=== PATIENT | female | born 1965 | race Caucasian/White ===

== ENCOUNTER 2018-09-05 16:06 | Observation (INO) | payer MEDICAID, SELFPAY ==
[2018-09-05] VITALS (7 sets, daily range): BP systolic 126–167; BP diastolic 70–93; PULSE 78–88; RESP 16; TEMP 36.6–37; O2SAT 94–98; BMI 36.3
[2018-09-05 18:05] LABS: Bacteria 0 SEEN /hpf (None Seen); Mucous, Urine 0 SEEN /hpf (<or=2+); Red Blood Cells-Urine 0 SEEN /hpf (0-5)
[2018-09-05 18:07] LABS: Color, Urine Yellow (Yellow); Glucose, Dipstick Normal (Normal); Ketone-Dipstick Negative (Negative); Leukocyte Esterase-Dipstick 500 /ul (Negative); Nitrite-Dipstick Negative (Negative); Occult Blood-Urine 25 /ul (Negative); Protein-Dipstick 15 mg/dl (Negative); Urine Bilirubin Dipstick Negative (Negative); Urine Clarity Clear (Clear); Urine Urobilinogen Normal (Normal); Urine pH 6.5 (5.0 - 8.0)
[2018-09-05] MEDS: Ondansetron 4 MG/2 ML Vial IV (18:09)
[2018-09-05] MEDS: Dicyclomine 10 MG Capsule 20 MG PO (18:11)
[2018-09-05 18:13] LABS: Squamous Epithelial Cells - UA 0-5 SEEN /hpf (5-10); White Blood Cells 10-25 SEEN /hpf (0-5)
[2018-09-05 18:14] LABS: Absolute Lymphocyte Count 2.38 X10^3/ul (0.83-4.51); Absolute Neutrophil Count 8.4 X10^3/uL (2.0-7.7); Basophil# 0.02 X10^3/uL; Basophil% 0.2 % (0-1); Eosinophil# 0.15 X10^3/uL; Eosinophils% 1.2 % (0-5); Hematocrit 45.8 % (37-47); Hemoglobin 15.2 g/dl (12.0-15.0); Lymphocyte # 2.38 X10^3/ul (4.0); Lymphocyte % 19.5 % (19-41); Mean Corp Hgb Conc 33.2 g/gl (32-36); Mean Corpuscular Hgb 30.3 pg (27.0-32.0); Mean Corpuscular Volume 91.2 fL (81-99); Mean Platelet Vol. 8.4 fl (6.2-12.0); Monocyte# 1.12 X10^3/uL; Monocyte% 9.2 % (0-10); Neutrophil # 8.43 X10^3/uL (2.7-7.7); Neutrophil % 69.1 % (47-70); Platelet Count 396 K/mm3 (150-450); RBC Distribution Width CV 13.8 % (11.6-14.6); RBC Distribution Width SD 45.4 fl (35.1-43.9); Red Blood Count 5.02 M/mm3 (4.2-5.4); White Blood Count 12.2 K/mm3 (4.4-11.0)
[2018-09-05 18:16] LABS: POSITIVE COUNT NO; POSITIVE DIFFERENTIAL NO; POSITIVE MORPHOLOGY NO
[2018-09-05 18:28] LABS: Anion Gap 9 (5-15); BUN 10 mg/dL (7-18); BUN/Creat Ratio 13.2 RATIO (10-20); Calcium,Total 9.3 mg/dL (8.5-10.1); Chloride 105 mmol/L (98-107); Creatinine, Serum 0.76 mg/dL (0.55-1.02); EST Glomerular Filtration Rate 84 mL/min (>60); Est Glom Filt Rate - Afr Amer 102 mL/min (>60); Estimated Creatinine Clearance 66.15 ml/min; Glucose 110 mg/dL (74-106); Potassium 3.3 mmol/L (3.5-5.1); Sodium Level 139 mmol/L (136-145)
--- NOTE | 2018-09-05 19:04 | CT_ITS ---
STUDY: CT ABDOMEN AND PELVIS WITH CONTRAST REASON FOR EXAM: Female, 53 years old. Abdominal pain, leukocytosis RADIATION DOSAGE (If Supplied By Facility): CTDIvol = ( 16.78 ) mGy, DLP = ( 1142.96 ) mGycm TECHNIQUE: Transaxial images were obtained from the lower chest to the upper thighs with oral contrast. 100 ml of Isovue 300 contrast was administered. Sagittal and coronal images were reconstructed. Individualized dose optimization techniques were used for this CT. COMPARISON: April 28, 2017 FINDINGS: Lower chest: Lower lungs: Unremarkable. Pleura: No pleural effusion. Cardiac: Normal size heart. Liver: Normal in appearance. Spleen: Normal in appearance. Gallbladder and biliary system: There are a few punctate hyperdensities in the lumen of the gallbladder. Pancreas: Normal in appearance. Adrenal glands: Normal in appearance. Kidneys and collecting systems: Right: Normal in appearance. No dilatation of collecting system. Left: Scattered benign cysts. No dilatation of collecting system. Gastrointestinal: Stomach: Small hiatal hernia. Small bowel: Normal in appearance. Colon: Normal in appearance. Appendix: Normal in appearance. Axial images 76-80, coronal images 69-75. Vessels: Arterial: Minimal scattered vascular calcifications. Venous: Unremarkable. Retroperitoneum/mesentery: Lymph nodes: Unremarkable. Fluid/free air: None. Pelvis: Bladder: Normal in appearance. Reproductive organs: Uterus normal in appearance. No abnormal masses in the adnexal regions. Scattered phleboliths. Soft tissues: There is herniation of fat above the umbilicus with stranding in the fat. Bones: Mild degenerative changes. There is stable grade 1 spondylolisthesis of L4 on L5. CT/Abdomen/Pelvis WITH Contrast IMPRESSION: There is midline herniation of fat above the umbilicus with the neck measuring 2.5 cm. There is stranding in the fat, and incarceration cannot be excluded. There are no acute bowel abnormalities. There is no ascites or free air. There is no significant lymphadenopathy. There are likely a few small gallstones in the lumen of the gallbladder without evidence of surrounding inflammation. Electronically Signed: Mary Wright MD at 22:20 EST Tel Direct: [phone], Service support ,
--- NOTE | 2018-09-05 22:44 | ED.DCSUM_ITS ---
- ER Visit Summary Date of Service: 09/05/18 Chief Complaint: Acute midline abdominal pain from the pubis to the xiphoid process this started abruptly earlier today History of Present Illness: The patient is a 53 F who presents with severe sharp central abdominal pain from the xiphoid process to the symphysis pubis. This is associated with nausea. Last bowel movement earlier today. She is fluctuating. She states she had similar presentation when diagnosed with strangling hernia and operated on by Dr. Sims. She denies fever, chills night sweats. She denies visual, ocular auditory symptoms. She denies chest pain palpitations. Denies shortness of breath cough or dyspnea on exertion. She denies urologic symptoms. Denies myalgias arthralgias. Denies rash. Denies history of trauma. She denies neurologic symptoms. She is on Plavix denies bruising easily or bleeding problems. Physical Examination: Vital signs noted and normal. She appears uncomfortable. Head is atraumatic normocephalic. Pupils are equal round reactive. Extraocular muscles are intact. TMs are pearly white with landmarks noted. Nares patent with no drainage. Posterior pharynx without erythema or exudate. Uvula is midline. There is no dysphonia or dysphasia. Trachea is midline. There is no stridor with auscultation of the neck. Heart is regular without murmur, gallop or rub. S1 and S2 are normal. Lungs are clear to auscultation with good movement of air bilaterally. Abdomen is remarkable for tenderness throughout however there is greater tenderness inferior and superior the umbilicus. There is no umbilical hernia. Bowel sounds are present and slightly diminished. There is question of voluntary guarding. There is no CVA tenderness noted. Lower extreme exam is unremarkable. Test Results: White count is 12.2 thousand with 69 segs no bands. Potassium 3.3. UA is remarkable for leukoesterase and blood 525 respectively. Micro reveals 10-25 WBCs with no bacteria. Because of the history of hernia central pain nausea and elevated white count a CT of the abdomen was obtained. CT of the abdomen reveals a an incarcerated supraumbilical hernia with fat stranding noted. There apparently is no bile noted. There is no evidence of obstruction either. Emergency Department Course and Treatment: Patient had IV placed medicated for her pain. She reported no improvement. With elevated white count CT was obtained to evaluate for obstruction hernia etc. Treatment Plan: Dr. Rm was paged. I was informed that Dr. Eliza Drake is on-call. She was informed the patient and will see patient. Disposition: To OR Impression: Incarcerated supraumbilical hernia This note was generated with [employer] dictation software. It may contain incorrect words, spelling, and punctuation that were not noted in review of the chart prior to signing ED Disposition - Plan for ED Patient: Chief Complaint: Abd Pain Referrals: Saurabh Hayes DO [Primary Care Provider] -
--- NOTE | 2018-09-05 23:22 | PCM.HP.STD ---
<Eliza Hollis - Last Filed: 09/05/18 23:54> History of Present Illness Date of Admission: 09/05/18 The patient is a 53 year old F presented to the ER due to abdominal pain. Patient states that on Thursday about 4 PM started having lower abdominal pain and throughout the weekend she did continue to have pain and had some bloating along with nausea and was unable to eat much food because she didn't want to vomit. She was able to last eat at around 2-3 PM today some cereal. Patient did have an emergent umbilical hernia repair by Dr. Gao in April 2017 where he repaired it with Prolene and the colon was viable. Patient states she has lost 50 pounds since her last surgery. Patient states that she was just watching TV/cooking when she started to have the lower abdominal pain. Patient did come to the ER due to the pain moving higher in her abdomen along with the nausea. Past Medical History Allergies WAN Inhibitors Allergy (Verified 09/05/18 23:03) Shortness of breath latex Allergy (Verified 09/05/18 23:03) Rash Sulfa (Sulfonamide Antibiotics) Allergy (Verified 09/05/18 23:03) Rash sumatriptan [From Imitrex] Allergy (Verified 09/05/18 23:03) Anaphylaxis hydrocodone bitartrate [From Vicodin] Adverse Reaction (Verified 09/05/18 23:03) Upset Stomach Home Medications: Ambulatory Orders Medication Instructions Recorded Amlodipine Besylate [Norvasc] 10 mg PO DAILY 04/28/17 Cholecalciferol (Vitamin D3) 1,000 unit PO DAILY 04/28/17 [Vitamin D3] Krill/Om-3/Dha/Epa/Phospho/Ast 1 each PO DAILY 04/28/17 [Krill Oil 1,000 mg Softgel] Losartan/Hydrochlorothiazide 1 each PO DAILY 04/28/17 [Losartan-Hctz 100-25 mg Tab] Paroxetine HCl [Paxil] 40 mg PO QHS 04/28/17 Potassium Chloride 20 meq PO DAILY 04/28/17 Tizanidine HCl 4 mg PO QHS 04/28/17 Lorazepam [Ativan] 0.5 mg PO BID 09/05/18 Wellbutrin Xl 150 mg PO DAILY 09/06/18 Surgical History: - - Carpal tunnel bilaterally, D&C, TNA, umbilical hernia repair primary closure Psychiatric History: Anxiety, Depression 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 Lives: With Family Smoking Status: Never smoker Alcohol: Occasional Drugs: None - *Family History Maternal History Items: No pertinent history Review of Systems Constitutional: Denies: Fever Eyes: Denies: Blurred vision HEENT: Denies: Difficulty Swallowing Cardiovascular: Denies: Chest Pain Respiratory: Denies: Shortness of breath at rest Gastrointestinal: Reports: Abdominal Pain, Nausea Genitourinary: Denies: Dysuria Psychiatric: Reports: Depression - Controlled medication VTE Information - Inpt Only VTE Present on Admission: Yes VTE Mechan Device Prophylaxis: SCD's VTE Pharm Prophylaxis ordered?: No Reason prophylaxis not ordered:: Treatment Not Indicated - Physical Exam General: Alert, Oriented x3, Cooperative, No apparent distress HEENT: Atraumatic Lungs: Normal air movement Cardiovascular: Regular rate Abdomen: Soft, Non-Distended, Tender - +supraumb bulge, not reducible, +ttp, mild+ttp upper abd, no PS Extremities: No clubbing, No cyanosis, No edema Neurological: Cranial nerves II-XII grossly intact Psych/Mental Status: Normal Affect Vital Signs Temp Pulse Resp BP Pulse Ox 98.4 F 82 16 167/85 H 95 09/05/18 23:00 09/05/18 23:00 09/05/18 23:00 09/05/18 23:00 09/05/18 23:00 Oxygen Delivery Method Room Air Weight: 198 lb 13.711 oz Body Mass Index (BMI) 36.3 Finger Stick Blood Glucose 138 Laboratory Tests Past 24 Hrs 09/05/18 09/05/18 09/05/18 18:03 18:10 18:10 WBC 12.2 H RBC 5.02 Hgb 15.2 H Hct 45.8 MCV 91.2 MCH 30.3 MCHC 33.2 RDW 13.8 RDW Differential 45.4 H Plt Count 396 MPV 8.4 Immature Gran % (Auto) 0.800 Neut % (Auto) 69.1 Lymph % (Auto) 19.5 [place] % (Auto) 9.2 Eos % (Auto) 1.2 Baso % (Auto) 0.2 Absolute Neuts (auto) 8.4 H Absolute Lymphs (auto) 2.38 Total Counted Not Reportable Sodium 139 Potassium 3.3 L Chloride 105 Carbon Dioxide 25.0 Anion Gap 9 BUN 10 Creatinine 0.76 Estim Creat Clear Calc 66.15 Est GFR (MDRD) Af Amer 102 Est GFR (MDRD) Non-Af 84 BUN/Creatinine Ratio 13.2 Glucose 110 H Calcium 9.3 Urine Color Yellow Urine Clarity Clear Urine pH 6.5 Ur Specific [place] 1.010 Urine Protein 15 H Urine Glucose (UA) Normal Urine Ketones Negative Urine Occult Blood 25 H Urine Nitrite Negative Urine Bilirubin Negative Urine Urobilinogen Normal Ur Leukocyte Esterase 500 H Urine RBC 0 SEEN Urine WBC 10-25 SEEN Ur Squamous Epith Cells 0-5 SEEN Urine Bacteria 0 SEEN Urine Mucus 0 SEEN Assessment/Plan All Active Problems Strangulated ventral hernia (Acute) 53-year-old female with a recurrent incisional hernia with incarcerated fat 1. We will keep patient n.p.o./IV fluids meds with sips. Dr. Rm will evaluate in the a.m. 2. Pain control with IV pain meds 3. Antiemetics Eliza Hollis M.D. Pager: [phone] [facility] [address] [place] [address], [facility], [address] [place] [address] Office: [phone] <Kristen Rm - Last Filed: 09/06/18 07:35> History of Present Illness The patient is a 53 year old F [] Past Medical History Allergies WAN Inhibitors Allergy (Verified 09/06/18 00:20) worsened asthma latex Allergy (Verified 09/05/18 23:03) Rash Sulfa (Sulfonamide Antibiotics) Allergy (Verified 09/05/18 23:03) Rash sumatriptan [From Imitrex] Allergy (Verified 09/05/18 23:03) Anaphylaxis hydrocodone bitartrate [From Vicodin] Adverse Reaction (Verified 09/05/18 23:03) Upset Stomach - Physical Exam Vital Signs Temp Pulse Resp BP Pulse Ox 98.3 F 66 18 107/64 98 09/06/18 04:15 09/06/18 04:15 09/06/18 04:15 09/06/18 04:15 09/06/18 04:15 Oxygen Delivery Method Room Air Weight: 88.5 kg Body Mass Index (BMI) 35.6 Finger Stick Blood Glucose 138 Laboratory Tests Past 24 Hrs 09/05/18 09/05/1809/05/18 18:03 18:10 18:10 WBC 12.2 H RBC 5.02 Hgb 15.2 H Hct 45.8 MCV 91.2 MCH 30.3 MCHC 33.2 RDW 13.8 RDW Differential 45.4 H Plt Count 396 MPV 8.4 Immature Gran % (Auto) 0.800 Neut % (Auto) 69.1 Lymph % (Auto) 19.5 [place] % (Auto) 9.2 Eos % (Auto) 1.2 Baso % (Auto) 0.2 Absolute Neuts (auto) 8.4 H Absolute Lymphs (auto) 2.38 Total Counted Not Reportable Sodium 139 Potassium 3.3 L Chloride 105 Carbon Dioxide 25.0 Anion Gap 9 BUN 10 Creatinine 0.76 Estim Creat Clear Calc 66.15 Est GFR (MDRD) Af Amer 102 Est GFR (MDRD) Non-Af 84 BUN/Creatinine Ratio 13.2 Glucose 110 H Hemoglobin A1c Calcium 9.3 Urine Color Yellow Urine Clarity Clear Urine pH 6.5 Ur Specific [place] 1.010 Urine Protein 15 H Urine Glucose (UA) Normal Urine Ketones Negative Urine Occult Blood 25 H Urine Nitrite Negative Urine Bilirubin Negative Urine Urobilinogen Normal Ur Leukocyte Esterase 500 H Urine RBC 0 SEEN Urine WBC 10-25 SEEN Ur Squamous Epith Cells 0-5 SEEN Urine Bacteria 0 SEEN Urine Mucus 0 SEEN 09/06/18 09/06/18 09/06/18 05:24 05:24 05:24 WBC 9.4 RBC 4.32 Hgb 13.1 Hct 40.1 MCV 92.8 MCH 30.3 MCHC 32.7 RDW 14.0 RDW Differential 46.1 H Plt Count 359 MPV 8.7 Immature Gran % (Auto) 0.900 Neut % (Auto) 55.0 Lymph % (Auto) 32.8 [place] % (Auto) 9.2 Eos % (Auto) 1.8 Baso % (Auto) 0.3 Absolute Neuts (auto) 5.2 Absolute Lymphs (auto) 3.09 Total Counted Not Reportable Sodium 143 Potassium 3.4 L Chloride 107 Carbon Dioxide 26.0 Anion Gap 10 BUN 9 Creatinine 0.83 Estim Creat Clear Calc 60.57 Est GFR (MDRD) Af Amer 92 Est GFR (MDRD) Non-Af 76 BUN/Creatinine Ratio 10.8 Glucose 97 Hemoglobin A1c Pending Calcium 8.6 Urine Color Urine Clarity Urine pH Ur Specific [place] Urine Protein Urine Glucose (UA) Urine Ketones Urine Occult Blood Urine Nitrite Urine Bilirubin Urine Urobilinogen Ur Leukocyte Esterase Urine RBC Urine WBC Ur Squamous Epith Cells Urine Bacteria Urine Mucus Assessment/Plan Appreciate Dr. Hollis's evaluation as above. In summary, 53 y/o WF presents with recurrence of ventral hernia with incarceration, no GI obstruction noted. I will plan ventral hernia repair later today. I have counseled patient as to risks of the procedure, including but not limited to: infection, bleeding, injury to any blood vessels/nerves, injury to any bowel/bladder, injury to any intraabdominal organs, intraabdominal abscess/bleeding, scar tissue, recurrence of hernia, complications of anesthesia, etc. - she understands. She wishes to proceed.
--- NOTE | 2018-09-05 23:26 | HP.PCM_ITS ---
Addendum entered and electronically signed by Kristen Rm MD 09/06/18 07:36: Code Visit Discussed with patient as above. I have answered all her questions and she has no further questions. Most importantly, she would be at risk for recurrence of hernia, given her obesity, she understands. Original Note: <Eliza Hollis - Last Filed: 09/05/18 23:54> History of Present Illness Date of Admission: 09/05/18 The patient is a 53 year old F presented to the ER due to abdominal pain. Patient states that on Thursday about 4 PM started having lower abdominal pain and throughout the weekend she did continue to have pain and had some bloating along with nausea and was unable to eat much food because she didn't want to vomit. She was able to last eat at around 2-3 PM today some cereal. Patient did have an emergent umbilical hernia repair by Dr. Gao in April 2017 where he repaired it with Prolene and the colon was viable. Patient states she has lost 50 pounds since her last surgery. Patient states that she was just watching TV/cooking when she started to have the lower abdominal pain. Patient did come to the ER due to the pain moving higher in her abdomen along with the nausea. Past Medical History Allergies WAN Inhibitors Allergy (Verified 09/05/18 23:03) Shortness of breath latex Allergy (Verified 09/05/18 23:03) Rash Sulfa (Sulfonamide Antibiotics) Allergy (Verified 09/05/18 23:03) Rash sumatriptan [From Imitrex] Allergy (Verified 09/05/18 23:03) Anaphylaxis hydrocodone bitartrate [From Vicodin] Adverse Reaction (Verified 09/05/18 23:03) Upset Stomach Home Medications: Ambulatory Orders Medication Instructions Recorded Amlodipine Besylate [Norvasc] 10 mg PO DAILY 04/28/17 Cholecalciferol (Vitamin D3) 1,000 unit PO DAILY 04/28/17 [Vitamin D3] Krill/Om-3/Dha/Epa/Phospho/Ast 1 each PO DAILY 04/28/17 [Krill Oil 1,000 mg Softgel] Losartan/Hydrochlorothiazide 1 each PO DAILY 04/28/17 [Losartan-Hctz 100-25 mg Tab] Paroxetine HCl [Paxil] 40 mg PO QHS 04/28/17 Potassium Chloride 20 meq PO DAILY 04/28/17 Tizanidine HCl 4 mg PO QHS 04/28/17 Lorazepam [Ativan] 0.5 mg PO BID 09/05/18 Wellbutrin Xl 150 mg PO DAILY 09/06/18 Surgical History: - - Carpal tunnel bilaterally, D&C, TNA, umbilical hernia repair primary closure Psychiatric History: Anxiety, Depression 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 Lives: With Family Smoking Status: Never smoker Alcohol: Occasional Drugs: None - *Family History Maternal History Items: No pertinent history Review of Systems Constitutional: Denies: Fever Eyes: Denies: Blurred vision HEENT: Denies: Difficulty Swallowing Cardiovascular: Denies: Chest Pain Respiratory: Denies: Shortness of breath at rest Gastrointestinal: Reports: Abdominal Pain, Nausea Genitourinary: Denies: Dysuria Psychiatric: Reports: Depression - Controlled medication VTE Information - Inpt Only VTE Present on Admission: Yes VTE Mechan Device Prophylaxis: SCD's VTE Pharm Prophylaxis ordered?: No Reason prophylaxis not ordered:: Treatment Not Indicated - Physical Exam General: Alert, Oriented x3, Cooperative, No apparent distress HEENT: Atraumatic Lungs: Normal air movement Cardiovascular: Regular rate Abdomen: Soft, Non-Distended, Tender - +supraumb bulge, not reducible, +ttp, mild+ttp upper abd, no PS Extremities: No clubbing, No cyanosis, No edema Neurological: Cranial nerves II-XII grossly intact Psych/Mental Status: Normal Affect Vital Signs Temp Pulse Resp BP Pulse Ox 98.4 F 82 16 167/85 H 95 09/05/18 23:00 09/05/18 23:00 09/05/18 23:00 09/05/18 23:00 09/05/18 23:00 Oxygen Delivery Method Room Air Weight: 198 lb 13.711 oz Body Mass Index (BMI) 36.3 Finger Stick Blood Glucose 138 Laboratory Tests Past 24 Hrs 09/05/18 09/05/18 09/05/18 18:03 18:10 18:10 WBC 12.2 H RBC 5.02 Hgb 15.2 H Hct 45.8 MCV 91.2 MCH 30.3 MCHC 33.2 RDW 13.8 RDW Differential 45.4 H Plt Count 396 MPV 8.4 Immature Gran % (Auto) 0.800 Neut % (Auto) 69.1 Lymph % (Auto) 19.5 [place] % (Auto) 9.2 Eos % (Auto) 1.2 Baso % (Auto) 0.2 Absolute Neuts (auto) 8.4 H Absolute Lymphs (auto) 2.38 Total Counted Not Reportable Sodium 139 Potassium 3.3 L Chloride 105 Carbon Dioxide 25.0 Anion Gap 9 BUN 10 Creatinine 0.76 Estim Creat Clear Calc 66.15 Est GFR (MDRD) Af Amer 102 Est GFR (MDRD) Non-Af 84 BUN/Creatinine Ratio 13.2 Glucose 110 H Calcium 9.3 Urine Color Yellow Urine Clarity Clear Urine pH 6.5 Ur Specific [place] 1.010 Urine Protein 15 H Urine Glucose (UA) Normal Urine Ketones Negative Urine Occult Blood 25 H Urine Nitrite Negative Urine Bilirubin Negative Urine Urobilinogen Normal Ur Leukocyte Esterase 500 H Urine RBC 0 SEEN Urine WBC 10-25 SEEN Ur Squamous Epith Cells 0-5 SEEN Urine Bacteria 0 SEEN Urine Mucus 0 SEEN Assessment/Plan All Active Problems Strangulated ventral hernia (Acute) 53-year-old female with a recurrent incisional hernia with incarcerated fat 1. We will keep patient n.p.o./IV fluids meds with sips. Dr. Rm will evaluate in the a.m. 2. Pain control with IV pain meds 3. Antiemetics Eliza Hollis M.D. Pager: [phone] [facility] [address] [place] [address], [facility], [address] [place] [address] Office: [phone] <Kristen Rm - Last Filed: 09/06/18 07:35> History of Present Illness The patient is a 53 year old F [] Past Medical History Allergies WAN Inhibitors Allergy (Verified 09/06/18 00:20) worsened asthma latex Allergy (Verified 09/05/18 23:03) Rash Sulfa (Sulfonamide Antibiotics) Allergy (Verified 09/05/18 23:03) Rash sumatriptan [From Imitrex] Allergy (Verified 09/05/18 23:03) Anaphylaxis hydrocodone bitartrate [From Vicodin] Adverse Reaction (Verified 09/05/18 23:03) Upset Stomach - Physical Exam Vital Signs Temp Pulse Resp BP Pulse Ox 98.3 F 66 18 107/64 98 09/06/18 04:15 09/06/18 04:15 09/06/18 04:15 09/06/18 04:15 09/06/18 04:15 Oxygen Delivery Method Room Air Weight: 88.5 kg Body Mass Index (BMI) 35.6 Finger Stick Blood Glucose 138 Laboratory Tests Past 24 Hrs 09/05/18 09/05/18 09/05/18 18:03 18:10 18:10 WBC 12.2 H RBC 5.02 Hgb 15.2 H Hct 45.8 MCV 91.2 MCH 30.3 MCHC 33.2 RDW 13.8 RDW Differential 45.4 H Plt Count 396 MPV 8.4 Immature Gran % (Auto) 0.800 Neut % (Auto) 69.1 Lymph % (Auto) 19.5 [place] % (Auto) 9.2 Eos % (Auto) 1.2 Baso % (Auto) 0.2 Absolute Neuts (auto) 8.4 H Absolute Lymphs (auto) 2.38 Total Counted Not Reportable Sodium 139 Potassium 3.3 L Chloride 105 Carbon Dioxide 25.0 Anion Gap 9 BUN 10 Creatinine 0.76 Estim Creat Clear Calc 66.15 Est GFR (MDRD) Af Amer 102 Est GFR (MDRD) Non-Af 84 BUN/Creatinine Ratio 13.2 Glucose 110 H Hemoglobin A1c Calcium 9.3 Urine Color Yellow Urine Clarity Clear Urine pH 6.5 Ur Specific [place] 1.010 Urine Protein 15 H Urine Glucose (UA) Normal Urine Ketones Negative Urine Occult Blood 25 H Urine Nitrite Negative Urine Bilirubin Negative Urine Urobilinogen Normal Ur Leukocyte Esterase 500 H Urine RBC 0 SEEN Urine WBC 10-25 SEEN Ur Squamous Epith Cells 0-5 SEEN Urine Bacteria 0 SEEN Urine Mucus 0 SEEN 09/06/18 09/06/18 09/06/18 05:24 05:24 05:24 WBC 9.4 RBC 4.32 Hgb 13.1 Hct 40.1 MCV 92.8 MCH 30.3 MCHC 32.7 RDW 14.0 RDW Differential 46.1 H Plt Count 359 MPV 8.7 Immature Gran % (Auto) 0.900 Neut % (Auto) 55.0 Lymph % (Auto) 32.8 [place] % (Auto) 9.2 Eos % (Auto) 1.8 Baso % (Auto) 0.3 Absolute Neuts (auto) 5.2 Absolute Lymphs (auto) 3.09 Total Counted Not Reportable Sodium 143 Potassium 3.4 L Chloride 107 Carbon Dioxide 26.0 Anion Gap 10 BUN 9 Creatinine 0.83 Estim Creat Clear Calc 60.57 Est GFR (MDRD) Af Amer 92 Est GFR (MDRD) Non-Af 76 BUN/Creatinine Ratio 10.8 Glucose 97 Hemoglobin A1c Pending Calcium 8.6 Urine Color Urine Clarity Urine pH Ur Specific [place] Urine Protein Urine Glucose (UA) Urine Ketones Urine Occult Blood Urine Nitrite Urine Bilirubin Urine Urobilinogen Ur Leukocyte Esterase Urine RBC Urine WBC Ur Squamous Epith Cells Urine Bacteria Urine Mucus Assessment/Plan Appreciate Dr. Hollis's evaluation as above. In summary, 53 y/o WF presents with recurrence of ventral hernia with incarceration, no GI obstruction noted. I will plan ventral hernia repair later today. I have counseled patient as to risks of the procedure, including but not limited to: infection, bleeding, injury to any blood vessels/nerves, injury to any bowel/bladder, injury to any intraabdominal organs, intraabdominal absces s/bleeding, scar tissue, recurrence of hernia, complications of anesthesia, etc. - she understands. She wishes to proceed.
[2018-09-06] VITALS (12 sets, daily range): BP systolic 98–138; BP diastolic 51–79; PULSE 61–90; RESP 16–18; TEMP 36.7–37.2; O2SAT 92–98; BMI 35.6; BMI 35.7
[2018-09-06] MEDS: Lactated Ringers 1,000 ML 125 ML IV ×3 (00:14→16:30)
[2018-09-06] MEDS: tiZANidine HCl 2 MG Tablet 4 MG PO ×2 (00:54→21:36)
[2018-09-06] MEDS: Morphine 2 MG/ML Syringe IV ×2 (01:04→08:22)
[2018-09-06 05:53] LABS: Absolute Lymphocyte Count 3.09 X10^3/ul (0.83-4.51); Absolute Neutrophil Count 5.2 X10^3/uL (2.0-7.7); Basophil# 0.03 X10^3/uL; Basophil% 0.3 % (0-1); Eosinophil# 0.17 X10^3/uL; Eosinophils% 1.8 % (0-5); Hematocrit 40.1 % (37-47); Hemoglobin 13.1 g/dl (12.0-15.0); Lymphocyte # 3.09 X10^3/ul (4.0); Lymphocyte % 32.8 % (19-41); Mean Corp Hgb Conc 32.7 g/gl (32-36); Mean Corpuscular Hgb 30.3 pg (27.0-32.0); Mean Corpuscular Volume 92.8 fL (81-99); Mean Platelet Vol. 8.7 fl (6.2-12.0); Monocyte# 0.87 X10^3/uL; Monocyte% 9.2 % (0-10); Neutrophil # 5.17 X10^3/uL (2.7-7.7); Platelet Count 359 K/mm3 (150-450); RBC Distribution Width SD 46.1 fl (35.1-43.9); Red Blood Count 4.32 M/mm3 (4.2-5.4); White Blood Count 9.4 K/mm3 (4.4-11.0)
[2018-09-06 05:56] LABS: Anion Gap 10 (5-15); BUN 9 mg/dL (7-18); BUN/Creat Ratio 10.8 RATIO (10-20); Calcium,Total 8.6 mg/dL (8.5-10.1); Chloride 107 mmol/L (98-107); Creatinine, Serum 0.83 mg/dL (0.55-1.02); EST Glomerular Filtration Rate 76 mL/min (>60); Est Glom Filt Rate - Afr Amer 92 mL/min (>60); Estimated Creatinine Clearance 60.57 ml/min; Glucose 97 mg/dL (74-106); Potassium 3.4 mmol/L (3.5-5.1); Sodium Level 143 mmol/L (136-145)
[2018-09-06 06:05] LABS: POSITIVE COUNT NO; POSITIVE DIFFERENTIAL NO; POSITIVE MORPHOLOGY NO
[2018-09-06] MEDS: LORazepam 0.5 MG Tablet PO ×2 (08:19→21:36)
[2018-09-06] MEDS: buPROPion (XL) 150 MG TABLET.XL PO (08:20)
[2018-09-06] MEDS: hydroCHLOROthiazide 25 MG Tablet PO (08:20)
[2018-09-06] MEDS: Losartan Potassium 100 MG Tablet PO (08:20)
[2018-09-06] MEDS: amLODIPine 10 MG Tablet PO (08:20)
[2018-09-06 08:34] LABS: Hemoglobin A1c 5.7 % (4.2-6.3)
--- NOTE | 2018-09-06 08:40 | HERN_PTH ---
PATIENT: KENNEDI PENG LOC: MS3 U#:[id number] AGE/SX: 53/F ROOM: NM313 RE09/05/[address]: Dr. Kristen Rm MD : 1965 BED: 1 DIS: 09/07/2018 SPEC #: [id number] RECD: 09/08/18 09:25 STATUS: MAISHA RENicci #: [id number] MAIRA: 09/06/18 08:[address]: Kristen Rm DEPT: SURGICAL PATHOLOGY RECD BY: Irving Perez ENTERED: 09/08/18 10:21 SP TYPE: Hernia OTHR DR: Dr. Saurabh Hayes, Tissues: HERNIA Procedures: Surgery Specimen Level II HEADER OPERATION: Recurrent incarcerated ventral herniorrhaphy PRE-OP DIAGNOSIS: Recurrent incarcerated ventral hernia TISSUE SUBMITTED: Ventral hernia sac and contents MICROSCOPIC DIAGNOSIS Soft tissue of ventral abdomen, excision: Fragments of fibrofatty tissue with mild chronic inflammation and vascular ectasia consistent with hernia sac and contents. AM:ruddy 09/09/18 MICROSCOPIC DESCRIPTION Slides are reviewed. GROSS DESCRIPTION Received in fixative is one container labeled with the patient's name and designated ventral hernia sac and contents. The specimen consists of two fragments of yellow adipose tissue that in aggregate measure 7 x 5.5 x 2.5 cm. Multiple sutures are also noted. Sections do not reveal any mass lesion. Food Court Team Member sections are submitted in one cassette. / SJ:ruddy 09/08/18 TC:5 CPT: 70539
[2018-09-06] MEDS: Morphine 4 MG/ML Syringe IV (11:00)
[2018-09-06] MEDS: Cefazolin 2 GM in 0.9% Normal Saline 100 ML IV (14:16)
--- NOTE | 2018-09-06 15:03 | OP.PN_ITS ---
Immediate Post-Op Note Date of Procedure: 09/06/18 Primary Surgeon/Physician: Kristen Rm MD word processing specialist: Faustina Castellano Pre-Operative Diagnosis: incarcerated incisional ventral hernia Post-Operative Diagnosis: same Surgery/Procedure Performed:: repair of incarcerated recurrent ventral hernia Description of Surgical Findings:: supraumbilical fascial defect with incarcerated and gangrenous omentum, fascial defect closed transversely Estimated Blood Loss: 10 ml Specimen's removed: gangrenous appearing omentum Type of Anesthesia:: General ASA Class: ASA3 Severe Disease - Admit VTE Documentation VTE Present on Admission: Yes VTE Mechan Device Prophylaxis: SCD's
--- NOTE | 2018-09-06 15:11 | OP.PCM_ITS ---
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 Appropriate time out protocol was followed. The patient was then placed under anesthesia. The abdomen was then prepped with a sterile surgical skin preparation. Sterile surgical drapes were placed. This skin and subcutaneous tissues were then widely infiltrated with the local anesthetic. A skin incision was then made with a 10 blade scalpel over the hernia site in a midline fashion extending the previous incision several centimeters superiorly. Electrocautery was used to carry the incision down to the fascia. Any hemorrhage was adequately controlled with electrocautery. Blunt dissection was done to separate the subcutaneous tissues from the herniated tissues. The patient had a large amount of subcutaneous fatty tissues. Blunt dissection was done to free the fatty tissues from the hernia sac. Then sharp dissection was continued to delineate the fascial defect. The fascial defect was 4 cm in maximum dimension. The fascial edges were from the sac and the subcutaneous fatty tissues. The sac was opened. It contained gangrenous-appearing omental tissue. This tissue was transected and forwarded to pathology. The excess hernia sac was also transected and forwarded to pathology. Hemostasis was carefully checked with electrocautery. There was no evidence of compromised bowel. Palpation from the defect of the anterior abdominal wall, revealed no further fascial defects. The fascial edges were reapproximated with interrupted figure of 8 #1 prolene sutures closing the fascial defect transversely. The wound was carefully checked for bleeding and there was no active bleeding. The deep tissues were reapproximated along the midline with interrupted 2-0 vicryl suture. The subdermal tissues were reapproximated with running 3-0 vicryl suture. The skin was reapproximated with running subcuticular 4-0 monocryl. Steristrips and Cavilon were placed to reinforce the skin closure. Sterile dressing was applied. Abdominal wall binder was also placed. The patient was brought from to the Recovery Room in stable condition. - Complications none noted - Admit VTE Documentation VTE Present on Admission: Yes VTE Mechan Device Prophylaxis: SCD's
[2018-09-06 15:51] LABS: Bedside Glucose 111 mg/dL (70-110)
[2018-09-06] MEDS: oxyCODONE 5 MG Tablet PO ×2 (17:37→21:36)
[2018-09-07] MEDS: Lactated Ringers 1,000 ML 125 ML IV ×2 (00:04→07:54)
[2018-09-07 03:29] VITALS: BP 119/60; PULSE 60; RESP 18; TEMP 36.7; O2SAT 98
[2018-09-07] MEDS: oxyCODONE 5 MG Tablet PO ×2 (03:58→11:14)
[2018-09-07] MEDS: Morphine 2 MG/ML Syringe IV (04:48)
--- NOTE | 2018-09-07 10:53 | PCM.DC.HER ---
Discharge Diet: No Restrictions - drink plenty of water Discharge Activity: Return to Normal Activity, May not drive while taking narcotic pain medications. Lifting Restrictions: no lifting greater than 20 pounds for 2 months Call your doctor if your incision/area has: Continuous Slow Oozing, Foul Smelling Discharge Call your doctor if you observe: Fever of 101 or Higher Additional Dressing/Incision Instructions:: Leave dressing in place. May get wet in shower. Do not soak - no tub baths/swimming. May remove/adjust abdominal binder as tolerated for comfort Additional Instructions: Pain medication regimen (if tolerates acetaminophen and ibuprofen) - for round the clock control of pain - can take 650 mg of acetaminophen then in three hours take 600 mg of ibuprofen then in three hours take 650 mg of acetaminophen, and so on. Take oxyir for breakthrough pain and at night Ice packs to the incision site may also help for comfort Allergies/Adverse Reactions: Allergies WAN Inhibitors Allergy (Verified 09/06/18 00:20) worsened asthma latex Allergy (Verified 09/05/18 23:03) Rash Sulfa (Sulfonamide Antibiotics) Allergy (Verified 09/05/18 23:03) Rash sumatriptan [From Imitrex] Allergy (Verified 09/05/18 23:03) Anaphylaxis hydrocodone bitartrate [From Vicodin] Adverse Reaction (Verified 09/05/18 23:03) Upset Stomach Medications to take at Discharge Amlodipine Besylate [Norvasc] 10 mg PO DAILY 04/28/17 Cholecalciferol (Vitamin D3) [Vitamin D3] 1,000 unit PO DAILY 04/28/17 Krill/Om-3/Dha/Epa/Phospho/Ast [Krill Oil 1,000 mg Softgel] 1 each PO DAILY 04/28/17 Losartan/Hydrochlorothiazide [Losartan-Hctz 100-25 mg Tab] 1 each PO DAILY 04/28/17 Paroxetine HCl [Paxil] 40 mg PO QHS 04/28/17 Potassium Chloride 20 meq PO DAILY 04/28/17 Tizanidine HCl 4 mg PO QHS 04/28/17 Lorazepam [Ativan] 0.5 mg PO BID 09/05/18 Wellbutrin Xl 150 mg PO DAILY 09/06/18 Oxycodone [Oxyir] 5 mg PO Q6H PRN PRN 5 Days #20 tab 09/07/18 The following prescriptions were given: Oxycodone [Oxyir] 5 mg PO Q6H PRN PRN 5 Days #20 tab PRN Reason: Mod-Severe Pain (-06/16) Primary Care Physician: Saurabh Hayes DO [Primary Care Provider] - Test Results: Test results from this visit will be discussed in further detail at your follow-up appointment, if applicable. Please Follow Up With: Kristen Rm MD - reyes When: to be seen in 7-10 days, please call for date and time, thank you Proposed Discharge Date: 09/07/18
--- NOTE | 2018-09-07 10:57 | DCINST_ITS ---
Discharge Diet: No Restrictions - drink plenty of water Discharge Activity: Return to Normal Activity, May not drive while taking narcotic pain medications. Lifting Restrictions: no lifting greater than 20 pounds for 2 months Call your doctor if your incision/area has: Continuous Slow Oozing, Foul Smelling Discharge Call your doctor if you observe: Fever of 101 or Higher Additional Dressing/Incision Instructions:: Leave dressing in place. May get wet in shower. Do not soak - no tub baths/swimming. May remove/adjust abdominal binder as tolerated for comfort Additional Instructions: Pain medication regimen (if tolerates acetaminophen and ibuprofen) - for round the clock control of pain - can take 650 mg of acetaminophen then in three hours take 600 mg of ibuprofen then in three hours take 650 mg of acetaminophen, and so on. Take oxyir for breakthrough pain and at night Ice packs to the incision site may also help for comfort Allergies/Adverse Reactions: Allergies WAN Inhibitors Allergy (Verified 09/06/18 00:20) worsened asthma latex Allergy (Verified 09/05/18 23:03) Rash Sulfa (Sulfonamide Antibiotics) Allergy (Verified 09/05/18 23:03) Rash sumatriptan [From Imitrex] Allergy (Verified 09/05/18 23:03) Anaphylaxis hydrocodone bitartrate [From Vicodin] Adverse Reaction (Verified 09/05/18 23:03) Upset Stomach Medications to take at Discharge Amlodipine Besylate [Norvasc] 10 mg PO DAILY 04/28/17 Cholecalciferol (Vitamin D3) [Vitamin D3] 1,000 unit PO DAILY 04/28/17 Krill/Om-3/Dha/Epa/Phospho/Ast [Krill Oil 1,000 mg Softgel] 1 each PO DAILY 04/28/17 Losartan/Hydrochlorothiazide [Losartan-Hctz 100-25 mg Tab] 1 each PO DAILY 04/28/17 Paroxetine HCl [Paxil] 40 mg PO QHS 04/28/17 Potassium Chloride 20 meq PO DAILY 04/28/17 Tizanidine HCl 4 mg PO QHS 04/28/17 Lorazepam [Ativan] 0.5 mg PO BID 09/05/18 Wellbutrin Xl 150 mg PO DAILY 09/06/18 Oxycodone [Oxyir] 5 mg PO Q6H PRN PRN 5 Days #20 tab 09/07/18 The following prescriptions were given: Oxycodone [Oxyir] 5 mg PO Q6H PRN PRN 5 Days #20 tab PRN Reason: Mod-Severe Pain (-06/16) Primary Care Physician: Saurabh Hayes DO [Primary Care Provider] - Test Results: Test results from this visit will be discussed in further detail at your follow- up appointment, if applicable. Please Follow Up With: Kristen Rm MD - reyes When: to be seen in 7-10 days, please call for date and time, thank you Proposed Discharge Date: 09/07/18
[2018-09-07 11:04] VITALS: BP 141/68; PULSE 60; RESP 16; TEMP 36.9; O2SAT 97
[2018-09-07] MEDS: hydroCHLOROthiazide 25 MG Tablet PO (11:09)
[2018-09-07] MEDS: Losartan Potassium 100 MG Tablet PO (11:09)
[2018-09-07] MEDS: amLODIPine 10 MG Tablet PO (11:11)
[2018-09-07] MEDS: LORazepam 0.5 MG Tablet PO (11:14)
--- NOTE | 2018-09-07 13:54 | PCM.PN.SRG ---
Subjective: Patient feeling improved, passing flatus, tolerating liquids - Physical Exam General: Alert, Oriented x3 Oral: Moist Mucosa Abdomen: Bowel Sounds Present, Soft, - - dressing intact, no seepage Vital Signs Temp Pulse Resp BP Pulse Ox 98.5 F 60 16 141/68 H 97 09/07/18 11:04 09/07/18 11:04 09/07/18 11:04 09/07/18 11:04 09/07/18 11:04 Oxygen Flow Rate (L/min) 2 Oxygen Delivery Method Room Air Weight: 88.451 kg Body Mass Index (BMI) 35.6 Finger Stick Blood Glucose 111 Intake and Output for Last 24 Hours 09/05/18 09/06/18 09/07/18 23:59 23:59 23:59 Intake Total 3246 / 3246 4979 / 4979 Output Total 221 / 221 1325 / 1325 Balance 3025 / 3025 3654 / 3654 POC Glucose 09/06/18 15:44 POC Glucose 111 H Medical Necessity - Tobacco Use Smoking Status: Never smoker Assessment/Plan All Active Problems Strangulated ventral hernia (Acute) Impression: POD#1 s/p incarcerated incisional ventral hernia repair Plan: discharge to home today
== END 2018-09-07 12:19 | disposition home or self-care (01) ==
LOC: ED 17:59 → AC 23:33 → ED 23:34 → MS3 23:38
PROVIDERS: Anesthesiology; Surgery; Admitting Provider Surgery; Emergency Provider Emergency Medicine; Family Provider Student in an Organized Health Care Education/Training Program; PCP Student in an Organized Health Care Education/Training Program; Visit Provider Surgery
PROC: (CPT 49565; principal; 2018-09-06 08:25)
DX: K43.0 Incisional hernia with obstruction, without gangrene (principal); F32.9 Major depressive disorder, single episode, unspecified; F41.9 Anxiety disorder, unspecified; E11.9 Type 2 diabetes mellitus without complications; Z85.828 Personal history of other malignant neoplasm of skin; Z79.899 Other long term (current) drug therapy; I10 Essential (primary) hypertension; J45.909 Unspecified asthma, uncomplicated; K21.9 Gastro-esophageal reflux disease without esophagitis
CPT/HCPCS: 49565; 36415; 74177; 80048; 81001; 82962; 83036; 85025; 88302; 93005; 96361; 96374; 96375; 96376; 97802; 99218; 99282; J7030; J7120; Q9967; A4216; G0378; J2405

== ENCOUNTER → 2019-03-11 09:06 | Outpatient (CLI) | payer MEDICAID, SELFPAY ==
[2018-09-06 12:14] VITALS: BMI 35.6
--- NOTE | 2019-03-11 09:14 | MRI_ITS ---
STUDY: MRI RIGHT ANKLE WITHOUT CONTRAST REASON FOR EXAM: Female, 53 years old. Right ankle pain. Ligament injury. Talus chondral defect. TECHNIQUE: Standardized fat and water weighted pulse sequences were obtained in all 3 orthogonal planes. COMPARISON: None. FINDINGS: Small osteochondral lesion at the distal tibia (sagittal image 11 series 9) measuring approximately 5 mm. No significant articular cartilage loss at the tibiotalar articulation. Normal subtalar articular cartilage. Normal talar dome. Normal calcaneocuboid articular cartilage. Normal talonavicular articular cartilage. Normal navicular cuneiform articular cartilage. Normal tarsal metatarsal articulations. No acute fracture, dislocation or osseous destruction. Lisfranc ligament intact. Normal posterior tibialis tendon. Normal flexor digitorum longus tendon. Normal flexor hallucis longus tendon. Mild peroneus longus and brevis tenosynovitis. Normal tibialis anterior tendon. Normal extensor hallucis longus tendon. Normal extensor digitorum longus tendons. Normal Achilles tendon. Small plantar spur. Minimal plantar fascial thickening without acute edema or tear. Normal muscles of the midfoot/hindfoot. Normal distal tibiofibular syndesmotic ligamentous complex. Acute anterior talofibular ligament sprain with low-grade partial tear (axial image 18 series 4 and coronal image 21 series 10). Normal subtalar ligaments and sinus tarsi. Normal deltoid ligamentous complexes. Normal plantar calcaneonavicular (spring) ligament. No significant soft tissue swelling. Moderate volume subtalar joint effusion with focal outpouching laterally. MRI/Lower Ext Joint Only (Routine) IMPRESSION: Distal tibial 5 mm osteochondral lesion Acute ATFL sprain with low-grade partial tear Mild peroneus longus/brevis tenosynovitis Small plantar spur with mild chronic plantar fascial thickening Moderate volume subtalar joint effusion with focal outpouching laterally Electronically Signed: Je Ash DO at 10:32 EDT Tel , Service support ,
== END ==
PROVIDERS: Family Provider Student in an Organized Health Care Education/Training Program; PCP Student in an Organized Health Care Education/Training Program; Referring Provider Podiatrist; Visit Provider Podiatrist
DX: M25.571 Pain in right ankle and joints of right foot (principal); M25.371 Other instability, right ankle; M93.871 Other specified osteochondropathies, right ankle and foot; S93.491D Sprain of other ligament of right ankle, subsequent encounter
CPT/HCPCS: 73721

== ENCOUNTER 2020-01-09 13:30 | Inpatient (IN) | payer MEDICAID, SELFPAY ==
[2018-09-06 12:14] VITALS: BMI 35.6
[2020-01-09] VITALS (18 sets, daily range): BP systolic 96–151; BP diastolic 59–97; PULSE 66–96; RESP 14–24; TEMP 36.1–37.6; O2SAT 95–100; BMI 34.0; BMI 35.3
--- NOTE | 2020-01-09 13:59 | CT_ITS ---
STUDY: CT SOFT TISSUE NECK WITH CONTRAST REASON FOR EXAM: Female, 54 years old. LEFT SIDE DENTAL PAIN W/ SWELLING RADIATION DOSAGE (If Supplied By Facility): CTDIvol = ( 20.99 ) mGy, DLP = ( 502.99 ) mGycm TECHNIQUE: The patient was scanned in a multi-detector CT scanner. High resolution transaxial imaging was performed following intravenous administration of IV 75mL [id number]-300. Sagittal and coronal images were reconstructed. Individualized dose optimization techniques were used for this CT. COMPARISON: None. FINDINGS: Normal bilateral parotid glands. Normal bilateral holder pile driving spaces. Normal bilateral parapharyngeal spaces. Normal bilateral carotid spaces. There is diffuse inflammatory changes involving the left submental region extending into the left parapharyngeal region. This extends over the lateral and medial aspect of the ramus of the mandible on the left side. A small amount of air is seen within these soft tissue collection as well as fluid. This measures 1.9 cm x 1.1 cm. A focal abscess should be ruled out. This most likely represents infection from the underlying tumor. Normal visualized nasopharynx. Normal retropharyngeal space. Normal perivertebral space. Normal visualized bilateral faucial tonsils. The visualized tongue, tongue base and oropharynx are normal. The visualized cervical lymph nodes (levels I-) are within normal size limits, and maintain normal morphology. There is no demonstrated solid or cystic mass lesion. There is no abnormal contrast enhancement. Normal epiglottis, bilateral vallecula and hypopharynx. The pre-epiglottic and paraglottic adipose spaces are normal. Normal visualized bilateral piriform sinuses, aryepiglottic folds, vocal cords, and arytenoid-cricoid articulations. Normal subglottic trachea. Normal bilateral lobes of the thyroid gland. Normal visualized pulmonary apices. Normal visualized paranasal sinuses. Normal visualized cervical spine. CT/Soft Tissue Neck WITH Contrast IMPRESSION: Diffuse edematous changes with probable abscess formation in the left submental region extending into the lateral and medial aspects of the ramus of the left-sided mandible with the swelling of the left parapharyngeal region. This most likely represents changes secondary to an abscess of the tooth. Electronically Signed: Azael Grimaldo, at 16:02 EDT , Service support ,
[2020-01-09] MEDS: 0.9% Normal Saline 1,000 ML 999 ML IV (14:35)
[2020-01-09 14:55] LABS: Absolute Lymphocyte Count 1.43 X10^3/uL (0.83-4.51); Absolute Neutrophil Count 11.1 X10^3/uL (2.0-7.7); Basophil# 0.04 X10^3/uL; Basophil% 0.3 % (0-1); Eosinophil# 0.06 X10^3/uL; Eosinophils% 0.4 % (0-5); Hematocrit 41.3 % (37-47); Hemoglobin 13.4 g/dL (12.0-15.0); Lymphocyte # 1.43 X10^3/ul (4.0); Lymphocyte % 10.3 % (19-41); Mean Corp Hgb Conc 32.4 g/dL (32-36); Mean Corpuscular Hgb 30.5 pg (27.0-32.0); Mean Corpuscular Volume 93.9 fL (81-99); Mean Platelet Vol. 8.7 fl (6.2-12.0); Monocyte# 1.26 X10^3/uL; NRBC Flagged by Analyzer 0 % (0-5); Neutrophil # 11.08 X10^3/uL (2.7-7.7); Neutrophil % 79.4 % (47-70); Platelet Count 347 K/mm3 (150-450); RBC Distribution Width CV 13.6 % (11.6-14.6); RBC Distribution Width SD 46.5 fl (35.1-43.9)
[2020-01-09 15:10] LABS: ALB/GLOB Ratio 0.7 RATIO (0.9-2.4); AST(SGOT) 12 U/L (15-37); Alanine Aminotransfer ALT/SGPT 14 U/L (13-56); Albumin, Serum 3.3 g/dL (3.2-5.0); Alkaline Phosphatase 82 U/L (45-117); BUN 10 mg/dL (7-18); BUN/Creat Ratio 15.2 RATIO (10-20); Calcium,Total 9.3 mg/dL (8.5-10.1); Chloride 103 mmol/L (98-107); Creatinine, Serum 0.66 mg/dL (0.55-1.02); EST Glomerular Filtration Rate 99 mL/min (>60); Est Glom Filt Rate - Afr Amer 119 mL/min (>60); Estimated Creatinine Clearance 71.82 ml/min; Globulin 4.8 g/dL (2.2-4.2); Glucose 95 mg/dL (74-106); Potassium 3.1 mmol/L (3.5-5.1); Protein, Total 8.1 g/dL (6.4-8.2); Sodium Level 137 mmol/L (136-145)
[2020-01-09 15:11] LABS: Anion Gap 5 (5-15)
[2020-01-09 15:19] LABS: Lactic Acid 0.8 mmol/L (0.4-1.9)
[2020-01-09] MEDS: Ondansetron 4 MG/2 ML Vial IV (15:38)
[2020-01-09] MEDS: Morphine 4 MG/ML Syringe IV ×2 (15:38→17:45)
[2020-01-09 15:49] LABS: International Normalized Ratio 1.1
[2020-01-09 15:50] LABS: Partial Thromboplast Time 29.4 Seconds (24.1-36.2)
--- NOTE | 2020-01-09 16:26 | ED.DCSUM_ITS ---
History of Present Illness Chief Complaint: Dental Narrative: Patient presenting secondary to dental pain and neck pain. Patient reports that over the course of about the last week she has been dealing with pain in a tooth in her left lower jaw. This has progressed to swelling in her neck, difficulty with opening her mouth, and some difficulty with swallowing. She does endorse some chills. Pain is moderate worse with eating drinking palpation and movement. Patient is never really had any prior similar episodes in the past. She denies being immunosuppressed. Review of systems otherwise negative. Past Medical History - Allergies and Home Meds Allergies/Adverse Reactions: Allergies WAN Inhibitors Allergy (Verified 01/09/20 13:30) worsened asthma latex Allergy (Verified 01/09/20 13:30) Rash Sulfa (Sulfonamide Antibiotics) Allergy (Verified 01/09/20 13:30) Rash sumatriptan [From Imitrex] Allergy (Verified 01/09/20 13:30) Anaphylaxis hydrocodone bitartrate [From Vicodin] Adverse Reaction (Verified 01/09/20 13:30) Upset Stomach Past Medical History: - - Hypertension Surgical History: - - Carpal tunnel bilaterally, D&C, TNA, umbilical hernia repair primary closure Smoking Status: Never smoker - Family History Maternal Family History: Reports: No pertinent history Review of Systems All systems negative except as indicated General: Reports: Chills Eyes: Denies: Visual changes - bilaterally, Diplopia ENT: Reports: - - Dental pain, neck swelling, difficulty opening mouth and swallowing. Cardiovascular: Denies: Chest pain, Palpitations Respiratory: Denies: Dyspnea, Cough, Dyspnea on exertion Gastrointestinal: Denies: Abdominal pain, Nausea, Vomiting, Diarrhea, Melena, Hematochezia Genitourinary: Denies: Dysuria, Hematuria, Frequency Musculoskeletal: Denies: Back pain, Extremity Pain Skin: Denies: Rash, Wounds Neurological: Denies: Headache, Weakness, Numbness Physical Exam Vital Signs/Narrative: Vital Signs Temp Pulse Resp BP Pulse Ox 01/09/20 14:34 99.7 F H 01/09/20 14:32 99.7 F H 88 20 H 122/74 H 95 01/09/20 14:24 86 20 H 122/74 H 97 01/09/20 13:31 97.0 F L 96 17 143/78 H 96 Inital Vital Signs reviewed: Yes General: Well nourished, Well developed, No Acute Distress Head: Normocephalic, Atraumatic Eyes: Perrl, EOMI ENT: Moist mucous membranes, No rhinorrhea, - - Patient has significant trismus and can really only open her mouth about 2 cm. No focal gum abscesses are noted. Patient has significant swelling of the left side of her neck in the submental region. Firmness in the sublingual region. No evidence of stridor. Patient has normal phonation. Neck: Supple, Nontender Cardiovascular: Regular rate, Regular rhythm, No murmurs Respiratory: No distress, CTA bilaterally, Chest nontender Abdomen: Soft, Nontender, Nondistended, Normal bowel sounds Back: Nontender, Normal Inspection Extremities: Nontender, No edema Skin: Normal color, No rash Neurological: Alert, Oriented x3, Cranial nerves II-XII grossly intact, Normal Strength, Normal Sensation Psychological: Normal affect, Normal Mood Diagnostic/Tx/Re-eval Clinical Impression(s) from Imaging Studies Soft Tissue Neck CT 01/09/20 13:59 IMPRESSION: Diffuse edematous changes with probable abscess formation in the left submental region extending into the lateral and medial aspects of the ramus of the left-sided mandible with the swelling of the left parapharyngeal region. This most likely represents changes secondary to an abscess of the tooth. Electronically Signed: Azael Grimaldo, at 16:02 EDT , Service support , Laboratory Data 01/09/20 01/09/20 01/09/20 14:30 14:30 14:30 WBC 14.0 H RBC 4.40 Hgb 13.4 Hct 41.3 MCV 93.9 MCH 30.5 MCHC 32.4 RDW Std Deviation 46.5 H RDW Coeff of Rebekah 13.6 Plt Count 347 MPV 8.7 Immature Gran % (Auto) 0.600 Neut % (Auto) 79.4 H Lymph % (Auto) 10.3 L [place] % (Auto) 9.0 Eos % (Auto) 0.4 Baso % (Auto) 0.3 Absolute Neuts (auto) 11.1 H Absolute Lymphs (auto) 1.43 Nucleated RBC % 0 PT Cancelled INR Cancelled APTT Cancelled Sodium 137 Potassium 3.1 L Chloride 103 Carbon Dioxide 29.0 Anion Gap 5 BUN 10 Creatinine 0.66 Estim Creat Clear Calc 71.82 Est GFR (MDRD) Af Amer 119 Est GFR (MDRD) Non-Af 99 BUN/Creatinine Ratio 15.2 Glucose 95 Lactic Acid Calcium 9.3 Total Bilirubin 0.80 AST 12 L ALT 14 Alkaline Phosphatase 82 Total Protein 8.1 Albumin 3.3 Globulin 4.8 H Albumin/Globulin Ratio 0.7 L 01/09/20 01/09/20 14:30 15:15 WBC RBC Hgb Hct MCV MCH MCHC RDW Std Deviation RDW Coeff of Rebekah Plt Count MPV Immature Gran % (Auto) Neut % (Auto) Lymph % (Auto) [place] % (Auto) Eos % (Auto) Baso % (Auto) Absolute Neuts (auto) Absolute Lymphs (auto) Nucleated RBC % PT 14.0 INR 1.1 APTT 29.4 Sodium Potassium Chloride Carbon Dioxide Anion Gap BUN Creatinine Estim Creat Clear Calc Est GFR (MDRD) Af Amer Est GFR (MDRD) Non-Af BUN/Creatinine Ratio Glucose Lactic Acid 0.8 Calcium Total Bilirubin AST ALT Alkaline Phosphatase Total Protein Albumin Globulin Albumin/Globulin Ratio - Medical Decision Making Patient presented with dental pain and a physical exam concerning for the possibility of soft tissue abscess in the neck or Jasiel's angina. IV was established laboratory studies were obtained patient was empirically given fluids and Unasyn. Patient does have a leukocytosis. Patient CT imaging of the neck shows evidence of soft tissue infection. I discussed patient's case with ear nose and throat who requested that I also speak with oral surgery. I discussed this with oral surgery both ear nose and throat and oral surgery agreed to see the patient in consultation. Patient will be admitted to intensive care under the hospitalist. - Critical Care Time Critical care time (excluding procedures): 30-74 minutes ED Disposition - Plan for ED Patient: Disposition: Acute Care Hospital [facility] Diagnosis: Ludwigs angina
--- NOTE | 2020-01-09 17:32 | HP.PCM_ITS ---
Problem List (1) Left submental abscess Status: Acute (2) Anxiety and depression Status: Chronic (3) Hypertension Status: Chronic (4) Ludwigs angina Status: Suspected History of Present Illness Date of Admission: 01/09/20 Chief Complaint: Dental pain, left face pain and swelling. The patient is a 54 year old F with past medical history as mentioned above presented to the emergency room because of pain on the left side of her face as well as left dental pain. Her symptoms started 4 days ago with pain on the left side of her face, dental pain, dull aching pain, 7 out of 10 in severity, extends to the left ear and down to the left neck, aggravated by opening her mouth, eating or drinking and no relieving factor, associated with increasing swelling of the left side of her face. She denies fever chills. She reported difficulty swallowing because of pain. Denies significant shortness of breath. In the emergency department, her vital signs were stable. Her routine blood work was remarkable for leukocytosis and potassium of 3.1, otherwise normal. LFT and lactic acid was unremarkable. CT scan of the soft tissue neck revealed diffuse edematous changes with probable abscess formation of the left submental region. She is being admitted for left submental abscess, suspected Ludewig's angina and left facial cellulitis for treatment. Past Medical History Past Medical History (Chronic Problems): Chronic Problems Anxiety and depression (Chronic) Hypertension (Chronic) Allergies WAN Inhibitors Allergy (Verified 01/09/20 13:30) worsened asthma latex Allergy (Verified 01/09/20 13:30) Rash Sulfa (Sulfonamide Antibiotics) Allergy (Verified 01/09/20 13:30) Rash sumatriptan [From Imitrex] Allergy (Verified 01/09/20 13:30) Anaphylaxis hydrocodone bitartrate [From Vicodin] Adverse Reaction (Verified 01/09/20 13:30) Upset Stomach Home Medications: Ambulatory Orders Medication Instructions Recorded Amlodipine Besylate [Norvasc] 10 mg PO DAILY 04/28/17 Paroxetine HCl [Paxil] 40 mg PO QHS 04/28/17 Tizanidine HCl 4 mg PO QHS 04/28/17 Bupropion HCl [Bupropion Xl] 300 mg PO DAILY 01/09/20 Cholecalciferol (VIT D3) [Vitamin 1,000 unit PO DAILY 01/09/20 D] Hydrochlorothiazide [Hctz] 25 mg PO DAILY 01/09/20 Krill/Om-3/Dha/Epa/Phospho/Ast 1 ea PO DAILY 01/09/20 [Krill Oil 1,000 mg Softgel] Losartan Potassium 100 mg PO DAILY 01/09/20 Potassium Chloride [Klor-Con M20] 20 meq PO DAILY 01/09/20 Surgical History: herniorrhaphy, - - Carpal tunnel bilaterally, D&C, TNA, umbilical hernia repair primary closure Psychiatric History: Anxiety, Depression 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 Denies: Difficulty Hearing, Ear Pain, Eye Pain, Nasal Congestion, Sore Throat Cardiovascular: Denies: Chest Pain, Chest Pressure, Edema, Heaviness, Light Headedness, Orthopnea, Paroxysmal Noc. Dyspnea, Syncope Respiratory: Denies: Cough, Hemoptysis, Pleuritic Pain, Sputum production, Wheezing Gastrointestinal: Denies: Abdominal Pain, Constipation, Diarrhea, Nausea, Vomiting Genitourinary: Denies: Dysuria, Frequency, Hematuria Musculoskeletal: Reports: Neck Pain. Denies: Arm Pain, Back Pain, Foot Pain Skin: Denies: Dryness, Rash Neurological: Denies: Balance problems, Double vision, Change in Speech, Slurred speech, Confusion, Headaches, Incoordination, Numbness Psychiatric: Reports: Anxiety, Depression Endocrine: Denies: Change in Body Habitus, Polydipsia, Polyuria VTE Information - Inpt Only VTE Present on Admission: No VTE Mechan Device Prophylaxis: None VTE Pharm Prophylaxis ordered?: No Patient Problems: Active and Suspected Problems Left submental abscess (Acute) Ludwigs angina (Suspected) - Physical Exam Vitals/I&O's: Vital Signs Temp Pulse Resp BP Pulse Ox 98.8 F 88 20 H 138/79 H 98 01/09/20 17:02 01/09/20 17:02 01/09/20 17:02 01/09/20 17:02 01/09/20 17:02 Oxygen Delivery Method Room Air Weight: 180 lb Body Mass Index (BMI) 34.0 Finger Stick Blood Glucose 111 General: Alert, Oriented x3, Cooperative, No apparent distress HEENT: Atraumatic, PERRLA, EOMI Oral: Moist Mucosa, No Gingival or Mucosal Lesions/ Ulcerations Neck: Supple, No JVD, Negative Carotid Bruits, Trachea Midline, Thyroid Normal Size and Texture, - - Left side of her face: Swelling and mild erythema involving the left side of her face extending from the left earlobe down to the montiel. Lungs: Clear to auscultation, Normal air movement, No rhonchi, No wheeze, No rales, Diminished Cardiovascular: Regular rate, Regular Rhythm, Normal S1, Normal S2, No murmurs, PMI Normal Abdomen: Bowel Sounds Present, Soft, Non Tender, Non-Distended, No Hepato- splenomegaly, Obese Extremities: No clubbing, No cyanosis, No edema Skin: No rashes, No breakdown Lymphatic: No Cervical, Supraclavicular, or Inguinal Adenopathy Neurological: Cranial nerves II-XII grossly intact, Motor Exam 5/5 strength throughout Psych/Mental Status: Normal Affect, Appropriate, Alert and oriented to time, place, person, mood and affect Laboratory Results 01/09/20 14:30: WBC 14.0 H, RBC 4.40, Hgb 13.4, Hct 41.3, MCV 93.9, MCH 30.5, MCHC 32.4, RDW Std Deviation 46.5 H, RDW Coeff of Rebekah 13.6, Plt Count 347, MPV 8.7, Immature Gran % (Auto) 0.600, Neut % (Auto) 79.4 H, Lymph % (Auto) 10.3 L, [place] % (Auto) 9.0, Eos % (Auto) 0.4, Baso % (Auto) 0.3, Absolute Neuts (auto) 11.1 H, Absolute Lymphs (auto) 1.43, Nucleated RBC % 0 01/09/20 14:30: PT Cancelled, INR Cancelled, APTT Cancelled 01/09/20 14:30: Sodium 137, Potassium 3.1 L, Chloride 103, Carbon Dioxide 29.0, Anion Gap 5, BUN 10, Creatinine 0.66, Estim Creat Clear Calc 71.82, Est GFR (MDRD) Af Amer 119, Est GFR (MDRD) Non-Af 99, BUN/Creatinine Ratio 15.2, Glucose 95, Calcium 9.3, Total Bilirubin 0.80, AST 12 L, ALT 14, Alkaline Phosphatase 82, Total Protein 8.1, Albumin 3.3, Globulin 4.8 H, Albumin/Globulin Ratio 0.7 L 01/09/20 14:30: Lactic Acid 0.8 01/09/20 15:15: PT 14.0, INR 1.1, APTT 29.4 Clinical Impression(s) from Imaging Studies Soft Tissue Neck CT 01/09/20 13:59 IMPRESSION: Diffuse edematous changes with probable abscess formation in the left submental region extending into the lateral and medial aspects of the ramus of the left-sided mandible with the swelling of the left parapharyngeal region. This most likely represents changes secondary to an abscess of the tooth. Electronically Signed: Azael Re, at 16:02 EDT , Service support , Assessment/Plan All Active Problems Left submental abscess (Acute) This is a 54 years old female patient presented to the emergency room because of dental pain, left facial pain and swelling and she was found to have left submental abscess on CT scan neck and she is being admitted for treatment. #1 left submental abscess/suspected Ludewig's angina: CT scan of the soft tissue of the neck reviewed. She does have leukocytosis, lactic acid is normal. No evidence of sepsis or severe sepsis. Respiratory status is stable. Plan: Admit to PCU, cardiac monitoring, continuous pulse oximeter, blood culture, IV morphine PRN for pain, OxyIR PRN for pain, IV fluids, start IV Unasyn, oral surgery consult, repeat CBC and BMP tomorrow morning. #2 hypokalemia: Potassium is 3.1, likely due to HCTZ. Plan to give 1 dose of K- Dur p.o. 60 mEq x 1, repeat BMP tomorrow morning. #3 hypertension: Blood pressure stable, continue Norvasc, HCTZ and losartan. #4 anxiety and depression: Stable, continue bupropion and Paxil. #5 arthritis: Continue tizanidine nightly, Tylenol PRN. #6 DVT prophylaxis: Low risk patient, no prophylaxis indicated. This note was generated with [employer] dictation software. It may contain incorrect words, spelling, and punctuation that were not noted in checking the note before signing. Inpatient E&M: 28234 Init Hosp L2
[2020-01-09] MEDS: 0.9% Normal Saline 1,000 ML 100 ML IV ×2 (18:22→23:10)
--- NOTE | 2020-01-09 18:39 | PCM.CONS.GEN ---
Reason for Consult Date of Consultation: 01/09/20 Reason for Consultation: Impending ludwigs angina and airway issues History of Present Illness: The patient is a 54 year old Female recently for left sided jaw and neck swelling with pain. Pain began approx 5 days ago. Had a tooth removed 6 months ago now tooth behind it is painful. Past Medical History Past Medical History (Chronic Problems): Chronic Problems Anxiety and depression (Chronic) Hypertension (Chronic) Allergies WAN Inhibitors Allergy (Verified 01/09/20 13:30) worsened asthma latex Allergy (Verified 01/09/20 13:30) Rash Sulfa (Sulfonamide Antibiotics) Allergy (Verified 01/09/20 13:30) Rash sumatriptan [From Imitrex] Allergy (Verified 01/09/20 13:30) Anaphylaxis hydrocodone bitartrate [From Vicodin] Adverse Reaction (Verified 01/09/20 13:30) Upset Stomach Home Medications: Ambulatory Orders Medication Instructions Recorded Amlodipine Besylate [Norvasc] 10 mg PO DAILY 04/28/17 Paroxetine HCl [Paxil] 40 mg PO QHS 04/28/17 Tizanidine HCl 4 mg PO QHS 04/28/17 Bupropion HCl [Bupropion Xl] 300 mg PO DAILY 01/09/20 Cholecalciferol (VIT D3) [Vitamin 1,000 unit PO DAILY 01/09/20 D] Hydrochlorothiazide [Hctz] 25 mg PO DAILY 01/09/20 Krill/Om-3/Dha/Epa/Phospho/Ast 1 ea PO DAILY 01/09/20 [Krill Oil 1,000 mg Softgel] Losartan Potassium 100 mg PO DAILY 01/09/20 Potassium Chloride [Klor-Con M20] 20 meq PO DAILY 01/09/20 Surgical History: herniorrhaphy, - - Carpal tunnel bilaterally, D&C, TNA, umbilical hernia repair primary closure Psychiatric History: Anxiety, Depression 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 Lives: Spouse/ Significant Other Smoking Status: Never smoker Alcohol: Rare Drugs: None - *Family History Maternal History Items: No pertinent history Paternal History Items: No pertinent history Review of Systems Constitutional: Denies: Anorexia, Chills, Night Sweats, Malaise, Weakness, Weight Change, Fatigue Eyes: Denies: Blurred vision, Double vision, Vision Change HEENT: Denies: Difficulty Hearing, Eye Pain, Hard of Hearing, Hearing Changes, Nasal bleeding, Nasal Congestion, Post Nasal Drip, Visual Changes Cardiovascular: Denies: Chest Pain Respiratory: Denies: Cough Gastrointestinal: Denies: Abdominal Pain Genitourinary: Denies: Dysuria, Frequency, Urgency Patient Problems: Active and Suspected Problems Ludwigs angina (Acute) Left submental abscess (Acute) Ludwigs angina (Suspected) - Physical Exam Vitals/I&O's: Vital Signs Temp Pulse Resp BP Pulse Ox 98.6 F 92 24 H 144/76 H 97 01/09/20 17:37 01/09/20 17:37 01/09/20 17:37 01/09/20 17:37 01/09/20 17:37 Oxygen Delivery Method Room Air Weight: 84.8 kg Body Mass Index (BMI) 35.3 Finger Stick Blood Glucose 111 Intake and Output for Last 24 Hours 01/07/20 01/08/20 01/09/20 23:59 23:59 23:59 Intake Total 1112 / 1112 Balance 1112 / 1112 General: Alert, Oriented x3, Cooperative, Well developed, Well nourished HEENT: Atraumatic, PERRLA, EOMI Oral: Moist Mucosa Neck: Trachea Midline Lungs: Normal air movement Cardiovascular: Regular rate Abdomen: Bowel Sounds Present Musculoskeletal: No Tenderness to Palpation of Joints or Extremities Lymphatic: No Cervical, Supraclavicular, or Inguinal Adenopathy Neurological: Cranial nerves II-XII grossly intact Psych/Mental Status: Normal Affect Laboratory Results 01/09/20 14:30: WBC 14.0 H, RBC 4.40, Hgb 13.4, Hct 41.3, MCV 93.9, MCH 30.5, MCHC 32.4, RDW Std Deviation 46.5 H, RDW Coeff of Rebekah 13.6, Plt Count 347, MPV 8.7, Immature Gran % (Auto) 0.600, Neut % (Auto) 79.4 H, Lymph % (Auto) 10.3 L, [place] % (Auto) 9.0, Eos % (Auto) 0.4, Baso % (Auto) 0.3, Absolute Neuts (auto) 11.1 H, Absolute Lymphs (auto) 1.43, Nucleated RBC % 0 01/09/20 14:30: PT Cancelled, INR Cancelled, APTT Cancelled 01/09/20 14:30: Sodium 137, Potassium 3.1 L, Chloride 103, Carbon Dioxide 29.0, Anion Gap 5, BUN 10, Creatinine 0.66, Estim Creat Clear Calc 71.82, Est GFR (MDRD) Af Amer 119, Est GFR (MDRD) Non-Af 99, BUN/Creatinine Ratio 15.2, Glucose 95, Calcium 9.3, Total Bilirubin 0.80, AST 12 L, ALT 14, Alkaline Phosphatase 82, Total Protein 8.1, Albumin 3.3, Globulin 4.8 H, Albumin/Globulin Ratio 0.7 L 01/09/20 14:30: Lactic Acid 0.8 01/09/20 15:15: PT 14.0, INR 1.1, APTT 29.4 Current Medications Acetaminophen (Tylenol) 650 mg PO Q6H PRN PRN PRN Reason: Pain Score 1-10/Temp > 100.7 F Amlodipine Besylate (Norvasc) 10 mg PO DAILY [facility] Bupropion HCl (Wellbutrin Xl) 300 mg PO DAILY [facility] Hydrochlorothiazide (Hctz) 25 mg PO DAILY [facility] Sodium Chloride () 1,000 mls @ 100 mls/hr IV .Q10H [facility] Last Admin: 01/09/20 18:22 Dose: 100 mls/hr Documented by: Ampicillin Sodium/Sulbactam (Sodium 3 gm/ Sodium Chloride) 112 mls @ 150 mls/hr IV Q8 [facility] Sodium Chloride () 250 mls @ 15 mls/hr IV .[id number] PRN PRN Reason: Saline Flush Sodium Chloride () 250 mls @ 15 mls/hr IV .[id number] PRN PRN Reason: Additional IVPB Infusion Ketorolac Tromethamine (Toradol (Bkc)) 30 mg IV Q8 [facility] Stop: 01/14/20 22:01 Losartan Potassium (Cozaar) 100 mg PO DAILY [facility] Morphine Sulfate () 2 mg IV Q3H PRN PRN PRN Reason: Pain Score 6-10/10 Non-Formulary Medication (Losartan/Hydrochlorothiazide) 1 each PO DAILY [facility] Ondansetron HCl (Zofran) 4 mg IV Q8H PRN PRN PRN Reason: NAUSEA/VOMITING Paroxetine HCl (Paxil) 40 mg PO QHS [facility] Senna/Docusate Sodium (Senokot-S, Nohemy-Colace) 2 tablet PO BID PRN PRN PRN Reason: Constipation Sodium Chloride () 10 - 40 ml IV UD PRN PRN Reason: SALINE FLUSH Tizanidine HCl (Zanaflex) 4 mg PO QHS [facility] Zolpidem Tartrate (Ambien (Generic)) 5 mg PO QHS PRN PRN PRN Reason: INSOMNIA Assessment/Plan All Active Problems Ludwigs angina (Acute) Left submental abscess (Acute) Airway is secure at this time she is handling her own secretions and converses well. She has marked trismus but can protrude her tongue. In light of the clinical and CT exams admitted for IV antibiotics and monitor over the next 24 hours for potential OR for I and D of left submandibular, sublingual, garment presser and potential para pharyngeal spaces. Would only give clears for now.
[2020-01-09 19:06] LABS: International Normalized Ratio 1.1; Prothrombin Time (Protime)PT. 13.9 SECONDS (11.7-14.9)
[2020-01-09] MEDS: Morphine 2 MG/ML Syringe IV (19:47)
[2020-01-09] MEDS: Ketorolac 30 MG/ML Syringe IV (21:13)
[2020-01-09] MEDS: Paroxetine 20 MG Tablet 40 MG PO (21:19)
[2020-01-09] MEDS: tiZANidine HCl 2 MG Tablet 4 MG PO (21:19)
[2020-01-10] VITALS (21 sets, daily range): BP systolic 70–132; BP diastolic 37–72; PULSE 60–88; RESP 14–22; TEMP 36.4–36.9; O2SAT 92–99
--- NOTE | 2020-01-10 02:00 | NURSING ---
Bp in 70s. pt awaken. Recheck bp and it still remained in 70's. Pt c/o feeling dizzy. dr deborah green notified 1 liter ns to be given.
[2020-01-10] MEDS: 0.9% Normal Saline 1,000 ML 999 ML IV (02:25)
[2020-01-10] MEDS: Ketorolac 30 MG/ML Syringe IV ×3 (05:12→21:20)
[2020-01-10] MEDS: 0.9% Saline Lock 10 ML Syringe IV ×2 (05:12→13:24)
[2020-01-10 05:22] LABS: Absolute Lymphocyte Count 1.77 X10^3/uL (0.83-4.51); Absolute Neutrophil Count 7.6 X10^3/uL (2.0-7.7); Basophil# 0.03 X10^3/uL; Basophil% 0.3 % (0-1); Eosinophil# 0.09 X10^3/uL; Eosinophils% 0.8 % (0-5); Hematocrit 33.1 % (37-47); Hemoglobin 10.6 g/dL (12.0-15.0); Lymphocyte # 1.77 X10^3/ul (4.0); Lymphocyte % 16.4 % (19-41); Mean Corpuscular Hgb 30.4 pg (27.0-32.0); Mean Corpuscular Volume 94.8 fL (81-99); Mean Platelet Vol. 8.8 fl (6.2-12.0); Monocyte# 1.21 X10^3/uL; Monocyte% 11.2 % (0-10); NRBC Flagged by Analyzer 0 % (0-5); Neutrophil % 70.6 % (47-70); Platelet Count 291 K/mm3 (150-450); RBC Distribution Width CV 13.7 % (11.6-14.6); RBC Distribution Width SD 47.7 fl (35.1-43.9); Red Blood Count 3.49 M/mm3 (4.2-5.4); White Blood Count 10.8 K/mm3 (4.4-11.0)
[2020-01-10 05:35] LABS: Anion Gap 4 (5-15); BUN 11 mg/dL (7-18); BUN/Creat Ratio 13.2 RATIO (10-20); Chloride 107 mmol/L (98-107); Creatinine, Serum 0.83 mg/dL (0.55-1.02); EST Glomerular Filtration Rate 75 mL/min (>60); Est Glom Filt Rate - Afr Amer 91 mL/min (>60); Estimated Creatinine Clearance 57.11 ml/min; Glucose 97 mg/dL (74-106); Potassium 3.5 mmol/L (3.5-5.1); Sodium Level 138 mmol/L (136-145)
[2020-01-10] MEDS: 0.9% Normal Saline 1,000 ML 100 ML IV ×2 (10:18→21:18)
--- NOTE | 2020-01-10 10:23 | PN_ITS ---
Patient Problems: Active and Suspected Problems Ludwigs angina (Acute) Left submental abscess (Acute) Ludwigs angina (Suspected) Subjective: Patient seen and examined. Says she is feeling much better and throat swelling and jaw swelling and pain is improving. She denies any shortness of breath or choking sensation or stridor and has been tolerating clear liquid diet well. She denies any fever or chills. Review of systems otherwise negative. Labs and vitals reviewed. Vitals/I&O's: Vital Signs Temp Pulse Resp BP Pulse Ox 97.7 F L 70 19 H 107/44 L 95 01/10/20 08:00 01/10/20 10:00 01/10/20 10:00 01/10/20 10:00 01/10/20 10:00 Oxygen Delivery Method Room Air Weight: 192 lb 7.417 oz Body Mass Index (BMI) 35.3 Finger Stick Blood Glucose 111 Intake and Output for Last 24 Hours 01/08/20 01/09/20 01/10/20 23:59 23:59 23:59 Intake Total 1704 / 1704 2832 / 2832 Output Total 250 / 250 Balance 1704 / 1704 2582 / 2582 General: Alert, Oriented x3, Cooperative, No apparent distress HEENT: Atraumatic, PERRLA, EOMI, Normocephalic, - - has moderate right jaw and submental swelling, soft, mildly tender and fluctuant Oral: Moist Mucosa Neck: Supple, No JVD, Negative Carotid Bruits Lungs: Clear to auscultation, Normal air movement Cardiovascular: Regular rate, Regular Rhythm, Normal S1, Normal S2, No murmurs Abdomen: Bowel Sounds Present, Soft, Non Tender, Non-Distended, No Hepato- splenomegaly Extremities: No clubbing, No cyanosis, No edema, Capillary Refill Less than 3 Seconds Skin: No rashes, No breakdown Musculoskeletal: No Tenderness to Palpation of Joints or Extremities Lymphatic: No Cervical, Supraclavicular, or Inguinal Adenopathy Neurological: Cranial nerves II-XII grossly intact, Neuro grossly intact, Motor Exam 5/5 strength throughout Psych/Mental Status: Normal Affect, Appropriate, Alert and oriented to time, place, person, mood and affect Laboratory Results 01/09/20 14:30: WBC 14.0 H, RBC 4.40, Hgb 13.4, Hct 41.3, MCV 93.9, MCH 30.5, MCHC 32.4, RDW Std Deviation 46.5 H, RDW Coeff of Rebekah 13.6, Plt Count 347, MPV 8.7, Immature Gran % (Auto) 0.600, Neut % (Auto) 79.4 H, Lymph % (Auto) 10.3 L, [place] % (Auto) 9.0, Eos % (Auto) 0.4, Baso % (Auto) 0.3, Absolute Neuts (auto) 11.1 H, Absolute Lymphs (auto) 1.43, Nucleated RBC % 0 01/09/20 14:30: PT Cancelled, INR Cancelled, APTT Cancelled 01/09/20 14:30: Sodium 137, Potassium 3.1 L, Chloride 103, Carbon Dioxide 29.0, Anion Gap 5, BUN 10, Creatinine 0.66, Estim Creat Clear Calc 71.82, Est GFR (MDRD) Af Amer 119, Est GFR (MDRD) Non-Af 99, BUN/Creatinine Ratio 15.2, Glucose 95, Calcium 9.3, Total Bilirubin 0.80, AST 12 L, ALT 14, Alkaline Phosphatase 82, Total Protein 8.1, Albumin 3.3, Globulin 4.8 H, Albumin/Globulin Ratio 0.7 L 01/09/20 14:30: Lactic Acid 0.8 01/09/20 15:15: PT 14.0, INR 1.1, APTT 29.4 01/09/20 18:45: PT 13.9, INR 1.1 01/10/20 05:05: WBC 10.8, RBC 3.49 L, Hgb 10.6 L, Hct 33.1 L, MCV 94.8, MCH 3 0.4, MCHC 32.0, RDW Std Deviation 47.7 H, RDW Coeff of Rebekah 13.7, Plt Count 291, MPV 8.8, Immature Gran % (Auto) 0.700, Neut % (Auto) 70.6 H, Lymph % (Auto) 16.4 L, [place] % (Auto) 11.2 H, Eos % (Auto) 0.8, Baso % (Auto) 0.3, Absolute Neuts (auto) 7.6, Absolute Lymphs (auto) 1.77, Nucleated RBC % 0 01/10/20 05:05: Sodium 138, Potassium 3.5, Chloride 107, Carbon Dioxide 27.0, Anion Gap 4 L, BUN 11, Creatinine 0.83, Estim Creat Clear Calc 57.11, Est GFR (MDRD) Af Amer 91, Est GFR (MDRD) Non-Af 75, BUN/Creatinine Ratio 13.2, Glucose 97, Calcium 8.0 L Diagnostic Data Soft Tissue Neck CT 01/09/20 13:59 IMPRESSION: Diffuse edematous changes with probable abscess formation in the left submental region extending into the lateral and medial aspects of the ramus of the left-sided mandible with the swelling of the left parapharyngeal region. This most likely represents changes secondary to an abscess of the tooth. Electronically Signed: Azael Grimaldo, at 16:02 EDT , Service support , Current Medications Acetaminophen (Tylenol) 650 mg PO Q6H PRN PRN PRN Reason: Pain Score 1-10/Temp > 100.7 F Amlodipine Besylate (Norvasc) 10 mg PO DAILY [facility] Bupropion HCl (Wellbutrin Xl) 300 mg PO DAILY [facility] Hydrochlorothiazide (Hctz) 25 mg PO DAILY [facility] Sodium Chloride () 1,000 mls @ 100 mls/hr IV .Q10H [facility] Last Admin: 01/10/20 10:18 Dose: 100 mls/hr Documented by: Ampicillin Sodium/Sulbactam (Sodium 3 gm/ Sodium Chloride) 112 mls @ 150 mls/hr IV Q8 [facility] Last Infusion: 01/10/20 05:57 Dose: Infused Documented by: Sodium Chloride () 250 mls @ 15 mls/hr IV .[id number] PRN PRN Reason: Saline Flush Sodium Chloride () 250 mls @ 15 mls/hr IV .[id number] PRN PRN Reason: Additional IVPB Infusion Ketorolac Tromethamine (Toradol (Bkc)) 30 mg IV Q8 [facility] Stop: 01/14/20 22:01 Last Admin: 01/10/20 05:12 Dose: 30 mg Documented by: Losartan Potassium (Cozaar) 100 mg PO DAILY [facility] Morphine Sulfate () 2 mg IV Q3H PRN PRN PRN Reason: Pain Score 6-10/10 Last Admin: 01/09/20 19:47 Dose: 2 mg Documented by: Ondansetron HCl (Zofran) 4 mg IV Q8H PRN PRN PRN Reason: NAUSEA/VOMITING Paroxetine HCl (Paxil) 40 mg PO QHS [facility] Last Admin: 01/09/20 21:19 Dose: 40 mg Documented by: Senna/Docusate Sodium (Senokot-S, Nohemy-Colace) 2 tablet PO BID PRN PRN PRN Reason: Constipation Sodium Chloride () 10 - 40 ml IV UD PRN PRN Reason: SALINE FLUSH Last Admin: 01/10/20 05:12 Dose: 10 ml Documented by: Tizanidine HCl (Zanaflex) 4 mg PO QHS [facility] Last Admin: 01/09/20 21:19 Dose: 4 mg Documented by: Zolpidem Tartrate (Ambien (Generic)) 5 mg PO QHS PRN PRN PRN Reason: INSOMNIA STROKE Vital Signs/Narrative: Vital Signs Temp Pulse Resp BP Pulse Ox 01/10/20 10:00 70 19 H 107/44 L 95 01/10/20 09:00 79 19 H 112/53 L 98 01/10/20 08:00 97.7 F L 67 18 132/68 H 97 01/10/20 07:01 62 01/10/20 07:00 63 22 H 96/66 95 Medical Necessity - Tobacco Use Smoking Status: Never smoker Assessment/Plan All Active Problems Ludwigs angina (Acute) Left submental abscess (Acute) 1. Left submental abscess and cellulitis * Patient says swelling is much better today. She denies any sore throat or difficulty breathing or swallowing. * White cell count is down to 10.8. * Blood cultures pending. * On IV Unasyn. On IV morphine and OxyIR as needed for pain. * Maxillofacial surgery on board. Plan is to review patient after 24 hours of IV antibiotics to see how she is doing. If there is no improvement, to have surgery. * 2. Hypokalemia: Potassium is 3.5 today. 3. Hypertension: Stable. On Norvasc, hydrochlorthiazide and losartan. 4. Anxiety and depression: On bupropion and Paxil 5. Arthritis: On tizanidine and Tylenol as needed 6. DVT prophylaxis: SCDs Inpatient E&M: 59472 Subs Hosp L2
--- NOTE | 2020-01-10 12:23 | CASEMGMT ---
RN CM Assessment Note Presentation: Dental Abcess Intro role of CM and purpose of RN CM assessment. Pt is awake alert and agreeable to participate in assessment. Demographics, PCP and Pharmacy verified. Pt is giving short answers, she does not elaborate and kept looking @ her phone during interview. No needs identified @ this time. PCP: Dr. Hansen Specialists: Pain management in [place] Preferred Pharmacy: [facility] Insurance: [employer] Prescription Benefit: yes LNOK : Friend, Yadira Boykin Living Arrangements: Lives independently in apartment. Denies care needs Transportation: drives DME: cane only, uses intermittently. HHC: none Patient DC goals: Home DC PLAN: Home on dc. RN CM advised to contact cm for any concerns/needs that may arise. [place] RGN RN ACM
[2020-01-10] MEDS: buPROPion (XL) 300 MG TABLET.XL PO (13:24)
--- NOTE | 2020-01-10 18:45 | PCM.PN.BLA ---
Progress Note Patient is doing much better in comparison to yesterdays admission. The trismus is reducing and the patient states swallowing without difficulty. She is tolerating PO well. She has no fever or chills. There is no erythema of the neck and the swelling is less indurated in comparison to yesterday. If she continues to do well through this evening and into the morning consider discharge to home with follow up to her family dentist. A this point it does not appear as surgical I and D in OR is necessary. STROKE Vital Signs/Narrative: Vital Signs Temp Pulse Resp BP Pulse Ox 01/10/20 15:10 98.4 F 72 16 111/58 L 94 01/10/20 14:59 76
[2020-01-10] MEDS: Paroxetine 20 MG Tablet 40 MG PO (21:19)
[2020-01-10] MEDS: tiZANidine HCl 2 MG Tablet 4 MG PO (21:19)
[2020-01-11] VITALS (9 sets, daily range): BP systolic 72–143; BP diastolic 52–85; PULSE 61–84; RESP 14–16; TEMP 36.4–37; O2SAT 93–98
[2020-01-11] MEDS: Ketorolac 30 MG/ML Syringe IV ×2 (05:19→13:17)
[2020-01-11 05:36] LABS: Absolute Lymphocyte Count 2.21 X10^3/uL (0.83-4.51); Absolute Neutrophil Count 3.9 X10^3/uL (2.0-7.7); Basophil# 0.03 X10^3/uL; Basophil% 0.4 % (0-1); Eosinophil# 0.23 X10^3/uL; Eosinophils% 3.2 % (0-5); Hemoglobin 10.4 g/dL (12.0-15.0); Lymphocyte # 2.21 X10^3/ul (4.0); Lymphocyte % 30.9 % (19-41); Mean Corp Hgb Conc 31.5 g/dL (32-36); Mean Corpuscular Hgb 29.7 pg (27.0-32.0); Mean Corpuscular Volume 94.3 fL (81-99); Mean Platelet Vol. 8.8 fl (6.2-12.0); Monocyte# 0.79 X10^3/uL; NRBC Flagged by Analyzer 0 % (0-5); Neutrophil # 3.85 X10^3/uL (2.7-7.7); Neutrophil % 53.9 % (47-70); Platelet Count 292 K/mm3 (150-450); RBC Distribution Width CV 13.5 % (11.6-14.6); RBC Distribution Width SD 46.4 fl (35.1-43.9); White Blood Count 7.2 K/mm3 (4.4-11.0)
[2020-01-11 05:48] LABS: Anion Gap 6 (5-15); BUN 8 mg/dL (7-18); BUN/Creat Ratio 17.1 RATIO (10-20); Calcium,Total 8.2 mg/dL (8.5-10.1); Chloride 111 mmol/L (98-107); Creatinine, Serum 0.47 mg/dL (0.55-1.02); EST Glomerular Filtration Rate 146 mL/min (>60); Est Glom Filt Rate - Afr Amer 177 mL/min (>60); Estimated Creatinine Clearance 100.85 ml/min; Glucose 89 mg/dL (74-106); Sodium Level 141 mmol/L (136-145)
[2020-01-11] MEDS: Potassium Chloride 10mEq/100mL 10 MEQ/100 ML IV.SOLN. 100 MEQ IV BOLUS ×4 (08:10→11:49)
[2020-01-11] MEDS: buPROPion (XL) 300 MG TABLET.XL PO (09:33)
[2020-01-11] MEDS: hydroCHLOROthiazide 25 MG Tablet PO (09:33)
[2020-01-11] MEDS: 0.9% Saline Lock 10 ML Syringe IV (13:17)
--- NOTE | 2020-01-11 15:03 | DCINST_ITS ---
- Discharge Diagnoses Current Active Problems: Current Active and Chronic Problems Ludwigs angina (Acute) Left submental abscess (Acute) Anxiety and depression (Chronic) Hypertension (Chronic) You will use the following diet at home:: Cardiac Your food should be the consistency of: Regular Your liquids should be the consistency of: Regular/Thin Discharge Activity: Return to Normal Activity Weight Bearing Status: Weight bearing as tolerated Call your doctor if you observe: Fever of 101 or Higher, Shortness of breath, Dizziness, - - difficulty swallowing or breathing Instructions: ED Dental Abscess with Facial Cellulitis, ED FACIAL CELLULITIS Additional Instructions: keep a daily log of your BP, and give to your PCP at next visit, to adjust BP meds as needed. Hydrochlorthiazide and amlodipine stopped due to low BP during admission. Continue taking only losartan. Allergies/Adverse Reactions: Allergies WAN Inhibitors Allergy (Verified 01/09/20 13:30) worsened asthma latex Allergy (Verified 01/09/20 13:30) Rash Sulfa (Sulfonamide Antibiotics) Allergy (Verified 01/09/20 13:30) Rash sumatriptan [From Imitrex] Allergy (Verified 01/09/20 13:30) Anaphylaxis hydrocodone bitartrate [From Vicodin] Adverse Reaction (Verified 01/09/20 13:30) Upset Stomach Medications to take at Discharge Paroxetine HCl [Paxil] 40 mg PO QHS 04/28/17 Tizanidine HCl 4 mg PO QHS 04/28/17 Bupropion HCl [Bupropion Xl] 300 mg PO DAILY 01/09/20 Cholecalciferol (VIT D3) [Vitamin D3] 1,000 unit PO DAILY 01/09/20 Krill/Om-3/Dha/Epa/Phospho/Ast [Krill Oil 1,000 mg Softgel] 1 ea PO DAILY 01/09/20 Losartan Potassium 100 mg PO DAILY 01/09/20 Potassium Chloride [Klor-Con M20] 20 meq PO DAILY 01/09/20 Amoxicillin/Potassium Clav [Amox-Clav 875-125 mg Tablet] 1 ea PO BID 7 Days #14 tab 01/11/20 The following prescriptions were given: Amoxicillin/Potassium Clav [Amox-Clav 875-125 mg Tablet] 1 ea PO BID 7 Days #14 tab Transmission Status: Sent to [facility] Primary Care Physician: Saurabh Hayes DO [Primary Care Provider] - Please follow up with your Primary Care Physician in: 1-2 weeks Test Results: Test results from this visit will be discussed in further detail at your follow- up appointment, if applicable. Please Follow Up With: Rohith Haney DDS When: 1 week Proposed Discharge Date: 01/11/20
--- NOTE | 2020-01-11 15:09 | PCM.DC.SUM ---
Discharge Date and Diagnosis - Problem List Patient Problems: Active and Suspected Problems Ludwigs angina (Acute) Left submental abscess (Acute) Ludwigs angina (Suspected) Date of Admission: 01/09/20 Date of Discharge: 01/11/20 - Primary Discharge Diagnosis Active and Suspected Problems Left submental abscess (Acute) - Secondary Discharge Diagnosis Chronic Problems Anxiety and depression (Chronic) Hypertension (Chronic) Hospital Course and Treatment Imaging Results: Diagnostic Data Soft Tissue Neck CT 01/09/20 13:59 IMPRESSION: Diffuse edematous changes with probable abscess formation in the left submental region extending into the lateral and medial aspects of the ramus of the left-sided mandible with the swelling of the left parapharyngeal region. This most likely represents changes secondary to an abscess of the tooth. Electronically Signed: Azael Re, at 16:02 EDT , Service support , maxillofacial surgery- Dr Haney Operations: herniorrhaphy Procedures: None Summary of Care Provided: The patient is a 54 year old F with a past medical history as outlined. She was admitted through the ED on 01/09/2020 with a complaint of dental pain and left facial pain and swelling and pain. Symptoms started 4 days prior to admission with pain on the left side of his face. She also noted that she had tooth pain on the left side of her jaw which extended to the left ear and down to the left neck. This pain was aggravated by opening her mouth, eating or drinking had no relieving factors and the swelling on the left side of her face gradually worsened. She had not said fever or chills. She also had no shortness of breath. Vitals were stable and lab work was remarkable for low potassium of 3.1 and leukocytosis. LFTs and lactic acid were unremarkable and CT soft tissue neck showed diffuse emphysematous changes with probable abscess formation of the left submental region. She was admitted and managed for left submental abscess and facial cellulitis with suspected Jasiel's angina. She was admitted to the PCU and started on IV Unasyn. Blood cultures were obtained and maxillofacial surgery consulted. Patient symptoms improved with pain medication and IV antibiotics. Blood cultures were negative. Swelling and trismus improved markedly. Facial surgery reviewed patient and decided to advocate conservative management in light of his symptoms improving. Of note, stay was complicated by hypotension and hypokalemia. Potassium was replaced per protocol. Blood pressure medications were initially held and orthostatics were checked which were negative. Patient's amlodipine and hydrochlorothiazide were discontinued and she was continued only on losartan. Patient remained stable and she was discharged home on 01/11/2020. She was discharged with a prescription for p.o. amoxicillin clavulanic acid 8 7 5/125 mg 1 tablet twice daily for 7 days. She is to follow-up with her primary care doctor and maxillofacial surgery. Patient was also advised to keep a log of her blood pressure as amlodipine hydrochlorothiazide had been discontinued and she was to take only losartan. She is to present this log to her primary care doctor for her medications to be adjusted as needed. Patient seen and examined prior to discharge. She felt much better and had no complaints. Review of symptoms otherwise negative. Labs and vitals reviewed. Home medication reviewed and reconciled. o/e: Vital Signs Temp Pulse Resp BP Pulse Ox 97.9 F 78 16 131/85 H 98 01/11/20 13:40 01/11/20 14:59 01/11/20 13:40 01/11/20 13:40 01/11/20 13:40 [] General: Alert, Oriented x3, Cooperative, No apparent distress HEENT: Atraumatic, PERRLA, EOMI, Normocephalic, - -left jaw and submental swelling, has improved markedly, minimal tenderness. Oral: Moist Mucosa Neck: Supple, No JVD, Negative Carotid Bruits Lungs: Clear to auscultation, Normal air movement Cardiovascular: Regular rate, Regular Rhythm, Normal S1, Normal S2, No murmurs Abdomen: Bowel Sounds Present, Soft, Non Tender, Non-Distended, No Hepato-splenomegaly Extremities: No clubbing, No cyanosis, No edema, Capillary Refill Less than 3 Seconds Skin: No rashes, No breakdown Musculoskeletal: No Tenderness to Palpation of Joints or Extremities Lymphatic: No Cervical, Supraclavicular, or Inguinal Adenopathy Neurological: Cranial nerves II-XII grossly intact, Neuro grossly intact, Motor Exam 5/5 strength throughout Psych/Mental Status: Normal Affect, Appropriate, Alert and oriented to time, place, person, mood and affect Plan is for DC home as above. Patient Problems: Active and Suspected Problems Ludwigs angina (Acute) Left submental abscess (Acute) Ludwigs angina (Suspected) - Physical Exam Vitals/I&O's: Vital Signs Temp Pulse Resp BP Pulse Ox 97.9 F 78 16 131/85 H 98 01/11/20 13:40 01/11/20 14:59 01/11/20 13:40 01/11/20 13:40 01/11/20 13:40 Oxygen Flow Rate (L/min) 2 Oxygen Delivery Method Room Air Weight: 198 lb 6.656 oz Body Mass Index (BMI) 35.3 Finger Stick Blood Glucose 111 Orthostatic Vital Signs Start: 01/11/20 13:39 Freq: q24h Status: Active Protocol: Activity Type Activity Date Activity User E-Sign Co-Sign Detail Recorded Client Recorded Date Recorded By Document 01/11/20 13:39 AMG [id number] 01/11/20 13:40 AMG 01/11/20 13:39 Orthostatic Vitals Standing -Blood Pressure (90/60-120/80) 143/71 H -Extremity Use Left Arm -Pulse Rate (60-100) 84 Sitting -Blood Pressure (90/60-120/80) 131/85 H -Extremity Use Left Arm -Pulse Rate (60-100) 84 Lying -Blood Pressure (90/60-120/80) 106/56 L -Extremity Use Left Arm -Pulse Rate (60-100) 79 Intake and Output for Last 24 Hours 01/09/20 01/10/20 01/11/20 23:59 23:59 23:59 Intake Total 1704 / 1704 5439.33 / 5439.33 1860.67 / 1860.67 Output Total 450 / 450 Balance 1704 / 1704 4989.33 / 4989.33 1860.67 / 1860.67 Microbiology Past 72 Hours 01/09/20 14:40 Blood Culture (Wb) - Right Hand Blood Culture - Preliminary No growth in 48 hours. 01/09/20 14:30 Blood Culture (Wb) - Anticubital Left Blood Culture - Preliminary No growth in 48 hours. Laboratory Results 01/11/20 05:04: WBC 7.2, RBC 3.50 L, Hgb 10.4 L, Hct 33.0 L, MCV 94.3, MCH 29.7, MCHC 31.5 L, RDW Std Deviation 46.4 H, RDW Coeff of Rebekah 13.5, Plt Count 292, MPV 8.8, Immature Gran % (Auto) 0.600, Neut % (Auto) 53.9, Lymph % (Auto) 30.9, [place] % (Auto) 11.0 H, Eos % (Auto) 3.2, Baso % (Auto) 0.4, Absolute Neuts (auto) 3.9, Absolute Lymphs (auto) 2.21, Nucleated RBC % 0 01/11/20 05:04: Sodium 141, Potassium 3.0 L, Chloride 111 H, Carbon Dioxide 24.0, Anion Gap 6, BUN 8, Creatinine 0.47 L, Estim Creat Clear Calc 100.85, Est GFR (MDRD) Af Amer 177, Est GFR (MDRD) Non-Af 146, BUN/Creatinine Ratio 17.1, Glucose 89, Calcium 8.2 L 01/11/20 14:05: Potassium 4.0 Current Medications Acetaminophen (Tylenol) 650 mg PO Q6H PRN PRN PRN Reason: Pain Score 1-10/Temp > 100.7 F Amlodipine Besylate (Norvasc) 10 mg PO DAILY [facility] Last Admin: 01/11/20 09:50 Dose: Not Given Documented by: Bupropion HCl (Wellbutrin Xl) 300 mg PO DAILY [facility] Last Admin: 01/11/20 09:33 Dose: 300 mg Documented by: Cholecalciferol (Vitamin D (25mcg)) 1,000 unit PO DAILY [facility] Hydrochlorothiazide (Hctz) 25 mg PO DAILY [facility] Last Admin: 01/11/20 09:33 Dose: 25 mg Documented by: Sodium Chloride () 1,000 mls @ 100 mls/hr IV .Q10H [facility] Last Infusion: 01/11/20 14:39 Dose: Infused Documented by: Ampicillin Sodium/Sulbactam (Sodium 3 gm/ Sodium Chloride) 112 mls @ 150 mls/hr IV Q8 [facility] Last Infusion: 01/11/20 14:03 Dose: Infused Documented by: Sodium Chloride () 250 mls @ 15 mls/hr IV .[id number] PRN PRN Reason: Saline Flush Sodium Chloride () 250 mls @ 15 mls/hr IV .[id number] PRN PRN Reason: Additional IVPB Infusion Ketorolac Tromethamine (Toradol (Bkc)) 30 mg IV Q8 [facility] Stop: 01/14/20 22:01 Last Admin: 01/11/20 13:17 Dose: 30 mg Documented by: Losartan Potassium (Cozaar) 100 mg PO DAILY [facility] Last Admin: 01/11/20 09:50 Dose: Not Given Documented by: Morphine Sulfate () 2 mg IV Q3H PRN PRN PRN Reason: Pain Score 6-10/10 Last Admin: 01/09/20 19:47 Dose: 2 mg Documented by: Ondansetron HCl (Zofran) 4 mg IV Q8H PRN PRN PRN Reason: NAUSEA/VOMITING Paroxetine HCl (Paxil) 40 mg PO QHS [facility] Last Admin: 01/10/20 21:19 Dose: 40 mg Documented by: Potassium Chloride (K-Dur) 20 meq PO DAILY@0800 [facility] Senna/Docusate Sodium (Senokot-S, Nohemy-Colace) 2 tablet PO BID PRN PRN PRN Reason: Constipation Sodium Chloride () 10 - 40 ml IV UD PRN PRN Reason: SALINE FLUSH Last Admin: 01/11/20 13:17 Dose: 10 ml Documented by: Tizanidine HCl (Zanaflex) 4 mg PO QHS [facility] Last Admin: 01/10/20 21:19 Dose: 4 mg Documented by: Zolpidem Tartrate (Ambien (Generic)) 5 mg PO QHS PRN PRN PRN Reason: INSOMNIA Discharge Diet: Low fat/ Low Cholesterol Discharge Activity: Return to Normal Activity Weight Bearing Status: Weight bearing as tolerated Call your doctor if you observe: Fever of 101 or Higher, Shortness of breath, Dizziness, - - difficulty swallowing or breathing Home Medications: Medications to take at Discharge Paroxetine HCl [Paxil] 40 mg PO QHS 04/28/17 Tizanidine HCl 4 mg PO QHS 04/28/17 Bupropion HCl [Bupropion Xl] 300 mg PO DAILY 01/09/20 Cholecalciferol (VIT D3) [Vitamin D3] 1,000 unit PO DAILY 01/09/20 Krill/Om-3/Dha/Epa/Phospho/Ast [Krill Oil 1,000 mg Softgel] 1 ea PO DAILY 01/09/20 Losartan Potassium 100 mg PO DAILY 01/09/20 Potassium Chloride [Klor-Con M20] 20 meq PO DAILY 01/09/20 Amoxicillin/Potassium Clav [Amox-Clav 875-125 mg Tablet] 1 ea PO BID 7 Days #14 tab 01/11/20 Following Prescrptions Were Given to Patient: Amoxicillin/Potassium Clav [Amox-Clav 875-125 mg Tablet] 1 ea PO BID 7 Days #14 tab Transmission Status: Sent to [facility] Primary Care Physician: Saurabh Hayes DO [Primary Care Provider] - Please follow up with your Primary Care Physician in: 1-2 weeks Please Follow Up With: Rohith Haney DDS When: 1 week Patient Instructions: ED FACIAL CELLULITIS, ED Dental Abscess with Facial Cellulitis Disposition: Home Minutes spent on discharge:: 45 Patient Condition:: Stable Medical Necessity - Tobacco Use Smoking Status: Never smoker Meaningful Use Info Meaningful Use Diagnoses (Choose all that apply): None applicable Inpatient E&M: [id number] [facility]
== END 2020-01-11 15:50 | disposition home or self-care (01) | DRG 115 ==
LOC: ED 16:56 → ICU 18:09 → PCU 01-10 13:19
PROVIDERS: Admitting Provider Hospitalist; Emergency Provider Emergency Medicine; PCP Student in an Organized Health Care Education/Training Program; Visit Provider Student in an Organized Health Care Education/Training Program
DX: K12.2 Cellulitis and abscess of mouth (principal); L02.01 Cutaneous abscess of face; L03.211 Cellulitis of face; E87.6 Hypokalemia; I10 Essential (primary) hypertension; F41.9 Anxiety disorder, unspecified; F32.9 Major depressive disorder, single episode, unspecified; M19.90 Unspecified osteoarthritis, unspecified site; T50.2X5A Adverse effect of carbonic-anhydrase inhibitors, benzothiadiazides and other diuretics, initial encounter; I95.9 Hypotension, unspecified; Z79.899 Other long term (current) drug therapy; Z88.8 Allergy status to other drugs, medicaments and biological substances
CPT/HCPCS: 36415; 70491; 80048; 80053; 83605; 84132; 85025; 85610; 85730; 87040; 96365; 96366; 96375; 96376; 99285; J7030; Q9967; A4216; J0295; J2405

== ENCOUNTER 2020-02-14 17:36 | Emergency (ER) | payer MEDICAID, SELFPAY ==
[2020-01-09 18:23] VITALS: BMI 35.3
[2020-02-14 17:37] VITALS: BP 156/92; PULSE 79; PULSE 81; RESP 16; TEMP 36.3; O2SAT 97; BMI 36.3
--- NOTE | 2020-02-14 17:45 | EKG12_ITS ---
Test Reason : CP Blood Pressure : / mmHG Vent. Rate : 078 BPM Atrial Rate : 078 BPM P-R Int : 146 ms QRS Dur : 086 ms QT Int : 398 ms P-R-T Axes : 013 -05 025 degrees QTc Int : 453 ms Normal sinus rhythm Normal ECG Confirmed by NICHOLAS JAMES ([id number]), content editor CISCO PINZON ([id number]) on 02/16/2020 7:24:18 AM Referred By: FROY Confirmed By:NICHOLAS JAMES
--- NOTE | 2020-02-14 17:47 | ED.VIS.GEN ---
History of Present Illness Chief Complaint: Cough Informant: Patient Onset: Days Context: Gradual Onset Timing: Continuous Current Severity: Moderate Maximum Severity: Moderate Narrative: The patient is a 54-year-old female with medical history significant for fibromyalgia, asthma, and hypertension who presents to the emergency department with cough and shortness of breath. Patient states her symptoms began about a week ago. She had some mild nasal drainage and a mild sore throat. She said since then, she is had a dry, nonproductive cough. She states she gets tightness around her chest with coughing. She denies any fevers or chills. She did not raise any recent travel. She has no history of pulmonary embolus. She denies any pleuritic pain. Prior similar symptoms: No Recent Illness/Hospitalization: No Past Medical History - Allergies and Home Meds Allergies/Adverse Reactions: Allergies WAN Inhibitors Allergy (Verified 02/14/20 18:01) worsened asthma latex Allergy (Verified 02/14/20 18:01) Rash Sulfa (Sulfonamide Antibiotics) Allergy (Verified 02/14/20 18:01) Rash sumatriptan [From Imitrex] Allergy (Verified 02/14/20 18:01) Anaphylaxis hydrocodone bitartrate [From Vicodin] Adverse Reaction (Verified 02/14/20 18:01) Upset Stomach Primary Care Physician: Saurabh Hayes DO [Primary Care Provider] - Prior records reviewed: Yes Past Medical History: - - Fibromyalgia, hypertension, asthma Surgical History: herniorrhaphy, - - Carpal tunnel bilaterally, D&C, TNA, umbilical hernia repair primary closure Smoking Status: Never smoker - Family History Maternal Family History: Reports: No pertinent history Paternal Family History: Reports: No pertinent history Review of Systems General: Denies: Chills, Fever, Sweats Eyes: Denies: Visual changes - bilaterally, Diplopia ENT: Reports: Rhinorrhea. Denies: Sore throat Cardiovascular: Denies: Chest pain, Palpitations Respiratory: Reports: Dyspnea, Cough. Denies: Dyspnea on exertion Gastrointestinal: Denies: Abdominal pain, Nausea, Vomiting, Diarrhea, Melena, Hematochezia Genitourinary: Denies: Dysuria, Hematuria, Frequency Musculoskeletal: Denies: Back pain, Extremity Pain Skin: Denies: Rash, Wounds Neurological: Denies: Headache, Weakness, Numbness Physical Exam Vital Signs/Narrative: Vital Signs Temp Pulse Resp BP Pulse Ox 02/14/20 17:37 97.3 F L 79 16 156/92 H 97 Inital Vital Signs reviewed: Yes General: Well nourished, Well developed, No Acute Distress Head: Normocephalic, Atraumatic Eyes: Perrl, EOMI ENT: Moist mucous membranes, No rhinorrhea Neck: Supple, Nontender Cardiovascular: Regular rate, Regular rhythm, No murmurs Respiratory: No distress, CTA bilaterally, Chest nontender Abdomen: Soft, Nontender, Nondistended, Normal bowel sounds Back: Nontender, Normal Inspection Extremities: Nontender, No edema Skin: Normal color, No rash Neurological: Alert, Oriented x3, Cranial nerves II-XII grossly intact, Normal Strength, Normal Sensation Psychological: Normal affect, Normal Mood Diagnostic/Tx/Re-eval Abnormal Lab Results 02/14/20 02/14/20 02/14/20 17:55 17:55 17:55 WBC 9.6 RBC 4.73 Hgb 14.0 Hct 44.1 MCV 93.2 MCH 29.6 MCHC 31.7 L RDW Std Deviation 47.2 H RDW Coeff of Rebekah 13.9 Plt Count 354 MPV 8.7 Immature Gran % (Auto) 3.800 H Neut % (Auto) 52.9 Lymph % (Auto) 32.4 [place] % (Auto) 7.5 Eos % (Auto) 2.3 Baso % (Auto) 1.1 H Absolute Neuts (auto) 5.1 Absolute Lymphs (auto) 3.11 Nucleated RBC % 0 Sodium 141 Potassium 3.7 Chloride 107 Carbon Dioxide 27.0 Anion Gap 7 BUN 11 Creatinine 0.88 Estim Creat Clear Calc 53.87 Est GFR (MDRD) Af Amer 85 Est GFR (MDRD) Non-Af 70 BUN/Creatinine Ratio 12.5 Glucose 90 Calcium 9.3 Troponin I < 0.015 B-Natriuretic Peptide 23.1 - Medical Decision Making Patient presents to the emergency department with dry cough and intermittent chest tightness. She has no pleuritic pain. She is not tachycardic, hypotensive, or tachypneic. She is not requiring any supplemental oxygen. EKG was obtained which was sinus rhythm without any acute ischemic change. Patient was resting comfortably. Chest x-ray shows no focal productive process, effusion, or enlarged cardiac silhouette. Cardiac enzymes and BNP were also negative. The patient's history of asthma, along with a nonproductive cough, I am going to treat her more as a bronchospasm type flare. She will given a short course of prednisone and an inhaler. I do feel that she is safe for outpatient follow-up. Impression 1. Cough 2. Bronchospasm ED Disposition - Plan for ED Patient: Instructions: ED Bronchitis Asthmatic Prescriptions: Prednisone [Deltasone] 40 mg PO DAILY #10 tab Prescription Printed Albuterol Inhaler [Ventolin Hfa] 2 puff INHALATION Q4H PRN PRN #1 inhaler PRN Reason: Wheezing Prescription Printed Referrals: Saurabh Hayes DO [Primary Care Provider] -
--- NOTE | 2020-02-14 17:54 | RAD_ITS ---
STUDY: X-RAY CHEST REASON FOR EXAM: Female, 54 years old. C/O NAGGING COUGH FOR ONE WEEK PER PT TECHNIQUE: Single frontal view of the chest. COMPARISON: None. FINDINGS: Cardiac silhouette unremarkable. Pulmonary vascularity unremarkable. Aorta unremarkable. No focal airspace opacities. No pleural effusions. Upper abdomen unremarkable. Osseous structures intact. No pneumothorax. RAD/Chest 1 View (Portable) IMPRESSION: No acute cardiopulmonary findings Electronically Signed: Jair Sloan, at 20:29 EDT Tel , Service support ,
[2020-02-14 18:05] LABS: Absolute Lymphocyte Count 3.11 X10^3/uL (0.83-4.51); Absolute Neutrophil Count 5.1 X10^3/uL (2.0-7.7); Basophil# 0.11 X10^3/uL; Basophil% 1.1 % (0-1); Eosinophil# 0.22 X10^3/uL; Eosinophils% 2.3 % (0-5); Hematocrit 44.1 % (37-47); Lymphocyte # 3.11 X10^3/ul (4.0); Lymphocyte % 32.4 % (19-41); Mean Corp Hgb Conc 31.7 g/dL (32-36); Mean Corpuscular Hgb 29.6 pg (27.0-32.0); Mean Corpuscular Volume 93.2 fL (81-99); Mean Platelet Vol. 8.7 fl (6.2-12.0); Monocyte# 0.72 X10^3/uL; Monocyte% 7.5 % (0-10); NRBC Flagged by Analyzer 0 % (0-5); Neutrophil # 5.08 X10^3/uL (2.7-7.7); Neutrophil % 52.9 % (47-70); Platelet Count 354 K/mm3 (150-450); RBC Distribution Width CV 13.9 % (11.6-14.6); RBC Distribution Width SD 47.2 fl (35.1-43.9); Red Blood Count 4.73 M/mm3 (4.2-5.4); White Blood Count 9.6 K/mm3 (4.4-11.0)
[2020-02-14 18:20] LABS: Anion Gap 7 (5-15); BUN 11 mg/dL (7-18); BUN/Creat Ratio 12.5 RATIO (10-20); Calcium,Total 9.3 mg/dL (8.5-10.1); Chloride 107 mmol/L (98-107); Creatinine, Serum 0.88 mg/dL (0.55-1.02); EST Glomerular Filtration Rate 70 mL/min (>60); Est Glom Filt Rate - Afr Amer 85 mL/min (>60); Estimated Creatinine Clearance 53.87 ml/min; Glucose 90 mg/dL (74-106); Potassium 3.7 mmol/L (3.5-5.1); Sodium Level 141 mmol/L (136-145)
[2020-02-14 18:30] LABS: BNP,B-Type NATRIURETIC PEPTIDE 23.1 pg/mL (0-100)
[2020-02-14 18:37] VITALS: BP 115/67; PULSE 77; RESP 16; O2SAT 96
[2020-02-14 19:45] VITALS: BP 115/67; PULSE 76; RESP 18; O2SAT 96
--- OUTSIDE RECORDS SUMMARY | 2020-06-24 10:38 | XMS RPT_ITS | CCD ---
:1965 External Reference #:[id number] Author Organization [facility] [employer] Care Team Providers Name Role Phone Hayes, Didi Primary Care Provider Negron ACETYLENE OPERATOR, E Unavailable Unavailable Negron ACETYLENE OPERATOR, E Unavailable Unavailable Allergies Reported Allergen Reaction(s) Severity Date of Onset Location acetaminophen / Critical, 02-03-2017 - [facility] HYDROcodone Critical (20424) Acetaminophen / GI Upset 11-28-2013 - [place] [facility] HYDROcodone (25649) Angiotensin Other: See Comments 09-24-2012 - [facility] Converting Enzyme (19538) (Amparo) Inhibitors Latex Rash 03-22-2013 - [place] [facility] (76284) lisinopril All Amparo Inhibitors Critical, 02-03-2017 - [facility] Critical (58875) sulfacetamide Critical, 02-03-2017 [facility] Critical (63952) Sulfonamides Rash Moderate 09-24-2012 - [place] [facility] (Antibiotic) (94403) SUMAtriptan Critical, 02-03-2017 [facility] Critical (58932) SUMAtriptan Anaphylaxis High 09-24-2012 - [facility] [facility] (30208) Medications Medication Name Sig Date Prescriber Location Albuterol albuterol HFA 02-15-2020 Saurabh Didi [facility] (VENTOLIN HFA) 90 (43408) mcg/actuation inhaler Indications: Fibromyalgia Inhale 2 Puffs as instructed every 4 hours as needed for Wheezing/Shortness of Breath. 2 Inhaler 2 02/15/2020 Active Comment: Inhale 2 Puffs as instructed every 4 hours as needed for Wheezing/Shortness of Breath. amLODIPine amLODIPine (NORVASC) 10 03-13-2020 Saurabh Tolbert [facility] mg tablet Indications: (4419 5) Essential hypertension Take 1 tablet by mouth once daily. 90 tablet 0 03/13/2020 Active Comment: Take 1 tablet by mouth once daily. Benzocaine benzocaine (ANBESOL, 07-14-2019 Saurabh Hayes [facility] BENZOCAINE,) 10 % oral (4419 5) gel Indications: Pain, dental Use 1 application as instructed every 6 hours as needed. 1 Tube 1 07/14/2019 Active Comment: Use 1 application as instruc julianna every 6 hours as needed. buPROPion buPROPion XL (WELLBUTRIN 04-10-2020 Saurabh Mckeon n [facility] XL) 150 mg 24 hr tablet (441 95) Indications: Fibromyalgia , Dysthymia Take 1 tablet by mouth once daily. 90 tablet 1 04/10/2020 Active Comment: Take 1 tablet by mouth once daily. busPIRone busPIRone (BUSPAR) 10 04-10-2020 - Saurabh [facility] C [facility] mg tablet 05-31-2020 (48166) Indications: AICHA (generalized anxiety disorder) , Anxiety attack Take 0.5-1 tablets by mouth three times daily as needed (anxiety attack). 90 tablet 1 05/31/2020 Active Comment: Take 0.5-1 tablets by mouth three times daily as needed (anxiety attack). Cane donnie Cane donnie Indications: [facility]-21-2019 [facility] (29887) Left-sided low back pain with left-sided sciatica, unspecified chronicity , Lumbago with sciatica, right side , Other chronic pain Use as directed 1 Device 0 01/21/2019 Active Cane donnie Ind[facility]: [facility] , Left-sided low back pain with left-sided sciatica, unspecified chronicity , Lumbago with sciatica, right side , Other chronic pain Use as directed 1 Device 0 01/21/2019 Active Cane donnie Indications: [facility]-21-2019 [facility] (57710[facility] Fibromyalgia , Left-sided low back pain with left-sided sciatica, unspecified chronicity , Lumbago with sciatica, right side , Other chronic pain Use as directed 1 Device 0 01/21/2019 Active Cane donnie Indications: 01-21-2019 Lyssa ([facility]) [facility] (05022) Fibromyalgia , Left-sided low back pain with left-sided sciatica, unspecified chronicity , Lumbago with sciatica, right side , Other chronic pain Use as directed 1 Device 0 01/21/2019 Active Cane donnie Indications: 01-21-2019 [facility] (25243) Fibromyalgia , Left-sided low back pain with left-sided sciatica, unspecified chronicity , Lumbago with sciatica, right side , Other chronic pain Use as directed 1 Device 0 01/21/2019 Active Cane donnie Indications: 01-21-2019 Lyssa ([facility]) [facility] (66778) Fibromyalgia , Left-sided low back pain with left-sided sciatica, unspecified chronicity , Lumbago with sciatica, right side , Other chronic pain Use as directed 1 Device 0 01/21/2019 Active Cane donnie Indications: 01-21-2019 [facility] (60515) Fibromyalgia , Left-sided low back pain with left-sided sciatica, unspecified chronicity , Lumbago with sciatica, right side , Other chronic pain Use as directed 1 Device 0 01/21/2019 Active Comment: Use as directed Cetirizine cetirizine (ZYRTEC) 10 09-21-2017 Saurabh Hayes [facility] mg tablet Indications: (4419 5) Chronic seasonal allergic rhinitis due to other allergen Take 1 tablet by mouth once daily. 30 tablet 5 09/21/2017 Active Comment: Take 1 tablet by mouth once daily. cholecalciferol Cholecalciferol, Vitamin 03-13-2020 Saurabh gilman [facility] D3, 25 mcg (1,000 unit) (446 91) cap Take 1 capsule by mouth once daily. 90 capsule 0 03/13/2020 Active VITAMIN D (CHOLECALCIFEROL) CAPS take as directed 02-03-2017 [facility] (25302) CHOLECALCIFEROL CAPS [id number] Anisa Negron LPN VITAMIN D (CHOLECALCIFEROL) CAPS take as directed 02-03-2017 [facility] (30821) CHOLECALCIFEROL CAPS [id number] Anisa Negron LPN Comment: Take 1 capsule by mouth once daily. COMPOUNDED COMPOUNDED PRESCRIPTION 03-03-2019 Saurabh Villegasv eland PRESCRIPTION COMPRESSION GLOVES SIZE [facility] (39126) SMALL-MEDIUM DX ARTHRITIS Compression:20-30mmg 1 Package 2 03/03/2019 Active COMPOUNDED PRESCRIPTION 03-03-2019 Saurabh L [facility] COMPRESSION GLOVES SIZE (46642) SMALL-MEDIUM DX ARTHRITIS Compression:20-30mmg 1 Package 2 03/03/2019 Active COMPOUNDED PRESCRIPTION 03-03-2019 Saurabh L Hayes [facility] COMPRESSION GLOVES SIZE (16234) SMALL-MEDIUM DX ARTHRITIS Compression:20-30mmg 1 Package 2 03/03/2019 Active COMPOUNDED PRESCRIPTION 03-03-2019 Saurabh L Hayes [facility] COMPRESSION GLOVES SIZE (04226) SMALL-MEDIUM DX ARTHRITIS Compression:20-30mmg 1 Package 2 03/03/2019 Active COMPOUNDED PRESCRIPTION 03-03-2019 Saurabh L Hayes [facility] COMPRESSION GLOVES SIZE (96972) SMALL-MEDIUM DX ARTHRITIS Compression:20-30mmg 1 Package 2 03/03/2019 Active COMPOUNDED PRESCRIPTION 03-03-2019 Saurabh L Hayes [facility] COMPRESSION GLOVES SIZE (32288) SMALL-MEDIUM DX ARTHRITIS Compression:20-30mmg 1 Package 2 03/03/2019 Active COMPOUNDED PRESCRIPTION 03-03-2019 Saurabh L Hayes [facility] COMPRESSION GLOVES SIZE (68319) SMALL-MEDIUM DX ARTHRITIS Compression:20-30mmg 1 Package 2 03/03/2019 Active Comment: COMPRESSION GLOVES SIZE SMAL L-MEDIUM DX ARTHRITIS Compression:20-30mmg hydroCHLOROthiazide hydroCHLOROthiazide 03-13-2020 Saurabh Higgins levellaurence (HYDRODIURIL, ESIDRIX) 25 [facility] (36676) mg tablet Take 1 tablet by mouth once daily. 90 tablet 1 03/13/2020 Active Comment: Take 1 tablet by mouth once daily. hydroCHLOROthiazide / losartan HYZAAR 100-12.5 MG TABS 02-03-2017 [facility] take as directed (20259) LOSARTAN POTASSIUM-HCTZ [id number] Anisa Negron LPN HYZAAR 100-12.5 MG TABS take as directed 02-03-2017 [facility] (46537) LOSARTAN POTASSIUM-HCTZ [id number] Anisa Negron LPN Ketorolac ketorolac (TORADOL) 04-11-2020 - Saurbah Tolbert [facility] 10 mg tablet Take 1 06-06-2020 (48886) tablet by mouth once daily as needed for Pain. 20 tablet 1 06/06/2020 Active Comment: Take 1 tablet by mouth once daily as needed for Pain. krill oil KRILL OIL CAPS take as directed 02-03-2017 [facility] Now [facility] (81248) KRILL OIL CAPS [id number] Anisa Negron LPN KRILL OIL CAPS take as directed KRILL 02-03-2017 [facility] (38035) OIL CAPS [phone] Anisa Negron LPN Leg Brace (ELASTIC Leg Brace (ELASTIC 04-07-2019 Lyssa ([facility] KNEE SUPPORT) [facility] KNEE SUPPORT) [facility] [place] ( 18086) Each once daily. Knee sleeve/amparo compression sleeve to the left knee. 1 Each 0 04/07/2019 Active Leg Brace (ELASTIC KNEE 04-07-2019 Lyssa ([facility]) [facility] (67586) SUPPORT) [facility] 1 Each once daily. Knee sleeve/amparo compression sleeve to the left knee. 1 Each 0 04/07/2019 Active Leg Brace (ELASTIC KNEE 04-07-2019 Lyssa ([facility]) [facility] (85820) SUPPORT) [facility] Each once daily. Knee sleeve/amparo compression sleeve to the left knee. 1 Each 0 04/07/2019 Active Leg Brace (ELASTIC KNEE 04-07-2019 Lyssa ([facility]) [facility] (44610) SUPPORT) [facility] Each once daily. Knee sleeve/amparo compression sleeve to the left knee. 1 Each 0 04/07/2019 Active Leg Brace (ELASTIC KNEE 04-07-2019 Lyssa ([facility]) [facility] (14200) SUPPORT) [facility] 1 Each once daily. Knee sleeve/amparo compression sleeve to the left knee. 1 Each 0 04/07/2019 Active Leg Brace (ELASTIC KNEE 04-07-2019 Lyssa ([facility]) [facility] (72610) SUPPORT) misc 1 Each once daily. Knee sleeve/amparo compression sleeve to the left knee. 1 Each 0 04/07/2019 Active Leg Brace (ELASTIC KNEE 04-07-2019 Lyssa (Tee) [facility] (34400) SUPPORT) misc 1 Each once daily. Knee sleeve/amparo compression sleeve to the left knee. 1 Each 0 04/07/2019 Active Comment: 1 Each once daily. Knee slee ve/amparo compression sleeve to the left knee. Losartan losartan (COZAAR) 100 mg 03-13-2020 Ledbetter Didi Yanezsabao n [facility] tablet Take 1 tablet by (441 95) mouth once daily. 90 tablet 1 03/13/2020 Active Comment: Take 1 tablet by mouth once daily. Miscellaneous Medical Miscellaneous Medical 03-27-2015 [facility] Supply (BLOOD Supply (BLOOD [facility] (42208) PRESSURE CUFF) mis PRESSURE CUFF) mis 1 Units as directed. 1 Each 0 03/27/2015 Active Miscellaneous Medical Supply 03-27-2015 Saurabh L [facility] C [facility] (84397) (BLOOD PRESSURE CUFF) [facility] Units as directed. 1 Each 0 03/27/2015 Active Miscellaneous Medical Supply 03-27-2015 Saurabh L [facility] C [facility] (26038) (BLOOD PRESSURE CUFF) mis 1 Units as directed. 1 Each 0 03/27/2015 Active Miscellaneous Medical Supply 03-27-2015 Saurabh L Hayes C [facility] (76882) (BLOOD PRESSURE CUFF) mis 1 Units as directed. 1 Each 0 03/27/2015 Active Miscellaneous Medical Supply 03-27-2015 Saurabh L [facility] C [facility] (05897) (BLOOD PRESSURE CUFF) mis 1 Units as directed. 1 Each 0 03/27/2015 Active Miscellaneous Medical Supply 03-27-2015 Saurabh L Hayes C [facility] (10574) (BLOOD PRESSURE CUFF) mis 1 Units as directed. 1 Each 0 03/27/2015 Active Miscellaneous Medical Supply 03-27-2015 Saurabh L Hayes C [facility] (08917) (BLOOD PRESSURE CUFF) mis 1 Units as directed. 1 Each 0 03/27/2015 Active Comment: 1 Units as directed. omega-3 fatty omega-3 fatty acids 03-14-2020 ([facility]) [facility] acids 1,000 mg 1,000 mg cap Take 1 Podlogar (72010 ) cap capsule by mouth once daily. 150 capsule 1 03/14/2020 Active omega-3 fatty acids 1,000 mg 03-14-2020 ([facility]) Podloga r [facility] (90512) cap Take 1 capsule by mouth once daily. 150 capsule 1 03/14/2020 Active omega-3 fatty acids 1,000 mg 03-14-2020 ([facility]) Podloga r [facility] (07403) cap Take 1 capsule by mouth once daily. 150 capsule 1 03/14/2020 Active omega-3 fatty acids 1,000 mg 03-14-2020 ([facility]) Podloga r [facility] (96483) cap Take 1 capsule by mouth once daily. 150 capsule 1 03/14/2020 Active omega-3 fatty acids 1,000 mg 03-14-2020 ([facility]) Podloga r [facility] (19019) cap Take 1 capsule by mouth once daily. 150 capsule 1 03/14/2020 Active omega-3 fatty acids 1,000 mg 03-14-2020 ([facility]) Podloga r [facility] (67288) cap Take 1 capsule by mouth once daily. 150 capsule 1 03/14/2020 Active omega-3 fatty acids 1,000 mg 03-14-2020 ([facility]) Podloga r [facility] (91873) cap Take 1 capsule by mouth once daily. 150 capsule 1 03/14/2020 Active Comment: Take 1 capsule by mouth once daily. Omeprazole omeprazole (PRILOSEC) 20 08-02-2018 Saurabh Mckeon n [facility] mg capsule Indications: (441 95) GERD without esophagitis Take 1 capsule by mouth daily before breakfast. 1/2 hr before meal. 90 capsule 1 08/02/2018 Active Comment: Take 1 capsule by mouth gonzalez y before breakfast. 1/2 hr before meal. PARoxetine PARoxetine (PAXIL) 40 02-15-2020 Saurabh Higgins [facility] mg tablet Take 1 tablet (441 95) by mouth once daily. 90 tablet 1 02/15/2020 Active Comment: Take 1 tablet by mouth once daily. Phenazopyridine phenazopyridine 10-07-2019 Saurabh Didi [facility] (PYRIDIUM) 200 mg tablet (44 195) Take 1 tablet by mouth three times daily as needed. 6 tablet 4 10/07/2019 Active Comment: Take 1 tablet by mouth three times daily as needed. Potassium Chloride potassium chloride 03-13-2020 Saurabh cohn [facility] ER (K-DUR, KLOR-CON) (12007) 20 mEq tablet Take 1 tablet by mouth once daily. 30 tablet 2 03/13/2020 Active Comment: Take 1 tablet by mouth once daily. potassium,chelated POTASSIUM 99 MG TABS take as 02-03-2017 [facility] (23710) directed POTASSIUM [id number] Anisa Negron ACETYLENE OPERATOR POTASSIUM 99 MG TABS take as directed 02-03-2017 [facility] (94216) POTASSIUM [id number] Anisa Negron ACETYLENE OPERATOR TENS unit and TENS unit and 04-24-2016 Ledbetter Didi [facility] electrodes cmpk electrodes [facility] (31720) Indications: Fibromyalgia 1 Units twice daily. 1 Device 0 04/24/2016 Active TENS unit and electrodes cmpk 04-24-2016 Ledbetter Didi [facility] (31051) Indications: Fibromyalgia 1 Units twice daily. 1 Device 0 04/24/2016 Active TENS unit and electrodes cmpk 04-24-2016 [facility] (94662) Indications: Fibromyalgia 1 Units twice daily. 1 Device 0 04/24/2016 Active TENS unit and electrodes cmpk 04-24-2016 Ledbetter Didi [facility] (89788) Indications: Fibromyalgia 1 Units twice daily. 1 Device 0 04/24/2016 Active TENS unit and electrodes cmpk 04-24-2016 [facility] (94272) Indications: Fibromyalgia 1 Units twice daily. 1 Device 0 04/24/2016 Active TENS unit and electrodes cmpk 04-24-2016 [facility] (15166) Indications: Fibromyalgia 1 Units twice daily. 1 Device 0 04/24/2016 Active TENS unit and electrodes cmpk 04-24-2016 [facility] (37126) Indications: Fibromyalgia 1 Units twice daily. 1 Device 0 04/24/2016 Active Comment: 1 Units twice daily. tiZANidine tiZANidine (ZANAFLEX) 4 mg 03-29-2020 Landry Cuadra [facility] (02485) tablet Take 1 tablet by mouth three times daily as needed. 90 tablet 0 03/29/2020 Active ZANAFLEX 2 MG CAPS take as directed 02-03-2017 [facility] (51986) TIZANIDINE HCL [id number] Anisa Negron LPN Comment: Take 1 tablet by mouth three times daily as needed. Triamcinolone triamcinolone acetonide 02-10-2019 Liset Tolbert ([facility]) C [facility] (NASACORT) 55 mcg nasal Corniello (441 95) inhaler Indications: Seasonal allergic rhinitis, unspecified trigger Use 2 Sprays in the nose once daily. 1 Inhaler 5 02/10/2019 Active Comment: Use 2 Sprays in the nose onc e daily. Problems Active Problems Category Problem Name Status Date Location Allergic reactions Urticaria Active [facility] (47674) Anxiety disorders Anxiety attack Active 03-30-2018 - [facility] (88838) Diabetes mellitus Type 2 diabetes mellitus Active 11-17-2013 - [facility] without complication without complication (12475) Disorders of lipid Hyperlipidemia Active 09-24-2012 - [facility] metabolism (23011) Essential hypertension Essential hypertension Active 09-24-19 - [facility] (14961) Mood disorders Depressive disorder Active 09-24-2012 - [facility] (67234) Other connective Pain of bilateral hands Active 03-29-2019 - [facility] tissue disease (07902) Other liver diseases Steatosis of liver Active 03-29-2019 - [facility] (72698) Unclassified Sprain of talofibular Active 02-28-2019 - [facility] ligament of left ankle (4419 5) Unclassified Patient encounter status Active [facility] (26187) Past or Other Problems Category Problem Name Status Date Location Conditions associated Benign paroxysmal Completed 05-20-2013 - [facility] with dizziness or positional vertigo (441 95) vertigo Fluid and electrolyte Hypokalemia Completed 11-28-2014 - [facility] disorders (57757) Genitourinary symptoms Dysuria Completed 03-20-2017 - [facility] and ill-defined (09827) conditions Inflammation, infection Blepharitis Completed 02-03-2017 - [facility] of eye (09608) Other connective tissue Soft tissue lesion of Completed 06-19-20 14 - [facility] disease shoulder region (11532) Other connective tissue Lateral epicondylitis Completed 06-19-20 14 - [facility] disease (55777) Other connective tissue Muscle, ligament and Completed - [facility] disease fascia disorders (12495) Other connective tissue Enthesopathy of hip Completed 08-19-2013 - [facility] disease region (92680) Other connective tissue Fibromyalgia Completed 09-24-2012 - [facility] disease (56634) Other ear and sense Otalgia Completed 05-20-2013 - [facility] organ disorders (35529) Other non-traumatic Shoulder pain Completed 08-29-2014 - [facility] joint disorders (24365) Other skin disorders Swelling of hand Completed 03-29-2019 - [facility] (25753) Spondylosis; Chronic low back pain Completed 11-14-2016 - [facility] intervertebral disc (26633) disorders; other back problems Results Result Name Value Range Unit Interpretation Flag Date Location [facility] screening on 26-06-16 [facility] SCREENING * * *Final Report* * * Normal [facility] DATE OF EXAM: Jun 22 2020 11:46AM [place] (27679) [facility] 0581 - [facility] SCREENING / PROCEDURE REASON: Encounter for screening mammogram for eran gnant neoplasm of breast * * * * Physician Interpretation * * * * RESULT: #[id number] - [facility] SCREENING BILATERAL DIGITAL SCREENING MAMMOGRAM WITH CAD: 06/22/2020 HISTORY: Encounter For Screening Mammogram For Malignant Tramaine plasm Of Breast /Screening Mammogram - patient reports NO breast symp toms /Priors available for comparison. RESULT: TECHNIQUE: The study was acquired using full field digital t echnology and interpreted from soft copy. Current study was also evaluated with a Computer Aided Detec tion (CAD). Comparison is made to exams dated: 04/07/2019 mammogram, 018 mammogram - [facility], 11/19/2016 mammogr am, and 10/26/2015 mammogram - [facility]. The tissue o f both breasts is predominantly fatty. No significant masses, calcifications, or other findings are seen in either breast. There has been no significant interval change. IMPRESSION: NEGATIVE There is no mammographic evidence of malignancy. A 1 year sc reening mammogram is recommended. Sarah steele/evelyn:06/22/2020 12:00:31 Cellophaner(s): Ellyn Clark RT(R)(M), [facility] letter sent: Normal over 40 Mammogram BI-RADS: 1 Negative Multiple national specialty organizations have released patricia st cancer screening guidelines for women at average risk for developin g breast cancer - guidelines that are based on both evidence and opin ion, yet differ on when to start and how often to screen for breast c ancer. With representation from Breast Imaging, Internal Medicine, Women 's Health, Family Medicine, and Medical/Surgical Oncology, the [facility] has carefully reviewed the data and reached the following consen baudilio: 1) All women should engage in shared decision-making with eir providers to decide when to start and how often to screen; 2) All women should have the opportunity to start screening mammography at age 40; 3) For women ages 45-55, we recommend annual screening mammo grams; 4) For women ages 55 and over, we support both the transitio n from an annual to a biennial interval if this aligns more with patie nt's values and preferences, or continuation with annual screening; 5) All women should discuss with their providers when to sto p screening mammograms. Rubber Press Tender: Evelyn Transcribe Date/Time: Jun 22 2020 11:30A Dictated by: SARAH MORENO MD This examination was interpreted and the report reviewed and electronically signed by: SARAH MORENO MD on Jun 22 2020 12:00PM EST [id number] No panel information on 2020-06-22 [facility] (85518) obsolete on 2020-05 OBSOLETE Refill (FAMPWS) Normal 06-06-2020 Bak[facility] NAMRATA PENG Rika ([id number]) 1965 [facility] Date Time Provider Department (89436) 06/06/20 SAURABH HAYES During your visit today, we recorded the following informati on about you: Celine Layton Ma 06/06/2020 11:13 AM Signed Patient has been identified by name and date of : Yes Pending Prescriptions Disp Refills KETOROLAC 10 MG TABLET 20 tablet 1 Sig: Take 1 tablet by mouth once daily as needed for Pain. LOVELY: No RX INSTRUCTIONS: Patient aware RX will be sent to pharmacy. No need to notify patient. Celine Layton Ma Last ov; 04/2020 Last refill: 04/2020 Nov: 07/2020 Eliceo Humphries APRN.CNP 06/06/2020 12:11 PM Signed The following approved medic ation requests have been transmitted electronically. Pending Prescriptions Disp Refills KETOROLAC 10 MG TABLET 20 tablet 1 Sig: Take 1 tablet by mouth once daily as needed for Pain. LOVELY: No Eliceo Humphries APRN.CNP Allergies As of Date: 06/06/2020 Noted Allergy Reaction IMITREX (SUMATRIPTAN SUCCINATE) 09/24/2012 10 - Anaphylaxis SULFA DRUGS (SULFA (SULFONAMIDE A*09/24/2012 2 - Rash Comments: Rash all over AMPARO INHIBITORS 09/24/2012 14 - Other: See Comments Comments: Makes asthma worse LATEX 03/22/2013 2 - Rash Comments: Hospital Director calls it sensitivity per pt VICODIN (HYDROCODONE-ACETAMINOPHE*11/28/2013 8 - GI Upset Date Reviewed: 05/08/2020 Reviewed by: Suzie Boland Ma - Fully Assessed Reason for Visit: Refill Request [94] Order(s):ketorolac (TORADOL) 10 mg tabletTake 1 tablet by mouth once daily as needed for Pain.Disp: 20 tabletRfl: 1 Prescriptions as of 06/06/2020 Sig: KETOROLAC 10 MG TABLET Take 1 tablet by mouth once d* BUSPIRONE 10 MG TABLET Take 0.5-1 tablets by mouth t* BUPROPION XL 150 MG TAB Take 1 tablet by mouth once d* TIZANIDINE 4 MG TABLET Take 1 tablet by mouth three * OMEGA-3 FATTY ACIDS 1,000 MG * Take 1 capsule by mouth once * POTASSIUM CHLORIDE ER 20 MEQ * Take 1 tablet by mouth once d * CHOLECALCIFEROL (VITAMIN D3) * Take 1 capsule by mouth once * AMLODIPINE 10 MG TABLET Take 1 tablet by mouth once d* LOSARTAN 100 MG TABLET Take 1 tablet by mouth once d* HYDROCHLOROTHIAZIDE 25 MG TAB* Take 1 tablet by mouth once d * PAROXETINE 40 MG TABLET Take 1 tablet by mouth once d* ALBUTEROL SULFATE HFA 90 MCG/* Inhale 2 Puffs as instructed * FREESTYLE LITE STRIPS Test blood sugar(s) 1 times d* PHENAZOPYRIDINE 200 MG TABLET Take 1 tablet by mouth three * BENZOCAINE 10 % MUCOSAL GEL Use 1 application as instruct* LEG BRACE 1 Each once daily. Knee sleev* COMPOUNDED PRESCRIPTION COMPRESSION GLOVES SIZE SMAL* TRIAMCINOLONE ACETONIDE 55 MC* Use 2 Sprays in the nose once * CANE Use as directed OMEPRAZOLE 20 MG CAPSULE,DEBBI* Take 1 capsule by mouth daily * CETIRIZINE 10 MG TABLET Take 1 tablet by mouth once d* TENS UNIT AND ELECTRODES COMB* 1 Units twice daily. MISCELLANEOUS MEDICAL SUPPLY * 1 Units as directed. Problem List As Of Date 06/06/2020 Noted Resolved Hyperlipidemia [E78.5] 09/24/2012 HTN (hypertension) [I10] 09/24/2012 More... Fibromyalgia [M79.7] 09/24/2012 Depression [F32.9] 09/24/2012 Otalgia [H92.09] 05/20/2013 BPPV (benign paroxysmal positional vertigo) [H8*05/20/2013 Enthesopathy of hip region [M76.899] 08/19/2013 Other disorder of muscle, ligament, and fascia *08/19/2013 Diabetes mellitus type 2, controlled, without c*11/17/2013 Other affections of shoulder region, not elsewh*06/19/2014 Lateral epicondylitis of elbow [M77.10] 06/19/2014 Pain in right shoulder [M25.511] 08/29/2014 Hypokalemia [E87.6] 11/28/2014 Hives [L50.9] Chronic bilateral low back pain with bilateral *11/14/2016 Proteinuria [R80.9] 03/20/2017 Essential hypertension [I10] 03/30/2018 AICHA (generalized anxiety disorder) [F41.1] 03/30/2018 Anxiety attack [F41.0] 03/30/2018 Sprain of anterior talofibular ligament of left*02/28/2019 Swelling of joint of hand [M25.449] 03/29/2019 Bilateral hand pain [M79.641, M79.642] 03/29/2019 Fatty liver [K76.0] 03/29/2019 Dysuria [R30.0] 10/07/2019 Prescriptions ordered this encounter Disp Refills Start End KETOROLAC 10 MG TABLET 20 t* 1 06/06/2020 Route: ORAL Sig: Take 1 tablet by mouth once daily as needed for Pain. Medications Discontinued During This Encounter Prescriptions - ketorolac (TORADOL) 10 mg tablet (Discontinued) Take 1 tablet by mouth once daily as needed for Pain. Encounter Status:Closed by ELICEO HUMPHRIES on 06/06/20 obsolete on 2020-05 OBSOLETE Refill (FAMPWS) Normal 05-31-[address] [facility] NAMRATA PENG ([id number]) 1965 [facility] Time Provider Department ([id number]) 05/31/20 SAURABH HAYES FAMDarvinWS During your visit today, we recorded the following informati on about you: Celine Layton Ma 05/31/2020 1:45 PM Signed Patient has been identified by name and date of : Yes Pending Prescriptions Disp Refills BUSPIRONE 10 MG TABLET 90 tablet 1 Sig: Take 0.5-1 tablets by mouth three times daily as needed (anxiety attack). LOVELY: No RX INSTRUCTIONS: Patient aware RX will be sent to pharmacy. No need to notify patient. Celine Layton Ma Last ov: 01/2020 Last refill: 04/2020 Nov: 07/2020 Eilceo Humphries APRN.CNP 05/31/2020 1:47 PM Signed The following approved medic ation requests have been transmitted electronically. Signed Prescriptions Disp Refills busPIRone (BUSPAR) 10 mg tablet 90 tablet 1 Sig: Take 0.5-1 tablets by mouth three times daily as needed (anxiety attack). LOVELY: No Authorizing Provider: SAURABH HAYES Ordering User: ELICEO HUMPHRIES APRN.CNP Allergies As of Date: 05/31/2020 Noted Allergy Reaction IMITREX (SUMATRIPTAN SUCCINATE) 09/24/2012 10 - Anaphylaxis SULFA DRUGS (SULFA (SULFONAMIDE A*09/24/2012 2 - Rash Comments: Rash all over AMPARO INHIBITORS 09/24/2012 14 - Other: See Comments Comments: Makes asthma worse LATEX 03/22/2013 2 - Rash Comments: Hospital Director calls it sensitivity per pt VICODIN (HYDROCODONE-ACETAMINOPHE*11/28/2013 8 - GI Upset Date Reviewed: 05/08/2020 Reviewed by: Suzie Boland Ma - Fully Assessed Reason for Visit: Refill Request [94] Visit Diagnoses:AICHA (generalized anxiety disorder) [F41.1] Anxiety attack [F41.0] Order(s):busPIRone (BUSPAR) 10 mg tabletTake 0.5-1 tablets b y mouth three times daily as needed (anxiety attack).Disp: 90 tabletRfl: 1 Prescriptions as of 05/31/2020 Sig: BUSPIRONE 10 MG TABLET Take 0.5-1 tablets by mouth t* KETOROLAC 10 MG TABLET Take 1 tablet by mouth once d* BUPROPION XL 150 MG TAB Take 1 tablet by mouth once d* TIZANIDINE 4 MG TABLET Take 1 tablet by mouth three * OMEGA-3 FATTY ACIDS 1,000 MG * Take 1 capsule by mouth once * POTASSIUM CHLORIDE ER 20 MEQ * Take 1 tablet by mouth once d * CHOLECALCIFEROL (VITAMIN D3) * Take 1 capsule by mouth once * AMLODIPINE 10 MG TABLET Take 1 tablet by mouth once d* LOSARTAN 100 MG TABLET Take 1 tablet by mouth once d* HYDROCHLOROTHIAZIDE 25 MG TAB* Take 1 tablet by mouth once d * PAROXETINE 40 MG TABLET Take 1 tablet by mouth once d* ALBUTEROL SULFATE HFA 90 MCG/* Inhale 2 Puffs as instructed * FREESTYLE LITE STRIPS Test blood sugar(s) 1 times d* PHENAZOPYRIDINE 200 MG TABLET Take 1 tablet by mouth three * BENZOCAINE 10 % MUCOSAL GEL Use 1 application as instruct* LEG BRACE 1 Each once daily. Knee sleev* COMPOUNDED PRESCRIPTION COMPRESSION GLOVES SIZE SMAL* TRIAMCINOLONE ACETONIDE 55 MC* Use 2 Sprays in the nose once * CANE Use as directed OMEPRAZOLE 20 MG CAPSULE,DEBBI* Take 1 capsule by mouth daily * CETIRIZINE 10 MG TABLET Take 1 tablet by mouth once d* TENS UNIT AND ELECTRODES COMB* 1 Units twice daily. MISCELLANEOUS MEDICAL SUPPLY * 1 Units as directed. Problem List As Of Date 05/31/2020 Noted Resolved Hyperlipidemia [E78.5] 09/24/2012 HTN (hypertension) [I10] 09/24/2012 More... Fibromyalgia [M79.7] 09/24/2012 Depression [F32.9] 09/24/2012 Otalgia [H92.09] 05/20/2013 BPPV (benign paroxysmal positional vertigo) [H8*05/20/2013 Enthesopathy of hip region [M76.899] 08/19/2013 Other disorder of muscle, ligament, and fascia *08/19/2013 Diabetes mellitus type 2, controlled, without c*11/17/2013 Other affections of shoulder region, not elsewh*06/19/2014 Lateral epicondylitis of elbow [M77.10] 06/19/2014 Pain in right shoulder [M25.511] 08/29/2014 Hypokalemia [E87.6] 11/28/2014 Hives [L50.9] Chronic bilateral low back pain with bilateral *11/14/2016 Proteinuria [R80.9] 03/20/2017 Essential hypertension [I10] 03/30/2018 AICHA (generalized anxiety disorder) [F41.1] 03/30/2018 Anxiety attack [F41.0] 03/30/2018 Sprain of anterior talofibular ligament of left*02/28/2019 Swelling of joint of hand [M25.449] 03/29/2019 Bilateral hand pain [M79.641, M79.642] 03/29/2019 Fatty liver [K76.0] 03/29/2019 Dysuria [R30.0] 10/07/2019 Prescriptions ordered this encounter Disp Refills Start End BUSPIRONE 10 MG TABLET 90 t* 1 05/31/2020 Route: ORAL Sig: Take 0.5-1 tablets by mouth three t imes daily as needed (anxiety attack). Medications Discontinued During This Encounter Prescriptions - busPIRone (BUSPAR) 10 mg tablet (Discontinued) Take 0.5-1 tablets by mouth three times daily as needed (anx iety attack). Encounter Status:Closed by CAMRYN GRAFF LPN on 05/31/20 potassium on 2019-0 05-30 Potassium [Moles/Vol] 3.8 3.7-5.1 mmol/L Normal 05-30-20 [facility] ([id number]) Comment: Performed By: #### K1 ####Cl [facility], [place] [id number] [phone] cnpn on 2020-05-29 [facility] (F[facility]) Normal 05-29-[address] [facility] NAMRATA PENG ([id number]) 1965 [facility] Date Time Provider Department ([id number]) 05/29/20 [facility] During your visit today, we recorded the following informati on about you: Precious Rahel JAMA 05/29/2020 10:51 AM Signed Patient calling was in [facility] early January for dental infection, told to stop her HCTZ. Patient questioning he r potassium dose, still has been taking 20 meq once daily. Patient said she started with pal pitations over the weekend, she thinks her potassium level is too high. Patient said she has been h aving fluid retention issues also lately. Potassium last checked early A ugust. Please advise Saurabh Hayes DO 05/30/2020 6:56 AM Signed Would she be willing to come into lab to have re nal function and electrolytes tested? DO Celine Guerrero Ma 05/30/2020 9:10 AM Signed Yes patient is scheduled for today to have her labs co mpleted. Celine Hayes DO 05/30/2020 2:19 PM Signed Noted, Saurabh Hayes DO Allergies As of Date: 05/29/2020 Noted Allergy Reaction IMITREX (SUMATRIPTAN SUCCINATE) 09/24/2012 10 - Anaphylaxis SULFA DRUGS (SULFA (SULFONAMIDE A*09/24/2012 2 - Rash Comments: Rash all over AMPARO INHIBITORS 09/24/2012 14 - Other: See Comments Comments: Makes asthma worse LATEX 03/22/2013 2 - Rash Comments: Hospital Director calls it sensitivity per pt VICODIN (HYDROCODONE-ACETAMINOPHE*11/28/2013 8 - GI Upset Date Reviewed: 05/08/2020 Reviewed by: Suzie Boland Ma - Fully Assessed Reason for Visit: question, concern with potassium dose [Other] Prescriptions as of 05/29/2020 Sig: KETOROLAC 10 MG TABLET Take 1 tablet by mouth once d* BUSPIRONE 10 MG TABLET Take 0.5-1 tablets by mouth t* BUPROPION XL 150 MG TAB Take 1 tablet by mouth once d* TIZANIDINE 4 MG TABLET Take 1 tablet by mouth three * OMEGA-3 FATTY ACIDS 1,000 MG * Take 1 capsule by mouth once * POTASSIUM CHLORIDE ER 20 MEQ * Take 1 tablet by mouth once d * CHOLECALCIFEROL (VITAMIN D3) * Take 1 capsule by mouth once * AMLODIPINE 10 MG TABLET Take 1 tablet by mouth once d* LOSARTAN 100 MG TABLET Take 1 tablet by mouth once d* HYDROCHLOROTHIAZIDE 25 MG TAB* Take 1 tablet by mouth once d * PAROXETINE 40 MG TABLET Take 1 tablet by mouth once d* ALBUTEROL SULFATE HFA 90 MCG/* Inhale 2 Puffs as instructed * FREESTYLE LITE STRIPS Test blood sugar(s) 1 times d* PHENAZOPYRIDINE 200 MG TABLET Take 1 tablet by mouth three * BENZOCAINE 10 % MUCOSAL GEL Use 1 application as instruct* LEG BRACE 1 Each once daily. Knee sleev* COMPOUNDED PRESCRIPTION COMPRESSION GLOVES SIZE SMAL* TRIAMCINOLONE ACETONIDE 55 MC* Use 2 Sprays in the nose once * CANE Use as directed OMEPRAZOLE 20 MG CAPSULE,DEBBI* Take 1 capsule by mouth daily * CETIRIZINE 10 MG TABLET Take 1 tablet by mouth once d* TENS UNIT AND ELECTRODES COMB* 1 Units twice daily. MISCELLANEOUS MEDICAL SUPPLY * 1 Units as directed. Problem List As Of Date 05/29/2020 Noted Resolved Hyperlipidemia [E78.5] 09/24/2012 HTN (hypertension) [I10] 09/24/2012 More... Fibromyalgia [M79.7] 09/24/2012 Depression [F32.9] 09/24/2012 Otalgia [H92.09] 05/20/2013 BPPV (benign paroxysmal positional vertigo) [H8*05/20/2013 Enthesopathy of hip region [M76.899] 08/19/2013 Other disorder of muscle, ligament, and fascia *08/19/2013 Diabetes mellitus type 2, controlled, without c*11/17/2013 Other affections of shoulder region, not elsewh*06/19/2014 Lateral epicondylitis of elbow [M77.10] 06/19/2014 Pain in right shoulder [M25.511] 08/29/2014 Hypokalemia [E87.6] 11/28/2014 Hives [L50.9] Chronic bilateral low back pain with bilateral *11/14/2016 Proteinuria [R80.9] 03/20/2017 Essential hypertension [I10] 03/30/2018 AICHA (generalized anxiety disorder) [F41.1] 03/30/2018 Anxiety attack [F41.0] 03/30/2018 Sprain of anterior talofibular ligament of left*02/28/2019 Swelling of joint of hand [M25.449] 03/29/2019 Bilateral hand pain [M79.641, M79.642] 03/29/2019 Fatty liver [K76.0] 03/29/2019 Dysuria [R30.0] 10/07/2019 Encounter Status:Closed by VILMA BELL LPN on 05/30 xr knee 2v ap/lat rt on 2020-05-17 XR KNEE 2V * * *Final Report* * * Normal 2019 [facility] AP/LAT RT DATE OF EXAM: May 17 2020 12:16PM [place] ([id number]) WRX [id number] - XR KNEE 2V AP/LAT RT / PROCEDURE REASON: knee pain * * * * Physician Interpretation * * * * EXAMINATION: XR KNEE 2V AP/LAT RT PATIENT/TECHNOLOGIST PROVIDED HISTORY: pt states pain for a couple of months in right medial knee denies inj is swollen CLINICAL INFORMATION: 55 years old Female with knee pain TECHNIQUE: XR KNEE 2V AP/LAT RT Laterality: RIGHT Number of different views (projections): 2 COMPARISON: 06/13/2019 RESULT: No acute fracture or dislocation. Joint spaces are maintaine d. Minimal marginal osteophytes of the patella. No soft tissue swelling . IMPRESSION: No acute osseous findings. Rubber Press Tender: PSCB Transcribe Date/Time: May 17 2020 12:23P Dictated by : JUDY LEAVITT DO This examination was interpreted and the report reviewed and electronically signed by: JUDY LEAVITT DO on May 17 2020 12:24PM EST [id number] progress on 2020-05 PROGRESS HNO ID: [id number] Normal 05-17-2020 [facility] Author: Lacey Rios (RtCaitlyn Irvin [facility] ([id number]) Service: ? Author Type: City Director Type: Progress Notes Filed: 05/17/2020 12:16 PM Note Text: Radiology Service Progress Note PATIENT NAME: Namrata Peng DATE OF SERVICE: May 17, 2020 TIME: 12:15 PM PATIENT IDENTITY VERIFICATION COMPLETED USING TWO (2) IDENTI FIERS: Name and Date of confirmed by patient verbally. FALL SCREENING: Has the patient had 2 falls in the last year or 1 fall with injury or currently using an Ambulatory Assistive Devic e (Walker, Cane, Wheelchair, Crutches, etc.)? No PATIENT GENDER DATA: Female. status: : No status: NO. PATIENT RELEVANT IMPLANT DATA REVIEWED: Not Applicable RADIOLOGY DEPARTMENT: General X-ray: Exam(s) Completed: [place] Extremity X-Ray(s): Knee, AP / LAT Right and Bilateral: PERIPHERAL IV DATA: Not applicable SIGNED BY: RT Tiffanie May 17, 2020 12:15 PM No panel information on 2020-05-17 [facility] ([id number]) progress on 2020-05 PROGRESS HNO ID: [id number] Normal 2020 [facility] Author: Elvia Petrona Pss [place] ([id number]) Service: ? Author Type: ? Type: Progress Notes Filed: 2020 11:01 AM Note Text: Contacted patient, she will call when ready to do her colono scopy. Other health issues and concerns that will need to take care of fi rst. -Elvia Russ Pss progress on 2020-05 PROGRESS HNO ID: [id number] Normal 05-08-2020 [facility] Author: Deysi Jensen [place] ([id number]) Service: ? Author Type: Physician Type: Progress Notes Filed: 05/08/2020 4:55 PM Note Text: Namrata Peng is a 54 year old who presents for h er annual gynecologic exam without complaints. Having lower back and k nee issue Postmenopausal: Yes HRT use: No. Last Pap: 02/02/2019 normal HPV: 01/27/2019 negative History of abnormal pap: No Last mammogram: 2018 normal History of abnormal mammogram: No Sexually active: Yes- BF with ED- had recent implant surgery History of STDS: None Patient concerns for STD exposure: No. Pain with intercourse: No Postcoital bleeding: No Hot flashes: No Night sweats: No Vaginal dryness: Yes Exercise: not routine Diet: balanced OB History T1 L1 SAB1 TAB0 Ectopic0 Multiple0 Live Births0 PAST MEDICAL HISTORY Diagnosis Date - Anxiety - Asthma 2005 - Dental infection - Depression - Dizziness 05/20/2013 - DJD (degenerative joint disease) spine and neck - Epicondylitis bilateral elbow - Fibromyalgia 1989 - GERD (gastroesophageal reflux disease) - Hives - Hyperlipidemia not on medications - Hypertension - Melanoma in situ (HCC) 09/2015 - Ruptured lumbar disc PAST SURGICAL HISTORY Procedure Laterality Date - CARPAL TUNNEL bilateral - LX REPAIR RECURRENT VENTRAL HERNIA 09/06/2018 open repair of incarcerated recurrent ventral hernia - OTHER [facility] - REMOVE TONSILS/ADENOIDS,<12 Y/O - REPAIR INCISIONAL HERNIA,HELEN 04/29/2017 Strangulate ventral hernia with transverse colon FAMILY HISTORY Problem Relation Age of Onset - Hypertension Mother - Lipids Mother - Heart Paternal Grandfather AK - Heart Maternal Grandfather AK - Cancer Maternal Grandfather lukemia - other (Other) Paternal Grandmother Althezimers - other (fibromyalgia) Sister - Diabetes Paternal Aunt - other (stomach cancer) Paternal Uncle SOCIAL HISTORY Social History Tobacco Use - Smoking status: Never Smoker - Smokeless tobacco: Never Used - Tobacco comment: smoked a little as a teenager Substance Use Topics - Alcohol use: No Frequency: Monthly or less Drinks per session: 1 or 2 Binge frequency: Never - Drug use: No REVIEW OF SYSTEMS Abdomen: No abdominal pain, nausea, vomiting, diarrhea, or c onstipation. No bloating, early satiety, indigestion, or increased flatul ence. Bladder: No dysuria, gross hematuria, urinary frequency, uri nary urgency, or incontinence Breast: No breast lumps, nipple d/c, overlying skin changes, redness or skin retraction Allergies and current medication updated:Yes EXAM: BP 132/74 Ht 5' 1.417 (1.56m) Wt 206 lb (93.4kg) LMP 05/23/2014 BMI 38.40 kg/(m2). GENERAL: pleasant, female in no apparent distress HEENT: Normocephalic, atraumatic, mucus membranes moist and no lesions NECK: Supple, full range of motion, no adenopathy and thyroi d normal DERMATOLOGY: Normal, without lesions, non-icteric and non-hi rsute BREAST: soft, non-tender, symmetric, no dominant mass, anat l nipple-areolar complex, no lymphadenopathy and no nipple dis charge ABDOMEN: soft, non-tender and no masses PELVIC: external genitalia normal, normal Bartholin's glands , urethra, [place]'s glands, no vulvar lesions, no cervical lesions, good vaginal support, physiologic discharge present, normal appearing per ineal body and perianal region BIMANUAL: uterus normal size, shape and consistency, no adne xal masses and non-tender RECTOVAGINAL: deferred. NEURO: alert and oriented x3,exam grossly non-focal EXTREMITIES: normal ASSESSMENT/PLAN: 1) Health maintenance: Pap/HPV up to date. Mammogram ordered Nutrition, exercise and routine health maintenance exams rev iewed. Calcium/Vitamin D supplementation information provided. Colon cancer screening: colonoscopy ordered 2) Follow up one year or sooner as needed Deysi Almaraz MD PROGRESS HNO ID: [id number] Normal 05-08-2020 [facility] Author: Suzie Boland Ma [place] ([id number]) Service: ? Author Type: ? Type: Progress Notes Filed: 05/08/2020 4:55 PM Note Text: Wellness Ambassador offered: Patient declines. cnov on 2020-05-08 CNOV Office Visit (OBGYWM) Normal 05-08-[address] [place] [facility] NAMRATA PENG ([id number]) 1965 [facility] Date Time Provider Department ([id number]) 05/08/20 2:30 PM DEYSI PATIÑO OBGYWM During your visit today, we recorded the following informati on about you: Blood pressure Weight Height 132/74 93.4 kg 1.56 m Suzie Boland Ma 05/08/2020 4:55 PM Signed Wellness Ambassador offered: Patient declines. Deysi Almaraz MD 05/08/2020 4:55 PM Signed Namrataarsen Peng is a 54 year old who presents for h er annual gynecologic exam without complaints. Having lower back and k nee issue Postmenopausal: Yes HRT use: No. Last Pap: 02/02/2019 normal HPV: 01/27/2019 negative History of abnormal pap: No Last mammogram: 2018 normal History of abnormal mammogram: No Sexually active: Yes- BF with ED- had recent implant surgery History of STDS: None Patient concerns for STD exposure: No. Pain with intercourse: No Postcoital bleeding: No Hot flashes: No Night sweats: No Vaginal dryness: Yes Exercise: not routine Diet: balanced OB History T1 L1 SAB1 TAB0 Ectopic0 Multiple0 Live Births0 PAST MEDICAL HISTORY Diagnosis Date - Anxiety - Asthma 2005 - Dental infection - Depression - Dizziness 05/20/2013 - DJD (degenerative joint disease) spine and neck - Epicondylitis bilateral elbow - Fibromyalgia 1989 - GERD (gastroesophageal reflux disease) - Hives - Hyperlipidemia not on medications - Hypertension - Melanoma in situ (HCC) 09/2015 - Ruptured lumbar disc PAST SURGICAL HISTORY Procedure Laterality Date - CARPAL TUNNEL bilateral - LX REPAIR RECURRENT VENTRAL HERNIA 09/06/2018 open repair of incarcerated recurrent ventral hernia - OTHER [facility] - REMOVE TONSILS/ADENOIDS,<12 Y/O - REPAIR INCISIONAL HERNIA,HELEN 04/29/2017 Strangulate ventral hernia with transverse colon FAMILY HISTORY Problem Relation Age of Onset - Hypertension Mother - Lipids Mother - Heart Paternal Grandfather AK - Heart Maternal Grandfather AK - Cancer Maternal Grandfather lukemia - other (Other) Paternal Grandmother Althezimers - other (fibromyalgia) Sister - Diabetes Paternal Aunt - other (stomach cancer) Paternal Uncle SOCIAL HISTORY Social History Tobacco Use - Smoking status: Never Smoker - Smokeless tobacco: Never Used - Tobacco comment: smoked a little as a teenager Substance Use Topics - Alcohol use: No Frequency: Monthly or less Drinks per session: 1 or 2 Binge frequency: Never - Drug use: No REVIEW OF SYSTEMS Abdomen: No abdominal pain, nausea, vomiting, diarrhea, or constipation. No bloating, early satiety, indigestion, or increased flatulenc e. Bladder: No dysuria, gross hematuria, urinary frequenc y, urinary urgency, or incontinence Breast: No breast lumps, nipple d/c, overlying skin ch anges, redness or skin retraction Allergies and current medication updated:Yes EXAM: BP 132/74 Ht 5' 1.417 (1.56m) Wt 206 lb (93.4kg) LMP 05/23/2014 BMI 38.40 kg/(m2). GENERAL: pleasant, female in no apparent distress HEENT: Normocephalic, atraumatic, mucus membranes moist and no lesions NECK: Supple, full range of motion, no adenopathy and thyroi d normal DERMATOLOGY: Normal, without lesions, non-icteric and non-hi rsute BREAST: soft, non-tender, symmetric, no dominant mass, normal nipple-areolar complex, no lymphadenopathy and no nipple discharge ABDOMEN: soft, non-tender and no masses PELVIC: external genitalia normal, anat l Bartholin's glands, urethra, [place]'s glands, no vulvar lesions, no cervical lesions, good vaginal support, physiologic discharge present, normal appearing perineal bod y and perianal region BIMANUAL: uterus normal size, shape and consistency, no adne xal masses and non-tender RECTOVAGINAL: deferred. NEURO: alert and oriented x3,exam grossly non-focal EXTREMITIES: normal ASSESSMENT/PLAN: 1) Health maintenance: Pap/HPV up to date. Mammogram ordered Nutrition, exercise and routine health maintenance exams rev iewed. Calcium/Vitamin D supplementation information provided. Colon cancer screening: colonoscopy ordered 2) Follow up one year or sooner as needed MD Elvia Aldrich Pss 2020 11:01 AM Signed Contacted patient, she will call when ready to do her colonoscopy. Other health issues and concerns that will need to take care of fir st. -Elvia Carmona Referring Provider: DEYSI PATIÑO [[id number]] Allergies As of Date: 05/08/2020 Noted Allergy Reaction IMITREX (SUMATRIPTAN SUCCINATE) 09/24/2012 10 - Anaphylaxis SULFA DRUGS (SULFA (SULFONAMIDE A*09/24/2012 2 - Rash Comments: Rash all over AMPARO INHIBITORS 09/24/2012 14 - Other: See Comments Comments: Makes asthma worse LATEX 03/22/2013 2 - Rash Comments: Hospital Director calls it sensitivity per pt VICODIN (HYDROCODONE-ACETAMINOPHE*11/28/2013 8 - GI Upset Date Reviewed: 05/08/2020 Reviewed by: Suzie Boland Ma - Fully Assessed Reason for Visit: Yearly Exam [187] Primary Visit Diagnosis:Encounter for gynecological examinat ion without abnormal finding [Z01.419] Other Visit Diagnoses:Encounter for screening mammogram for malignant neoplasm of breast [Z12.31] Screening for colon cancer [Z12.11] Order(s):NOLAN SCREENING [[id number]] Order #: [id number] FUTURE COLONOSCOPY SCRN NOT HIGH RISK [[id number]] Order #: [id number] FUTURE Prescriptions as of 05/08/2020 Sig: KETOROLAC 10 MG TABLET Take 1 tablet by mouth once d* BUSPIRONE 10 MG TABLET Take 0.5-1 tablets by mouth t* BUPROPION XL 150 MG TAB Take 1 tablet by mouth once d* TIZANIDINE 4 MG TABLET Take 1 tablet by mouth three * OMEGA-3 FATTY ACIDS 1,000 MG * Take 1 capsule by mouth once * POTASSIUM CHLORIDE ER 20 MEQ * Take 1 tablet by mouth once d * CHOLECALCIFEROL (VITAMIN D3) * Take 1 capsule by mouth once * AMLODIPINE 10 MG TABLET Take 1 tablet by mouth once d* LOSARTAN 100 MG TABLET Take 1 tablet by mouth once d* PAROXETINE 40 MG TABLET Take 1 tablet by mouth once d* ALBUTEROL SULFATE HFA 90 MCG/* Inhale 2 Puffs as instructed * FREESTYLE LITE STRIPS Test blood sugar(s) 1 times d* COMPOUNDED PRESCRIPTION COMPRESSION GLOVES SIZE SMAL* TRIAMCINOLONE ACETONIDE 55 MC* Use 2 Sprays in the nose once * CANE Use as directed OMEPRAZOLE 20 MG CAPSULE,DEBBI* Take 1 capsule by mouth daily * CETIRIZINE 10 MG TABLET Take 1 tablet by mouth once d* TENS UNIT AND ELECTRODES COMB* 1 Units twice daily. MISCELLANEOUS MEDICAL SUPPLY * 1 Units as directed. HYDROCHLOROTHIAZIDE 25 MG TAB* Take 1 tablet by mouth once d * PHENAZOPYRIDINE 200 MG TABLET Take 1 tablet by mouth three * BENZOCAINE 10 % MUCOSAL GEL Use 1 application as instruct* LEG BRACE 1 Each once daily. Knee sleev* Problem List As Of Date 05/08/2020 Noted Resolved Hyperlipidemia [E78.5] 09/24/2012 HTN (hypertension) [I10] 09/24/2012 More... Fibromyalgia [M79.7] 09/24/2012 Depression [F32.9] 09/24/2012 Otalgia [H92.09] 05/20/2013 BPPV (benign paroxysmal positional vertigo) [H8*05/20/2013 Enthesopathy of hip region [M76.899] 08/19/2013 Other disorder of muscle, ligament, and fascia *08/19/2013 Diabetes mellitus type 2, controlled, without c*11/17/2013 Other affections of shoulder region, not elsewh*06/19/2014 Lateral epicondylitis of elbow [M77.10] 06/19/2014 Pain in right shoulder [M25.511] 08/29/2014 Hypokalemia [E87.6] 11/28/2014 Hives [L50.9] Chronic bilateral low back pain with bilateral *11/14/2016 Proteinuria [R80.9] 03/20/2017 Essential hypertension [I10] 03/30/2018 AICHA (generalized anxiety disorder) [F41.1] 03/30/2018 Anxiety attack [F41.0] 03/30/2018 Sprain of anterior talofibular ligament of left*02/28/2019 Swelling of joint of hand [M25.449] 03/29/2019 Bilateral hand pain [M79.641, M79.642] 03/29/2019 Fatty liver [K76.0] 03/29/2019 Dysuria [R30.0] 10/07/2019 Disposition: Return in 1 year (on 05/08/2021) for Annual Exam. Follow-up and Disposition History Recorded Encounter Status:Closed by DEYSI JENSEN MD on 05/08/20 lipid panel, basic on 2020-04-16 Cholesterol [Mass/Vol] 286 <200 mg/dL High 020 [facility] ([id number]) Comment: Result Comment: <200 mg/dL, Desirable 200-239 mg/dL, Borderline hi gh >239 mg/dL, High Performed By: #### CBC, CMP, LIPB, HBA1C ####[facility] [place], [place] [phone] Cholesterol in HDL 75 >39 mg/dL Normal 04-16-2020 [facility] [Mass/Vol] ([id number]) Comment: Result Comment: 40-59 mg/dL, Acceptable >59 mg/dL, High: Negative ri sk factor for coronary heart disease <40 mg/dL, Low: Positive ris k factor for coronary heart disease Performed By: #### CBC, CMP, LIPB, HBA1C ####[facility] [address] [place], [place] [phone] Cholesterol in LDL 189 <100 mg/dL High 04-16-2020 [facility] [Mass/Vol] ([id number]) Comment: Result Comment: <100 mg/dL, Optimal 100-129 mg/dL, Near optimal/ above optimal 130-159 mg/dL, Borderline hi gh 160-189 mg/dL, High >189 mg/dL, Very high Secondary prevention optimal LDL Cholesterol levels are recommended to be < 70 mg/dL Performed By: #### CBC, CMP, LIPB, HBA1C ####[place] [id number] [place], [place] [phone] Fasting Time 12 hrs Normal 04-16-2020 [facility] ([id number]) Comment: Performed By: #### CBC, CMP, LIPB, HBA1C ####[address] [place], [place] [phone] LDL:HDL Ratio 2.52 <2.54 Normal 04-16-2020 [facility] (13236) Comment: Result Comment: Reference: 1.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 Breath. - blood sugar diagnostic (FR EESTYLE LITE STRIPS) test strip Test blood sugar(s) 1 times daily. Dx: Type 2 DM - Controlled E11.9 Insulin: No - COMPOUNDED PRESCRIPTION COMPRESSION GLOVES SIZE SMALL-ME DIUM DX ARTHRITIS Compression:20-30mmg - triamcinolone acetonide (NASACORT) 55 mcg nasa l inhaler Use 2 Sprays in the nose once daily. - Cane donnie Use as directed - omeprazole (PRILOSEC) 20 mg capsule Take 1 capsule by mout h daily before breakfast. 1/2 hr before meal. - cetirizine (ZYRTEC) 10 mg tablet Take 1 tablet by mouth on ce daily. - TENS unit and electrodes cmpk 1 Units twice daily. - Miscellaneous Medical Supply (BLOOD VA ESSURE CUFF) misc 1 Units as directed. - hydroCHLOROthiazide (HYDRODIURIL, ESIDRIX) 25 mg tablet Ta ke 1 tablet by mouth once daily. - phenazopyridine (PYRIDIUM) 200 mg tablet Take 1 tablet by mouth three times daily as needed. - benzocaine (ANBESOL, BENZOCAINE,) 10 % oral gel Use 1 appl ication as instructed every 6 hours as needed. - Leg Brace (ELASTIC KNEE SUPPORT) misc 1 Each once daily. K nee sleeve/amparo compression sleeve to the left knee. No current facility-administered medications for this visit. ALLERGIES Allergen Reactions - Imitrex [Sumatripta* Anaphylaxis - Sulfa Drugs [Sulfa * Rash Rash all over - Amparo Inhibitors Other: See Comments Makes asthma worse - Latex Rash Hospital Director calls it sensitivity per pt - Vicodin [Hydrocodon* GI Upset Social History Tobacco Use - Smoking status: Never Smoker - Smokeless tobacco: Never Used - Tobacco comment: smoked a little as a teenager Substance Use Topics - Alcohol use: No Frequency: Monthly or less Drinks per session: 1 or 2 Binge frequency: Never - Drug use: No ROS: See HPI PE: BP 124/86 Pulse 76 Temp (Src) 98 (Ty mpanic) Resp 16 Wt 200 lb (90.7kg) LMP 05/23/2014 Gen: AANDOX3, NAD, non-toxic appearing HEENT: PERRLA, EOMs intact b/l, nares without drainage, phar ynx without erythema, exudate, lesions, or drainage. Uvula midline. Neck: No LAD, no thyromegaly, no meningismus. CV: RRR, no murmur Lungs: CTA b/l, no wheezing Skin: No rashes, lesions, or wounds on exposed skin. No CVA flank pain No edema Antalgic gait ASSESSMENT/PLAN: 1. AICHA (generalized anxiety disorder) - ICD9: 300.02, ICD10: F41.1 - rx refilled, will try to taper down on Paxil to 40 mg a day (from 60 mg a day) as well as taper down on Wellbutrin to 150 mg a day. F/u in office in 1-2 months or sooner as needed. Overall feel ing well controlled. Continue therapy, she is contracted for safety, no SI or HI - BUSPIRONE 10 MG TABLET 2. Anxiety attack - ICD9: 300.01, ICD10: F41.0 - rx refilled, will try to taper down on Paxil to 40 mg a day (from 60 mg a day) as well as taper down on Wellbutrin to 150 mg a day. F/u in office in 1-2 months or sooner as needed. Overall feel ing well controlled. Continue therapy, she is contracted for safety, no SI or HI - BUSPIRONE 10 MG TABLET 3. Fibromyalgia - ICD9: 729.1, ICD10: M79.7 - rx refilled, will try to taper down on Paxil to 40 mg a day (from 60 mg a day) as well as taper down on Wellbutrin to 150 mg a day. F/u in office in 1-2 months or sooner as needed. Overall feel ing well controlled. Continue therapy, she is contracted for safety, no SI or HI - BUPROPION XL 150 MG TAB 4. Dysthymia - ICD9: 300.4, ICD10: F34.1 - rx refilled, will try to taper down on Paxil to 40 mg a day (from 60 mg a day) as well as taper down on Wellbutrin to 150 mg a day. F/u in office in 1-2 months or sooner as needed. Overall feel ing well controlled. Continue therapy, she is contracted for safety, no SI or HI - BUPROPION XL 150 MG TAB Saurabh Hayes DO Return if no improvement. Follow up with Saurabh Hayes DO. To ER if develops chest pain, shortness of breath Discussed risks, benefits, alternatives, and potential side effects of medications. Patient/Guardian expressed understanding and agreed with the plan. See patient instructions. Saurabh Hayes DO [address] [place] [address] Referring Provider: SAURABH HAYES [[id number]] Allergies As of Date: 04/10/2020 Noted Allergy Reaction IMITREX (SUMATRIPTAN SUCCINATE) 09/24/2012 10 - Anaphylaxis SULFA DRUGS (SULFA (SULFONAMIDE A*09/24/2012 2 - Rash Comments: Rash all over AMPARO INHIBITORS 09/24/2012 14 - Other: See Comments Comments: Makes asthma worse LATEX 03/22/2013 2 - Rash Comments: Hospital Director calls it sensitivity per pt VICODIN (HYDROCODONE-ACETAMINOPHE*11/28/2013 8 - GI Upset Date Reviewed: 04/10/2020 Reviewed by: Celine Layton Ma - Fully Assessed Reason for Visit: F/U 6 months [1177] Visit Diagnoses:AICHA (generalized anxiety disorder) [F41.1] Anxiety attack [F41.0] Fibromyalgia [M79.7] Dysthymia [F34.1] Order(s):busPIRone (BUSPAR) 10 mg tabletTake 0.5-1 tablets b y mouth three times daily as needed (anxiety attack).Disp: 90 tabletRfl: 1 buPROPion XL (WELLBUTRIN XL) 150 mg 24 hr tabletTake 1 table t by mouth once daily.Disp: 90 tabletRfl: 1 Prescriptions as of 04/10/2020 Sig: BUSPIRONE 10 MG TABLET Take 0.5-1 tablets by mouth t* BUPROPION XL 150 MG TAB Take 1 tablet by mouth once d* TIZANIDINE 4 MG TABLET Take 1 tablet by mouth three * OMEGA-3 FATTY ACIDS 1,000 MG * Take 1 capsule by mouth once * POTASSIUM CHLORIDE ER 20 MEQ * Take 1 tablet by mouth once d * CHOLECALCIFEROL (VITAMIN D3) * Take 1 capsule by mouth once * AMLODIPINE 10 MG TABLET Take 1 tablet by mouth once d* LOSARTAN 100 MG TABLET Take 1 tablet by mouth once d* PAROXETINE 40 MG TABLET Take 1 tablet by mouth once d* ALBUTEROL SULFATE HFA 90 MCG/* Inhale 2 Puffs as instructed * FREESTYLE LITE STRIPS Test blood sugar(s) 1 times d* COMPOUNDED PRESCRIPTION COMPRESSION GLOVES SIZE SMAL* TRIAMCINOLONE ACETONIDE 55 MC* Use 2 Sprays in the nose once * CANE Use as directed OMEPRAZOLE 20 MG CAPSULE,DEBBI* Take 1 capsule by mouth daily * CETIRIZINE 10 MG TABLET Take 1 tablet by mouth once d* TENS UNIT AND ELECTRODES COMB* 1 Units twice daily. MISCELLANEOUS MEDICAL SUPPLY * 1 Units as directed. HYDROCHLOROTHIAZIDE 25 MG TAB* Take 1 tablet by mouth once d * PHENAZOPYRIDINE 200 MG TABLET Take 1 tablet by mouth three * BENZOCAINE 10 % MUCOSAL GEL Use 1 application as instruct* LEG BRACE 1 Each once daily. Knee sleev* Problem List As Of Date 04/10/2020 Noted Resolved Hyperlipidemia [E78.5] 09/24/2012 HTN (hypertension) [I10] 09/24/2012 More... Fibromyalgia [M79.7] 09/24/2012 Depression [F32.9] 09/24/2012 Otalgia [H92.09] 05/20/2013 BPPV (benign paroxysmal positional vertigo) [H8*05/20/2013 Enthesopathy of hip region [M76.899] 08/19/2013 Other disorder of muscle, ligament, and fascia *08/19/2013 Diabetes mellitus type 2, controlled, without c*11/17/2013 Other affections of shoulder region, not elsewh*06/19/2014 Lateral epicondylitis of elbow [M77.10] 06/19/2014 Pain in right shoulder [M25.511] 08/29/2014 Hypokalemia [E87.6] 11/28/2014 Hives [L50.9] Chronic bilateral low back pain with bilateral *11/14/2016 Proteinuria [R80.9] 03/20/2017 Essential hypertension [I10] 03/30/2018 AICHA (generalized anxiety disorder) [F41.1] 03/30/2018 Anxiety attack [F41.0] 03/30/2018 Sprain of anterior talofibular ligament of left*02/28/2019 Swelling of joint of hand [M25.449] 03/29/2019 Bilateral hand pain [M79.641, M79.642] 03/29/2019 Fatty liver [K76.0] 03/29/2019 Dysuria [R30.0] 10/07/2019 Prescriptions ordered this encounter Disp Refills Start End BUSPIRONE 10 MG TABLET 90 t* 1 04/10/2020 Route: ORAL Sig: Take 0.5-1 tablets by mouth three t imes daily as needed (anxiety attack). BUPROPION XL 150 MG TAB 90 t* 1 04/10/2020 Route: ORAL Sig: Take 1 tablet by mouth once daily. Medications Discontinued During This Encounter Prescriptions - PARoxetine (PAXIL) 20 mg tablet (Discontinued) Take 1 tablet by mouth once daily. In addition to 40mg zac ly for a total of 60mg - busPIRone (BUSPAR) 10 mg tablet (Discontinued) Take 0.5-1 tablets by mouth three times daily as needed (anx iety attack). - buPROPion XL (WELLBUTRIN XL) 300 mg 24 hr tablet (Disconti nued) Take 1 tablet by mouth once daily. Encounter Status:Closed by SAURABH HAYES DO on 04/10/20 obsolete on 2020-03 OBSOLETE Refill (FAMPWS) Normal 03-28-[address] [facility] NAMRATA PENG ([id number]) 1965 [place] [place] Date Time Provider Department ([id number]) 03/28/20 SAURABH HAYES During your visit today, we recorded the following informati on about you: Chante Whitley MA 03/29/2020 8:00 AM Signed Patient has been identified by name and date of : Yes Pending Prescriptions Disp Refills TIZANIDINE 4 MG TABLET 90 tablet 0 Sig: Take 1 tablet by mouth three times daily as needed. LOVELY: No RX INSTRUCTIONS: MC renewal request QUETA: 01/12/20 NOV: 04/10/20 Last Refill: 12/26/19 90 tabs with no refills Chante Whitley MA Allergies As of Date: 03/28/2020 Noted Allergy Reaction IMITREX (SUMATRIPTAN SUCCINATE) 09/24/2012 10 - Anaphylaxis SULFA DRUGS (SULFA (SULFONAMIDE A*09/24/2012 2 - Rash Comments: Rash all over AMPARO INHIBITORS 09/24/2012 14 - Other: See Comments Comments: Makes asthma worse LATEX 03/22/2013 2 - Rash Comments: Hospital Director calls it sensitivity per pt VICODIN (HYDROCODONE-ACETAMINOPHE*11/28/2013 8 - GI Upset Date Reviewed: 01/12/2020 Reviewed by: Adan (Dnp.Lead Former) ОЛЕГ Armendariz.CORPORATE DEVELOPMENT INTERN - Fully Assesse d Reason for Visit: Refill Request [94] Order(s):tiZANidine (ZANAFLEX) 4 mg tabletTake 1 table t by mouth three times daily as needed.Disp: 90 tabletRfl: 0 Prescriptions as of 03/28/2020 Sig: TIZANIDINE 4 MG TABLET Take 1 tablet by mouth three * OMEGA-3 FATTY ACIDS 1,000 MG * Take 1 capsule by mouth once * POTASSIUM CHLORIDE ER 20 MEQ * Take 1 tablet by mouth once d * CHOLECALCIFEROL (VITAMIN D3) * Take 1 capsule by mouth once * AMLODIPINE 10 MG TABLET Take 1 tablet by mouth once d* BUPROPION XL 300 MG 24 HR TAB Take 1 tablet by mouth once d* LOSARTAN 100 MG TABLET Take 1 tablet by mouth once d* HYDROCHLOROTHIAZIDE 25 MG TAB* Take 1 tablet by mouth once d * PAROXETINE 40 MG TABLET Take 1 tablet by mouth once d* ALBUTEROL SULFATE HFA 90 MCG/* Inhale 2 Puffs as instructed * BUSPIRONE 10 MG TABLET Take 0.5-1 tablets by mouth t* PAROXETINE 20 MG TABLET Take 1 tablet by mouth once d* FREESTYLE LITE STRIPS Test blood sugar(s) 1 times d* PHENAZOPYRIDINE 200 MG TABLET Take 1 tablet by mouth three * BENZOCAINE 10 % MUCOSAL GEL Use 1 application as instruct* LEG BRACE 1 Each once daily. Knee sleev* COMPOUNDED PRESCRIPTION COMPRESSION GLOVES SIZE SMAL* TRIAMCINOLONE ACETONIDE 55 MC* Use 2 Sprays in the nose once * CANE Use as directed OMEPRAZOLE 20 MG CAPSULE,DEBBI* Take 1 capsule by mouth daily * CETIRIZINE 10 MG TABLET Take 1 tablet by mouth once d* TENS UNIT AND ELECTRODES COMB* 1 Units twice daily. MISCELLANEOUS MEDICAL SUPPLY * 1 Units as directed. Problem List As Of Date 03/28/2020 Noted Resolved Hyperlipidemia [E78.5] 09/24/2012 HTN (hypertension) [I10] 09/24/2012 More... Fibromyalgia [M79.7] 09/24/2012 Depression [F32.9] 09/24/2012 Otalgia [H92.09] 05/20/2013 BPPV (benign paroxysmal positional vertigo) [H8*05/20/2013 Enthesopathy of hip region [M76.899] 08/19/2013 Other disorder of muscle, ligament, and fascia *08/19/2013 Diabetes mellitus type 2, controlled, without c*11/17/2013 Other affections of shoulder region, not elsewh*06/19/2014 Lateral epicondylitis of elbow [M77.10] 06/19/2014 Pain in right shoulder [M25.511] 08/29/2014 Hypokalemia [E87.6] 11/28/2014 Hives [L50.9] Chronic bilateral low back pain with bilateral *11/14/2016 Proteinuria [R80.9] 03/20/2017 Essential hypertension [I10] 03/30/2018 AICHA (generalized anxiety disorder) [F41.1] 03/30/2018 Anxiety attack [F41.0] 03/30/2018 Sprain of anterior talofibular ligament of left*02/28/2019 Swelling of joint of hand [M25.449] 03/29/2019 Bilateral hand pain [M79.641, M79.642] 03/29/2019 Fatty liver [K76.0] 03/29/2019 Dysuria [R30.0] 10/07/2019 Prescriptions ordered this encounter Disp Refills Start End TIZANIDINE 4 MG TABLET 90 t* 0 03/29/2020 Route: ORAL Sig: Take 1 tablet by mouth three times daily as needed. Medications Discontinued During This Encounter tiZANidine (ZANAFLEX) 4 mg tablet 90 t* 0 12/26/2019 0 Route: ORAL Sig: Take 1 tablet by mouth three times daily as needed. Disc: Reason for discontinue is not on file. Encounter Status:Closed by LANDRY CUADRA MD on 03/29/20 obsolete on 2020-03 OBSOLETE Refill (FAMPWS) Normal 03-14-[address] [facility] NAMRATA PENG ([id number]) 1965 [facility] Time Provider Department ([id number]) 03/14/20 SAURABH HAYES FAMPWS During your visit today, we recorded the following informati on about you: Chante Whitley MA 03/14/2020 10:43 AM Signed Patient has been identified by name and date of : Yes Pending Prescriptions Disp Refills OMEGA-3 FATTY ACIDS 1,000 MG CAPSULE 150 capsule 1 Sig: Take 1 capsule by mouth once daily. LOVELY: No RX INSTRUCTIONS: Pharmacy initiated this request. No need to notify patient. QUETA: 01/12/20 NOV: 04/10/20 Last Refill: 04/06/19 150 caps with 1 refill Chante Whitley MA Allergies As of Date: 03/14/2020 Noted Allergy Reaction IMITREX (SUMATRIPTAN SUCCINATE) 09/24/2012 10 - Anaphylaxis SULFA DRUGS (SULFA (SULFONAMIDE A*09/24/2012 2 - Rash Comments: Rash all over AMPARO INHIBITORS 09/24/2012 14 - Other: See Comments Comments: Makes asthma worse LATEX 03/22/2013 2 - Rash Comments: Hospital Director calls it sensitivity per pt VICODIN (HYDROCODONE-ACETAMINOPHE*11/28/2013 8 - GI Upset Date Reviewed: 01/12/2020 Reviewed by: Adan (Dnp.Lead Former) ОЛЕГ Armendariz.CORPORATE DEVELOPMENT INTERN - Fully Assesse d Reason for Visit: Refill Request [94] Order(s):omega-3 fatty acids 1,000 mg capTake 1 capsule by m out once daily.Disp: 150 capsuleRfl: 1 Prescriptions as of 03/14/2020 Sig: OMEGA-3 FATTY ACIDS 1,000 MG * Take 1 capsule by mouth once * POTASSIUM CHLORIDE ER 20 MEQ * Take 1 tablet by mouth once d * CHOLECALCIFEROL (VITAMIN D3) * Take 1 capsule by mouth once * AMLODIPINE 10 MG TABLET Take 1 tablet by mouth once d* BUPROPION XL 300 MG 24 HR TAB Take 1 tablet by mouth once d* LOSARTAN 100 MG TABLET Take 1 tablet by mouth once d* HYDROCHLOROTHIAZIDE 25 MG TAB* Take 1 tablet by mouth once d * PAROXETINE 40 MG TABLET Take 1 tablet by mouth once d* ALBUTEROL SULFATE HFA 90 MCG/* Inhale 2 Puffs as instructed * BUSPIRONE 10 MG TABLET Take 0.5-1 tablets by mouth t* PAROXETINE 20 MG TABLET Take 1 tablet by mouth once d* TIZANIDINE 4 MG TABLET Take 1 tablet by mouth three * FREESTYLE LITE STRIPS Test blood sugar(s) 1 times d* PHENAZOPYRIDINE 200 MG TABLET Take 1 tablet by mouth three * BENZOCAINE 10 % MUCOSAL GEL Use 1 application as instruct* LEG BRACE 1 Each once daily. Knee sleev* COMPOUNDED PRESCRIPTION COMPRESSION GLOVES SIZE SMAL* TRIAMCINOLONE ACETONIDE 55 MC* Use 2 Sprays in the nose once * CANE Use as directed OMEPRAZOLE 20 MG CAPSULE,DEBBI* Take 1 capsule by mouth daily * CETIRIZINE 10 MG TABLET Take 1 tablet by mouth once d* TENS UNIT AND ELECTRODES COMB* 1 Units twice daily. MISCELLANEOUS MEDICAL SUPPLY * 1 Units as directed. Problem List As Of Date 03/14/2020 Noted Resolved Hyperlipidemia [E78.5] 09/24/2012 HTN (hypertension) [I10] 09/24/2012 More... Fibromyalgia [M79.7] 09/24/2012 Depression [F32.9] 09/24/2012 Otalgia [H92.09] 05/20/2013 BPPV (benign paroxysmal positional vertigo) [H8*05/20/2013 Enthesopathy of hip region [M76.899] 08/19/2013 Other disorder of muscle, ligament, and fascia *08/19/2013 Diabetes mellitus type 2, controlled, without c*11/17/2013 Other affections of shoulder region, not elsewh*06/19/2014 Lateral epicondylitis of elbow [M77.10] 06/19/2014 Pain in right shoulder [M25.511] 08/29/2014 Hypokalemia [E87.6] 11/28/2014 Hives [L50.9] Chronic bilateral low back pain with bilateral *11/14/2016 Proteinuria [R80.9] 03/20/2017 Essential hypertension [I10] 03/30/2018 AICHA (generalized anxiety disorder) [F41.1] 03/30/2018 Anxiety attack [F41.0] 03/30/2018 Sprain of anterior talofibular ligament of left*02/28/2019 Swelling of joint of hand [M25.449] 03/29/2019 Bilateral hand pain [M79.641, M79.642] 03/29/2019 Fatty liver [K76.0] 03/29/2019 Dysuria [R30.0] 10/07/2019 Prescriptions ordered this encounter Disp Refills Start End OMEGA-3 FATTY ACIDS 1,000 MG CAPSULE 150 * 1 03/14/2020 Route: ORAL Sig: Take 1 capsule by mouth once daily. Medications Discontinued During This Encounter omega-3 fatty acids 1,000 mg cap 150 * 1 04/06/2019 03/14/2020 Sig: TAKE 1 CAPSULE DAILY Disc: Reason for discontinue is not on file. Encounter Status:Closed by NADIR MONTERO CNP on 03/14/20 obsolete on 2020-03 OBSOLETE Refill (FAMPWS) Normal 03-12-2020 [facility] connelly Viviane PENGNAMRATA A ([id number]) 1965 [facility] Date Time Provider Department ([id number]) 03/12/20 SAURABH HAYES During your visit today, we recorded the following informati on about you: Chante Krishnazahra LUA 03/12/2020 4:40 PM Signed Patient has been identified by name and date of : Yes Pending Prescriptions Disp Refills POTASSIUM CHLORIDE ER 20 MEQ TABLET,EXTENDED RELEASE(P ART/CRYST) 30 tablet 2 Sig: Take 1 tablet by mouth once daily. LOVELY: No CHOLECALCIFEROL (VITAMIN D3) 25 MCG (1,000 UNIT) CAPSULE 90 capsule 0 Sig: Take 1 capsule by mouth once daily. LOVELY: No AMLODIPINE 10 MG TABLET 90 tablet 0 Sig: Take 1 tablet by mouth once daily. LOVELY: No BUPROPION XL 300 MG 24 HR TAB 90 tablet 0 Sig: Take 1 tablet by mouth once daily. LOVELY: No LOSARTAN 100 MG TABLET 90 tablet 1 Sig: Take 1 tablet by mouth once daily. LOVELY: No HYDROCHLOROTHIAZIDE 25 MG TABLET 90 tablet 1 Sig: Take 1 tablet by mouth once daily. LOVELY: No RX INSTRUCTIONS: Pharmacy initiated this request. No need to notify patient. QUETA: 01/12/20 NOV: 04/10/20 Chante Wheat APRN.TEE 03/13/2020 12:55 PM Signed Script sent. Lyssa Wheat APRN.TEE Allergies As of Date: 03/12/2020 Noted Allergy Reaction IMITREX (SUMATRIPTAN SUCCINATE) 09/24/2012 10 - Anaphylaxis SULFA DRUGS (SULFA (SULFONAMIDE A*09/24/2012 2 - Rash Comments: Rash all over AMPARO INHIBITORS 09/24/2012 14 - Other: See Comments Comments: Makes asthma worse LATEX 03/22/2013 2 - Rash Comments: Hospital Director calls it sensitivity per pt VICODIN (HYDROCODONE-ACETAMINOPHE*11/28/2013 8 - GI Upset Date Reviewed: 01/12/2020 Reviewed by: Adan (Lj.Tee) ОЛЕГ Armendariz.TEE - Fully Assesse d Reason for Visit: Refill Request [94] Visit Diagnoses:Essential hypertension [I10] Fibromyalgia [M79.7] Dysthymia [F34.1] Order(s):potassium chloride ER (K-DUR, K NIURKA-CON) 20 mEq tabletTake 1 tablet by mouth once daily.Disp: 30 tabletRfl: 2 Cholecalciferol, Vitamin D3, 25 mcg (1,000 unit) capTake 1 c apsule by mouth once daily.Disp: 90 capsuleRfl: 0 amLODIPine (NORVASC) 10 mg tabletTake 1 tablet by mouth once daily.Disp: 90 tabletRfl: 0 buPROPion XL (WELLBUTRIN XL) 300 mg 24 hr tabletTake 1 table t by mouth once daily.Disp: 90 tabletRfl: 0 losartan (COZAAR) 100 mg tabletTake 1 tablet by mouth once daily.Disp: 90 tabletRfl: 1 hydroCHLOROthiazide (HYDRODIURIL, ESIDRIX) 25 mg tabletTake 1 tablet by mouth once daily.Disp: 90 tabletRfl: 1 Prescriptions as of 03/12/2020 Sig: POTASSIUM CHLORIDE ER 20 MEQ * Take 1 tablet by mouth once d * CHOLECALCIFEROL (VITAMIN D3) * Take 1 capsule by mouth once * AMLODIPINE 10 MG TABLET Take 1 tablet by mouth once d* BUPROPION XL 300 MG 24 HR TAB Take 1 tablet by mouth once d* LOSARTAN 100 MG TABLET Take 1 tablet by mouth once d* HYDROCHLOROTHIAZIDE 25 MG TAB* Take 1 tablet by mouth once d * PAROXETINE 40 MG TABLET Take 1 tablet by mouth once d* ALBUTEROL SULFATE HFA 90 MCG/* Inhale 2 Puffs as instructed * BUSPIRONE 10 MG TABLET Take 0.5-1 tablets by mouth t* PAROXETINE 20 MG TABLET Take 1 tablet by mouth once d* TIZANIDINE 4 MG TABLET Take 1 tablet by mouth three * FREESTYLE LITE STRIPS Test blood sugar(s) 1 times d* PHENAZOPYRIDINE 200 MG TABLET Take 1 tablet by mouth three * BENZOCAINE 10 % MUCOSAL GEL Use 1 application as instruct* LEG BRACE 1 Each once daily. Knee sleev* OMEGA-3 FATTY ACIDS 1,000 MG * TAKE 1 CAPSULE DAILY COMPOUNDED PRESCRIPTION COMPRESSION GLOVES SIZE SMAL* TRIAMCINOLONE ACETONIDE 55 MC* Use 2 Sprays in the nose once * CANE Use as directed OMEPRAZOLE 20 MG CAPSULE,DEBBI* Take 1 capsule by mouth daily * CETIRIZINE 10 MG TABLET Take 1 tablet by mouth once d* TENS UNIT AND ELECTRODES COMB* 1 Units twice daily. MISCELLANEOUS MEDICAL SUPPLY * 1 Units as directed. Problem List As Of Date 03/12/2020 Noted Resolved Hyperlipidemia [E78.5] 09/24/2012 HTN (hypertension) [I10] 09/24/2012 More... Fibromyalgia [M79.7] 09/24/2012 Depression [F32.9] 09/24/2012 Otalgia [H92.09] 05/20/2013 BPPV (benign paroxysmal positional vertigo) [H8*05/20/2013 Enthesopathy of hip region [M76.899] 08/19/2013 Other disorder of muscle, ligament, and fascia *08/19/2013 Diabetes mellitus type 2, controlled, without c*11/17/2013 Other affections of shoulder region, not elsewh*06/19/2014 Lateral epicondylitis of elbow [M77.10] 06/19/2014 Pain in right shoulder [M25.511] 08/29/2014 Hypokalemia [E87.6] 11/28/2014 Hives [L50.9] Chronic bilateral low back pain with bilateral *11/14/2016 Proteinuria [R80.9] 03/20/2017 Essential hypertension [I10] 03/30/2018 AICHA (generalized anxiety disorder) [F41.1] 03/30/2018 Anxiety attack [F41.0] 03/30/2018 Sprain of anterior talofibular ligament of left*02/28/2019 Swelling of joint of hand [M25.449] 03/29/2019 Bilateral hand pain [M79.641, M79.642] 03/29/2019 Fatty liver [K76.0] 03/29/2019 Dysuria [R30.0] 10/07/2019 Prescriptions ordered this encounter Disp Refills Start End POTASSIUM CHLORIDE ER 20 MEQ TABLET,* 30 t* 2 03/13/2020 Route: ORAL Sig: Take 1 tablet by mouth once daily. CHOLECALCIFEROL (VITAMIN D3) 25 MCG * 90 c* 0 03/13/2020 Route: ORAL Sig: Take 1 capsule by mouth once daily. AMLODIPINE 10 MG TABLET 90 t* 0 03/13/2020 Route: ORAL Sig: Take 1 tablet by mouth once daily. BUPROPION XL 300 MG 24 HR TAB 90 t* 0 03/13/2020 Route: ORAL Sig: Take 1 tablet by mouth once daily. LOSARTAN 100 MG TABLET 90 t* 1 03/13/2020 Route: ORAL Sig: Take 1 tablet by mouth once daily. HYDROCHLOROTHIAZIDE 25 MG TABLET 90 t* 1 03/13/2020 Route: ORAL Sig: Take 1 tablet by mouth once daily. Medications Discontinued During This Encounter potassium chloride ER (K-DUR, KLOR-C* 30 t* 2 12/16/20192019 Route: ORAL Sig: Take 1 tablet by mouth once daily. Disc: Reason for discontinue is not on file. Cholecalciferol, Vitamin D3, 25 mcg * 90 c* 0 12/16/20192019 Route: ORAL Sig: Take 1 capsule by mouth once daily. Disc: Reason for discontinue is not on file. amLODIPine (NORVASC) 10 mg tablet 90 t* 0 12/16/2019 03/13/2020 Route: ORAL Sig: Take 1 tablet by mouth once daily. Disc: Reason for discontinue is not on file. buPROPion XL (WELLBUTRIN XL) 300 mg * 90 t* 0 12/26/20192019 Route: ORAL Sig: Take 1 tablet by mouth once daily. Disc: Reason for discontinue is not on file. losartan (COZAAR) 100 mg tablet 90 t* 1 10/11/2019 03/13/2020 Route: ORAL Sig: Take 1 tablet by mouth once daily. Disc: Reason for discontinue is not on file. hydroCHLOROthiazide (HYDRODIURIL, ES* 90 t* 1 10/11/2019 020 Route: ORAL Sig: Take 1 tablet by mouth once daily. Disc: Reason for discontinue is not on file. Encounter Status:Closed by LYSSA WHEAT CNP on 03/13/20 obsolete on 2020-02 OBSOLETE Refill (FAMPWS) Normal 02-14-[address] [facility] NAMRATA PENG ([id number]) 1965 [facility] Date Time Provider Department ([id number]) 02/14/20 SAURABH HAYESPDUSTIN During your visit today, we recorded the following informati on about you: Constanza Singletary EVITA 02/14/2020 2:35 PM Signed Upcoming appointment: 04/10/20 Medication request: Pending Prescriptions Disp Refills PAROXETINE 40 MG TABLET 90 tablet 1 Sig: Take 1 tablet by mouth once daily. LOVELY: No Please review and advise. Allergies As of Date: 02/14/2020 Noted Allergy Reaction IMITREX (SUMATRIPTAN SUCCINATE) 09/24/2012 10 - Anaphylaxis SULFA DRUGS (SULFA (SULFONAMIDE A*09/24/2012 2 - Rash Comments: Rash all over AMPARO INHIBITORS 09/24/2012 14 - Other: See Comments Comments: Makes asthma worse LATEX 03/22/2013 2 - Rash Comments: Hospital Director calls it sensitivity per pt VICODIN (HYDROCODONE-ACETAMINOPHE*11/28/2013 8 - GI Upset Date Reviewed: 01/12/2020 Reviewed by: Adan (Dnp.Lead Former) ОЛЕГ Armendariz.[employer] - Fully Assesse d Reason for Visit: Refill Request [94] Order(s):PARoxetine (PAXIL) 40 mg tabletTake 1 tablet by gladys th once daily.Disp: 90 tabletRfl: 1 Prescriptions as of 02/14/2020 Sig: PAROXETINE 40 MG TABLET Take 1 tablet by mouth once d* BUSPIRONE 10 MG TABLET Take 0.5-1 tablets by mouth t* PAROXETINE 20 MG TABLET Take 1 tablet by mouth once d* TIZANIDINE 4 MG TABLET Take 1 tablet by mouth three * BUPROPION XL 300 MG 24 HR TAB Take 1 tablet by mouth once d* POTASSIUM CHLORIDE ER 20 MEQ * Take 1 tablet by mouth once d * CHOLECALCIFEROL (VITAMIN D3) * Take 1 capsule by mouth once * AMLODIPINE 10 MG TABLET Take 1 tablet by mouth once d* FREESTYLE LITE STRIPS Test blood sugar(s) 1 times d* LOSARTAN 100 MG TABLET Take 1 tablet by mouth once d* HYDROCHLOROTHIAZIDE 25 MG TAB* Take 1 tablet by mouth once d * PHENAZOPYRIDINE 200 MG TABLET Take 1 tablet by mouth three * BENZOCAINE 10 % MUCOSAL GEL Use 1 application as instruct* LEG BRACE 1 Each once daily. Knee sleev* OMEGA-3 FATTY ACIDS 1,000 MG * TAKE 1 CAPSULE DAILY ALBUTEROL SULFATE HFA 90 MCG/* Inhale 2 Puffs as instructed * COMPOUNDED PRESCRIPTION COMPRESSION GLOVES SIZE SMAL* TRIAMCINOLONE ACETONIDE 55 MC* Use 2 Sprays in the nose once * CANE Use as directed OMEPRAZOLE 20 MG CAPSULE,DEBBI* Take 1 capsule by mouth daily * CETIRIZINE 10 MG TABLET Take 1 tablet by mouth once d* TENS UNIT AND ELECTRODES COMB* 1 Units twice daily. MISCELLANEOUS MEDICAL SUPPLY * 1 Units as directed. Problem List As Of Date 02/14/2020 Noted Resolved Hyperlipidemia [E78.5] 09/24/2012 HTN (hypertension) [I10] 09/24/2012 More... Fibromyalgia [M79.7] 09/24/2012 Depression [F32.9] 09/24/2012 Otalgia [H92.09] 05/20/2013 BPPV (benign paroxysmal positional vertigo) [H8*05/20/2013 Enthesopathy of hip region [M76.899] 08/19/2013 Other disorder of muscle, ligament, and fascia *08/19/2013 Diabetes mellitus type 2, controlled, without c*11/17/2013 Other affections of shoulder region, not elsewh*06/19/2014 Lateral epicondylitis of elbow [M77.10] 06/19/2014 Pain in right shoulder [M25.511] 08/29/2014 Hypokalemia [E87.6] 11/28/2014 Hives [L50.9] Chronic bilateral low back pain with bilateral *11/14/2016 Proteinuria [R80.9] 03/20/2017 Essential hypertension [I10] 03/30/2018 AICHA (generalized anxiety disorder) [F41.1] 03/30/2018 Anxiety attack [F41.0] 03/30/2018 Sprain of anterior talofibular ligament of left*02/28/2019 Swelling of joint of hand [M25.449] 03/29/2019 Bilateral hand pain [M79.641, M79.642] 03/29/2019 Fatty liver [K76.0] 03/29/2019 Dysuria [R30.0] 10/07/2019 Prescriptions ordered this encounter Disp Refills Start End PAROXETINE 40 MG TABLET 90 t* 1 02/15/2020 Route: ORAL Sig: Take 1 tablet by mouth once daily. Medications Discontinued During This Encounter PARoxetine (PAXIL) 40 mg tablet 90 t* 0 02/01/2020 02/15/2020 Route: ORAL Sig: Take 1 tablet by mouth once daily. Disc: Reason for discontinue is not on file. Encounter Status:Closed by SAURABH HAYES DO on 02/15/20 OBSOLETE Refill (FAMPWS) Normal 02-14-[address] [facility] NAMRATA PENG ([id number]) 1965 [facility] Time Provider Department ([id number]) 02/14/20 SAURABH HAYES FAMPWS During your visit today, we recorded the following informati on about you: Vashti Carmona 02/14/2020 3:44 PM Signed Patient has been identified by name and date of : Yes Pending Prescriptions Disp Refills ALBUTEROL SULFATE HFA 90 MCG/ACTUATION AEROSOL INHALER 2 Inh aler 2 Sig: Inhale 2 Puffs as instructed every 4 hours as needed fo r Wheezing/Shortness of Breath. LOVELY: No RX INSTRUCTIONS: Patient aware RX will be sent to pharmacy. No need to notify patient. Vashti Patel Pss Allergies As of Date: 02/14/2020 Noted Allergy Reaction IMITREX (SUMATRIPTAN SUCCINATE) 09/24/2012 10 - Anaphylaxis SULFA DRUGS (SULFA (SULFONAMIDE A*09/24/2012 2 - Rash Comments: Rash all over AMPARO INHIBITORS 09/24/2012 14 - Other: See Comments Comments: Makes asthma worse LATEX 03/22/2013 2 - Rash Comments: Hospital Director calls it sensitivity per pt VICODIN (HYDROCODONE-ACETAMINOPHE*11/28/2013 8 - GI Upset Date Reviewed: 01/12/2020 Reviewed by: Adan (Lj.Lead Former) ОЛЕГ Armendariz.TEE - Fully Assesse d Reason for Visit: Refill Request [94] Visit Diagnosis:Fibromyalgia [M79.7] Order(s):albuterol HFA (VENTOLIN HFA) 90 mcg/actuation inhalerInhale 2 Puffs as instructed every 4 hours as needed for Wheezing/Shortness of Breath.Disp: 2 InhalerRfl: 2 Prescriptions as of 02/14/2020 Sig: ALBUTEROL SULFATE HFA 90 MCG/* Inhale 2 Puffs as instructed * BUSPIRONE 10 MG TABLET Take 0.5-1 tablets by mouth t* PAROXETINE 20 MG TABLET Take 1 tablet by mouth once d* X PAROXETINE 40 MG TABLET Take 1 tablet by mouth once d* TIZANIDINE 4 MG TABLET Take 1 tablet by mouth three * BUPROPION XL 300 MG 24 HR TAB Take 1 tablet by mouth once d* POTASSIUM CHLORIDE ER 20 MEQ * Take 1 tablet by mouth once d * CHOLECALCIFEROL (VITAMIN D3) * Take 1 capsule by mouth once * AMLODIPINE 10 MG TABLET Take 1 tablet by mouth once d* FREESTYLE LITE STRIPS Test blood sugar(s) 1 times d* LOSARTAN 100 MG TABLET Take 1 tablet by mouth once d* HYDROCHLOROTHIAZIDE 25 MG TAB* Take 1 tablet by mouth once d * PHENAZOPYRIDINE 200 MG TABLET Take 1 tablet by mouth three * BENZOCAINE 10 % MUCOSAL GEL Use 1 application as instruct* LEG BRACE 1 Each once daily. Knee sleev* OMEGA-3 FATTY ACIDS 1,000 MG * TAKE 1 CAPSULE DAILY COMPOUNDED PRESCRIPTION COMPRESSION GLOVES SIZE SMAL* TRIAMCINOLONE ACETONIDE 55 MC* Use 2 Sprays in the nose once * CANE Use as directed OMEPRAZOLE 20 MG CAPSULE,DEBBI* Take 1 capsule by mouth daily * CETIRIZINE 10 MG TABLET Take 1 tablet by mouth once d* TENS UNIT AND ELECTRODES COMB* 1 Units twice daily. MISCELLANEOUS MEDICAL SUPPLY * 1 Units as directed. Problem List As Of Date 02/14/2020 Noted Resolved Hyperlipidemia [E78.5] 09/24/2012 HTN (hypertension) [I10] 09/24/2012 More... Fibromyalgia [M79.7] 09/24/2012 Depression [F32.9] 09/24/2012 Otalgia [H92.09] 05/20/2013 BPPV (benign paroxysmal positional vertigo) [H8*05/20/2013 Enthesopathy of hip region [M76.899] 08/19/2013 Other disorder of muscle, ligament, and fascia *08/19/2013 Diabetes mellitus type 2, controlled, without c*11/17/2013 Other affections of shoulder region, not elsewh*06/19/2014 Lateral epicondylitis of elbow [M77.10] 06/19/2014 Pain in right shoulder [M25.511] 08/29/2014 Hypokalemia [E87.6] 11/28/2014 Hives [L50.9] Chronic bilateral low back pain with bilateral *11/14/2016 Proteinuria [R80.9] 03/20/2017 Essential hypertension [I10] 03/30/2018 AICHA (generalized anxiety disorder) [F41.1] 03/30/2018 Anxiety attack [F41.0] 03/30/2018 Sprain of anterior talofibular ligament of left*02/28/2019 Swelling of joint of hand [M25.449] 03/29/2019 Bilateral hand pain [M79.641, M79.642] 03/29/2019 Fatty liver [K76.0] 03/29/2019 Dysuria [R30.0] 10/07/2019 Prescriptions ordered this encounter Disp Refills Start End ALBUTEROL SULFATE HFA 90 MCG/ACTUATI* 2 In* 2 02/15/2020 Cmt: Generic or brand: dispense inhaler preferre d by patient/insurance unless LOVELY flag is selected. Route: INHALATION Sig: Inhale 2 Puffs as instructed every 4 hours as needed fo r Wheezing/Shortness of Breath. Medications Discontinued During This Encounter albuterol HFA (VENTOLIN HFA) 90 mcg/* 2 In* 2 03/28/201902/14 Cmt: Generic or brand: dispe nse inhaler preferred by patient/insurance unless LOVELY flag is selected. Route: INHALATION Sig: Inhale 2 Puffs as instr ucted every 4 hours as needed for Wheezing/Shortness of Breath. Disc: Reason for discontinue is not on file. Encounter Status:Closed by SAURABH HAYES DO on 02/15/20 teen on 2020-02-14 [facility] Normal 02-14-[address] [facility] NAMRATA PENG ([id number]) 1965 [facility] Date Time Provider Department ([id number]) 02/14/20 SAURABH HAYES During your visit today, we recorded the following informati on about you: Vashti Patel Pss 02/14/2020 3:47 PM Signed Patient having upper respiratory and Now feeling in chest Cough not going away Please call to advise [phone] Saurabh Hayes DO 02/14/2020 4:43 PM Signed Patient needs to be triaged to her specific symptoms by a nu rse and if worsening then needs to be seen in EMERGENCY DEPARTMENT DO Vilma Guerrero LPN 02/14/2020 4:54 PM Signed Message left to return call. Vilma Ansari 02/14/2020 5:17 PM Signed See nurse triage. Allergies As of Date: 02/14/2020 Noted Allergy Reaction IMITREX (SUMATRIPTAN SUCCINATE) 09/24/2012 10 - Anaphylaxis SULFA DRUGS (SULFA (SULFONAMIDE A*09/24/2012 2 - Rash Comments: Rash all over AMPARO INHIBITORS 09/24/2012 14 - Other: See Comments Comments: Makes asthma worse LATEX 03/22/2013 2 - Rash Comments: Hospital Director calls it sensitivity per pt VICODIN (HYDROCODONE-ACETAMINOPHE*11/28/2013 8 - GI Upset Date Reviewed: 01/12/2020 Reviewed by: Adan (Lj.Lead Former) ОЛЕГ Armendariz.TEE - Fully Assesse d Reason for Visit: Symptoms [3640] Prescriptions as of 02/14/2020 Sig: BUSPIRONE 10 MG TABLET Take 0.5-1 tablets by mouth t* PAROXETINE 20 MG TABLET Take 1 tablet by mouth once d* PAROXETINE 40 MG TABLET Take 1 tablet by mouth once d* TIZANIDINE 4 MG TABLET Take 1 tablet by mouth three * BUPROPION XL 300 MG 24 HR TAB Take 1 tablet by mouth once d* POTASSIUM CHLORIDE ER 20 MEQ * Take 1 tablet by mouth once d * CHOLECALCIFEROL (VITAMIN D3) * Take 1 capsule by mouth once * AMLODIPINE 10 MG TABLET Take 1 tablet by mouth once d* FREESTYLE LITE STRIPS Test blood sugar(s) 1 times d* LOSARTAN 100 MG TABLET Take 1 tablet by mouth once d* HYDROCHLOROTHIAZIDE 25 MG TAB* Take 1 tablet by mouth once d * PHENAZOPYRIDINE 200 MG TABLET Take 1 tablet by mouth three * BENZOCAINE 10 % MUCOSAL GEL Use 1 application as instruct* LEG BRACE 1 Each once daily. Knee sleev* OMEGA-3 FATTY ACIDS 1,000 MG * TAKE 1 CAPSULE DAILY ALBUTEROL SULFATE HFA 90 MCG/* Inhale 2 Puffs as instructed * COMPOUNDED PRESCRIPTION COMPRESSION GLOVES SIZE SMAL* TRIAMCINOLONE ACETONIDE 55 MC* Use 2 Sprays in the nose once * CANE Use as directed OMEPRAZOLE 20 MG CAPSULE,DEBBI* Take 1 capsule by mouth daily * CETIRIZINE 10 MG TABLET Take 1 tablet by mouth once d* TENS UNIT AND ELECTRODES COMB* 1 Units twice daily. MISCELLANEOUS MEDICAL SUPPLY * 1 Units as directed. Problem List As Of Date 02/14/2020 Noted Resolved Hyperlipidemia [E78.5] 09/24/2012 HTN (hypertension) [I10] 09/24/2012 More... Fibromyalgia [M79.7] 09/24/2012 Depression [F32.9] 09/24/2012 Otalgia [H92.09] 05/20/2013 BPPV (benign paroxysmal positional vertigo) [H8*05/20/2013 Enthesopathy of hip region [M76.899] 08/19/2013 Other disorder of muscle, ligament, and fascia *08/19/2013 Diabetes mellitus type 2, controlled, without c*11/17/2013 Other affections of shoulder region, not elsewh*06/19/2014 Lateral epicondylitis of elbow [M77.10] 06/19/2014 Pain in right shoulder [M25.511] 08/29/2014 Hypokalemia [E87.6] 11/28/2014 Hives [L50.9] Chronic bilateral low back pain with bilateral *11/14/2016 Proteinuria [R80.9] 03/20/2017 Essential hypertension [I10] 03/30/2018 AICHA (generalized anxiety disorder) [F41.1] 03/30/2018 Anxiety attack [F41.0] 03/30/2018 Sprain of anterior talofibular ligament of left*02/28/2019 Swelling of joint of hand [M25.449] 03/29/2019 Bilateral hand pain [M79.641, M79.642] 03/29/2019 Fatty liver [K76.0] 03/29/2019 Dysuria [R30.0] 10/07/2019 Encounter Status:Closed by PINKY ANSARI on 02/14/20 obsolete on 2020-01 OBSOLETE Refill (FAMPWS) Normal 02-05-[address] [facility] NAMRATA PENG ([id number]) 1965 [facility] Time Provider Department ([id number]) 02/05/20 SAURABH HAYES FAMPWS During your visit today, we recorded the following informati on about you: Jose Zamora LPN 02/06/2020 9:39 AM Signed Patient phones requesting refills as follows: Pending Prescriptions Disp Refills BUSPIRONE 10 MG TABLET 90 tablet 1 Sig: Take 0.5-1 tablets by mouth three times daily as needed (anxiety attack). LOVELY: No PAROXETINE 20 MG TABLET 30 tablet 1 Sig: Take 1 tablet by mouth once daily. In addition to 40mg daily for a total of 60mg LOVELY: No Please review and advise. Jose Zamora LPN Allergies As of Date: 02/05/2020 Noted Allergy Reaction IMITREX (SUMATRIPTAN SUCCINATE) 09/24/2012 10 - Anaphylaxis SULFA DRUGS (SULFA (SULFONAMIDE A*09/24/2012 2 - Rash Comments: Rash all over AMPARO INHIBITORS 09/24/2012 14 - Other: See Comments Comments: Makes asthma worse LATEX 03/22/2013 2 - Rash Comments: Hospital Director calls it sensitivity per pt VICODIN (HYDROCODONE-ACETAMINOPHE*11/28/2013 8 - GI Upset Date Reviewed: 01/12/2020 Reviewed by: Adan (Lj.Lead Former) ОЛЕГ Armendariz.TEE - Fully Assesse d Reason for Visit: Refill Request [94] Visit Diagnoses:AICHA (generalized anxiety disorder) [F41.1] Anxiety attack [F41.0] Order(s):busPIRone (BUSPAR) 10 mg tabletTake 0.5-1 tablets b y mouth three times daily as needed (anxiety attack).Disp: 90 tabletRfl: 1 PARoxetine (PAXIL) 20 mg tabletTake 1 tablet by mouth once d aily. In addition to 40mg daily for a total of 60mgDisp: 30 tabletRfl : 1 Prescriptions as of 02/05/2020 Sig: BUSPIRONE 10 MG TABLET Take 0.5-1 tablets by mouth t* PAROXETINE 20 MG TABLET Take 1 tablet by mouth once d* PAROXETINE 40 MG TABLET Take 1 tablet by mouth once d* TIZANIDINE 4 MG TABLET Take 1 tablet by mouth three * BUPROPION XL 300 MG 24 HR TAB Take 1 tablet by mouth once d* POTASSIUM CHLORIDE ER 20 MEQ * Take 1 tablet by mouth once d * CHOLECALCIFEROL (VITAMIN D3) * Take 1 capsule by mouth once * AMLODIPINE 10 MG TABLET Take 1 tablet by mouth once d* FREESTYLE LITE STRIPS Test blood sugar(s) 1 times d* LOSARTAN 100 MG TABLET Take 1 tablet by mouth once d* HYDROCHLOROTHIAZIDE 25 MG TAB* Take 1 tablet by mouth once d * PHENAZOPYRIDINE 200 MG TABLET Take 1 tablet by mouth three * BENZOCAINE 10 % MUCOSAL GEL Use 1 application as instruct* LEG BRACE 1 Each once daily. Knee sleev* OMEGA-3 FATTY ACIDS 1,000 MG * TAKE 1 CAPSULE DAILY ALBUTEROL SULFATE HFA 90 MCG/* Inhale 2 Puffs as instructed * COMPOUNDED PRESCRIPTION COMPRESSION GLOVES SIZE SMAL* TRIAMCINOLONE ACETONIDE 55 MC* Use 2 Sprays in the nose once * CANE Use as directed OMEPRAZOLE 20 MG CAPSULE,DEBBI* Take 1 capsule by mouth daily * CETIRIZINE 10 MG TABLET Take 1 tablet by mouth once d* TENS UNIT AND ELECTRODES COMB* 1 Units twice daily. MISCELLANEOUS MEDICAL SUPPLY * 1 Units as directed. Problem List As Of Date 02/05/2020 Noted Resolved Hyperlipidemia [E78.5] 09/24/2012 HTN (hypertension) [I10] 09/24/2012 More... Fibromyalgia [M79.7] 09/24/2012 Depression [F32.9] 09/24/2012 Otalgia [H92.09] 05/20/2013 BPPV (benign paroxysmal positional vertigo) [H8*05/20/2013 Enthesopathy of hip region [M76.899] 08/19/2013 Other disorder of muscle, ligament, and fascia *08/19/2013 Diabetes mellitus type 2, controlled, without c*11/17/2013 Other affections of shoulder region, not elsewh*06/19/2014 Lateral epicondylitis of elbow [M77.10] 06/19/2014 Pain in right shoulder [M25.511] 08/29/2014 Hypokalemia [E87.6] 11/28/2014 Hives [L50.9] Chronic bilateral low back pain with bilateral *11/14/2016 Proteinuria [R80.9] 03/20/2017 Essential hypertension [I10] 03/30/2018 AICHA (generalized anxiety disorder) [F41.1] 03/30/2018 Anxiety attack [F41.0] 03/30/2018 Sprain of anterior talofibular ligament of left*02/28/2019 Swelling of joint of hand [M25.449] 03/29/2019 Bilateral hand pain [M79.641, M79.642] 03/29/2019 Fatty liver [K76.0] 03/29/2019 Dysuria [R30.0] 10/07/2019 Prescriptions ordered this encounter Disp Refills Start End BUSPIRONE 10 MG TABLET 90 t* 1 02/06/2020 Route: ORAL Sig: Take 0.5-1 tablets by mouth three t imes daily as needed (anxiety attack). PAROXETINE 20 MG TABLET 30 t* 1 02/06/2020 Route: ORAL Sig: Take 1 tablet by mouth once daily. In addit ion to 40mg daily for a total of 60mg Medications Discontinued During This Encounter busPIRone (BUSPAR) 10 mg tablet 90 t* 1 07/14/2019 02/06/2020 Route: ORAL Sig: Take 0.5-1 tablets by mouth three t imes daily as needed (anxiety attack). Disc: Reason for discontinue is not on file. PARoxetine (PAXIL) 20 mg tablet 30 t* 1 11/12/2019 02/06/2020 Route: ORAL Sig: Take 1 tablet by mouth once daily. In addition to 40mg daily for a total of 60mg Disc: Reason for discontinue is not on file. Encounter Status:Closed by NADIR MONTERO CNP on 02/06/20 obsolete on 2020-01 OBSOLETE Refill (FAMPWS) Normal 02-01-[address] [facility] NAMRATA PENG ([id number]) 1965 [facility] Time Provider Department ([id number]) 02[facility]01[facility] today, we recorded the following informati on about you: Allergies As of Date: 02/01/2020 Noted Allergy Reaction IMITREX (SUMATRIPTAN SUCCINATE) 09/24/2012 10 - Anaphylaxis SULFA DRUGS (SULFA (SULFONAMIDE A*09/24/2012 2 - Rash Comments: Rash all over AMPARO INHIBITORS 09/24/2012 14 - Other: See Comments Comments: Makes asthma worse LATEX 03/22/2013 2 - Rash Comments: Hospital Director calls it sensitivity per pt VICODIN (HYDROCODONE-ACETAMINOPHE*11/28/2013 8 - GI Upset Date Reviewed: 01/12/2020 Reviewed by: Adan (Lj.[facility]) ОЛЕГ Armendariz.TEE - Fully Assesse d Reason for Visit: Refill Request [94] Order(s):PARoxetine (PAXIL) 40 mg tabletTake 1 tablet by gladys once daily.Disp: 90 tabletRfl: 0 Prescriptions as of 02/01/2020 Sig: PAROXETINE 40 MG TABLET Take 1 tablet by mouth once d* TIZANIDINE 4 MG TABLET Take 1 tablet by mouth three * BUPROPION XL 300 MG 24 HR TAB Take 1 tablet by mouth once d* POTASSIUM CHLORIDE ER 20 MEQ * Take 1 tablet by mouth once d * CHOLECALCIFEROL (VITAMIN D3) * Take 1 capsule by mouth once * AMLODIPINE 10 MG TABLET Take 1 tablet by mouth once d* PAROXETINE 20 MG TABLET Take 1 tablet by mouth once d* FREESTYLE LITE STRIPS Test blood sugar(s) 1 times d* LOSARTAN 100 MG TABLET Take 1 tablet by mouth once d* HYDROCHLOROTHIAZIDE 25 MG TAB* Take 1 tablet by mouth once d * PHENAZOPYRIDINE 200 MG TABLET Take 1 tablet by mouth three * BENZOCAINE 10 % MUCOSAL GEL Use 1 application as instruct* BUSPIRONE 10 MG TABLET Take 0.5-1 tablets by mouth t* LEG BRACE 1 Each once daily. Knee sleev* OMEGA-3 FATTY ACIDS 1,000 MG * TAKE 1 CAPSULE DAILY ALBUTEROL SULFATE HFA 90 MCG/* Inhale 2 Puffs as instructed * COMPOUNDED PRESCRIPTION COMPRESSION GLOVES SIZE SMAL* TRIAMCINOLONE ACETONIDE 55 MC* Use 2 Sprays in the nose once * CANE Use as directed OMEPRAZOLE 20 MG CAPSULE,DEBBI* Take 1 capsule by mouth daily * CETIRIZINE 10 MG TABLET Take 1 tablet by mouth once d* TENS UNIT AND ELECTRODES COMB* 1 Units twice daily. MISCELLANEOUS MEDICAL SUPPLY * 1 Units as directed. Problem List As Of Date 02/01/2020 Noted Resolved Hyperlipidemia [E78.5] 09/24/2012 HTN (hypertension) [I10] 09/24/2012 More... Fibromyalgia [M79.7] 09/24/2012 Depression [F32.9] 09/24/2012 Otalgia [H92.09] 05/20/2013 BPPV (benign paroxysmal positional vertigo) [H8*05/20/2013 Enthesopathy of hip region [M76.899] 08/19/2013 Other disorder of muscle, ligament, and fascia *08/19/2013 Diabetes mellitus type 2, controlled, without c*11/17/2013 Other affections of shoulder region, not elsewh*06/19/2014 Lateral epicondylitis of elbow [M77.10] 06/19/2014 Pain in right shoulder [M25.511] 08/29/2014 Hypokalemia [E87.6] 11/28/2014 Hives [L50.9] Chronic bilateral low back pain with bilateral *11/14/2016 Proteinuria [R80.9] 03/20/2017 Essential hypertension [I10] 03/30/2018 AICHA (generalized anxiety disorder) [F41.1] 03/30/2018 Anxiety attack [F41.0] 03/30/2018 Sprain of anterior talofibular ligament of left*02/28/2019 Swelling of joint of hand [M25.449] 03/29/2019 Bilateral hand pain [M79.641, M79.642] 03/29/2019 Fatty liver [K76.0] 03/29/2019 Dysuria [R30.0] 10/07/2019 Prescriptions ordered this encounter Disp Refills Start End PAROXETINE 40 MG TABLET 90 t* 0 02/01/2020 Route: ORAL Sig: Take 1 tablet by mouth once daily. Medications Discontinued During This Encounter PARoxetine (PAXIL) 40 mg tablet 90 t* 0 12/16/2019 02/01/2020 Route: ORAL Sig: Take 1 tablet by mouth once daily. Disc: Reason for discontinue is not on file. Encounter Status:Closed by SAURABH HAYES DO on 02/01/20 potassium on 01-12 Potassium [Moles/Vol] 3.9 3.7-5.1 mmol/L Normal 01-13-20 [facility] () teen on 2020-01-13 CNPN Telephone (FAMPWS) Normal 01-13-[address] [place] NAMRATA PENG ([id number]) 1965 [facility] Date Time Provider Department () 01/13/20 ADAN ARMENDARIZ (LJ.TEE) FAMPWS During your visit today, we recorded the following informati on about you: Adan Armendariz DNP.TEE, RAIL EXPRESS CLERK.CORPORATE DEVELOPMENT INTERN 01/13/2020 1:12 PM Signed Inform patient. Potassium levels are back within the normal range. She can h old her hydrochlorothiazide and potassium at thi s time. Recheck potassium in one week. Will f/u with results once completed. ASSESSMENT/PLAN: 1. Hypokalemia - ICD9: 276.8, ICD10: E87.6 - POTASSIUM BLD Adan Armendariz DNP.TEE This note was completed with Hybrent software. Note was reviewed for accuracy. There may be minor misspellings or gramm ar miscues with [email or web address] Dictation. [place] [id number] Component Latest Ref Rng AND Units 01/13/2020 Potassium 3.7 - 5.1 mmol/L 3.9 Lorena Oleary Solar Design Engineer 01/13/2020 1:23 PM Signed Perminova message sent to patient. Lorena Oleary Solar Design Engineer Allergies As of Date: 01/13/2020 Noted Allergy Reaction IMITREX (SUMATRIPTAN SUCCINATE) 09/24/2012 10 - Anaphylaxis SULFA DRUGS (SULFA (SULFONAMIDE A*09/24/2012 2 - Rash Comments: Rash all over AMPARO INHIBITORS 09/24/2012 14 - Other: See Comments Comments: Makes asthma worse LATEX 03/22/2013 2 - Rash Comments: Hospital Director calls it sensitivity per pt VICODIN (HYDROCODONE-ACETAMINOPHE*11/28/2013 8 - GI Upset Date Reviewed: 01/12/2020 Reviewed by: Adan (Lj.Tee) ОЛЕГ Armendariz.TEE - Fully Assesse d Reason for Visit: Results [95] Primary Visit Diagnosis:Hypokalemia [E87.6] Order(s):POTASSIUM BLD [SQK1] Order #: [id number] FUTURE Prescriptions as of 01/13/2020 Sig: PENICILLIN V POTASSIUM 500 MG* Take 1 tablet by mouth four t * TIZANIDINE 4 MG TABLET Take 1 tablet by mouth three * BUPROPION XL 300 MG 24 HR TAB Take 1 tablet by mouth once d* POTASSIUM CHLORIDE ER 20 MEQ * Take 1 tablet by mouth once d * PAROXETINE 40 MG TABLET Take 1 tablet by mouth once d* CHOLECALCIFEROL (VITAMIN D3) * Take 1 capsule by mouth once * AMLODIPINE 10 MG TABLET Take 1 tablet by mouth once d* PAROXETINE 20 MG TABLET Take 1 tablet by mouth once d* FREESTYLE LITE STRIPS Test blood sugar(s) 1 times d* LOSARTAN 100 MG TABLET Take 1 tablet by mouth once d* HYDROCHLOROTHIAZIDE 25 MG TAB* Take 1 tablet by mouth once d * PHENAZOPYRIDINE 200 MG TABLET Take 1 tablet by mouth three * BENZOCAINE 10 % MUCOSAL GEL Use 1 application as instruct* BUSPIRONE 10 MG TABLET Take 0.5-1 tablets by mouth t* LEG BRACE 1 Each once daily. Knee sleev* OMEGA-3 FATTY ACIDS 1,000 MG * TAKE 1 CAPSULE DAILY ALBUTEROL SULFATE HFA 90 MCG/* Inhale 2 Puffs as instructed * COMPOUNDED PRESCRIPTION COMPRESSION GLOVES SIZE SMAL* TRIAMCINOLONE ACETONIDE 55 MC* Use 2 Sprays in the nose once * CANE Use as directed OMEPRAZOLE 20 MG CAPSULE,DEBBI* Take 1 capsule by mouth daily * CETIRIZINE 10 MG TABLET Take 1 tablet by mouth once d* TENS UNIT AND ELECTRODES COMB* 1 Units twice daily. MISCELLANEOUS MEDICAL SUPPLY * 1 Units as directed. Problem List As Of Date 01/13/2020 Noted Resolved Hyperlipidemia [E78.5] 09/24/2012 HTN (hypertension) [I10] 09/24/2012 More... Fibromyalgia [M79.7] 09/24/2012 Depression [F32.9] 09/24/2012 Otalgia [H92.09] 05/20/2013 BPPV (benign paroxysmal positional vertigo) [H8*05/20/2013 Enthesopathy of hip region [M76.899] 08/19/2013 Other disorder of muscle, ligament, and fascia *08/19/2013 Diabetes mellitus type 2, controlled, without c*11/17/2013 Other affections of shoulder region, not elsewh*06/19/2014 Lateral epicondylitis of elbow [M77.10] 06/19/2014 Pain in right shoulder [M25.511] 08/29/2014 Hypokalemia [E87.6] 11/28/2014 Hives [L50.9] Chronic bilateral low back pain with bilateral *11/14/2016 Proteinuria [R80.9] 03/20/2017 Essential hypertension [I10] 03/30/2018 AICHA (generalized anxiety disorder) [F41.1] 03/30/2018 Anxiety attack [F41.0] 03/30/2018 Sprain of anterior talofibular ligament of left*02/28/2019 Swelling of joint of hand [M25.449] 03/29/2019 Bilateral hand pain [M79.641, M79.642] 03/29/2019 Fatty liver [K76.0] 03/29/2019 Dysuria [R30.0] 10/07/2019 Encounter Status:Closed by WORKMAN VALENTINA BUSCHY on 01/13/20 progress on 2020-01 PROGRESS HNO ID: [id number] Normal 01-12-2020 [facility] Author: Adan (Dnp.Tee) DARLINE Armendariz [place] ([id number]) Service: ? Author Type: Nurse Practitioner Type: Progress Notes Filed: 01/12/2020 2:22 PM Note Text: Chief Complaint Patient presents with: ED Follow-up This Team Access Model visit is a virtual encounter. It requ ired patient-provider interaction for the medical decision making as documented below. Patient was offered a virtual/telemedicine appointmen t in lieu of an office visit due to recommendations to reduce patient exp osure to COVID-19. HIPAA secured video was used for evaluation of this patient. Patient agrees to the visit: Yes Patient Location: [facility] Namrata Peng is a 54 year old female who is contacted to day for a virtual visit This is an established patient of Dr. Saurabh Hayes DO. SUMMARY: - Pt admitted to [facility] on 01/09/20 and discharged o n 01/11/20 - Admitted for: Left tooth abscess, low blood pressure and h ypokalemia - TCM contact completed by Nursing: None BRIEF HOSPITAL COURSE: Symptoms started last week when she felt left facial pain an d swelling. She has a tooth on the left side of her mouth that she knows needs to be extracted. She was seen on January 08 at the [facility] andrew rgency department. She presented with swelling of the left side of her face, neck and submental area. She had no shortness of breath. Vit als were stable though she was noted to have a low potassium of 3.1 a nd leukocytosis. LFTs and lactic acid were unremarkable. A CT o f the soft tissue neck showed diffuse emphysematous changes and probabl e abscess of left submental region. She was admitted and managed with IV Unasyn. Blood cultures were obtained and maxillofacial surgery was c onsulted. Patient improved with pain medication and IV antibiotics. Bl ood cultures were negative. Swelling and trismus improved markedly. Maxil lofacial surgery recommended conservative management and she was disc harged on January 10. Prescribed amoxicillin 875 mg 1 tablet twice a day for 7 days. Instructed to follow-up with her primary care provider and d ental provider. Blood pressure was noted to be low. She takes amlodipine 10 mg, losartan 100 mg and HIDA chlorothiazide 25 mg. She was instructed to hold the amlodipine and hydrochlorothiazide. CONCERNS: Low blood pressure - blood pressure taken today was 134/99, 144/100. She went ahead and then took her hydrochlorothiazide and blood p ressure decreased to 126/79. She would like to resume her blood pres sure medication in full capacity. In eyes any shortness of breath , difficulty breathing or chest pain. Low potassium - she normally takes potassium supplementation . She has resumed taking this. Needs follow-up potassium level checked Left tooth abscess - she is Re: Contacted her dental provide r in their office opens up on January 22. She will schedule follow-up with them for possible tooth extraction. NEW MEDICATIONS: Augmentin 875/125 mg ?1 week MEDS HELD/DISCONTINUED: Hydrochlorothiazide and Norvasc Held Past medical history, appointments, medications, allergies r candelariawed 01/12/2020 Previous Medical History PAST MEDICAL HISTORY Diagnosis Date - Anxiety - Asthma 2005 - Depression - Dizziness 05/20/2013 - DJD (degenerative joint disease) spine and neck - Epicondylitis bilateral elbow - Fibromyalgia 1989 - GERD (gastroesophageal reflux disease) - Hives - Hyperlipidemia not on medications - Hypertension - Melanoma in situ (HCC) 09/2015 - Ruptured lumbar disc Previous Surgical History PAST SURGICAL HISTORY Procedure Laterality Date - CARPAL TUNNEL bilateral - LX REPAIR RECURRENT VENTRAL HERNIA 09/06/2018 open repair of incarcerated recurrent ventral hernia - OTHER DANDC - REMOVE TONSILS/ADENOIDS,<12 Y/O - REPAIR INCISIONAL HERNIA,HELEN 04/29/2017 Strangulate ventral hernia with transverse colon Family History FAMILY HISTORY Problem Relation Age of Onset - Hypertension Mother - Lipids Mother - Heart Paternal Grandfather AK - Heart Maternal Grandfather AK - Cancer Maternal Grandfather lukemia - other (Other) Paternal Grandmother Althezimers - other (fibromyalgia) Sister - Diabetes Paternal Aunt - other (stomach cancer) Paternal Uncle Patient Allergies ALLERGIES Allergen Reactions - Imitrex [Sumatripta* Anaphylaxis - Sulfa Drugs [Sulfa * Rash Rash all over - Amparo Inhibitors Other: See Comments Makes asthma worse - Latex Rash Hospital Director calls it sensitivity per pt - Vicodin [Hydrocodon* GI Upset Current Medications Current Outpatient Medications on File Prior to Visit Medication Sig - penicillin V potassium (V-CILLIN, VEETIDS) 500 mg tablet T justin 1 tablet by mouth four times daily for 10 days. - oxyCODONE-acetaminophen (PERCOCET) 5-325 mg tablet Take 1 tablet by mouth every 8 hours as needed for Pain for up to 7 days. - tiZANidine (ZANAFLEX) 4 mg tablet Take 1 tablet by mouth t hree times daily as needed. - buPROPion XL (WELLBUTRIN XL) 300 mg 24 hr tablet Take 1 ta blet by mouth once daily. - potassium chloride ER (K-DUR, KLOR-CON) 20 mEq tablet Take 1 tablet by mouth once daily. - PARoxetine (PAXIL) 40 mg tablet Take 1 tablet by mouth onc e daily. - Cholecalciferol, Vitamin D3, 25 mcg (1,000 unit) cap Take 1 capsule by mouth once daily. - amLODIPine (NORVASC) 10 mg tablet Take 1 tablet by mouth o nce daily. - PARoxetine (PAXIL) 20 mg tablet Take 1 tablet by mouth onc e daily. In addition to 40mg daily for a total of 60mg - blood sugar diagnostic (FREESTYLE LITE STRIPS) test strip Test blood sugar(s) 1 times daily. Dx: Type 2 DM - Controlled E11.9 Ins ulin: No - losartan (COZAAR) 100 mg tablet Take 1 tablet by mouth onc e daily. - hydroCHLOROthiazide (HYDRODIURIL, ESIDRIX) 25 mg tablet Ta ke 1 tablet by mouth once daily. - phenazopyridine (PYRIDIUM) 200 mg tablet Take 1 tablet by mouth three times daily as needed. - benzocaine (ANBESOL, BENZOCAINE,) 10 % oral gel Use 1 appl ication as instructed every 6 hours as needed. - busPIRone (BUSPAR) 10 mg tablet Take 0.5-1 tablets by mout h three times daily as needed (anxiety attack). - Leg Brace (ELASTIC KNEE SUPPORT) misc 1 Each once daily. K nee sleeve/amparo compression sleeve to the left knee. - omega-3 fatty acids 1,000 mg cap TAKE 1 CAPSULE DAILY - albuterol HFA (VENTOLIN HFA) 90 mcg/actuation inhaler Inha le 2 Puffs as instructed every 4 hours as needed for Wheezing/Shortness of Breath. - COMPOUNDED PRESCRIPTION COMPRESSION GLOVES SIZE SMALL-MEDI UM DX ARTHRITIS Compression:20-30mmg - triamcinolone acetonide (NASACORT) 55 mcg nasal inhaler Us e 2 Sprays in the nose once daily. - Cane donnie Use as directed - omeprazole (PRILOSEC) 20 mg capsule Take 1 capsule by mout h daily before breakfast. 1/2 hr before meal. - cetirizine (ZYRTEC) 10 mg tablet Take 1 tablet by mouth on ce daily. - TENS unit and electrodes cmpk 1 Units twice daily. - Miscellaneous Medical Supply (BLOOD PRESSURE CUFF) misc 1 Units as directed. No current facility-administered medications on file prior t o visit. Social History Social History Tobacco Use - Smoking status: Never Smoker - Smokeless tobacco: Never Used - Tobacco comment: smoked a little as a teenager Substance Use Topics - Alcohol use: No Frequency: Monthly or less Drinks per session: 1 or 2 Binge frequency: Never - Drug use: No Review of Symptoms GENERAL: No malaise or fatigue. No fevers. HEENT: Negative for headaches NECK: Negative for pain or swelling. No lumps RESPIRATORY: No wheezing, SOB, Difficulty breathing. No coug h GI: No nausea, vomiting, or diarrhea SKIN: Negative for rash or itching EXAM: Virtual visit completed using video, limited exam completed. Patient sounds or appears ill: No General Appearance: Well appearing, alert, in no acute distr ess, well-hydrated, well nourished. Skin: Skin color normal Head: Normocephalic no facial swelling. No neck swelling. No redness of the face or neck. No Jaw pain with talking. Patient is not able to speak in complete sentences: No Patient has labored breathing: No. Patient is audibly coughing: No Psych: Attitude - cooperative, easily engaged in conversatio n Affect - Euthymic, normal mood Mental status: Alert. Speech is clear and fluent with good r epetition, comprehension Appearance - Normal hygiene and grooming appropriate Coordination: No abnormal or extraneous movements. Gait/Stance: Posture is normal. Health Maintenance List ONE PNEUMOVAX PRIOR TO AGE 65 due on 1979 HIV SCREENING due on 1981 SHINGRIX VACCINE(1 of 2) due on 2013 DIABETIC FOOT EXAM due on 09/29/2019 DILATED RETINAL EXAM due on 11/25/2019 LDL CHOLESTEROL due on 03/23/2020 HBA1C due on 04/04/2020 MAMMOGRAM due on 04/07/2020 FECAL OCCULT BLOOD due on 04/18/2020 URINE ALBUMIN:CREATININE RATIO due on 10/05/2020 BP CONTROLLED (<130/80) due on 10/07/2020 ANNUAL PCP TEAM CHRONIC DISEASE VISIT due on 01/04/2021 PAP TESTING due on 01/26/2024 HPV TESTING due on 01/26/2024 DTAP,TDAP,TD(2 - Td) due on 10/24/2025 INFLUENZA Completed HEPATITIS C SCREENING Completed Data reviewed Last 5 Encounter BP Readings: Date: BP: 10/07/2019 124/60 08/09/2019 158/92 04/28/2019 124/72 03/28/2019 114/72 01/25/2019 116/78 BMI Readings from Last 5 Encounters: 10/07/19 : 36.09 kg/m? 08/09/19 : 35.18 kg/m? 04/28/19 : 36.01 kg/m? 03/28/19 : 36.29 kg/m? 01/25/19 : 36.09 kg/m? Last 5 Encounter Wt Readings: Date: Wt: 10/07/2019 86.6 kg (191 lb) 08/09/2019 84.5 kg (186 lb 3.2 oz) 04/28/2019 86.5 kg (190 lb 9.6 oz) 03/28/2019 87.1 kg (192 lb 0.6 oz) 01/25/2019 86.6 kg (191 lb) Medication and allergy list reviewed, reconciled and updated 01/12/2020 ASSESSMENT/PLAN: 1. Hospital discharge follow-up - ICD9: V67.59, ICD10: Z09 ( primary diagnosis) Symptoms improved considerably and well-controlled She has not needed her taken anything for pain. No use of ic e or heat to her face or neck. Directed she may use ice for any swelling Continue with Augmentin until all complete Follow-up with dental provider 2. Tooth abscess - ICD9: 522.5, ICD10: K04.7 Leukocytosis resolved prior to discharge. White blood cell c ount was 7.2 at discharge Continue with plan as above Return to the clinic or seek care at Express/Urgent Care for any worsening signs or symptoms: such as fevers, chills, worsening pain. F or severe symptoms seek care at the closest ER. Plan of care, medicait on side effects and management reviewed. Patient verbalizes understa nding of instructions. 3. Essential hypertension - ICD9: 401.9, ICD10: I10 - good control - Recommend home blood pressure monitoring, to bring results in on next visit - Goal of BP <130/80 - Recommend home or pharmacy blood pressure monitoring Instructed to take losartan in the morning time and Norvasc at bedtime. She will hold her hydrochlorothiazide for right now and blood pressure. She will recheck her potassium tomorrow and I will phone fol low-up with her on Thursday to inform her of those results and her checkup on her blood pressures. 4. Hypokalemia - ICD9: 276.8, ICD10: E87.6 Repeat potassium lab Continue with potassium supplementation at this time - POTASSIUM Adan Armendariz DNP.TEE This note was completed with [email or web address] dictation software. Note was reviewed for accuracy. There may be minor misspellings or gr ammar miscues with [email or web address] Dictation. [place] [id number] Total appointment time on virtual with patient = 30 minutes progress on 2019-12 PROGRESS HNO ID: [id number] Normal 01-05-2020 [facility] Author: Lyssa (Tee) Mary Alice Frederick ([id number]) Service: ? Author Type: Nurse Practitioner Type: Progress Notes Filed: 01/05/2020 4:44 PM Note Text: Chief Complaint No chief complaint on file. This Team Access Model visit is a virtual encounter. It requ ired patient-provider interaction for the medical decision making as documented below. Patient was offered a virtual/telemedicine appointmen t in lieu of an office visit due to recommendations to reduce patient exp osure to COVID-19. HIPAA secured video was used for evaluation of this patient. Patient agrees to the visit: Yes Patient Location: [facility] Namrata Peng is a 54 year old female who is contacted to day for a virtual visit This is an established patient of Dr. Saurabh Hayes DO. Dental pain in the bottom left. Was eating and got pain. Yesterday was horrendous. Refers today with pain and swelling/pain. No fevers/chills. Dentist -- [facility] in [place]. Mailbox is full. Refers that she had a crown was in front of it -- and had th at tooth pulled in July. Refers that she is Anbesol, heat, ice. Tried some excedrine migraine. Refers that she cannot take nsaids d/t gastritis. Not eating and drinking well d/t pain. Past medical history, appointments, medications, allergies r eviewed 01/05/2020 Previous Medical History PAST MEDICAL HISTORY Diagnosis Date - Anxiety - Asthma 2005 - Depression - Dizziness 05/20/2013 - DJD (degenerative joint disease) spine and neck - Epicondylitis bilateral elbow - Fibromyalgia 1989 - GERD (gastroesophageal reflux disease) - Hives - Hyperlipidemia not on medications - Hypertension - Melanoma in situ (HCC) 09/2015 - Ruptured lumbar disc Previous Surgical History PAST SURGICAL HISTORY Procedure Laterality Date - CARPAL TUNNEL bilateral - LX REPAIR RECURRENT VENTRAL HERNIA 09/06/2018 open repair of incarcerated recurrent ventral hernia - OTHER DANDC - REMOVE TONSILS/ADENOIDS,<12 Y/O - REPAIR INCISIONAL HERNIA,HELEN 04/29/2017 Strangulate ventral hernia with transverse colon Family History FAMILY HISTORY Problem Relation Age of Onset - Hypertension Mother - Lipids Mother - Heart Paternal Grandfather AK - Heart Maternal Grandfather AK - Cancer Maternal Grandfather lukemia - other (Other) Paternal Grandmother Althezimers - other (fibromyalgia) Sister - Diabetes Paternal Aunt - other (stomach cancer) Paternal Uncle Patient Allergies ALLERGIES Allergen Reactions - Imitrex [Sumatripta* Anaphylaxis - Sulfa Drugs [Sulfa * Rash Rash all over - Amparo Inhibitors Other: See Comments Makes asthma worse - Latex Rash Hospital Director calls it sensitivity per pt - Vicodin [Hydrocodon* GI Upset Current Medications Current Outpatient Medications on File Prior to Visit Medication Sig - tiZANidine (ZANAFLEX) 4 mg tablet Take 1 tablet by mouth t hree times daily as needed. - buPROPion XL (WELLBUTRIN XL) 300 mg 24 hr tablet Take 1 ta blet by mouth once daily. - potassium chloride ER (K-DUR, KLOR-CON) 20 mEq tablet Take 1 tablet by mouth once daily. - PARoxetine (PAXIL) 40 mg tablet Take 1 tablet by mouth onc e daily. - Cholecalciferol, Vitamin D3, 25 mcg (1,000 unit) cap Take 1 capsule by mouth once daily. - amLODIPine (NORVASC) 10 mg tablet Take 1 tablet by mouth o nce daily. - PARoxetine (PAXIL) 20 mg tablet Take 1 tablet by mouth onc e daily. In addition to 40mg daily for a total of 60mg - blood sugar diagnostic (FREESTYLE LITE STRIPS) test strip Test blood sugar(s) 1 times daily. Dx: Type 2 DM - Controlled E11.9 Ins ulin: No - losartan (COZAAR) 100 mg tablet Take 1 tablet by mouth onc e daily. - hydroCHLOROthiazide (HYDRODIURIL, ESIDRIX) 25 mg tablet Ta ke 1 tablet by mouth once daily. - phenazopyridine (PYRIDIUM) 200 mg tablet Take 1 tablet by mouth three times daily as needed. - benzocaine (ANBESOL, BENZOCAINE,) 10 % oral gel Use 1 appl ication as instructed every 6 hours as needed. - busPIRone (BUSPAR) 10 mg tablet Take 0.5-1 tablets by mout h three times daily as needed (anxiety attack). - Leg Brace (ELASTIC KNEE SUPPORT) misc 1 Each once daily. K nee sleeve/amparo compression sleeve to the left knee. - omega-3 fatty acids 1,000 mg cap TAKE 1 CAPSULE DAILY - albuterol HFA (VENTOLIN HFA) 90 mcg/actuation inhaler Inha le 2 Puffs as instructed every 4 hours as needed for Wheezing/Shortness of Breath. - COMPOUNDED PRESCRIPTION COMPRESSION GLOVES SIZE SMALL-MEDI UM DX ARTHRITIS Compression:20-30mmg - triamcinolone acetonide (NASACORT) 55 mcg nasal inhaler Us e 2 Sprays in the nose once daily. - Cane donnie Use as directed - omeprazole (PRILOSEC) 20 mg capsule Take 1 capsule by mout h daily before breakfast. 1/2 hr before meal. - cetirizine (ZYRTEC) 10 mg tablet Take 1 tablet by mouth on ce daily. - TENS unit and electrodes cmpk 1 Units twice daily. - Miscellaneous Medical Supply (BLOOD PRESSURE CUFF) misc 1 Units as directed. No current facility-administered medications on file prior t o visit. Social History Social History Tobacco Use - Smoking status: Never Smoker - Smokeless tobacco: Never Used - Tobacco comment: smoked a little as a teenager Substance Use Topics - Alcohol use: No Frequency: Monthly or less Drinks per session: 1 or 2 Binge frequency: Never - Drug use: No EXAM: LMP 05/23/2014 (Within Weeks) Deferred/limited physical exam as visit was completed over [employer] virtual platform. Virtual visit completed using video, limited exam completed. Patient sounds or appears ill: No General Appearance: Well appearing, alert, in no acute distr ess, well-hydrated, well nourished. Skin: Skin color normal Head: Normocephalic Patient is not able to speak in complete sentences: No Patient has labored breathing: No. Patient is audibly coughing: No Psych: Attitude - cooperative, easily engaged in conversatio n Affect - Euthymic, normal mood Mental status: Alert. Speech is clear and fluent with good r epetition, comprehension Appearance - Normal hygiene and grooming appropriate Coordination: No abnormal or extraneous movements. Gait/Stance: Posture is normal. Pt with left sided face swelling. + swelling/adenopathy of t he left neck. Health Maintenance List ONE PNEUMOVAX PRIOR TO AGE 63 due on 1979 HIV SCREENING due on 1981 SHINGRIX VACCINE(1 of 2) due on 2013 DIABETIC FOOT EXAM due on 09/29/2019 DILATED RETINAL EXAM due on 11/25/2019 LDL CHOLESTEROL due on 03/23/2020 HBA1C due on 04/04/2020 MAMMOGRAM due on 04/07/2020 FECAL OCCULT BLOOD due on 04/18/2020 URINE ALBUMIN:CREATININE RATIO due on 10/05/2020 BP CONTROLLED (<130/80) due on 10/07/2020 ANNUAL PCP TEAM CHRONIC DISEASE VISIT due on 01/04/2021 PAP TESTING due on 01/26/2024 HPV TESTING due on 01/26/2024 DTAP,TDAP,TD(2 - Td) due on 10/24/2025 INFLUENZA Completed HEPATITIS C SCREENING Completed Data reviewed Last 5 Encounter BP Readings: Date: BP: 10/07/2019 124/60 08/09/2019 158/92 04/28/2019 124/72 03/28/2019 114/72 01/25/2019 116/78 BMI Readings from Last 5 Encounters: 10/07/19 : 36.09 kg/m? 08/09/19 : 35.18 kg/m? 04/28/19 : 36.01 kg/m? 03/28/19 : 36.29 kg/m? 01/25/19 : 36.09 kg/m? Last 5 Encounter Wt Readings: Date: Wt: 10/07/2019 86.6 kg (191 lb) 08/09/2019 84.5 kg (186 lb 3.2 oz) 04/28/2019 86.5 kg (190 lb 9.6 oz) 03/28/2019 87.1 kg (192 lb 0.6 oz) 01/25/2019 86.6 kg (191 lb) ASSESSMENT/PLAN: 1. Dental infection - ICD9: 522.4, ICD10: K04.7 Start pen VK. Percocet for pain. Salt water gargles. Discussed with patient that if her symptoms worsen, or she s tarts to have fever/chills, worsening pain, etc -- she needs to go to the ER to consider imaging. Voices understanding. She will continue to try to get dentist -- currently only ge tting message. Hopefully offices will be opening next week secondary to sera mei. - PENICILLIN V POTASSIUM 500 MG TABLET - OXYCODONE-ACETAMINOPHEN 5 MG-325 MG TABLET PDMP website checked and validated. All prescriptions have b een APPROPRIATELY filled. No suspicious activity was identified. 01/05/2020 by DARLINE Winchester APRN.CNP Medication and allergy list reviewed, reconciled and updated 01/05/2020 PROGRESS HNO ID: [id number] Normal 01-05-2020 [facility] Author: Lyssa Barahona) Mary Alice Frederick ([id number]) Service: ? Author Type: Nurse Practitioner Type: Progress Notes Filed: 01/05/2020 4:45 PM Note Text: Unable to connect via zoom during appt slot. Rescheduled and connected again with new link. Lyssa Wheat APRN.CNP obsolete on 2020-04 -18 OBSOLETE Refill (FAMPWS) Normal 12-24-[address] [facility] GINETTENAMRATA Rika ([id number]) 1965 [facility] Time Provider Department ([id number]) 12/24/19 SAURABH HAYES FAMPWS During your visit today, we recorded the following informati on about you: Fadia Guajardo Ma 12/26/2019 11:48 AM Signed Last office visit: 10/07/2019 F/u scheduled: 04/10/2020 Fadia Wheat APRN.CORPORATE DEVELOPMENT INTERN 12/26/2019 11:58 AM Signed Script sent. Lyssa Wheat APRN.CNP Allergies As of Date: 12/24/2019 Noted Allergy Reaction IMITREX (SUMATRIPTAN SUCCINATE) 09/24/2012 10 - Anaphylaxis SULFA DRUGS (SULFA (SULFONAMIDE A*09/24/2012 2 - Rash Comments: Rash all over AMPARO INHIBITORS 09/24/2012 14 - Other: See Comments Comments: Makes asthma worse LATEX 03/22/2013 2 - Rash Comments: Hospital Director calls it sensitivity per pt VICODIN (HYDROCODONE-ACETAMINOPHE*11/28/2013 8 - GI Upset Date Reviewed: 10/07/2019 Reviewed by: Vilma Bell LPN - Fully Assessed Reason for Visit: Refill Request [94] Visit Diagnoses:Fibromyalgia [M79.7] Dysthymia [F34.1] Order(s):tiZANidine (ZANAFLEX) 4 mg tabletTake 1 table t by mouth three times daily as needed.Disp: 90 tabletRfl: 0 buPROPion XL (WELLBUTRIN XL) 300 mg 24 hr tabletTake 1 table t by mouth once daily.Disp: 90 tabletRfl: 0 Prescriptions as of 12/24/2019 Sig: TIZANIDINE 4 MG TABLET Take 1 tablet by mouth three * BUPROPION XL 300 MG 24 HR TAB Take 1 tablet by mouth once d* POTASSIUM CHLORIDE ER 20 MEQ * Take 1 tablet by mouth once d * PAROXETINE 40 MG TABLET Take 1 tablet by mouth once d* CHOLECALCIFEROL (VITAMIN D3) * Take 1 capsule by mouth once * AMLODIPINE 10 MG TABLET Take 1 tablet by mouth once d* PAROXETINE 20 MG TABLET Take 1 tablet by mouth once d* FREESTYLE LITE STRIPS Test blood sugar(s) 1 times d* LOSARTAN 100 MG TABLET Take 1 tablet by mouth once d* HYDROCHLOROTHIAZIDE 25 MG TAB* Take 1 tablet by mouth once d * PHENAZOPYRIDINE 200 MG TABLET Take 1 tablet by mouth three * BENZOCAINE 10 % MUCOSAL GEL Use 1 application as instruct* BUSPIRONE 10 MG TABLET Take 0.5-1 tablets by mouth t* LEG BRACE 1 Each once daily. Knee sleev* OMEGA-3 FATTY ACIDS 1,000 MG * TAKE 1 CAPSULE DAILY ALBUTEROL SULFATE HFA 90 MCG/* Inhale 2 Puffs as instructed * OMEGA 0-PNM-SKX-FISH OIL 300 * Take 1 capsule by mouth once * COMPOUNDED PRESCRIPTION COMPRESSION GLOVES SIZE SMAL* TRIAMCINOLONE ACETONIDE 55 MC* Use 2 Sprays in the nose once * CANE Use as directed OMEPRAZOLE 20 MG CAPSULE,DEBBI* Take 1 capsule by mouth daily * FISH OIL-DHA-EPA 1,200 MG-144* Take 1 capsule PO daily CETIRIZINE 10 MG TABLET Take 1 tablet by mouth once d* KRILL OIL 500 MG CAPSULE Take 1 capsule by mouth twice* TENS UNIT AND ELECTRODES COMB* 1 Units twice daily. MISCELLANEOUS MEDICAL SUPPLY * 1 Units as directed. Problem List As Of Date 12/24/2019 Noted Resolved Hyperlipidemia [E78.5] 09/24/2012 HTN (hypertension) [I10] 09/24/2012 More... Fibromyalgia [M79.7] 09/24/2012 Depression [F32.9] 09/24/2012 Otalgia [H92.09] 05/20/2013 BPPV (benign paroxysmal positional vertigo) [H8*05/20/2013 Enthesopathy of hip region [M76.899] 08/19/2013 Other disorder of muscle, ligament, and fascia *08/19/2013 Diabetes mellitus type 2, controlled, without c*11/17/2013 Other affections of shoulder region, not elsewh*06/19/2014 Lateral epicondylitis of elbow [M77.10] 06/19/2014 Pain in right shoulder [M25.511] 08/29/2014 Hypokalemia [E87.6] 11/28/2014 Hives [L50.9] Chronic bilateral low back pain with bilateral *11/14/2016 Proteinuria [R80.9] 03/20/2017 Essential hypertension [I10] 03/30/2018 AICHA (generalized anxiety disorder) [F41.1] 03/30/2018 Anxiety attack [F41.0] 03/30/2018 Sprain of anterior talofibular ligament of left*02/28/2019 Swelling of joint of hand [M25.449] 03/29/2019 Bilateral hand pain [M79.641, M79.642] 03/29/2019 Fatty liver [K76.0] 03/29/2019 Dysuria [R30.0] 10/07/2019 Prescriptions ordered this encounter Disp Refills Start End TIZANIDINE 4 MG TABLET 90 t* 0 12/26/2019 Route: ORAL Sig: Take 1 tablet by mouth three times daily as needed. BUPROPION XL 300 MG 24 HR TAB 90 t* 0 12/26/2019 Route: ORAL Sig: Take 1 tablet by mouth once daily. Medications Discontinued During This Encounter tiZANidine (ZANAFLEX) 4 mg tablet 90 t* 0 09/23/2019 0 Route: ORAL Sig: Take 1 tablet by mouth three times daily as needed. Disc: Reason for discontinue is not on file. buPROPion XL (WELLBUTRIN XL) 300 mg * 90 t* 0 12/16/201912/25 Route: ORAL Sig: Take 1 tablet by mouth once daily. Disc: Reason for discontinue is not on file. Encounter Status:Closed by LYSSA WHEAT CNP on 12/26/19 obsolete on 2019-12 OBSOLETE Refill (FAMPWS) Normal 12-16-2019 [facility] NAMRATA PENG ([id number]) 1965 [facility] Date Time Provider Department ([id number]) 12/16/19 SAURABH HAYES During your visit today, we recorded the following informati on about you: Jose Zamora EVITA 12/16/2019 2:40 PM Signed Pharmacy faxed request for the following refill(s): Pending Prescriptions Disp Refills POTASSIUM CHLORIDE ER 20 MEQ TABLET,EXTENDED RELEASE(P ART/CRYST) 30 tablet 3 Sig: Take 1 tablet by mouth once daily. LOVELY: No PAROXETINE 40 MG TABLET 90 tablet 0 Sig: Take 1 tablet by mouth once daily. LOVELY: No BUPROPION XL 300 MG 24 HR TAB 90 tablet 1 Sig: Take 1 tablet by mouth once daily. LOVELY: No CHOLECALCIFEROL (VITAMIN D3) 25 MCG (1,000 UNIT) CAPSULE 90 capsule 3 Sig: Take 1 capsule by mouth once daily. LOVELY: No AMLODIPINE 10 MG TABLET 90 tablet 4 Sig: Take 1 tablet by mouth once daily. LOVELY: No Eliceo Humphries APRN.CNP 12/16/2019 3:17 PM Signed Please inform patient that I have give h er 3 months' worth of medications, but no further refills, as a courtesy, due to the current COVID pandemic. Please advise her that she needs to stop in whe n the concerns are lifted and have lab work done. Eliceo Humphries APRN.CNP The following approved medic ation requests have been transmitted electronically. Signed Prescriptions Disp Refills potassium chloride ER (K-DUR, KLOR-CON) 20 mEq tablet 30 tab let 2 Sig: Take 1 tablet by mouth once daily. LOVELY: No Authorizing Provider: SAURABH HAYES Ordering User: ELICEO HUMPHRIES PARoxetine (PAXIL) 40 mg tablet 90 tablet 0 Sig: Take 1 tablet by mouth once daily. LOVELY: No Authorizing Provider: SAURABH HAYES Ordering User: ELICEO HUMPHRIES buPROPion XL (WELLBUTRIN XL) 300 mg 24 hr tablet 90 tablet 0 Sig: Take 1 tablet by mouth once daily. LOVELY: No Authorizing Provider: SAURABH HAYES Ordering User: ELICEO HUMPHREIS Cholecalciferol, Vitamin D3, 25 mcg (1,000 unit) cap 90 caps ule 0 Sig: Take 1 capsule by mouth once daily. LOVELY: No Authorizing Provider: SAURABH HAYES Ordering User: ELICEO HUMPHRIES amLODIPine (NORVASC) 10 mg tablet 90 tablet 0 Sig: Take 1 tablet by mouth once daily. LOVELY: No Authorizing Provider: SAURABH HAYES Ordering User: ELICEO HUMPHRIES APRN.CORPORATE DEVELOPMENT INTERN Allergies As of Date: 12/16/2019 Noted Allergy Reaction IMITREX (SUMATRIPTAN SUCCINATE) 09/24/2012 10 - Anaphylaxis SULFA DRUGS (SULFA (SULFONAMIDE A*09/24/2012 2 - Rash Comments: Rash all over AMPARO INHIBITORS 09/24/2012 14 - Other: See Comments Comments: Makes asthma worse LATEX 03/22/2013 2 - Rash Comments: Hospital Director calls it sensitivity per pt VICODIN (HYDROCODONE-ACETAMINOPHE*11/28/2013 8 - GI Upset Date Reviewed: 10/07/2019 Reviewed by: Vilma Bell LPN - Fully Assessed Reason for Visit: Refill Request [94] Primary Visit Diagnosis:Controlled type 2 diabetes mellitus without complication, without long-term current use of insulin (HCC) [E11.9] Other Visit Diagnoses:Fibromyalgia [M79.7] Dysthymia [F34.1] Essential hypertension [I10] Screening for lipid disorders [Z13.220] Order(s):potassium chloride ER (K-DUR, K NIURKA-CON) 20 mEq tabletTake 1 tablet by mouth once daily.Disp: 30 tabletRfl: 2 PARoxetine (PAXIL) 40 mg tabletTake 1 tablet by mouth once daily.Disp: 90 tabletRfl: 0 buPROPion XL (WELLBUTRIN XL) 300 mg 24 hr tabletTake 1 table t by mouth once daily.Disp: 90 tabletRfl: 0 Cholecalciferol, Vitamin D3, 25 mcg (1,000 unit) capTake 1 c apsule by mouth once daily.Disp: 90 capsuleRfl: 0 amLODIPine (NORVASC) 10 mg tabletTake 1 tablet by mouth once daily.Disp: 90 tabletRfl: 0 HGB A1C [CCNGG5E] Order #: [id number] FUTURE LIPID PANEL BASIC [SQLIPB] Order #: [id number] FUTURE CBC [SQCBC] Order #: [id number] FUTURE COMP METABOLIC PANEL [SQCMP] Order #: [id number] FUTURE Prescriptions as of 12/16/2019 Sig: POTASSIUM CHLORIDE ER 20 MEQ * Take 1 tablet by mouth once d * PAROXETINE 40 MG TABLET Take 1 tablet by mouth once d* BUPROPION XL 300 MG 24 HR TAB Take 1 tablet by mouth once d* CHOLECALCIFEROL (VITAMIN D3) * Take 1 capsule by mouth once * AMLODIPINE 10 MG TABLET Take 1 tablet by mouth once d* PAROXETINE 20 MG TABLET Take 1 tablet by mouth once d* FREESTYLE LITE STRIPS Test blood sugar(s) 1 times d* LOSARTAN 100 MG TABLET Take 1 tablet by mouth once d* HYDROCHLOROTHIAZIDE 25 MG TAB* Take 1 tablet by mouth once d * PHENAZOPYRIDINE 200 MG TABLET Take 1 tablet by mouth three * TIZANIDINE 4 MG TABLET Take 1 tablet by mouth three * BENZOCAINE 10 % MUCOSAL GEL Use 1 application as instruct* BUSPIRONE 10 MG TABLET Take 0.5-1 tablets by mouth t* LEG BRACE 1 Each once daily. Knee sleev* OMEGA-3 FATTY ACIDS 1,000 MG * TAKE 1 CAPSULE DAILY ALBUTEROL SULFATE HFA 90 MCG/* Inhale 2 Puffs as instructed * OMEGA 0-LWU-NHS-FISH OIL 300 * Take 1 capsule by mouth once * COMPOUNDED PRESCRIPTION COMPRESSION GLOVES SIZE SMAL* TRIAMCINOLONE ACETONIDE 55 MC* Use 2 Sprays in the nose once * CANE Use as directed OMEPRAZOLE 20 MG CAPSULE,DEBBI* Take 1 capsule by mouth daily * FISH OIL-DHA-EPA 1,200 MG-144* Take 1 capsule PO daily CETIRIZINE 10 MG TABLET Take 1 tablet by mouth once d* KRILL OIL 500 MG CAPSULE Take 1 capsule by mouth twice* TENS UNIT AND ELECTRODES COMB* 1 Units twice daily. MISCELLANEOUS MEDICAL SUPPLY * 1 Units as directed. Problem List As Of Date 12/16/2019 Noted Resolved Hyperlipidemia [E78.5] 09/24/2012 HTN (hypertension) [I10] 09/24/2012 More... Fibromyalgia [M79.7] 09/24/2012 Depression [F32.9] 09/24/2012 Otalgia [H92.09] 05/20/2013 BPPV (benign paroxysmal positional vertigo) [H8*05/20/2013 Enthesopathy of hip region [M76.899] 08/19/2013 Other disorder of muscle, ligament, and fascia *08/19/2013 Diabetes mellitus type 2, controlled, without c*11/17/2013 Other affections of shoulder region, not elsewh*06/19/2014 Lateral epicondylitis of elbow [M77.10] 06/19/2014 Pain in right shoulder [M25.511] 08/29/2014 Hypokalemia [E87.6] 11/28/2014 Hives [L50.9] Chronic bilateral low back pain with bilateral *11/14/2016 Proteinuria [R80.9] 03/20/2017 Essential hypertension [I10] 03/30/2018 AICHA (generalized anxiety disorder) [F41.1] 03/30/2018 Anxiety attack [F41.0] 03/30/2018 Sprain of anterior talofibular ligament of left*02/28/2019 Swelling of joint of hand [M25.449] 03/29/2019 Bilateral hand pain [M79.641, M79.642] 03/29/2019 Fatty liver [K76.0] 03/29/2019 Dysuria [R30.0] 10/07/2019 Prescriptions ordered this encounter Disp Refills Start End POTASSIUM CHLORIDE ER 20 MEQ TABLET,* 30 t* 2 12/16/2019 Route: ORAL Sig: Take 1 tablet by mouth once daily. PAROXETINE 40 MG TABLET 90 t* 0 12/16/2019 Route: ORAL Sig: Take 1 tablet by mouth once daily. BUPROPION XL 300 MG 24 HR TAB 90 t* 0 12/16/2019 Route: ORAL Sig: Take 1 tablet by mouth once daily. CHOLECALCIFEROL (VITAMIN D3) 25 MCG * 90 c* 0 12/16/2019 Route: ORAL Sig: Take 1 capsule by mouth once daily. AMLODIPINE 10 MG TABLET 90 t* 0 12/16/2019 Route: ORAL Sig: Take 1 tablet by mouth once daily. Medications Discontinued During This Encounter potassium chloride ER (K-DUR, KLOR-C* 30 t* 3 11/12/20192019 Route: ORAL Sig: Take 1 tablet by mouth once daily. Disc: Reason for discontinue is not on file. PARoxetine (PAXIL) 40 mg tablet 90 t* 0 10/04/2019 12/16/2019 Route: ORAL Sig: Take 1 tablet by mouth once daily. Disc: Reason for discontinue is not on file. buPROPion XL (WELLBUTRIN XL) 300 mg * 90 t* 1 07/06/201912/06 Route: ORAL Sig: Take 1 tablet by mouth once daily. Disc: Reason for discontinue is not on file. Cholecalciferol, Vitamin D3, 1,000 u* 90 c* 3 12/28/201812/15 Route: ORAL Sig: Take 1 capsule by mouth once daily. Disc: Reason for discontinue is not on file. amLODIPine (NORVASC) 10 mg tablet 90 t* 4 12/06/2018 12/16/2019 Route: ORAL Sig: Take 1 tablet by mouth once daily. Disc: Reason for discontinue is not on file. Encounter Status:Closed by JOSE ZAMORA LPN on 12/16/19 cnpn on 2019-12-16 CNPN Telephone (OBGYWM) Normal 12-16-[address] [place] NAMRATA PENG ([id number]) 1965 [facility] Date Time Provider Department ([id number]) 12/16/19 DEYSI PATIÑO OBGYWLadan During your visit today, we recorded the following informati on about you: Candice Vivas Pss 12/16/2019 1:07 PM Signed Left to reschedule 01/31/20 Annual to May.Candice browns Pss Allergies As of Date: 12/16/2019 Noted Allergy Reaction IMITREX (SUMATRIPTAN SUCCINATE) 09/24/2012 10 - Anaphylaxis SULFA DRUGS (SULFA (SULFONAMIDE A*09/24/2012 2 - Rash Comments: Rash all over AMPARO INHIBITORS 09/24/2012 14 - Other: See Comments Comments: Makes asthma worse LATEX 03/22/2013 2 - Rash Comments: Hospital Director calls it sensitivity per pt VICODIN (HYDROCODONE-ACETAMINOPHE*11/28/2013 8 - GI Upset Date Reviewed: 10/07/2019 Reviewed by: Vilma Bell LPN - Fully Assessed Reason for Visit: Future Appointment [256] Prescriptions as of 12/16/2019 Sig: POTASSIUM CHLORIDE ER 20 MEQ * Take 1 tablet by mouth once d * PAROXETINE 20 MG TABLET Take 1 tablet by mouth once d* FREESTYLE LITE STRIPS Test blood sugar(s) 1 times d* LOSARTAN 100 MG TABLET Take 1 tablet by mouth once d* HYDROCHLOROTHIAZIDE 25 MG TAB* Take 1 tablet by mouth once d * PHENAZOPYRIDINE 200 MG TABLET Take 1 tablet by mouth three * PAROXETINE 40 MG TABLET Take 1 tablet by mouth once d* TIZANIDINE 4 MG TABLET Take 1 tablet by mouth three * BENZOCAINE 10 % MUCOSAL GEL Use 1 application as instruct* BUSPIRONE 10 MG TABLET Take 0.5-1 tablets by mouth t* BUPROPION XL 300 MG 24 HR TAB Take 1 tablet by mouth once d* LEG BRACE 1 Each once daily. Knee sleev* OMEGA-3 FATTY ACIDS 1,000 MG * TAKE 1 CAPSULE DAILY ALBUTEROL SULFATE HFA 90 MCG/* Inhale 2 Puffs as instructed * OMEGA 6-LPM-YJM-FISH OIL 300 * Take 1 capsule by mouth once * COMPOUNDED PRESCRIPTION COMPRESSION GLOVES SIZE SMAL* TRIAMCINOLONE ACETONIDE 55 MC* Use 2 Sprays in the nose once * CANE Use as directed CHOLECALCIFEROL (VITAMIN D3) * Take 1 capsule by mouth once * AMLODIPINE 10 MG TABLET Take 1 tablet by mouth once d* OMEPRAZOLE 20 MG CAPSULE,DEBBI* Take 1 capsule by mouth daily * FISH OIL-DHA-EPA 1,200 MG-144* Take 1 capsule PO daily CETIRIZINE 10 MG TABLET Take 1 tablet by mouth once d* KRILL OIL 500 MG CAPSULE Take 1 capsule by mouth twice* TENS UNIT AND ELECTRODES COMB* 1 Units twice daily. MISCELLANEOUS MEDICAL SUPPLY * 1 Units as directed. Problem List As Of Date 12/16/2019 Noted Resolved Hyperlipidemia [E78.5] 09/24/2012 HTN (hypertension) [I10] 09/24/2012 More... Fibromyalgia [M79.7] 09/24/2012 Depression [F32.9] 09/24/2012 Otalgia [H92.09] 05/20/2013 BPPV (benign paroxysmal positional vertigo) [H8*05/20/2013 Enthesopathy of hip region [M76.899] 08/19/2013 Other disorder of muscle, ligament, and fascia *08/19/2013 Diabetes mellitus type 2, controlled, without c*11/17/2013 Other affections of shoulder region, not elsewh*06/19/2014 Lateral epicondylitis of elbow [M77.10] 06/19/2014 Pain in right shoulder [M25.511] 08/29/2014 Hypokalemia [E87.6] 11/28/2014 Hives [L50.9] Chronic bilateral low back pain with bilateral *11/14/2016 Proteinuria [R80.9] 03/20/2017 Essential hypertension [I10] 03/30/2018 AICHA (generalized anxiety disorder) [F41.1] 03/30/2018 Anxiety attack [F41.0] 03/30/2018 Sprain of anterior talofibular ligament of left*02/28/2019 Swelling of joint of hand [M25.449] 03/29/2019 Bilateral hand pain [M79.641, M79.642] 03/29/2019 Fatty liver [K76.0] 03/29/2019 Dysuria [R30.0] 10/07/2019 Encounter Status:Closed by CARCANDICE VERNON on 12/16/19 obsolete on 2019-11 OBSOLETE Refill (FAMPWS) Normal 11-12-2019 [facility] NAMRATA Rodriguez ([id number]) 1965 [facility] Time Provider Department ([id number]) 11/12/19 SAURABH HAYES FAMPWS During your visit today, we recorded the following informati on about you: Josephine Reyes LPN 11/12/2019 10:03 AM Addendum Patient has been identified by name and date of : Yes Pharmacy phones for refill(s): Pending Prescriptions Disp Refills POTASSIUM CHLORIDE ER 20 MEQ TABLET,EXTENDED RELEASE(P ART/CRYST) 30 tablet 3 Sig: Take 1 tablet by mouth once daily. LOVELY: No PAROXETINE 20 MG TABLET 30 tablet 1 Sig: Take 1 tablet by mouth once daily. In addition to 40mg daily for a total of 60mg LOVELY: No Date of last office visit in primary care: 10/07/19 Last 2 Encounter Wt Readings: Date: Wt: 10/07/2019 86.6 kg (191 lb) 08/09/2019 84.5 kg (186 lb 3.2 oz) Previous labs/tests for medication: Not applicable Please advise. Thank you. Josephine Reyes LPN Allergies As of Date: 11/12/2019 Noted Allergy Reaction IMITREX (SUMATRIPTAN SUCCINATE) 09/24/2012 10 - Anaphylaxis SULFA DRUGS (SULFA (SULFONAMIDE A*09/24/2012 2 - Rash Comments: Rash all over AMPARO INHIBITORS 09/24/2012 14 - Other: See Comments Comments: Makes asthma worse LATEX 03/22/2013 2 - Rash Comments: Hospital Director calls it sensitivity per pt VICODIN (HYDROCODONE-ACETAMINOPHE*11/28/2013 8 - GI Upset Date Reviewed: 10/07/2019 Reviewed by: Vilma Bell LPN - Fully Assessed Reason for Visit: Refill Request [94] Visit Diagnoses:AICHA (generalized anxiety disorder) [F41.1] Anxiety attack [F41.0] Order(s):potassium chloride ER (K-DUR, K NIURKA-CON) 20 mEq tabletTake 1 tablet by mouth once daily.Disp: 30 tabletRfl: 3 PARoxetine (PAXIL) 20 mg tabletTake 1 tablet by mouth once d aily. In addition to 40mg daily for a total of 60mgDisp: 30 tabletRfl : 1 Prescriptions as of 11/12/2019 Sig: POTASSIUM CHLORIDE ER 20 MEQ * Take 1 tablet by mouth once d * PAROXETINE 20 MG TABLET Take 1 tablet by mouth once d* FREESTYLE LITE STRIPS Test blood sugar(s) 1 times d* LOSARTAN 100 MG TABLET Take 1 tablet by mouth once d* HYDROCHLOROTHIAZIDE 25 MG TAB* Take 1 tablet by mouth once d * PHENAZOPYRIDINE 200 MG TABLET Take 1 tablet by mouth three * PAROXETINE 40 MG TABLET Take 1 tablet by mouth once d* TIZANIDINE 4 MG TABLET Take 1 tablet by mouth three * BENZOCAINE 10 % MUCOSAL GEL Use 1 application as instruct* BUSPIRONE 10 MG TABLET Take 0.5-1 tablets by mouth t* BUPROPION XL 300 MG 24 HR TAB Take 1 tablet by mouth once d* LEG BRACE 1 Each once daily. Knee sleev* OMEGA-3 FATTY ACIDS 1,000 MG * TAKE 1 CAPSULE DAILY ALBUTEROL SULFATE HFA 90 MCG/* Inhale 2 Puffs as instructed * OMEGA 6-CBR-CNU-FISH OIL 300 * Take 1 capsule by mouth once * COMPOUNDED PRESCRIPTION COMPRESSION GLOVES SIZE SMAL* TRIAMCINOLONE ACETONIDE 55 MC* Use 2 Sprays in the nose once * CANE Use as directed CHOLECALCIFEROL (VITAMIN D3) * Take 1 capsule by mouth once * AMLODIPINE 10 MG TABLET Take 1 tablet by mouth once d* OMEPRAZOLE 20 MG CAPSULE,DEBBI* Take 1 capsule by mouth daily * FISH OIL-DHA-EPA 1,200 MG-144* Take 1 capsule PO daily CETIRIZINE 10 MG TABLET Take 1 tablet by mouth once d* KRILL OIL 500 MG CAPSULE Take 1 capsule by mouth twice* TENS UNIT AND ELECTRODES COMB* 1 Units twice daily. MISCELLANEOUS MEDICAL SUPPLY * 1 Units as directed. Problem List As Of Date 11/12/2019 Noted Resolved Hyperlipidemia [E78.5] 09/24/2012 HTN (hypertension) [I10] 09/24/2012 More... Fibromyalgia [M79.7] 09/24/2012 Depression [F32.9] 09/24/2012 Otalgia [H92.09] 05/20/2013 BPPV (benign paroxysmal positional vertigo) [H8*05/20/2013 Enthesopathy of hip region [M76.899] 08/19/2013 Other disorder of muscle, ligament, and fascia *08/19/2013 Diabetes mellitus type 2, controlled, without c*11/17/2013 Other affections of shoulder region, not elsewh*06/19/2014 Lateral epicondylitis of elbow [M77.10] 06/19/2014 Pain in right shoulder [M25.511] 08/29/2014 Hypokalemia [E87.6] 11/28/2014 Hives [L50.9] Chronic bilateral low back pain with bilateral *11/14/2016 Proteinuria [R80.9] 03/20/2017 Essential hypertension [I10] 03/30/2018 AICHA (generalized anxiety disorder) [F41.1] 03/30/2018 Anxiety attack [F41.0] 03/30/2018 Sprain of anterior talofibular ligament of left*02/28/2019 Swelling of joint of hand [M25.449] 03/29/2019 Bilateral hand pain [M79.641, M79.642] 03/29/2019 Fatty liver [K76.0] 03/29/2019 Dysuria [R30.0] 10/07/2019 Prescriptions ordered this encounter Disp Refills Start End POTASSIUM CHLORIDE ER 20 MEQ TABLET,* 30 t* 3 11/12/2019 Route: ORAL Sig: Take 1 tablet by mouth once daily. PAROXETINE 20 MG TABLET 30 t* 1 11/12/2019 Route: ORAL Sig: Take 1 tablet by mouth once daily. In addit ion to 40mg daily for a total of 60mg Medications Discontinued During This Encounter potassium chloride ER (K-DUR, KLOR-C* 30 t* 3 08/08/20192019 Route: ORAL Sig: Take 1 tablet by mouth once daily. Disc: Reason for discontinue is not on file. PARoxetine (PAXIL) 20 mg tablet 30 t* 1 10/04/2019 11/12/2019 Route: ORAL Sig: Take 1 tablet by mouth once daily. In addition to 40mg daily for a total of 60mg Disc: Reason for discontinue is not on file. Encounter Status:Closed by SAURABH HAYES DO on 11/12/19 obsolete on 2019-10 OBSOLETE Refill (FAMPWS) Normal 10-11-[address] [facility] NAMRATA PENG ([id number]) 1965 [facility] Date Time Provider Department ([id number]) 10/11/19 SAURABH HAYESPDUSTIN During your visit today, we recorded the following informati on about you: Kathy Lamar RN 10/11/2019 9:37 AM Signed Patient phones requesting refills as follows: Combination med is backordered - meds need ordered individua lly Pending Prescriptions Disp Refills LOSARTAN 100 MG TABLET Sig: Take 1 tablet by mouth once daily. HYDROCHLOROTHIAZIDE 25 MG TABLET Sig: Take 1 tablet by mouth once daily. Verified pharmacy Last office visit Please review and advise. Kathy Wheat APRN.CNP 10/11/2019 5:12 PM Signed Script sent. Lyssa Wheat APRN.CNP Allergies As of Date: 10/11/2019 Noted Allergy Reaction IMITREX (SUMATRIPTAN SUCCINATE) 09/24/2012 10 - Anaphylaxis SULFA DRUGS (SULFA (SULFONAMIDE A*09/24/2012 2 - Rash Comments: Rash all over AMPARO INHIBITORS 09/24/2012 14 - Other: See Comments Comments: Makes asthma worse LATEX 03/22/2013 2 - Rash Comments: Hospital Director calls it sensitivity per pt VICODIN (HYDROCODONE-ACETAMINOPHE*11/28/2013 8 - GI Upset Date Reviewed: 10/07/2019 Reviewed by: Vilma Bell LPN - Fully Assessed Order(s):losartan (COZAAR) 100 mg tabletTake 1 tablet by gladys th once daily.Disp: 90 tabletRfl: 1 hydroCHLOROthiazide (HYDRODIURIL, ESIDRIX) 25 mg tabletTake 1 tablet by mouth once daily.Disp: 90 tabletRfl: 1 Prescriptions as of 10/11/2019 Sig: LOSARTAN 100 MG TABLET Take 1 tablet by mouth once d* HYDROCHLOROTHIAZIDE 25 MG TAB* Take 1 tablet by mouth once d * PHENAZOPYRIDINE 200 MG TABLET Take 1 tablet by mouth three * PAROXETINE 40 MG TABLET Take 1 tablet by mouth once d* PAROXETINE 20 MG TABLET Take 1 tablet by mouth once d* TIZANIDINE 4 MG TABLET Take 1 tablet by mouth three * POTASSIUM CHLORIDE ER 20 MEQ * Take 1 tablet by mouth once d * BENZOCAINE 10 % MUCOSAL GEL Use 1 application as instruct* BUSPIRONE 10 MG TABLET Take 0.5-1 tablets by mouth t* BUPROPION XL 300 MG 24 HR TAB Take 1 tablet by mouth once d* LEG BRACE 1 Each once daily. Knee sleev* OMEGA-3 FATTY ACIDS 1,000 MG * TAKE 1 CAPSULE DAILY ALBUTEROL SULFATE HFA 90 MCG/* Inhale 2 Puffs as instructed * OMEGA 4-JWR-JXO-FISH OIL 300 * Take 1 capsule by mouth once * COMPOUNDED PRESCRIPTION COMPRESSION GLOVES SIZE SMAL* TRIAMCINOLONE ACETONIDE 55 MC* Use 2 Sprays in the nose once * CANE Use as directed CHOLECALCIFEROL (VITAMIN D3) * Take 1 capsule by mouth once * AMLODIPINE 10 MG TABLET Take 1 tablet by mouth once d* OMEPRAZOLE 20 MG CAPSULE,DEBBI* Take 1 capsule by mouth daily * FISH OIL-DHA-EPA 1,200 MG-144* Take 1 capsule PO daily CETIRIZINE 10 MG TABLET Take 1 tablet by mouth once d* KRILL OIL 500 MG CAPSULE Take 1 capsule by mouth twice* TENS UNIT AND ELECTRODES COMB* 1 Units twice daily. MISCELLANEOUS MEDICAL SUPPLY * 1 Units as directed. Medication notes this encounter LOSARTAN 100 MG-HYDROCHLOROTHIAZIDE 25 MG TABLET >> Lyssa Wheat, [employer] CLERK.CORPORATE DEVELOPMENT INTERN 10/11/2019 5:12 PM not available. Problem List As Of Date 10/11/2019 Noted Resolved Hyperlipidemia [E78.5] 09/24/2012 HTN (hypertension) [I10] 09/24/2012 More... Fibromyalgia [M79.7] 09/24/2012 Depression [F32.9] 09/24/2012 Otalgia [H92.09] 05/20/2013 BPPV (benign paroxysmal positional vertigo) [H8*05/20/2013 Enthesopathy of hip region [M76.899] 08/19/2013 Other disorder of muscle, ligament, and fascia *08/19/2013 Diabetes mellitus type 2, controlled, without c*11/17/2013 Other affections of shoulder region, not elsewh*06/19/2014 Lateral epicondylitis of elbow [M77.10] 06/19/2014 Pain in right shoulder [M25.511] 08/29/2014 Hypokalemia [E87.6] 11/28/2014 Hives [L50.9] Chronic bilateral low back pain with bilateral *11/14/2016 Proteinuria [R80.9] 03/20/2017 Essential hypertension [I10] 03/30/2018 AICHA (generalized anxiety disorder) [F41.1] 03/30/2018 Anxiety attack [F41.0] 03/30/2018 Sprain of anterior talofibular ligament of left*02/28/2019 Swelling of joint of hand [M25.449] 03/29/2019 Bilateral hand pain [M79.641, M79.642] 03/29/2019 Fatty liver [K76.0] 03/29/2019 Dysuria [R30.0] 10/07/2019 Prescriptions ordered this encounter Disp Refills Start End LOSARTAN 100 MG TABLET 90 t* 1 10/11/2019 Route: ORAL Sig: Take 1 tablet by mouth once daily. HYDROCHLOROTHIAZIDE 25 MG TABLET 90 t* 1 10/11/2019 Route: ORAL Sig: Take 1 tablet by mouth once daily. Medications Discontinued During This Encounter losartan-hydrochlorothiazide (HYZAAR* 90 t* 1 08/08/20192019 Route: ORAL Sig: Take 1 tablet by mouth once daily. Disc: Other Encounter Status:Closed by LYSSA WHEAT CNP on 10/11/19 urine culture on 26-09-30 Bacteria Sp. Request/Comment: - Specimen received in preservative Critically 10-07-2019 [place] identified Cx Nom Culture Result - <10,000 CFU /ml Lactose positive gram negative bacilli --> ABNORMAL ALERT Insignificant colony count. No further workup. --> ABNORMAL ALERT 50,000 - <100,000 CFU/ml Normal urogenital adolfo abnormal Clinic (U) [place] ([id number]) Comment: Performed By: #### URCUL ### #[facility] [id number] [place], [place] [phone] progress on 2019-09 PROGRESS HNO ID: [id number] Normal 10-07-2019 [facility] Author: Saurabh Hayes [place] ([id number]) Service: ? Author Type: Physician Type: Progress Notes Filed: 10/07/2019 5:38 PM Note Text: CC: Namrata Peng is a 54 year old female who presents to the office for follow up. HPI: Previously 1 year ago Mood, here for follow up anxiety, was recently increased on Paxil dose to 60 mg a day and weaned off Ativan, has not been taking the A tivan at all, has only had to take buspirone 1 dose in the past 2 weeks fo r a panic attack feeling, otherwise mood is feeling very stable. ?Anxi ety seems controlled. ?Is still stressed due to financial triggers etc . ? Ventral hernia repair, doing well recovering, bowels are hilaria y regular, appetite is so so, no vomiting, no fevers or chills.? ? At last OFFICE VISIT 6 months ago ? B/l hand soreness/joint aching, worse in mid/end of day, see ms to improve with rest. Does a lot of crocheting and crafting as hobby, n o obvious injury, was told in past has arthritis in the hands. Is inte rested in trying compression gloves. Worse in areas of PIP by descript eyal. Otherwise still struggling with diffuse chronic pain In musc les etc ? Mood, stable, still seeing her therapist/counselor. Still st olive at times with anxiety and depressed mood due to stressors with her son whom she believes is narcicisstic and is preventing her currently from seeing her 10 year old and 15 year old granddaughters, his children . No SI or HI. Just gets upset about this situations. Currently Mood, overall doing well, other than stressors with her son and trying to not allow her to see her granddaughters she is doing better. She has met a man that is her boyfriend now and she feels very comfortab le with him and he treats her well, feels she has someone to talk to now etc. Still seeing counselor/therapist which also helps Fibromyalgia, chronic, stable Urinary urgency symptoms over the last few days, hx of UTI, no other associated urinary or systemic symptoms ? PAST MEDICAL HISTORY Diagnosis Date - Anxiety - Asthma 2005 - Depression - Dizziness 05/20/2013 - DJD (degenerative joint disease) spine and neck - Epicondylitis bilateral elbow - Fibromyalgia 1989 - GERD (gastroesophageal reflux disease) - Hives - Hyperlipidemia not on medications - Hypertension - Melanoma in situ (HCC) 09/2015 - Ruptured lumbar disc PAST SURGICAL HISTORY Procedure Laterality Date - CARPAL TUNNEL bilateral - LX REPAIR RECURRENT VENTRAL HERNIA 09/06/2018 open repair of incarcerated recurrent ventral hernia - OTHER DANDC - REMOVE TONSILS/ADENOIDS,<12 Y/O - REPAIR INCISIONAL HERNIA,HELEN 04/29/2017 Strangulate ventral hernia with transverse colon Current Outpatient Medications Medication Sig - phenazopyridine (PYRIDIUM) 200 mg tablet Take 1 tablet by mouth three times daily as needed. - PARoxetine (PAXIL) 40 mg tablet Take 1 tablet by mouth onc e daily. - PARoxetine (PAXIL) 20 mg tablet Take 1 tablet by mouth onc e daily. In addition to 40mg daily for a total of 60mg - tiZANidine (ZANAFLEX) 4 mg tablet Take 1 tablet by mouth t hree times daily as needed. - losartan-hydrochlorothiazide (HYZAAR) 100-25 mg per tablet Take 1 tablet by mouth once daily. - potassium chloride ER (K-DUR, KLOR-CON) 20 mEq tablet Take 1 tablet by mouth once daily. - benzocaine (ANBESOL, BENZOCAINE,) 10 % oral gel Use 1 appl ication as instructed every 6 hours as needed. - busPIRone (BUSPAR) 10 mg tablet Take 0.5-1 tablets by mout h three times daily as needed (anxiety attack). - buPROPion XL (WELLBUTRIN XL) 300 mg 24 hr tablet Take 1 ta blet by mouth once daily. - Leg Brace (ELASTIC KNEE SUPPORT) misc 1 Each once daily. K nee sleeve/amparo compression sleeve to the left knee. - omega-3 fatty acids 1,000 mg cap TAKE 1 CAPSULE DAILY - albuterol HFA (VENTOLIN HFA) 90 mcg/actuation inhaler Inha le 2 Puffs as instructed every 4 hours as needed for Wheezing/Shortness of Breath. - Uvtnn-7-ASD-EPA-Fish Oil 300-1,000 mg cap Take 1 capsule b y mouth once daily. - COMPOUNDED PRESCRIPTION COMPRESSION GLOVES SIZE SMALL-MEDI UM DX ARTHRITIS Compression:20-30mmg - triamcinolone acetonide (NASACORT) 55 mcg nasal inhaler Us e 2 Sprays in the nose once daily. - amLODIPine (NORVASC) 10 mg tablet Take 1 tablet by mouth o nce daily. - omeprazole (PRILOSEC) 20 mg capsule Take 1 capsule by mout h daily before breakfast. 1/2 hr before meal. - Fish Oil-DHA-EPA 1,200-144-216 mg cap Take 1 capsule PO da jose j - cetirizine (ZYRTEC) 10 mg tablet Take 1 tablet by mouth on ce daily. - krill oil 500 mg cap Take 1 capsule by mouth twice daily. - TENS unit and electrodes cmpk 1 Units twice daily. - Miscellaneous Medical Supply (BLOOD PRESSURE CUFF) misc 1 Units as directed. - Cane donnie Use as directed - Cholecalciferol, Vitamin D3, 1,000 unit cap Take 1 capsule by mouth once daily. No current facility-administered medications for this visit. ALLERGIES Allergen Reactions - Imitrex [Sumatripta* Anaphylaxis - Sulfa Drugs [Sulfa * Rash Rash all over - Amparo Inhibitors Other: See Comments Makes asthma worse - Latex Rash Hospital Director calls it sensitivity per pt - Vicodin [Hydrocodon* GI Upset Social History Tobacco Use - Smoking status: Never Smoker - Smokeless tobacco: Never Used - Tobacco comment: smoked a little as a teenager Substance Use Topics - Alcohol use: No Frequency: Monthly or less Drinks per session: 1 or 2 Binge frequency: Never - Drug use: No ROS: See HPI PE: BP 124/60 Pulse 80 Temp (Src) 98.7 (Left Tympanic) Res p 16 Wt 191 lb (86.6kg) LMP 05/23/2014 Gen: AANDOX3, NAD, non-toxic appearing HEENT: PERRLA, EOMs intact b/l, nares without drainage, phar ynx without erythema, exudate, lesions, or drainage. Uvula midline. Neck: No LAD, no thyromegaly, no meningismus. CV: RRR, no murmur Lungs: CTA b/l, no wheezing Skin: No rashes, lesions, or wounds on exposed skin. No CVA flank pain No edema URINE POC GLUCOSE UA (POCT) Negative 10/07/2019 BILIRUBIN UA (POCT) Negative 10/07/2019 KETONE UA (POCT) Negative 10/07/2019 SPECIFIC GRAVITY UA (POCT) 1.020 10/07/2019 HEMOGLOBIN/BLOOD UA (POCT) Negative 10/07/2019 PH UA (POCT) 7.5 10/07/2019 PROTEIN UA (POCT) Negative 10/07/2019 UROBILINOGEN UA (POCT) 0.2 10/07/2019 NITRITE UA (POCT) Negative 10/07/2019 LEUKOCYTES UA (POCT) Moderate 10/07/2019 COLOR UA (POCT) Yellow 10/07/2019 CLARITY UA (POCT) Clear 10/07/2019 ASSESSMENT/PLAN: 1. Dysuria - ICD9: 788.1, ICD10: R30.0 (primary diagnosis) acute - Send urine for culture - Patient education for prevention given - UA DIP, URINE (POC) - URINE CULTURE 2. AICHA (generalized anxiety disorder) - ICD9: 300.02, ICD10: F41.1 - stable 3. Fibromyalgia - ICD9: 729.1, ICD10: M79.7 - stable 4. Dysthymia - ICD9: 300.4, ICD10: F34.1 - stable 5. Essential hypertension - ICD9: 401.9, ICD10: I10 - suboptimal control - Continue current medication(s) - Encouraged dietary sodium restriction/DASH diet - Recommended regular aerobic exercise. - Recommend home blood pressure monitoring, to bring results in on next visit - Goal of BP <130/80 Saurabh Hayes DO Return if no improvement. Follow up with Saurabh Hayes DO. To ER if develops chest pain, shortness of breath Discussed risks, benefits, alternatives, and potential side effects of medications. Patient/Guardian expressed understanding and agreed with the plan. See patient instructions. Saurabh Hayes DO [address] [place] [address] cnov on 2019-10-07 CNOV Office Visit (FAMPWS) Normal 10-07-[address] [place] [address] [facility] NAMRATA PENG ([id number]) 1965 [facility] Date Time Provider Department ([id number]) 10/07/19 11:40 AM SAURABH HAYESWS During your visit today, we recorded the following informati on about you: Temperature Pulse Respiration Blood pressure 98.7 degrees 80/minute 16/minute 124/60 Weight 86.6 kg Saurabh Hayes, DO 10/07/2019 5:38 PM Signed CC: Namrata Peng is a 54 year old female who presents to the office for follow up. HPI: Previously 1 year ago Mood, here for follow up anx iety, was recently increased on Paxil dose to 60 mg a day and weaned off Ativan, has not been taking the A tivan at all, has only had to take buspirone 1 dose in the past 2 weeks for a panic attack feeling, otherwise mood is feeling very stable. ?Anxiety seems cont rolled. ?Is still stressed due to financial triggers etc. ? Ventral hernia repair, doing well recovering, bowels are very regular, appetite is so so, no vomiting, no fevers or chills.? ? At last OFFICE VISIT 6 months ago ? B/l hand soreness/joint aching, worse in mid/end of day, seems to improve with rest. Does a lot of crocheting and crafting as hobby, no obvious injury, was told in past has arthritis in the hands. Is interested in trying compression gloves. Worse in areas of PIP by description. Otherwise alicjal l struggling with diffuse chronic pain In muscles etc ? Mood, stable, still seeing her therapist/counselor. St ill struggles at times with anxiety and depressed m ood due to stressors with her son whom she believes is narcicisstic and is preve nting her currently from seeing her 10 year old and 15 year old granddaughters, his children. No SI or HI. Just gets upset about this situations. Currently Mood, overall doing well, other than stressors w ith her son and trying to not allow her to see her granddaughters she is doing better. She has met a man that is her boyfriend now an d she feels very comfortable with him and he treats her well, feels she has someone to talk to now etc. Still se eing counselor/therapist which also helps Fibromyalgia, chronic, stable Urinary urgency symptoms ove r the last few days, hx of UTI, no other associated urinary or systemic symptoms ? PAST MEDICAL HISTORY Diagnosis Date - Anxiety - Asthma 2005 - Depression - Dizziness 05/20/2013 - DJD (degenerative joint disease) spine and neck - Epicondylitis bilateral elbow - Fibromyalgia 1989 - GERD (gastroesophageal reflux disease) - Hives - Hyperlipidemia not on medications - Hypertension - Melanoma in situ (HCC) 09/2015 - Ruptured lumbar disc PAST SURGICAL HISTORY Procedure Laterality Date - CARPAL TUNNEL bilateral - LX REPAIR RECURRENT VENTRAL HERNIA 09/06/2018 open repair of incarcerated recurrent ventral hernia - OTHER DANDC - REMOVE TONSILS/ADENOIDS,<12 Y/O - REPAIR INCISIONAL HERNIA,HELEN 04/29/2017 Strangulate ventral hernia with transverse colon Current Outpatient Medications Medication Sig - phenazopyridine (PYRIDIUM) 200 mg tablet Take 1 tablet by mouth three times daily as needed. - PARoxetine (PAXIL) 40 mg tablet Take 1 tablet by mouth onc e daily. - PARoxetine (PAXIL) 20 mg tablet Take 1 tablet by mouth onc e daily. In addition to 40mg daily for a total of 60mg - tiZANidine (ZANAFLEX) 4 mg tablet Take 1 tablet by mouth three times daily as needed. - losartan-hydrochlorothiazide (HYZAAR) 100-25 m g per tablet Take 1 tablet by mouth once daily. - potassium chloride ER (K-DUR, KLOR-CON ) 20 mEq tablet Take 1 tablet by mouth once daily. - benzocaine (ANBESOL, BENZOCAINE,) 10 % oral gel Use 1 appl ication as instructed every 6 hours as needed. - busPIRone (BUSPAR) 10 mg t ablet Take 0.5-1 tablets by mouth three times daily as needed (anxiety attack). - buPROPion XL (WELLBUTRIN XL) 300 mg 24 hr tablet Take 1 tablet by mouth once daily. - Leg Brace (ELASTIC KNEE SUPPORT) misc 1 Each once daily. K nee sleeve/amparo compression sleeve to the left knee. - omega-3 fatty acids 1,000 mg cap TAKE 1 CAPSULE DAILY - albuterol HFA (VENTOLIN HFA) 90 mcg/actuation inhaler Inha le 2 Puffs as instructed every 4 hours as needed for Wheezing/Shortness of Breath. - Pbxeh-9-QRS-EPA-Fish Oil 3 00-1,000 mg cap Take 1 capsule by mouth once daily. - COMPOUNDED PRESCRIPTION COMPRESSION GLOVES SIZE SMALL-ME DIUM DX ARTHRITIS Compression:20-30mmg - triamcinolone acetonide (NASACORT) 55 mcg nasa l inhaler Use 2 Sprays in the nose once daily. - amLODIPine (NORVASC) 10 mg tablet Take 1 tablet by mouth o nce daily. - omeprazole (PRILOSEC) 20 mg capsule Take 1 capsule by mout h daily before breakfast. 1/2 hr before meal. - Fish Oil-DHA-EPA 1,200-144-216 mg cap Take 1 capsule PO da jose j - cetirizine (ZYRTEC) 10 mg tablet Take 1 tablet by mouth on ce daily. - krill oil 500 mg cap Take 1 capsule by mouth twice daily. - TENS unit and electrodes cmpk 1 Units twice daily. - Miscellaneous Medical Supply (BLOOD VA ESSURE CUFF) misc 1 Units as directed. - Cane donnie Use as directed - Cholecalciferol, Vitamin D3, 1,000 unit cap Take 1 capsule by mouth once daily. No current facility-administered medications for this visit. ALLERGIES Allergen Reactions - Imitrex [Sumatripta* Anaphylaxis - Sulfa Drugs [Sulfa * Rash Rash all over - Amparo Inhibitors Other: See Comments Makes asthma worse - Latex Rash Hospital Director calls it sensitivity per pt - Vicodin [Hydrocodon* GI Upset Social History Tobacco Use - Smoking status: Never Smoker - Smokeless tobacco: Never Used - Tobacco comment: smoked a little as a teenager Substance Use Topics - Alcohol use: No Frequency: Monthly or less Drinks per session: 1 or 2 Binge frequency: Never - Drug use: No ROS: See HPI PE: BP 124/60 Pulse 80 Temp (Src) 98.7 (Left Tympanic) Resp 16 Wt 191 lb (86.6kg) LMP 05/23/2014 Gen: AANDOX3, NAD, non-toxic appearing HEENT: PERRLA, EOMs intact b/l, nares without drainage, phar ynx without erythema, exudate, lesions, or drainage. Uvula midline. Neck: No LAD, no thyromegaly, no meningismus. CV: RRR, no murmur Lungs: CTA b/l, no wheezing Skin: No rashes, lesions, or wounds on exposed skin. No CVA flank pain No edema URINE POC GLUCOSE UA (POCT) Negative 10/07/2019 BILIRUBIN UA (POCT) Negative 10/07/2019 KETONE UA (POCT) Negative 10/07/2019 SPECIFIC GRAVITY UA (POCT) 1.020 10/07/2019 HEMOGLOBIN/BLOOD UA (POCT) Negative 10/07/2019 PH UA (POCT) 7.5 10/07/2019 PROTEIN UA (POCT) Negative 10/07/2019 UROBILINOGEN UA (POCT) 0.2 10/07/2019 NITRITE UA (POCT) Negative 10/07/2019 LEUKOCYTES UA (POCT) Moderate 10/07/2019 COLOR UA (POCT) Yellow 10/07/2019 CLARITY UA (POCT) Clear 10/07/2019 ASSESSMENT/PLAN: 1. Dysuria - ICD9: 788.1, ICD10: R30.0 (primary diagnosis) acute - Send urine for culture - Patient education for prevention given - UA DIP, URINE (POC) - URINE CULTURE 2. AICHA (generalized anxiety disorder) - ICD9: 300.02, ICD10: F41.1 - stable 3. Fibromyalgia - ICD9: 729.1, ICD10: M79.7 - stable 4. Dysthymia - ICD9: 300.4, ICD10: F34.1 - stable 5. Essential hypertension - ICD9: 401.9, ICD10: I10 - suboptimal control - Continue current medication(s) - Encouraged dietary sodium restriction/DASH diet - Recommended regular aerobic exercise. - Recommend home blood pressure monitoring, to b ring results in on next visit - Goal of BP <130/80 Saurabh Hayes DO Return if no improvement. Follow up with Saurabh Hayes DO. To ER if develops chest pain, shortness of breath Discussed risks, benefits, alternatives, and potential side effects of medications. Patient/Guardian expressed understanding and agreed with the plan. See patient instructions. Saurabh Hayes DO [address] [place] [address] Referring Provider: SELF [[id number]] Allergies As of Date: 10/07/2019 Noted Allergy Reaction IMITREX (SUMATRIPTAN SUCCINATE) 09/24/2012 10 - Anaphylaxis SULFA DRUGS (SULFA (SULFONAMIDE A*09/24/2012 2 - Rash Comments: Rash all over AMPARO INHIBITORS 09/24/2012 14 - Other: See Comments Comments: Makes asthma worse LATEX 03/22/2013 2 - Rash Comments: Hospital Director calls it sensitivity per pt VICODIN (HYDROCODONE-ACETAMINOPHE*11/28/2013 8 - GI Upset Date Reviewed: 10/07/2019 Reviewed by: Vilma Bell LPN - Fully Assessed Reason for Visit: Follow Up [171] Primary Visit Diagnosis:Dysuria [R30.0] Other Visit Diagnoses:AICHA (generalized anxiety disorder) [F4 1.1] Fibromyalgia [M79.7] Dysthymia [F34.1] Essential hypertension [I10] Order(s):UA DIP, URINE (POC) [[id number]] Order #: [id number] ec. #:[id number] URINE CULTURE [SQURCUL] Order #: [id number] phenazopyridine (PYRIDIUM) 200 mg tabletTake 1 tablet by gladys th three times daily as needed.Disp: 6 tabletRfl: 4 Prescriptions as of 10/07/2019 Sig: PHENAZOPYRIDINE 200 MG TABLET Take 1 tablet by mouth three * PAROXETINE 40 MG TABLET Take 1 tablet by mouth once d* PAROXETINE 20 MG TABLET Take 1 tablet by mouth once d* TIZANIDINE 4 MG TABLET Take 1 tablet by mouth three * LOSARTAN 100 MG-HYDROCHLOROTH* Take 1 tablet by mouth once d * POTASSIUM CHLORIDE ER 20 MEQ * Take 1 tablet by mouth once d * BENZOCAINE 10 % MUCOSAL GEL Use 1 application as instruct* BUSPIRONE 10 MG TABLET Take 0.5-1 tablets by mouth t* BUPROPION XL 300 MG 24 HR TAB Take 1 tablet by mouth once d* LEG BRACE 1 Each once daily. Knee sleev* OMEGA-3 FATTY ACIDS 1,000 MG * TAKE 1 CAPSULE DAILY ALBUTEROL SULFATE HFA 90 MCG/* Inhale 2 Puffs as instructed * OMEGA 1-OLV-UBL-FISH OIL 300 * Take 1 capsule by mouth once * COMPOUNDED PRESCRIPTION COMPRESSION GLOVES SIZE SMAL* TRIAMCINOLONE ACETONIDE 55 MC* Use 2 Sprays in the nose once * AMLODIPINE 10 MG TABLET Take 1 tablet by mouth once d* OMEPRAZOLE 20 MG CAPSULE,DEBBI* Take 1 capsule by mouth daily * FISH OIL-DHA-EPA 1,200 MG-144* Take 1 capsule PO daily CETIRIZINE 10 MG TABLET Take 1 tablet by mouth once d* KRILL OIL 500 MG CAPSULE Take 1 capsule by mouth twice* TENS UNIT AND ELECTRODES COMB* 1 Units twice daily. MISCELLANEOUS MEDICAL SUPPLY * 1 Units as directed. CANE Use as directed CHOLECALCIFEROL (VITAMIN D3) * Take 1 capsule by mouth once * Problem List As Of Date 10/07/2019 Noted Resolved Hyperlipidemia [E78.5] 09/24/2012 HTN (hypertension) [I10] 09/24/2012 More... Fibromyalgia [M79.7] 09/24/2012 Depression [F32.9] 09/24/2012 Otalgia [H92.09] 05/20/2013 BPPV (benign paroxysmal positional vertigo) [H8*05/20/2013 Enthesopathy of hip region [M76.899] 08/19/2013 Other disorder of muscle, ligament, and fascia *08/19/2013 Diabetes mellitus type 2, controlled, without c*11/17/2013 Other affections of shoulder region, not elsewh*06/19/2014 Lateral epicondylitis of elbow [M77.10] 06/19/2014 Pain in right shoulder [M25.511] 08/29/2014 Hypokalemia [E87.6] 11/28/2014 Hives [L50.9] Chronic bilateral low back pain with bilateral *11/14/2016 Proteinuria [R80.9] 03/20/2017 Essential hypertension [I10] 03/30/2018 AICHA (generalized anxiety disorder) [F41.1] 03/30/2018 Anxiety attack [F41.0] 03/30/2018 Sprain of anterior talofibular ligament of left*02/28/2019 Swelling of joint of hand [M25.449] 03/29/2019 Bilateral hand pain [M79.641, M79.642] 03/29/2019 Fatty liver [K76.0] 03/29/2019 Dysuria [R30.0] 10/07/2019 Prescriptions ordered this encounter Disp Refills Start End PHENAZOPYRIDINE 200 MG TABLET 6 ta* 4 10/07/2019 Route: ORAL Sig: Take 1 tablet by mouth three times daily as needed. Medications Discontinued During This Encounter phenazopyridine (PYRIDIUM) 200 mg ta* 6 ta* 0 08/09/201910/07 Route: ORAL Sig: Take 1 tablet by mouth three times daily as needed. Disc: Reason for discontinue is not on file. Encounter Status:Closed by SAURABH HAYES DO on 10/07/19 obsolete on 2019-09 OBSOLETE Refill (FAMPWS) Normal 10-04-[address] [facility] NAMRATA PENG ([id number]) 1965 [facility] Time Provider Department ([id number]) 10/04/19 SAURABH HAYES FAMPWS During your visit today, we recorded the following informati on about you: Shannon Duarte Pss 10/04/2019 11:06 AM Signed Patient's request for medication is as follows: Pending Prescriptions Disp Refills PAROXETINE 40 MG TABLET 90 tablet 0 Sig: Take 1 tablet by mouth once daily. LOVELY: No PAROXETINE 20 MG TABLET 30 tablet 1 Sig: Take 1 tablet by mouth once daily. In addition to 40mg daily for a total of 60mg LOVELY: No Prescription(s) as above. Please process accordingly. Shannon Duarte Pss Lyssa Wheat APRN.CNP 10/04/2019 4:25 PM Signed Script sent. Lyssa Wheat APRN.CNP Allergies As of Date: 10/04/2019 Noted Allergy Reaction IMITREX (SUMATRIPTAN SUCCINATE) 09/24/2012 10 - Anaphylaxis SULFA DRUGS (SULFA (SULFONAMIDE A*09/24/2012 2 - Rash Comments: Rash all over AMPARO INHIBITORS 09/24/2012 14 - Other: See Comments Comments: Makes asthma worse LATEX 03/22/2013 2 - Rash Comments: Hospital Director calls it sensitivity per pt VICODIN (HYDROCODONE-ACETAMINOPHE*11/28/2013 8 - GI Upset Date Reviewed: 04/28/2019 Reviewed by: Kristen Rm - Fully Assessed Reason for Visit: Refill Request [94] Visit Diagnoses:AICHA (generalized anxiety disorder) [F41.1] Anxiety attack [F41.0] Order(s):PARoxetine (PAXIL) 40 mg tabletTake 1 tablet by gladys once daily.Disp: 90 tabletRfl: 0 PARoxetine (PAXIL) 20 mg tabletTake 1 tablet by mouth once d aily. In addition to 40mg daily for a total of 60mgDisp: 30 tabletRfl : 1 Prescriptions as of 10/04/2019 Sig: PAROXETINE 40 MG TABLET Take 1 tablet by mouth once d* PAROXETINE 20 MG TABLET Take 1 tablet by mouth once d* TIZANIDINE 4 MG TABLET Take 1 tablet by mouth three * PHENAZOPYRIDINE 200 MG TABLET Take 1 tablet by mouth three * LOSARTAN 100 MG-HYDROCHLOROTH* Take 1 tablet by mouth once d * POTASSIUM CHLORIDE ER 20 MEQ * Take 1 tablet by mouth once d * BENZOCAINE 10 % MUCOSAL GEL Use 1 application as instruct* BUSPIRONE 10 MG TABLET Take 0.5-1 tablets by mouth t* BUPROPION XL 300 MG 24 HR TAB Take 1 tablet by mouth once d* LEG BRACE 1 Each once daily. Knee sleev* OMEGA-3 FATTY ACIDS 1,000 MG * TAKE 1 CAPSULE DAILY ALBUTEROL SULFATE HFA 90 MCG/* Inhale 2 Puffs as instructed * OMEGA 7-NZY-UUV-FISH OIL 300 * Take 1 capsule by mouth once * COMPOUNDED PRESCRIPTION COMPRESSION GLOVES SIZE SMAL* TRIAMCINOLONE ACETONIDE 55 MC* Use 2 Sprays in the nose once * CANE Use as directed CHOLECALCIFEROL (VITAMIN D3) * Take 1 capsule by mouth once * AMLODIPINE 10 MG TABLET Take 1 tablet by mouth once d* OMEPRAZOLE 20 MG CAPSULE,DEBBI* Take 1 capsule by mouth daily * FISH OIL-DHA-EPA 1,200 MG-144* Take 1 capsule PO daily CETIRIZINE 10 MG TABLET Take 1 tablet by mouth once d* KRILL OIL 500 MG CAPSULE Take 1 capsule by mouth twice* TENS UNIT AND ELECTRODES COMB* 1 Units twice daily. MISCELLANEOUS MEDICAL SUPPLY * 1 Units as directed. Problem List As Of Date 10/04/2019 Noted Resolved Hyperlipidemia [E78.5] 09/24/2012 HTN (hypertension) [I10] 09/24/2012 More... Fibromyalgia [M79.7] 09/24/2012 Depression [F32.9] 09/24/2012 Otalgia [H92.09] 05/20/2013 BPPV (benign paroxysmal positional vertigo) [H8*05/20/2013 Enthesopathy of hip region [M76.899] 08/19/2013 Other disorder of muscle, ligament, and fascia *08/19/2013 Diabetes mellitus type 2, controlled, without c*11/17/2013 Other affections of shoulder region, not elsewh*06/19/2014 Lateral epicondylitis of elbow [M77.10] 06/19/2014 Pain in right shoulder [M25.511] 08/29/2014 Hypokalemia [E87.6] 11/28/2014 Hives [L50.9] Chronic bilateral low back pain with bilateral *11/14/2016 Proteinuria [R80.9] 03/20/2017 Essential hypertension [I10] 03/30/2018 AICHA (generalized anxiety disorder) [F41.1] 03/30/2018 Anxiety attack [F41.0] 03/30/2018 Sprain of anterior talofibular ligament of left*02/28/2019 Swelling of joint of hand [M25.449] 03/29/2019 Bilateral hand pain [M79.641, M79.642] 03/29/2019 Fatty liver [K76.0] 03/29/2019 Prescriptions ordered this encounter Disp Refills Start End PAROXETINE 40 MG TABLET 90 t* 0 10/04/2019 Route: ORAL Sig: Take 1 tablet by mouth once daily. PAROXETINE 20 MG TABLET 30 t* 1 10/04/2019 Route: ORAL Sig: Take 1 tablet by mouth once daily. In addit ion to 40mg daily for a total of 60mg Medications Discontinued During This Encounter PARoxetine (PAXIL) 40 mg tablet 90 t* 0 08/09/2019 10/04/2019 Route: ORAL Sig: Take 1 tablet by mouth once daily. Disc: Reason for discontinue is not on file. PARoxetine (PAXIL) 20 mg tablet 30 t* 1 07/20/2019 10/04/2019 Route: ORAL Sig: Take 1 tablet by mouth once daily. In addition to 40mg daily for a total of 60mg Disc: Reason for discontinue is not on file. Encounter Status:Closed by LYSSA WHEAT CNP on 10/04/19 obsolete on 2019-09 OBSOLETE Refill (FAMPWS) Normal 09-22-[address] [facility] NAMRATA PENG ([id number]) 1965 [facility] Date Time Provider Department ([id number]) 09/22/19 SAURABH HAYES During your visit today, we recorded the following informati on about you: Sirena Meek LPN 09/23/2019 7:50 AM Signed Patient has been identified by name and date of : Yes Pharmacy phones for refill(s): Pending Prescriptions Disp Refills TIZANIDINE 4 MG TABLET 90 tablet 0 Sig: Take 1 tablet by mouth three times daily as needed. LOVELY: No Date of last office visit in primary care: 03/28/19 next apt 10/07/19 Last 2 Encounter Wt Readings: Date: Wt: 08/09/2019 84.5 kg (186 lb 3.2 oz) 04/28/2019 86.5 kg (190 lb 9.6 oz) Previous labs/tests for medication: Not applicable Please advise. Thank you. Sirena Meek LPN Allergies As of Date: 09/22/2019 Noted Allergy Reaction IMITREX (SUMATRIPTAN SUCCINATE) 09/24/2012 10 - Anaphylaxis SULFA DRUGS (SULFA (SULFONAMIDE A*09/24/2012 2 - Rash Comments: Rash all over AMPARO INHIBITORS 09/24/2012 14 - Other: See Comments Comments: Makes asthma worse LATEX 03/22/2013 2 - Rash Comments: Hospital Director calls it sensitivity per pt VICODIN (HYDROCODONE-ACETAMINOPHE*11/28/2013 8 - GI Upset Date Reviewed: 04/28/2019 Reviewed by: Kristen Rm - Fully Assessed Reason for Visit: Refill Request [94] Order(s):tiZANidine (ZANAFLEX) 4 mg tabletTake 1 table t by mouth three times daily as needed.Disp: 90 tabletRfl: 0 Prescriptions as of 09/22/2019 Sig: TIZANIDINE 4 MG TABLET Take 1 tablet by mouth three * PHENAZOPYRIDINE 200 MG TABLET Take 1 tablet by mouth three * PAROXETINE 40 MG TABLET Take 1 tablet by mouth once d* LOSARTAN 100 MG-HYDROCHLOROTH* Take 1 tablet by mouth once d * POTASSIUM CHLORIDE ER 20 MEQ * Take 1 tablet by mouth once d * PAROXETINE 20 MG TABLET Take 1 tablet by mouth once d* BENZOCAINE 10 % MUCOSAL GEL Use 1 application as instruct* BUSPIRONE 10 MG TABLET Take 0.5-1 tablets by mouth t* BUPROPION XL 300 MG 24 HR TAB Take 1 tablet by mouth once d* LEG BRACE 1 Each once daily. Knee sleev* OMEGA-3 FATTY ACIDS 1,000 MG * TAKE 1 CAPSULE DAILY ALBUTEROL SULFATE HFA 90 MCG/* Inhale 2 Puffs as instructed * OMEGA 8-MKP-OGA-FISH OIL 300 * Take 1 capsule by mouth once * COMPOUNDED PRESCRIPTION COMPRESSION GLOVES SIZE SMAL* TRIAMCINOLONE ACETONIDE 55 MC* Use 2 Sprays in the nose once * CANE Use as directed CHOLECALCIFEROL (VITAMIN D3) * Take 1 capsule by mouth once * AMLODIPINE 10 MG TABLET Take 1 tablet by mouth once d* OMEPRAZOLE 20 MG CAPSULE,DEBBI* Take 1 capsule by mouth daily * FISH OIL-DHA-EPA 1,200 MG-144* Take 1 capsule PO daily CETIRIZINE 10 MG TABLET Take 1 tablet by mouth once d* KRILL OIL 500 MG CAPSULE Take 1 capsule by mouth twice* TENS UNIT AND ELECTRODES COMB* 1 Units twice daily. MISCELLANEOUS MEDICAL SUPPLY * 1 Units as directed. Problem List As Of Date 09/22/2019 Noted Resolved Hyperlipidemia [E78.5] 09/24/2012 HTN (hypertension) [I10] 09/24/2012 More... Fibromyalgia [M79.7] 09/24/2012 Depression [F32.9] 09/24/2012 Otalgia [H92.09] 05/20/2013 BPPV (benign paroxysmal positional vertigo) [H8*05/20/2013 Enthesopathy of hip region [M76.899] 08/19/2013 Other disorder of muscle, ligament, and fascia *08/19/2013 Diabetes mellitus type 2, controlled, without c*11/17/2013 Other affections of shoulder region, not elsewh*06/19/2014 Lateral epicondylitis of elbow [M77.10] 06/19/2014 Pain in right shoulder [M25.511] 08/29/2014 Hypokalemia [E87.6] 11/28/2014 Hives [L50.9] Chronic bilateral low back pain with bilateral *11/14/2016 Proteinuria [R80.9] 03/20/2017 Essential hypertension [I10] 03/30/2018 AICHA (generalized anxiety disorder) [F41.1] 03/30/2018 Anxiety attack [F41.0] 03/30/2018 Sprain of anterior talofibular ligament of left*02/28/2019 Swelling of joint of hand [M25.449] 03/29/2019 Bilateral hand pain [M79.641, M79.642] 03/29/2019 Fatty liver [K76.0] 03/29/2019 Prescriptions ordered this encounter Disp Refills Start End TIZANIDINE 4 MG TABLET 90 t* 0 09/23/2019 Route: ORAL Sig: Take 1 tablet by mouth three times daily as needed. Medications Discontinued During This Encounter tiZANidine (ZANAFLEX) 4 mg tablet 90 t* 0 06/27/2019 09/23/19 Route: ORAL Sig: Take 1 tablet by mouth three times daily as needed. Disc: Reason for discontinue is not on file. Encounter Status:Closed by SAURABH HAYES DO on 09/23/19 cnptoutreach on CNPTOUTREACH Patient Outreach (INTM[facility]) Normal 0 09-20-[address] [place] [facility] NAMRATA PENG ([id number]) 1965 [place] Date Time Provider Department ([id number]) 09/20/19 SAURABH HAYES [facility] During your visit today, we recorded the following informati on about you: Allergies As of Date: 09/20/2019 Noted Allergy Reaction IMITREX (SUMATRIPTAN SUCCINATE) 09/24/2012 10 - Anaphylaxis SULFA DRUGS (SULFA (SULFONAMIDE A*09/24/2012 2 - Rash Comments: Rash all over AMPARO INHIBITORS 09/24/2012 14 - Other: See Comments Comments: Makes asthma worse LATEX 03/22/2013 2 - Rash Comments: Hospital Director calls it sensitivity per pt VICODIN (HYDROCODONE-ACETAMINOPHE*11/28/2013 8 - GI Upset Date Reviewed: 04/28/2019 Reviewed by: Kristen Rm - Fully Assessed Visit Diagnosis:Diabetes mellitus type 2, controlled, with out complications (HCC) [E11.9] Order(s):ALBUMIN/CREAT RATIO RND UR [SQUACR] Order #: [id number] FUTURE HGB A1C [HXMYE1R] Order #: [id number] FUTURE Prescriptions as of 09/20/2019 Sig: PHENAZOPYRIDINE 200 MG TABLET Take 1 tablet by mouth three * X PAROXETINE 40 MG TABLET Take 1 tablet by mouth once d* LOSARTAN 100 MG-HYDROCHLOROTH* Take 1 tablet by mouth once d * POTASSIUM CHLORIDE ER 20 MEQ * Take 1 tablet by mouth once d * X PAROXETINE 20 MG TABLET Take 1 tablet by mouth once d* BENZOCAINE 10 % MUCOSAL GEL Use 1 application as instruct* BUSPIRONE 10 MG TABLET Take 0.5-1 tablets by mouth t* BUPROPION XL 300 MG 24 HR TAB Take 1 tablet by mouth once d* X TIZANIDINE 4 MG TABLET Take 1 tablet by mouth three * LEG BRACE 1 Each once daily. Knee sleev* OMEGA-3 FATTY ACIDS 1,000 MG * TAKE 1 CAPSULE DAILY ALBUTEROL SULFATE HFA 90 MCG/* Inhale 2 Puffs as instructed * OMEGA 2-ADW-GQW-FISH OIL 300 * Take 1 capsule by mouth once * COMPOUNDED PRESCRIPTION COMPRESSION GLOVES SIZE SMAL* TRIAMCINOLONE ACETONIDE 55 MC* Use 2 Sprays in the nose once * CANE Use as directed CHOLECALCIFEROL (VITAMIN D3) * Take 1 capsule by mouth once * AMLODIPINE 10 MG TABLET Take 1 tablet by mouth once d* OMEPRAZOLE 20 MG CAPSULE,DEBBI* Take 1 capsule by mouth daily * FISH OIL-DHA-EPA 1,200 MG-144* Take 1 capsule PO daily CETIRIZINE 10 MG TABLET Take 1 tablet by mouth once d* KRILL OIL 500 MG CAPSULE Take 1 capsule by mouth twice* TENS UNIT AND ELECTRODES COMB* 1 Units twice daily. MISCELLANEOUS MEDICAL SUPPLY * 1 Units as directed. Problem List As Of Date 09/20/2019 Noted Resolved Hyperlipidemia [E78.5] 09/24/2012 HTN (hypertension) [I10] 09/24/2012 More... Fibromyalgia [M79.7] 09/24/2012 Depression [F32.9] 09/24/2012 Otalgia [H92.09] 05/20/2013 BPPV (benign paroxysmal positional vertigo) [H8*05/20/2013 Enthesopathy of hip region [M76.899] 08/19/2013 Other disorder of muscle, ligament, and fascia *08/19/2013 Diabetes mellitus type 2, controlled, without c*11/17/2013 Other affections of shoulder region, not elsewh*06/19/2014 Lateral epicondylitis of elbow [M77.10] 06/19/2014 Pain in right shoulder [M25.511] 08/29/2014 Hypokalemia [E87.6] 11/28/2014 Hives [L50.9] Chronic bilateral low back pain with bilateral *11/14/2016 Proteinuria [R80.9] 03/20/2017 Essential hypertension [I10] 03/30/2018 AICHA (generalized anxiety disorder) [F41.1] 03/30/2018 Anxiety attack [F41.0] 03/30/2018 Sprain of anterior talofibular ligament of left*02/28/2019 Swelling of joint of hand [M25.449] 03/29/2019 Bilateral hand pain [M79.641, M79.642] 03/29/2019 Fatty liver [K76.0] 03/29/2019 Encounter Status:Closed by EPIC, PRODUSER on 10/05/19 urine culture on 25-08-03 Bacteria identified Sp. Request/Comment: - Specimen received in pre servative Normal 08-09-2019 [facility] Cx Nom (U) [place] ([id number]) Culture Result - 10,000 - <5 0,000 CFU/ml Three or more organisms, no one type predominant, suggesting contamination during collection. Recollect if clinically indicated. Comment: Performed By: #### URCUL ### #[facility] [id number] [place], [place] [phone] progress on 2019-08 PROGRESS HNO ID: [id number] Normal 08-09-2019 [facility] Author: Kayla Park (Mao) David Frederick ([id number]) Service: ? Author Type: Physician Audit Clerks Supervisor Type: Progress Notes Filed: 08/09/2019 2:11 PM Note Text: Subjective HPI Pt presents with dysuria and frequency for 1 day. She's had some chills as well, no fever. No back pain. No nvd. She has not had a uti in a long time per the patient. No vaginal discharge or itching. Review of Systems Constitutional: Positive for chills and malaise/fatigue. Neg ative for fever. Gastrointestinal: Negative for nausea and vomiting. Genitourinary: Positive for dysuria, frequency and urgency. Negative for flank pain and hematuria. Musculoskeletal: Negative for back pain. All other systems reviewed and are negative. PAST MEDICAL HISTORY Diagnosis Date - Anxiety - Asthma 2005 - Depression - Dizziness 05/20/2013 - DJD (degenerative joint disease) spine and neck - Epicondylitis bilateral elbow - Fibromyalgia 1989 - GERD (gastroesophageal reflux disease) - Hives - Hyperlipidemia not on medications - Hypertension - Melanoma in situ (HCC) 09/2015 - Ruptured lumbar disc Current Outpatient Medications Medication Sig Dispense Refill - losartan-hydrochlorothiazide (HYZAAR) 100-25 mg per tablet Take 1 tablet by mouth once daily. 90 tablet 1 - potassium chloride ER (K-DUR, KLOR-CON) 20 mEq tablet Take 1 tablet by mouth once daily. 30 tablet 3 - PARoxetine (PAXIL) 20 mg tablet Take 1 tablet by mouth onc e daily. In addition to 40mg daily for a total of 60mg 30 tablet 1 - benzocaine (ANBESOL, BENZOCAINE,) 10 % oral gel Use 1 appl ication as instructed every 6 hours as needed. 1 Tube 1 - busPIRone (BUSPAR) 10 mg tablet Take 0.5-1 tablets by mout h three times daily as needed (anxiety attack). 90 tablet 1 - buPROPion XL (WELLBUTRIN XL) 300 mg 24 hr tablet Take 1 ta blet by mouth once daily. 90 tablet 1 - tiZANidine (ZANAFLEX) 4 mg tablet Take 1 tablet by mouth t hree times daily as needed. 90 tablet 0 - PARoxetine (PAXIL) 40 mg tablet Take 1 tablet by mouth onc e daily. 90 tablet 0 - Leg Brace (ELASTIC KNEE SUPPORT) misc 1 Each once daily. K nee sleeve/amparo compression sleeve to the left knee. 1 Each 0 - omega-3 fatty acids 1,000 mg cap TAKE 1 CAPSULE DAILY 150 capsule 1 - albuterol HFA (VENTOLIN HFA) 90 mcg/actuation inhaler Inha le 2 Puffs as instructed every 4 hours as needed for Wheezing/Shortness of Breath. 2 Inhaler 2 - Rcwmb-6-EVG-EPA-Fish Oil 300-1,000 mg cap Take 1 capsule b y mouth once daily. 90 capsule 3 - COMPOUNDED PRESCRIPTION COMPRESSION GLOVES SIZE SMALL-MEDI UM DX ARTHRITIS Compression:20-30mmg 1 Package 2 - triamcinolone acetonide (NASACORT) 55 mcg nasal inhaler Us e 2 Sprays in the nose once daily. 1 Inhaler 5 - Cane donnie Use as directed 1 Device 0 - Cholecalciferol, Vitamin D3, 1,000 unit cap Take 1 capsule by mouth once daily. 90 capsule 3 - amLODIPine (NORVASC) 10 mg tablet Take 1 tablet by mouth o nce daily. 90 tablet 4 - omeprazole (PRILOSEC) 20 mg capsule Take 1 capsule by mout h daily before breakfast. 1/2 hr before meal. 90 capsule 1 - Fish Oil-DHA-EPA 1,200-144-216 mg cap Take 1 capsule PO da jose j 30 capsule 3 - cetirizine (ZYRTEC) 10 mg tablet Take 1 tablet by mouth on ce daily. 30 tablet 5 - krill oil 500 mg cap Take 1 capsule by mouth twice daily. 60 Piece 3 - TENS unit and electrodes cmpk 1 Units twice daily. 1 Devic e 0 - Miscellaneous Medical Supply (BLOOD PRESSURE CUFF) misc 1 Units as directed. 1 Each 0 - cephALEXin (KEFLEX) 500 mg capsule Take 1 capsule by mouth twice daily for 7 days. 14 capsule 0 - phenazopyridine (PYRIDIUM) 200 mg tablet Take 1 tablet by mouth three times daily as needed. 6 tablet 0 No current facility-administered medications for this visit. PAST SURGICAL HISTORY Procedure Laterality Date - CARPAL TUNNEL bilateral - LX REPAIR RECURRENT VENTRAL HERNIA 09/06/2018 open repair of incarcerated recurrent ventral hernia - OTHER DANDC - REMOVE TONSILS/ADENOIDS,<12 Y/O - REPAIR INCISIONAL HERNIA,HELEN 04/29/2017 Strangulate ventral hernia with transverse colon FAMILY HISTORY Problem Relation Age of Onset - Hypertension Mother - Lipids Mother - Heart Paternal Grandfather AK - Heart Maternal Grandfather AK - Cancer Maternal Grandfather lukemia - other (Other) Paternal Grandmother Althezimers - other (fibromyalgia) Sister - Diabetes Paternal Aunt - other (stomach cancer) Paternal Uncle Social History Tobacco Use - Smoking status: Never Smoker - Smokeless tobacco: Never Used - Tobacco comment: smoked a little as a teenager Substance Use Topics - Alcohol use: No - Drug use: No BP 158/92 Pulse 74 Temp 36.6 ?C (97.8 ?F) (Tympanic) R eren 18 Wt 84.5 kg (186 lb 3.2 oz) LMP 05/23/2014 (Within Weeks) BMI 35.18 kg/m? Objective Physical Exam Constitutional: She is oriented to person, place, and time a nd well-developed, well-nourished, and in no distress. HENT: Head: Normocephalic and atraumatic. Cardiovascular: Normal rate, regular rhythm and normal heart sounds. Pulmonary/Chest: Effort normal and breath sounds normal. No respiratory distress. She has no wheezes. She has no rales. Musculoskeletal: Comments: No cva tenderness Neurological: She is alert and oriented to person, place, an d time. Skin: Skin is warm and dry. Nursing note and vitals reviewed. ASSESSMENT/PLAN: 1. Acute cystitis with hematuria - ICD9: 595.0, ICD10: N30.0 1 (primary diagnosis) Pt dip positive for blood and leuks. Will start on keflex an d given rx for pyridium. Pt blood pressure also elevated here. I recommende d she stop at the PSR and make a nurse visit in 1-2 weeks to have that rec hecked. 2. Urinary frequency - ICD9: 788.41, ICD10: R35.0 - UA DIP, URINE (POC) - URINE CULTURE Kayla Cazares PA-C obsolete on 2019-08 OBSOLETE Refill (FAMPWS) Normal 08-09-[address] [facility] NAMRATA PENG ([id number]) 1965 [facility] Time Provider Department ([id number]) 08/09/19 SAURABH HAYES During your visit today, we recorded the following informati on about you: Vilma Carmona 08/09/2019 3:12 PM Signed Patient has been identified by name and date of : Yes Pending Prescriptions Disp Refills PAROXETINE 40 MG TABLET 90 tablet 0 Sig: Take 1 tablet by mouth once daily. LOVELY: No RX INSTRUCTIONS: Patient aware RX will be sent to pharmacy. No need to notify patient. Vilmaraymundo Meek LPN 08/09/2019 3:15 PM Signed Patient has been identified by name and date of : Yes Patient phones for refill(s): Pending Prescriptions Disp Refills PAROXETINE 40 MG TABLET 90 tablet 0 Sig: Take 1 tablet by mouth once daily. LOVELY: No Date of last office visit in primary care: 03/28/19 next apt 10/07/18 Last 2 Encounter Wt Readings: Date: Wt: 08/09/2019 84.5 kg (186 lb 3.2 oz) 04/28/2019 86.5 kg (190 lb 9.6 oz) Previous labs/tests for medication: Not applicable Please advise. Thank you. Sirena Meek LPN 08/09/2019 3:16 PM Signed Next apt 10-07-19. Sirena Wheat APRN.CNP 08/09/2019 3:57 PM Signed Script sent. Lyssa Wheat APRN.TEE Allergies As of Date: 08/09/2019 Noted Allergy Reaction IMITREX (SUMATRIPTAN SUCCINATE) 09/24/2012 10 - Anaphylaxis SULFA DRUGS (SULFA (SULFONAMIDE A*09/24/2012 2 - Rash Comments: Rash all over AMPARO INHIBITORS 09/24/2012 14 - Other: See Comments Comments: Makes asthma worse LATEX 03/22/2013 2 - Rash Comments: Hospital Director calls it sensitivity per pt VICODIN (HYDROCODONE-ACETAMINOPHE*11/28/2013 8 - GI Upset Date Reviewed: 04/28/2019 Reviewed by: Kristen Rm - Fully Assessed Reason for Visit: Refill Request [94] Order(s):PARoxetine (PAXIL) 40 mg tabletTake 1 tablet by gladys th once daily.Disp: 90 tabletRfl: 0 Prescriptions as of 08/09/2019 Sig: CEPHALEXIN 500 MG CAPSULE Take 1 capsule by mouth twice* PHENAZOPYRIDINE 200 MG TABLET Take 1 tablet by mouth three * PAROXETINE 40 MG TABLET Take 1 tablet by mouth once d* LOSARTAN 100 MG-HYDROCHLOROTH* Take 1 tablet by mouth once d * POTASSIUM CHLORIDE ER 20 MEQ * Take 1 tablet by mouth once d * PAROXETINE 20 MG TABLET Take 1 tablet by mouth once d* BENZOCAINE 10 % MUCOSAL GEL Use 1 application as instruct* BUSPIRONE 10 MG TABLET Take 0.5-1 tablets by mouth t* BUPROPION XL 300 MG 24 HR TAB Take 1 tablet by mouth once d* TIZANIDINE 4 MG TABLET Take 1 tablet by mouth three * LEG BRACE 1 Each once daily. Knee sleev* OMEGA-3 FATTY ACIDS 1,000 MG * TAKE 1 CAPSULE DAILY ALBUTEROL SULFATE HFA 90 MCG/* Inhale 2 Puffs as instructed * OMEGA 8-QKU-ROO-FISH OIL 300 * Take 1 capsule by mouth once * COMPOUNDED PRESCRIPTION COMPRESSION GLOVES SIZE SMAL* TRIAMCINOLONE ACETONIDE 55 MC* Use 2 Sprays in the nose once * CANE Use as directed CHOLECALCIFEROL (VITAMIN D3) * Take 1 capsule by mouth once * AMLODIPINE 10 MG TABLET Take 1 tablet by mouth once d* OMEPRAZOLE 20 MG CAPSULE,DEBBI* Take 1 capsule by mouth daily * FISH OIL-DHA-EPA 1,200 MG-144* Take 1 capsule PO daily CETIRIZINE 10 MG TABLET Take 1 tablet by mouth once d* KRILL OIL 500 MG CAPSULE Take 1 capsule by mouth twice* TENS UNIT AND ELECTRODES COMB* 1 Units twice daily. MISCELLANEOUS MEDICAL SUPPLY * 1 Units as directed. Problem List As Of Date 08/09/2019 Noted Resolved Hyperlipidemia [E78.5] 09/24/2012 HTN (hypertension) [I10] 09/24/2012 More... Fibromyalgia [M79.7] 09/24/2012 Depression [F32.9] 09/24/2012 Otalgia [H92.09] 05/20/2013 BPPV (benign paroxysmal positional vertigo) [H8*05/20/2013 Enthesopathy of hip region [M76.899] 08/19/2013 Other disorder of muscle, ligament, and fascia *08/19/2013 Diabetes mellitus type 2, controlled, without c*11/17/2013 Other affections of shoulder region, not elsewh*06/19/2014 Lateral epicondylitis of elbow [M77.10] 06/19/2014 Pain in right shoulder [M25.511] 08/29/2014 Hypokalemia [E87.6] 11/28/2014 Hives [L50.9] Chronic bilateral low back pain with bilateral *11/14/2016 Proteinuria [R80.9] 03/20/2017 Essential hypertension [I10] 03/30/2018 AICHA (generalized anxiety disorder) [F41.1] 03/30/2018 Anxiety attack [F41.0] 03/30/2018 Sprain of anterior talofibular ligament of left*02/28/2019 Swelling of joint of hand [M25.449] 03/29/2019 Bilateral hand pain [M79.641, M79.642] 03/29/2019 Fatty liver [K76.0] 03/29/2019 Prescriptions ordered this encounter Disp Refills Start End PAROXETINE 40 MG TABLET 90 t* 0 08/09/2019 Route: ORAL Sig: Take 1 tablet by mouth once daily. Medications Discontinued During This Encounter PARoxetine (PAXIL) 40 mg tablet 90 t* 0 05/26/2019 08/09/2019 Route: ORAL Sig: Take 1 tablet by mouth once daily. Disc: Reason for discontinue is not on file. Encounter Status:Closed by LYSSA WHEAT CNP on 08/09/19 cnov on 2019-08-09 CNOV Office Visit ([facility]) Normal 08-09-20 [place] NAMRATA Rodriguez ([id number]) 1965 [place] Date Time Provider Department ([id number]) 08/09/19 11:30 AM KAYLA CAZARES (MAO) [facility] During your visit today, we recorded the following informati on about you: Temperature Pulse Respiration Blood pressure 97.8 degrees 74/minute 18/minute 158/92 Weight 84.5 kg Kayla Cazares PA-C 08/09/2019 2:11 PM Signed Subjective HPI Pt presents with dysuria and frequency for 1 day. She's had some chills as well, no fever. No back pain. No nvd. Sh e has not had a uti in a long time per the patient. No vaginal discharge or itching. Review of Systems Constitutional: Positive for chills and malaise/fatigu e. Negative for fever. Gastrointestinal: Negative for nausea and vomiting. Genitourinary: Positive for dysuria, mikaela quency and urgency. Negative for flank pain and hematuria. Musculoskeletal: Negative for back pain. All other systems reviewed and are negative. PAST MEDICAL HISTORY Diagnosis Date - Anxiety - Asthma 2005 - Depression - Dizziness 05/20/2013 - DJD (degenerative joint disease) spine and neck - Epicondylitis bilateral elbow - Fibromyalgia 1989 - GERD (gastroesophageal reflux disease) - Hives - Hyperlipidemia not on medications - Hypertension - Melanoma in situ (HCC) 09/2015 - Ruptured lumbar disc Current Outpatient Medications Medication Sig Dispense Refill - losartan-hydrochlorothiazide (HYZAAR) 100-25 m g per tablet Take 1 tablet by mouth once daily. 90 tablet 1 - potassium chloride ER (K-DUR, KLOR-CON ) 20 mEq tablet Take 1 tablet by mouth once daily. 30 tablet 3 - PARoxetine (PAXIL) 20 mg tablet Take 1 tablet by mouth onc e daily. In addition to 40mg daily for a total of 60mg 30 tablet 1 - benzocaine (ANBESOL, BENZOCAINE,) 10 % oral gel Use 1 appl ication as instructed every 6 hours as needed. 1 Tube 1 - busPIRone (BUSPAR) 10 mg t ablet Take 0.5-1 tablets by mouth three times daily as needed (anxiety attack). 90 tablet 1 - buPROPion XL (WELLBUTRIN XL) 300 mg 24 hr tablet Take 1 tablet by mouth once daily. 90 tablet 1 - tiZANidine (ZANAFLEX) 4 mg tablet Take 1 tablet by mouth three times daily as needed. 90 tablet 0 - PARoxetine (PAXIL) 40 mg tablet Take 1 tablet by mouth once daily. 90 tablet 0 - Leg Brace (ELASTIC KNEE SUPPORT) misc 1 Each once daily. K nee sleeve/amparo compression sleeve to the left knee. 1 Each 0 - omega-3 fatty acids 1,000 mg cap TAKE 1 CAPSULE DAILY 150 capsule 1 - albuterol HFA (VENTOLIN HFA) 90 mcg/actuation inhaler Inha le 2 Puffs as instructed every 4 hours as needed for W heezing/Shortness of Breath. 2 Inhaler 2 - Hzlam-0-KFA-EPA-Fish Oil 3 00-1,000 mg cap Take 1 capsule by mouth once daily. 90 capsule 3 - COMPOUNDED PRESCRIPTION COMPRESSION GLOVES SIZE SMALL-ME DIUM DX ARTHRITIS Compression:20-30mmg 1 Package 2 - triamcinolone acetonide (NASACORT) 55 mcg nasa l inhaler Use 2 Sprays in the nose once daily. 1 Inhaler 5 - Cane donnie Use as directed 1 Device 0 - Cholecalciferol, Vitamin D3, 1,000 unit cap Take 1 capsule by mouth once daily. 90 capsule 3 - amLODIPine (NORVASC) 10 mg tablet Take 1 tablet by mouth o nce daily. 90 tablet 4 - omeprazole (PRILOSEC) 20 mg capsule Take 1 capsule by mout h daily before breakfast. 1/2 hr before meal. 90 capsule 1 - Fish Oil-DHA-EPA 1,200-144-216 mg cap Take 1 capsule PO daily 30 capsule 3 - cetirizine (ZYRTEC) 10 mg tablet Take 1 tablet by mouth once daily. 30 tablet 5 - krill oil 500 mg cap Take 1 capsule by mouth twice daily. 60 Piece 3 - TENS unit and electrodes cmpk 1 Units twice daily. 1 Devic e 0 - Miscellaneous Medical Supply (BLOOD VA ESSURE CUFF) misc 1 Units as directed. 1 Each 0 - cephALEXin (KEFLEX) 500 mg capsule Parker e 1 capsule by mouth twice daily for 7 days. 14 capsule 0 - phenazopyridine (PYRIDIUM) 200 mg tablet Take 1 tablet by mouth three times daily as needed. 6 tablet 0 No current facility-administered medications for this visit. PAST SURGICAL HISTORY Procedure Laterality Date - CARPAL TUNNEL bilateral - LX REPAIR RECURRENT VENTRAL HERNIA 09/06/2018 open repair of incarcerated recurrent ventral hernia - OTHER DANDC - REMOVE TONSILS/ADENOIDS,<12 Y/O - REPAIR INCISIONAL HERNIA,HELEN 04/29/2017 Strangulate ventral hernia with transverse colon FAMILY HISTORY Problem Relation Age of Onset - Hypertension Mother - Lipids Mother - Heart Paternal Grandfather AK - Heart Maternal Grandfather AK - Cancer Maternal Grandfather lukemia - other (Other) Paternal Grandmother Althezimers - other (fibromyalgia) Sister - Diabetes Paternal Aunt - other (stomach cancer) Paternal Uncle Social History Tobacco Use - Smoking status: Never Smoker - Smokeless tobacco: Never Used - Tobacco comment: smoked a little as a teenager Substance Use Topics - Alcohol use: No - Drug use: No BP 158/92 Pulse 74 Temp 36.6 ?C (97.8 ?F) (Tympanic) R eren 18 Wt 84.5 kg (186 lb 3.2 oz) LMP 05/23/2014 (Within Weeks) BM I 35.18 kg/m? Objective Physical Exam Constitutional: She is oriented to perso n, place, and time and well-developed, well-nourished, and in no distress. HENT: Head: Normocephalic and atraumatic. Cardiovascular: Normal rate, regular rhythm and normal heart sounds. Pulmonary/Chest: Effort normal and breath sounds normal. No respiratory distress. She has no wheezes. She has no rales. Musculoskeletal: Comments: No cva tenderness Neurological: She is alert and oriented to person, place, an d time. Skin: Skin is warm and dry. Nursing note and vitals reviewed. ASSESSMENT/PLAN: 1. Acute cystitis with hematuria - ICD9: 595.0, ICD10: N30.0 1 (primary diagnosis) Pt dip positive for blood and leuks. Will start on keflex an d given rx for pyridium. Pt blood pressure also elevated here. I recommended she stop at the [facility] and make a nurse visit in 1-2 weeks to have that recheck ed. 2. Urinary frequency - ICD9: 788.41, ICD10: R35.0 - UA DIP, URINE (POC) - URINE CULTURE Kayla Cazares PA-C Referring Provider: SELF [[id number]] Allergies As of Date: 08/09/2019 Noted Allergy Reaction IMITREX (SUMATRIPTAN SUCCINATE) 09/24/2012 10 - Anaphylaxis SULFA DRUGS (SULFA (SULFONAMIDE A*09/24/2012 2 - Rash Comments: Rash all over AMPARO INHIBITORS 09/24/2012 14 - Other: See Comments Comments: Makes asthma worse LATEX 03/22/2013 2 - Rash Comments: Hospital Director calls it sensitivity per pt VICODIN (HYDROCODONE-ACETAMINOPHE*11/28/2013 8 - GI Upset Date Reviewed: 04/28/2019 Reviewed by: Kristen Rm - Fully Assessed Reason for Visit: Urinary Frequency [1086] Cmt: burning, urgency and frequency - symptoms started this am Reason For Visit History Recorded Primary Visit Diagnosis:Acute cystitis with hematuria [N30.0 1] Other Visit Diagnosis:Urinary frequency [R35.0] Order(s):UA DIP, URINE (POC) [[id number]] Order #: [id number] ec. #:[id number] URINE CULTURE [SQURCUL] Order #: [id number] cephALEXin (KEFLEX) 500 mg capsuleTake 1 capsule by mouth tw ice daily for 7 days.Disp: 14 capsuleRfl: 0 phenazopyridine (PYRIDIUM) 200 mg tabletTake 1 tablet by gladys th three times daily as needed.Disp: 6 tabletRfl: 0 Prescriptions as of 08/09/2019 Sig: LOSARTAN 100 MG-HYDROCHLOROTH* Take 1 tablet by mouth once d * POTASSIUM CHLORIDE ER 20 MEQ * Take 1 tablet by mouth once d * PAROXETINE 20 MG TABLET Take 1 tablet by mouth once d* BENZOCAINE 10 % MUCOSAL GEL Use 1 application as instruct* BUSPIRONE 10 MG TABLET Take 0.5-1 tablets by mouth t* BUPROPION XL 300 MG 24 HR TAB Take 1 tablet by mouth once d* TIZANIDINE 4 MG TABLET Take 1 tablet by mouth three * PAROXETINE 40 MG TABLET Take 1 tablet by mouth once d* LEG BRACE 1 Each once daily. Knee sleev* OMEGA-3 FATTY ACIDS 1,000 MG * TAKE 1 CAPSULE DAILY ALBUTEROL SULFATE HFA 90 MCG/* Inhale 2 Puffs as instructed * OMEGA 9-SPJ-AFJ-FISH OIL 300 * Take 1 capsule by mouth once * COMPOUNDED PRESCRIPTION COMPRESSION GLOVES SIZE SMAL* TRIAMCINOLONE ACETONIDE 55 MC* Use 2 Sprays in the nose once * CANE Use as directed CHOLECALCIFEROL (VITAMIN D3) * Take 1 capsule by mouth once * AMLODIPINE 10 MG TABLET Take 1 tablet by mouth once d* OMEPRAZOLE 20 MG CAPSULE,DEBBI* Take 1 capsule by mouth daily * FISH OIL-DHA-EPA 1,200 MG-144* Take 1 capsule PO daily CETIRIZINE 10 MG TABLET Take 1 tablet by mouth once d* KRILL OIL 500 MG CAPSULE Take 1 capsule by mouth twice* TENS UNIT AND ELECTRODES COMB* 1 Units twice daily. MISCELLANEOUS MEDICAL SUPPLY * 1 Units as directed. CEPHALEXIN 500 MG CAPSULE Take 1 capsule by mouth twice* PHENAZOPYRIDINE 200 MG TABLET Take 1 tablet by mouth three * Problem List As Of Date 08/09/2019 Noted Resolved Hyperlipidemia [E78.5] 09/24/2012 HTN (hypertension) [I10] 09/24/2012 More... Fibromyalgia [M79.7] 09/24/2012 Depression [F32.9] 09/24/2012 Otalgia [H92.09] 05/20/2013 BPPV (benign paroxysmal positional vertigo) [H8*05/20/2013 Enthesopathy of hip region [M76.899] 08/19/2013 Other disorder of muscle, ligament, and fascia *08/19/2013 Diabetes mellitus type 2, controlled, without c*11/17/2013 Other affections of shoulder region, not elsewh*06/19/2014 Lateral epicondylitis of elbow [M77.10] 06/19/2014 Pain in right shoulder [M25.511] 08/29/2014 Hypokalemia [E87.6] 11/28/2014 Hives [L50.9] Chronic bilateral low back pain with bilateral *11/14/2016 Proteinuria [R80.9] 03/20/2017 Essential hypertension [I10] 03/30/2018 AICHA (generalized anxiety disorder) [F41.1] 03/30/2018 Anxiety attack [F41.0] 03/30/2018 Sprain of anterior talofibular ligament of left*02/28/2019 Swelling of joint of hand [M25.449] 03/29/2019 Bilateral hand pain [M79.641, M79.642] 03/29/2019 Fatty liver [K76.0] 03/29/2019 Prescriptions ordered this encounter Disp Refills Start End CEPHALEXIN 500 MG CAPSULE 14 c* 0 08/09/2019 08/16/2019 Route: ORAL Sig: Take 1 capsule by mouth twice daily for 7 days. PHENAZOPYRIDINE 200 MG TABLET 6 ta* 0 08/09/2019 Route: ORAL Sig: Take 1 tablet by mouth three times daily as needed. Encounter Status:Closed by KAYLA CAZARES PA-C on 08/09/19 obsolete on 2019-07 OBSOLETE Refill (FAMPWS) Normal 08-05-[address] [facility] NAMRATA PENG ([id number]) 1965 [facility] Time Provider Department ([id number]) 08/05/19 SAURABH HAYES FAMPWS During your visit today, we recorded the following informati on about you: Josephine Reyes LPN 08/05/2019 1:19 PM Addendum Patient has been identified by name and date of : Yes Pharmacy phones for refill(s): Pending Prescriptions Disp Refills LOSARTAN 100 MG-HYDROCHLOROTHIAZIDE 25 MG TABLET 90 tablet 1 Sig: Take 1 tablet by mouth once daily. LOVELY: No POTASSIUM CHLORIDE ER 20 MEQ TABLET,EXTENDED RELEASE(P ART/CRYST) 30 tablet 3 Sig: Take 1 tablet by mouth once daily. LOVELY: No Date of last office visit in primary care: 03/28/19 Last 2 Encounter Wt Readings: Date: Wt: 04/28/2019 86.5 kg (190 lb 9.6 oz) 03/28/2019 87.1 kg (192 lb 0.6 oz) Previous labs/tests for medication: Not applicable Please advise. Thank you. Josephine Reyes LPN Allergies As of Date: 08/05/2019 Noted Allergy Reaction IMITREX (SUMATRIPTAN SUCCINATE) 09/24/2012 10 - Anaphylaxis SULFA DRUGS (SULFA (SULFONAMIDE A*09/24/2012 2 - Rash Comments: Rash all over AMPARO INHIBITORS 09/24/2012 14 - Other: See Comments Comments: Makes asthma worse LATEX 03/22/2013 2 - Rash Comments: Hospital Director calls it sensitivity per pt VICODIN (HYDROCODONE-ACETAMINOPHE*11/28/2013 8 - GI Upset Date Reviewed: 04/28/2019 Reviewed by: Kristen Rm - Fully Assessed Reason for Visit: Refill Request [94] Order(s):losartan-hydrochlorothiazide (HYZAAR) 100-25 mg per tabletTake 1 tablet by mouth once daily.Disp: 90 tabletRfl: 1 potassium chloride ER (K-DUR, KLOR-CON) 20 mEq tabletTake 1 tablet by mouth once daily.Disp: 30 tabletRfl: 3 Prescriptions as of 08/05/2019 Sig: LOSARTAN 100 MG-HYDROCHLOROTH* Take 1 tablet by mouth once d * POTASSIUM CHLORIDE ER 20 MEQ * Take 1 tablet by mouth once d * PAROXETINE 20 MG TABLET Take 1 tablet by mouth once d* BENZOCAINE 10 % MUCOSAL GEL Use 1 application as instruct* BUSPIRONE 10 MG TABLET Take 0.5-1 tablets by mouth t* BUPROPION XL 300 MG 24 HR TAB Take 1 tablet by mouth once d* TIZANIDINE 4 MG TABLET Take 1 tablet by mouth three * PAROXETINE 40 MG TABLET Take 1 tablet by mouth once d* LEG BRACE 1 Each once daily. Knee sleev* OMEGA-3 FATTY ACIDS 1,000 MG * TAKE 1 CAPSULE DAILY ALBUTEROL SULFATE HFA 90 MCG/* Inhale 2 Puffs as instructed * OMEGA 2-DQK-KPS-FISH OIL 300 * Take 1 capsule by mouth once * COMPOUNDED PRESCRIPTION COMPRESSION GLOVES SIZE SMAL* TRIAMCINOLONE ACETONIDE 55 MC* Use 2 Sprays in the nose once * CANE Use as directed CHOLECALCIFEROL (VITAMIN D3) * Take 1 capsule by mouth once * AMLODIPINE 10 MG TABLET Take 1 tablet by mouth once d* OMEPRAZOLE 20 MG CAPSULE,DEBBI* Take 1 capsule by mouth daily * FISH OIL-DHA-EPA 1,200 MG-144* Take 1 capsule PO daily CETIRIZINE 10 MG TABLET Take 1 tablet by mouth once d* KRILL OIL 500 MG CAPSULE Take 1 capsule by mouth twice* TENS UNIT AND ELECTRODES COMB* 1 Units twice daily. MISCELLANEOUS MEDICAL SUPPLY * 1 Units as directed. Problem List As Of Date 08/05/2019 Noted Resolved Hyperlipidemia [E78.5] 09/24/2012 HTN (hypertension) [I10] 09/24/2012 More... Fibromyalgia [M79.7] 09/24/2012 Depression [F32.9] 09/24/2012 Otalgia [H92.09] 05/20/2013 BPPV (benign paroxysmal positional vertigo) [H8*05/20/2013 Enthesopathy of hip region [M76.899] 08/19/2013 Other disorder of muscle, ligament, and fascia *08/19/2013 Diabetes mellitus type 2, controlled, without c*11/17/2013 Other affections of shoulder region, not elsewh*06/19/2014 Lateral epicondylitis of elbow [M77.10] 06/19/2014 Pain in right shoulder [M25.511] 08/29/2014 Hypokalemia [E87.6] 11/28/2014 Hives [L50.9] Chronic bilateral low back pain with bilateral *11/14/2016 Proteinuria [R80.9] 03/20/2017 Essential hypertension [I10] 03/30/2018 AICHA (generalized anxiety disorder) [F41.1] 03/30/2018 Anxiety attack [F41.0] 03/30/2018 Sprain of anterior talofibular ligament of left*02/28/2019 Swelling of joint of hand [M25.449] 03/29/2019 Bilateral hand pain [M79.641, M79.642] 03/29/2019 Fatty liver [K76.0] 03/29/2019 Prescriptions ordered this encounter Disp Refills Start End LOSARTAN 100 MG-HYDROCHLOROTHIAZIDE * 90 t* 1 08/08/2019 Route: ORAL Sig: Take 1 tablet by mouth once daily. POTASSIUM CHLORIDE ER 20 MEQ TABLET,* 30 t* 3 08/08/2019 Route: ORAL Sig: Take 1 tablet by mouth once daily. Medications Discontinued During This Encounter losartan-hydrochlorothiazide (HYZAAR* 90 t* 1 01/11/20192018 Route: ORAL Sig: Take 1 tablet by mouth once daily. Disc: Reason for discontinue is not on file. potassium chloride ER (K-DUR, KLOR-C* 30 t* 3 04/06/201908/08 Route: ORAL Sig: Take 1 tablet by mouth once daily. Disc: Reason for discontinue is not on file. Encounter Status:Closed by SAURABH HAYES DO on 08/08/19 obsolete on 2019-07 OBSOLETE Refill (FAMPWS) [id number] 1965 [facility] Time Provider Department ([id number]) 07/20/19 SAURABH HAYES FAMDarvinWS During your visit today, we recorded the following informati on about you: Vy Moody LPN 07/20/2019 2:27 PM Signed [facility] faxed a request for the following refill( s): Pending Prescriptions Disp Refills PAROXETINE 20 MG TABLET 30 tablet 1 Sig: Take 1 tablet by mouth once daily. In addition to 40mg daily for a total of 60mg LOVELY: No Vy Wheat APRN.CNP 07/20/2019 2:49 PM Signed Script sent. Lyssa Wheat APRN.CNP Allergies As of Date: 07/20/2019 Noted Allergy Reaction IMITREX (SUMATRIPTAN SUCCINATE) 09/24/2012 10 - Anaphylaxis SULFA DRUGS (SULFA (SULFONAMIDE A*09/24/2012 2 - Rash Comments: Rash all over AMPARO INHIBITORS 09/24/2012 14 - Other: See Comments Comments: Makes asthma worse LATEX 03/22/2013 2 - Rash Comments: Hospital Director calls it sensitivity per pt VICODIN (HYDROCODONE-ACETAMINOPHE*11/28/2013 8 - GI Upset Date Reviewed: 04/28/2019 Reviewed by: Kristen Rm - Fully Assessed Reason for Visit: Refill Request [94] Visit Diagnoses:AICHA (generalized anxiety disorder) [F41.1] Anxiety attack [F41.0] Order(s):PARoxetine (PAXIL) 20 mg tabletTake 1 t ablet by mouth once daily. In addition to 40mg daily for a total of 60mgDisp: 30 tabletRfl : 1 Prescriptions as of 07/20/2019 Sig: PAROXETINE 20 MG TABLET Take 1 tablet by mouth once d* BENZOCAINE 10 % MUCOSAL GEL Use 1 application as instruct* BUSPIRONE 10 MG TABLET Take 0.5-1 tablets by mouth t* BUPROPION XL 300 MG 24 HR TAB Take 1 tablet by mouth once d* TIZANIDINE 4 MG TABLET Take 1 tablet by mouth three * PAROXETINE 40 MG TABLET Take 1 tablet by mouth once d* LEG BRACE 1 Each once daily. Knee sleev* OMEGA-3 FATTY ACIDS 1,000 MG * TAKE 1 CAPSULE DAILY POTASSIUM CHLORIDE ER 20 MEQ * Take 1 tablet by mouth once d * ALBUTEROL SULFATE HFA 90 MCG/* Inhale 2 Puffs as instructed * OMEGA 9-BVL-JPZ-FISH OIL 300 * Take 1 capsule by mouth once * COMPOUNDED PRESCRIPTION COMPRESSION GLOVES SIZE SMAL* TRIAMCINOLONE ACETONIDE 55 MC* Use 2 Sprays in the nose once * CANE Use as directed LOSARTAN 100 MG-HYDROCHLOROTH* Take 1 tablet by mouth once d * CHOLECALCIFEROL (VITAMIN D3) * Take 1 capsule by mouth once * AMLODIPINE 10 MG TABLET Take 1 tablet by mouth once d* OMEPRAZOLE 20 MG CAPSULE,DEBBI* Take 1 capsule by mouth daily * FISH OIL-DHA-EPA 1,200 MG-144* Take 1 capsule PO daily CETIRIZINE 10 MG TABLET Take 1 tablet by mouth once d* KRILL OIL 500 MG CAPSULE Take 1 capsule by mouth twice* TENS UNIT AND ELECTRODES COMB* 1 Units twice daily. MISCELLANEOUS MEDICAL SUPPLY * 1 Units as directed. Problem List As Of Date 07/20/2019 Noted Resolved Hyperlipidemia [E78.5] 09/24/2012 HTN (hypertension) [I10] 09/24/2012 More... Fibromyalgia [M79.7] 09/24/2012 Depression [F32.9] 09/24/2012 Otalgia [H92.09] 05/20/2013 BPPV (benign paroxysmal positional vertigo) [H8*05/20/2013 Enthesopathy of hip region [M76.899] 08/19/2013 Other disorder of muscle, ligament, and fascia *08/19/2013 Diabetes mellitus type 2, controlled, without c*11/17/2013 Other affections of shoulder region, not elsewh*06/19/2014 Lateral epicondylitis of elbow [M77.10] 06/19/2014 Pain in right shoulder [M25.511] 08/29/2014 Hypokalemia [E87.6] 11/28/2014 Hives [L50.9] Chronic bilateral low back pain with bilateral *11/14/2016 Proteinuria [R80.9] 03/20/2017 Essential hypertension [I10] 03/30/2018 AICHA (generalized anxiety disorder) [F41.1] 03/30/2018 Anxiety attack [F41.0] 03/30/2018 Sprain of anterior talofibular ligament of left*02/28/2019 Swelling of joint of hand [M25.449] 03/29/2019 Bilateral hand pain [M79.641, M79.642] 03/29/2019 Fatty liver [K76.0] 03/29/2019 Prescriptions ordered this encounter Disp Refills Start End PAROXETINE 20 MG TABLET 30 t* 1 07/20/2019 Route: ORAL Sig: Take 1 tablet by mouth once daily. In addit ion to 40mg daily for a total of 60mg Medications Discontinued During This Encounter PARoxetine (PAXIL) 20 mg tablet 30 t* 1 05/16/2019 07/20/2019 Route: ORAL Sig: Take 1 tablet by mouth once daily. In addition to 40mg daily for a total of 60mg Disc: Reason for discontinue is not on file. Encounter Status:Closed by LYSSA WHEAT CNP on 07/20/19 obsolete on 2019-07 OBSOLETE Refill (FAMPWS) Normal 07-14-[address] [facility] NAMRATA PENG ([id number]) 1965 [facility] Date Time Provider Department ([id number]) 07/14/19 SAURABH HAYESPWS During your visit today, we recorded the following informati on about you: Sirena Radha Meek LPN 07/14/2019 11:45 AM Signed Patient has been identified by name and date of : Yes Patient phones for refill(s): Pending Prescriptions Disp Refills BUSPIRONE 10 MG TABLET 90 tablet 1 Sig: Take 0.5-1 tablets by mouth three times daily as needed (anxiety attack). LOVELY: No Date of last office visit in primary care: 03/28/19 Last 2 Encounter Wt Readings: Date: Wt: 04/28/2019 86.5 kg (190 lb 9.6 oz) 03/28/2019 87.1 kg (192 lb 0.6 oz) Previous labs/tests for medication: Not applicable Please advise. Thank you. Sirena Wheat APRN.TEE 07/14/2019 11:51 AM Signed Script sent. Lyssa Wheat APRN.[employer] Allergies As of Date: 07/14/2019 Noted Allergy Reaction IMITREX (SUMATRIPTAN SUCCINATE) 09/24/2012 10 - Anaphylaxis SULFA DRUGS (SULFA (SULFONAMIDE A*09/24/2012 2 - Rash Comments: Rash all over AMPARO INHIBITORS 09/24/2012 14 - Other: See Comments Comments: Makes asthma worse LATEX 03/22/2013 2 - Rash Comments: Hospital Director calls it sensitivity per pt VICODIN (HYDROCODONE-ACETAMINOPHE*11/28/2013 8 - GI Upset Date Reviewed: 04/28/2019 Reviewed by: Kristen Rm - Fully Assessed Reason for Visit: Refill Request [94] Visit Diagnoses:AICHA (generalized anxiety disorder) [F41.1] Anxiety attack [F41.0] Order(s):busPIRone (BUSPAR) 10 mg tabletTake 0.5-1 tablets b y mouth three times daily as needed (anxiety attack).Disp: 90 tabletRfl: 1 Prescriptions as of 07/14/2019 Sig: BENZOCAINE 10 % MUCOSAL GEL Use 1 application as instruct* BUSPIRONE 10 MG TABLET Take 0.5-1 tablets by mouth t* BUPROPION XL 300 MG 24 HR TAB Take 1 tablet by mouth once d* TIZANIDINE 4 MG TABLET Take 1 tablet by mouth three * PAROXETINE 40 MG TABLET Take 1 tablet by mouth once d* PAROXETINE 20 MG TABLET Take 1 tablet by mouth once d* LEG BRACE 1 Each once daily. Knee sleev* OMEGA-3 FATTY ACIDS 1,000 MG * TAKE 1 CAPSULE DAILY POTASSIUM CHLORIDE ER 20 MEQ * Take 1 tablet by mouth once d * ALBUTEROL SULFATE HFA 90 MCG/* Inhale 2 Puffs as instructed * OMEGA 7-SXT-JZY-FISH OIL 300 * Take 1 capsule by mouth once * COMPOUNDED PRESCRIPTION COMPRESSION GLOVES SIZE SMAL* TRIAMCINOLONE ACETONIDE 55 MC* Use 2 Sprays in the nose once * CANE Use as directed LOSARTAN 100 MG-HYDROCHLOROTH* Take 1 tablet by mouth once d * CHOLECALCIFEROL (VITAMIN D3) * Take 1 capsule by mouth once * AMLODIPINE 10 MG TABLET Take 1 tablet by mouth once d* OMEPRAZOLE 20 MG CAPSULE,DEBBI* Take 1 capsule by mouth daily * FISH OIL-DHA-EPA 1,200 MG-144* Take 1 capsule PO daily CETIRIZINE 10 MG TABLET Take 1 tablet by mouth once d* KRILL OIL 500 MG CAPSULE Take 1 capsule by mouth twice* TENS UNIT AND ELECTRODES COMB* 1 Units twice daily. MISCELLANEOUS MEDICAL SUPPLY * 1 Units as directed. Problem List As Of Date 07/14/2019 Noted Resolved Hyperlipidemia [E78.5] INVALID FOR* HTN (hypertension) [I10] INVALID FOR* More... Fibromyalgia [M79.7] INVALID FOR* Depression [F32.9] INVALID FOR* Otalgia [H92.09] INVALID FOR* BPPV (benign paroxysmal positional vertigo) [H8*INVALID FOR* Enthesopathy of hip region [M76.899] INVALID FOR* Other disorder of muscle, ligament, and fascia *INVALID FOR* Diabetes mellitus type 2, controlled, without c*INVALID FOR* Other affections of shoulder region, not elsewh*INVALID FOR* Lateral epicondylitis of elbow [M77.10] INVALID FOR* Pain in right shoulder [M25.511] INVALID FOR* Hypokalemia [E87.6] INVALID FOR* Hives [L50.9] Chronic bilateral low back pain with bilateral *INVALID FOR* Proteinuria [R80.9] INVALID FOR* Essential hypertension [I10] INVALID FOR* AICHA (generalized anxiety disorder) [F41.1] INVALID FOR* Anxiety attack [F41.0] INVALID FOR* Sprain of anterior talofibular ligament of left*INVALID FOR* Swelling of joint of hand [M25.449] INVALID FOR* Bilateral hand pain [M79.641, M79.642] INVALID FOR* Fatty liver [K76.0] INVALID FOR* Prescriptions ordered this encounter Disp Refills Start End BUSPIRONE 10 MG TABLET 90 t* 1 07/14/2019 Route: ORAL Sig: Take 0.5-1 tablets by mouth three t imes daily as needed (anxiety attack). Medications Discontinued During This Encounter busPIRone (BUSPAR) 10 mg tablet 90 t* 1 02/09/2019 07/14/2019 Route: ORAL Sig: Take 0.5-1 tablets by mouth three t imes daily as needed (anxiety attack). Disc: Reason for discontinue is not on file. Encounter Status:Closed by LYSSA WHEAT CNP on 07/14/19 obsolete on 2019-06 OBSOLETE Refill (FAMPWS) Normal 07-06-[address] [facility] NAMRATA PENG ([id number]) 1965 [facility] Time Provider Department ([id number]) 07/06/19 SAURABH HAYES FAMPWS During your visit today, we recorded the following informati on about you: Precious Rahel JAMA 07/06/2019 1:50 PM Signed Patient has been identified by name and date of : Yes Pharmacy phones for refill(s): Pending Prescriptions Disp Refills BUPROPION XL 300 MG 24 HR TAB 90 tablet 1 Sig: Take 1 tablet by mouth once daily. LOVELY: No Date of last office visit in primary care: 03/28/2019 Last 2 Encounter Wt Readings: Date: Wt: 04/28/2019 86.5 kg (190 lb 9.6 oz) 03/28/2019 87.1 kg (192 lb 0.6 oz) Previous labs/tests for medication: Not applicable Please advise. Thank you. Precious Mcginnis [facility] Pharmacy said med sync patient Lyssa DARLINE Wheat 07/06/2019 5:43 PM Signed Script sent. Lyssa WilkesDARLINE morris Allergies As of Date: 07/06/2019 Noted Allergy Reaction IMITREX (SUMATRIPTAN SUCCINATE) 09/24/2012 10 - Anaphylaxis SULFA DRUGS (SULFA (SULFONAMIDE A*09/24/2012 2 - Rash Comments: Rash all over AMPARO INHIBITORS 09/24/2012 14 - Other: See Comments Comments: Makes asthma worse LATEX 03/22/2013 2 - Rash Comments: Hospital Director calls it sensitivity per pt VICODIN (HYDROCODONE-ACETAMINOPHE*11/28/2013 8 - GI Upset Date Reviewed: 04/28/2019 Reviewed by: Kristen Rm - Fully Assessed Reason for Visit: Refill Request [94] Visit Diagnoses:Fibromyalgia [M79.7] Dysthymia [F34.1] Order(s):buPROPion XL (WELLBUTRIN XL) 300 mg 24 hr tabletTak e 1 tablet by mouth once daily.Disp: 90 tabletRfl: 1 Prescriptions as of 07/06/2019 Sig: BUPROPION XL 300 MG 24 HR TAB Take 1 tablet by mouth once d* TIZANIDINE 4 MG TABLET Take 1 tablet by mouth three * PAROXETINE 40 MG TABLET Take 1 tablet by mouth once d* PAROXETINE 20 MG TABLET Take 1 tablet by mouth once d* LEG BRACE 1 Each once daily. Knee sleev* OMEGA-3 FATTY ACIDS 1,000 MG * TAKE 1 CAPSULE DAILY POTASSIUM CHLORIDE ER 20 MEQ * Take 1 tablet by mouth once d * ALBUTEROL SULFATE HFA 90 MCG/* Inhale 2 Puffs as instructed * OMEGA 7-HHR-GHX-FISH OIL 300 * Take 1 capsule by mouth once * COMPOUNDED PRESCRIPTION COMPRESSION GLOVES SIZE SMAL* TRIAMCINOLONE ACETONIDE 55 MC* Use 2 Sprays in the nose once * BUSPIRONE 10 MG TABLET Take 0.5-1 tablets by mouth t* CANE Use as directed LOSARTAN 100 MG-HYDROCHLOROTH* Take 1 tablet by mouth once d * CHOLECALCIFEROL (VITAMIN D3) * Take 1 capsule by mouth once * AMLODIPINE 10 MG TABLET Take 1 tablet by mouth once d* OMEPRAZOLE 20 MG CAPSULE,DEBBI* Take 1 capsule by mouth daily * FISH OIL-DHA-EPA 1,200 MG-144* Take 1 capsule PO daily CETIRIZINE 10 MG TABLET Take 1 tablet by mouth once d* KRILL OIL 500 MG CAPSULE Take 1 capsule by mouth twice* TENS UNIT AND ELECTRODES COMB* 1 Units twice daily. MISCELLANEOUS MEDICAL SUPPLY * 1 Units as directed. Problem List As Of Date 07/06/2019 Noted Resolved Hyperlipidemia [E78.5] INVALID FOR* HTN (hypertension) [I10] INVALID FOR* More... Fibromyalgia [M79.7] INVALID FOR* Depression [F32.9] INVALID FOR* Otalgia [H92.09] INVALID FOR* BPPV (benign paroxysmal positional vertigo) [H8*INVALID FOR* Enthesopathy of hip region [M76.899] INVALID FOR* Other disorder of muscle, ligament, and fascia *INVALID FOR* Diabetes mellitus type 2, controlled, without c*INVALID FOR* Other affections of shoulder region, not elsewh*INVALID FOR* Lateral epicondylitis of elbow [M77.10] INVALID FOR* Pain in right shoulder [M25.511] INVALID FOR* Hypokalemia [E87.6] INVALID FOR* Hives [L50.9] Chronic bilateral low back pain with bilateral *INVALID FOR* Proteinuria [R80.9] INVALID FOR* Essential hypertension [I10] INVALID FOR* AICHA (generalized anxiety disorder) [F41.1] INVALID FOR* Anxiety attack [F41.0] INVALID FOR* Sprain of anterior talofibular ligament of left*INVALID FOR* Swelling of joint of hand [M25.449] INVALID FOR* Bilateral hand pain [M79.641, M79.642] INVALID FOR* Fatty liver [K76.0] INVALID FOR* Prescriptions ordered this encounter Disp Refills Start End BUPROPION XL 300 MG 24 HR TAB 90 t* 1 07/06/2019 Route: ORAL Sig: Take 1 tablet by mouth once daily. Medications Discontinued During This Encounter buPROPion XL (WELLBUTRIN XL) 300 mg * 90 t* 1 12/13/201807/06 Route: ORAL Sig: Take 1 tablet by mouth once daily. Disc: Reason for discontinue is not on file. Encounter Status:Closed by LYSSA WHEAT CNP on 10/30/19 obsolete on 2019-06 OBSOLETE Refill (FAMPWS) Normal 06-27-[address] [facility] NAMRATA PENG ([id number]) 1965 [facility] Date Time Provider Department ([id number]) 06/27/19 SAURABH HAYES FAMPWS During your visit today, we recorded the following informati on about you: Jose Zamora LPN 06/27/2019 2:52 PM Signed Patient phones requesting refills as follows: Pending Prescriptions Disp Refills TIZANIDINE 4 MG TABLET 90 tablet 0 Sig: Take 1 tablet by mouth three times daily as needed. LOVELY: No Please review and advise. Jose Wheat APRN.CNP 06/27/2019 4:08 PM Signed Script sent. Lyssa Wheat APRN.CNP Allergies As of Date: 06/27/2019 Noted Allergy Reaction IMITREX (SUMATRIPTAN SUCCINATE) 09/24/2012 10 - Anaphylaxis SULFA DRUGS (SULFA (SULFONAMIDE A*09/24/2012 2 - Rash Comments: Rash all over AMPARO INHIBITORS 09/24/2012 14 - Other: See Comments Comments: Makes asthma worse LATEX 03/22/2013 2 - Rash Comments: Hospital Director calls it sensitivity per pt VICODIN (HYDROCODONE-ACETAMINOPHE*11/28/2013 8 - GI Upset Date Reviewed: 04/28/2019 Reviewed by: Kristen Rm - Fully Assessed Reason for Visit: Refill Request [94] Order(s):tiZANidine (ZANAFLEX) 4 mg tabletTake 1 table t by mouth three times daily as needed.Disp: 90 tabletRfl: 0 Prescriptions as of 06/27/2019 Sig: TIZANIDINE 4 MG TABLET Take 1 tablet by mouth three * PAROXETINE 40 MG TABLET Take 1 tablet by mouth once d* PAROXETINE 20 MG TABLET Take 1 tablet by mouth once d* LEG BRACE 1 Each once daily. Knee sleev* OMEGA-3 FATTY ACIDS 1,000 MG * TAKE 1 CAPSULE DAILY POTASSIUM CHLORIDE ER 20 MEQ * Take 1 tablet by mouth once d * ALBUTEROL SULFATE HFA 90 MCG/* Inhale 2 Puffs as instructed * OMEGA 2-LPG-DME-FISH OIL 300 * Take 1 capsule by mouth once * COMPOUNDED PRESCRIPTION COMPRESSION GLOVES SIZE SMAL* TRIAMCINOLONE ACETONIDE 55 MC* Use 2 Sprays in the nose once * BUSPIRONE 10 MG TABLET Take 0.5-1 tablets by mouth t* CANE Use as directed LOSARTAN 100 MG-HYDROCHLOROTH* Take 1 tablet by mouth once d * CHOLECALCIFEROL (VITAMIN D3) * Take 1 capsule by mouth once * BUPROPION XL 300 MG 24 HR TAB Take 1 tablet by mouth once d* AMLODIPINE 10 MG TABLET Take 1 tablet by mouth once d* OMEPRAZOLE 20 MG CAPSULE,DEBBI* Take 1 capsule by mouth daily * FISH OIL-DHA-EPA 1,200 MG-144* Take 1 capsule PO daily CETIRIZINE 10 MG TABLET Take 1 tablet by mouth once d* KRILL OIL 500 MG CAPSULE Take 1 capsule by mouth twice* TENS UNIT AND ELECTRODES COMB* 1 Units twice daily. MISCELLANEOUS MEDICAL SUPPLY * 1 Units as directed. Problem List As Of Date 06/27/2019 Noted Resolved Hyperlipidemia [E78.5] INVALID FOR* HTN (hypertension) [I10] INVALID FOR* More... Fibromyalgia [M79.7] INVALID FOR* Depression [F32.9] INVALID FOR* Otalgia [H92.09] INVALID FOR* BPPV (benign paroxysmal positional vertigo) [H8*INVALID FOR* Enthesopathy of hip region [M76.899] INVALID FOR* Other disorder of muscle, ligament, and fascia *INVALID FOR* Diabetes mellitus type 2, controlled, without c*INVALID FOR* Other affections of shoulder region, not elsewh*INVALID FOR* Lateral epicondylitis of elbow [M77.10] INVALID FOR* Pain in right shoulder [M25.511] INVALID FOR* Hypokalemia [E87.6] INVALID FOR* Hives [L50.9] Chronic bilateral low back pain with bilateral *INVALID FOR* Proteinuria [R80.9] INVALID FOR* Essential hypertension [I10] INVALID FOR* AICHA (generalized anxiety disorder) [F41.1] INVALID FOR* Anxiety attack [F41.0] INVALID FOR* Sprain of anterior talofibular ligament of left*INVALID FOR* Swelling of joint of hand [M25.449] INVALID FOR* Bilateral hand pain [M79.641, M79.642] INVALID FOR* Fatty liver [K76.0] INVALID FOR* Prescriptions ordered this encounter Disp Refills Start End TIZANIDINE 4 MG TABLET 90 t* 0 06/27/2019 Route: ORAL Sig: Take 1 tablet by mouth three times daily as needed. Medications Discontinued During This Encounter tiZANidine (ZANAFLEX) 4 mg tablet 90 t* 0 03/28/2019 06/27/20 Route: ORAL Sig: Take 1 tablet by mouth three times daily as needed. Disc: Reason for discontinue is not on file. Encounter Status:Closed by LYSSA WHEAT CNP on 06/27/19 dermatopathology on 2019-03-29 Dermatopathology [place] 03-29-2019 [facility] Pathologist: BRIANNA REYES MD [facility] Date of Procedure: 03/29/2019 ([id number]) Date Received: 03/30/2019 Date Reported 04/01/2019 Submitting Physician: ANTONY TUTTLE MD Location: [facility] FINAL DIAGNOSIS A. SKIN, R LATERAL FOREARM, SHAVE BIOPSY: LENTIGO. B. SKIN, R MEDIAL MID-CHEST, SHAVE BIOPSY: LENTIGO. Electronically Signed Out by BRIANNA REYES M.D. Electronically Signed Out By BRIANNA REYES MD/[facility] Microscopic Description: A. Microscopic examination r eveals a specimen that extends into the superficial dermis. There is mild solar elastosis and there is mild to moderate basal layer melanin pigmentation. Multiple step sections were performed. B. Microscopic examination r eveals a specimen that extends into the superficial dermis. There is mild solar elastosis and there is mild to moderate basal layer melanin pigmentation. Multip le step sections were performed. On multiple deeper sections there is a focal area of melanophages. Clinical History: A: 6mm dark brown, irregular macules. Lentigo vs. [facility]. Shave Biopsy. B: Received in formalin is a linares-brown piece of skin measuring [id number]. The specimen is inked and embedded in toto. ([place] office) Specimens Submitted As: A: SKIN, R LATERAL FOREARM B: SKIN, R MEDIAL MID-CHEST Gross Description: A: Received in formalin is a linares piece o f skin measuring [id number]. The specimen is inked and embedded in toto. B: Received in fo rmalin is a linares piece of skin measuring [id number]. The specimen is inked and embedded in tot o. ink/03/30/2019 Comment: Performed By: #### D #### Dermatopathology office visit: uc: swollen left eye on 2017-02-03 Documentation of Done Invalid 02-03-2017 [facility] Now current medications Interpretation Code 02-03-2017 Clinic (procedure) ([id number]) Tobacco smoking Never Invalid 02-03-2017 - [facility] Now status [facility] Interpretation Code 02-04-20 17 Clinic ([id number]) Tobacco use [facility] Never smoker Invalid 02-03-2017 [facility] Now Interpretation Code 02-03-2017 [facility] ([id number]) Vital Signs Vital Sign Description Value / Unit Date Location The following section is limited to 5 en tries per type and includes entries from the following time range: 20170203 - 20170107 0. BMI (Body Mass Index) 38.59 kg/m2 02-03-2017 - 02-03-2017 [facility] ([id number]) Body Temperature 98.8 [degF] 02-03-2017 - 02-03-2017 [facility] ([id number]) Body weight 93.44 kg 05-08-2020 [facility] ([id number]) BP Diastolic 74 mm[Hg] 05-08-2020 [facility] ([id number]) BP Diastolic 84 mm[Hg] 02-03-2017 - 02-03-2017 [facility] ([id number]) BP Systolic 132 mm[Hg] 05-08-2020 [facility] ([id number]) BP Systolic 134 mm[Hg] 02-03-2017 - 02-03-2017 [facility] ([id number]) Height 156 cm 05-08-2020 [facility] ([id number]) Height 157.48 cm 02-03-2017 - 02-03-2017 [facility] ([id number]) Pulse (Heart Rate) 90 /min 02-03-2017 - 02-03-2017 [facility] ([id number]) Pulse Oximetry 98 % 02-03-2017 - 02-03-2017 [facility] ([id number]) Respiratory Rate 16 /min 02-03-2017 - 02-03-2017 [facility] ([id number]) Weight 95.71 kg 02-03-2017 - 02-03-2017 [facility] ([id number]) Encounters Date Type Reason Provider Location 05-17-2020 - Patient encounter [facility] Provider Xr [facility] 05-17-2020 procedure [place] [facility] Comment: Radiology XR 05-08-2020 - Patient encounter Patient encounter Deysi Telles OB/ Gynecology 05-08-2020 procedure status [place] Comment: Encounter for gynecological examination without abnormal finding (Primary Dx); Encounter for screening mamm ogram for malignant neoplasm of breast; Screening for colon cancer 06-06-2020 - 06-06-2020 Refill Saurabh Hayes [facility] [place] Comment: Refill Request 05-31-2020 - Refill Generalized anxiety Saurabh Hayes [facility] Medicine 05-31-2020 disorder [place] Comment: Refill Request 05-17-2020 Results Only [facility] Provider [facility] 06-22-2020 - Subsequent Patient encounter Screen Mammo Mammogram 06-22-2020 hospital visit by status [facility] physician Comment: Encounter for screening mamm ogram for malignant neoplasm of breast [Z12.31] 05-29-2020 - 05-29-2020 Telephone encounter Saurabh cramer [facility] [place] Comment: question, concern with potas sium dose Procedures Procedure Name Date Provider Location Screening mammography bi 06-22-2020 Deysi Telles [facility] 2-view breast inc cad [place] ([id number]) Mammography 06-22-2020 [facility] ([id number]) Radiologic examination 05-17-2020 [facility] Provider [facility] knee 1/2 views ([id number]) Mammography 04-07-2019 - [facility] 04-07-2019 ([id number]) Plan of Treatment Plan Description Date Location DTAP,TDAP,TD (2 - Td) DTAP,TDAP,TD (2 - Td) 10-24-2025 - [facility] 10-24-2025 ([id number]) HPV TESTING HPV TESTING 01-26-2024 - [facility] 01-26-2024 ([id number]) PAP TESTING PAP TESTING 01-26-2024 - [facility] 01-26-2024 ([id number]) MAMMOGRAM MAMMOGRAM 06-22-2021 [facility] ([id number]) LDL CHOLESTEROL LDL CHOLESTEROL 04-16-2021 - [facility] 04-16-2021 ([id number]) ANNUAL PCP TEAM CHRONIC ANNUAL PCP TEAM CHRONIC 04-10-2021 - [facility] DISEASE VISIT DISEASE VISIT 04-10-2021 ([id number]) HBA1C HBA1C 10-17-2020 - [facility] 10-17-2020 ([id number]) URINE ALBUMIN:CREATININE URINE ALBUMIN:CREATININE 10-05-2020 - [facility] RATIO RATIO 10-05-2020 ([id number]) INFLUENZA (#1) INFLUENZA (#1) 2020 - [facility] 05-08-2020 ([id number]) FECAL OCCULT BLOOD FECAL OCCULT BLOOD 04-18-2020 - [facility] 04-18-2020 ([id number]) MAMMOGRAM MAMMOGRAM 04-07-2020 - [facility] 04-07-2020 ([id number]) DILATED RETINAL EXAM DILATED RETINAL EXAM 11-25-2019 - [facility] 11-25-2019 ([id number]) DIABETIC FOOT EXAM DIABETIC FOOT EXAM 09-29-2019 - [facility] 09-29-2019 ([id number]) Appointment Appointment 02-03-2017 - [facility] Now Clinic 02-03-2017 ([id number]) SHINGRIX VACCINE (1 of SHINGRIX VACCINE (1 of 2013 - [facility] 2) 2) 2013 ([id number]) BP CONTROLLED (<130/80) BP CONTROLLED (<130/80) 1981 - [facility] 1981 ([id number]) HIV SCREENING HIV SCREENING 1981 - [facility] 1981 ([id number]) ONE PNEUMOVAX PRIOR TO ONE PNEUMOVAX PRIOR TO 1979 - [facility] AGE 63 AGE 63 1979 ([id number]) COLONOSCOPY SCRN NOT COLONOSCOPY SCRN NOT 05-08-2021 [facility] HIGH RISK HIGH RISK Endoscopy ([id number]) Routine Screening for colon cancer 1 Occurrences starting 05/08/2020 until 05/08/2021 Comment: 1 Occurrences starting 05/08 until 05/08/2021 NOLAN SCREENING NOLAN SCREENING Radiology Routine 06-07-2021 [facility] ([id number]) Encounter for screening mammogram for malignant neoplasm of breast 1 Occurrences starting 05/08/2020 until 06/07/2021 Comment: 1 Occurrences starting 05/08 until 06/07/2021 no information [facility] ([id number]) no information [facility] ( 33569) Immunizations Vaccine Notes Status Date Location Influenza Seasonal influenza, injectable, (completed) 06-06-2015 - [facility] Inj Quad Age 6 Mo - quadrivalent, contains 06-06-2015 ([id number]) 64 Yrs preservative Influenza Seasonal influenza, injectable, (completed) 06-29-2018 - [facility] Inj Quad Age 6 quadrivalent, 06-29-2018 ([id number]) Mo-64 Yrs Pres Free preservative free Pneumococcal-13 Vac pneumococcal conjugate (completed) 10-01-2015 - [facility] Conjugate vaccine, 13 valent 10-01-2015 ([id number]) Tetanus/Diphtheria tetanus and diphtheria (completed) 02-20-2000 - [facility] Unspec toxoids, not adsorbed, 02-20-2000 (4419 5) for adult use Tdap (Age 7+) tetanus toxoid, (completed) 10-24-2015 - [facility] linic reduced diphtheria 10-24-2015 ([id number]) toxoid, and acellular pertussis vaccine, adsorbed Payers Payer Name Policy Number Location [employer] [id number] [facility] (44 195) The following information is from the original human readable contentNo Payer Records FoundNo Payer Records FoundNo Payer Records Found Social History Type Social History Date Location Description Tobacco use and exposure Never used 05-08-2020 - [facility] 05-08-2020 ([id number]) History SDOH Social 5 10-04-2019 - [facility] 10-04-2019 ([id number]) Alcohol intake Current non-drinker of 05-08-2020 [facility] alcohol (finding) 05-08-2020 ([id number]) History SDOH Alcohol 2 10-04-2019 - [facility] Frequency 10-04-2019 ([id number]) History SDOH Alcohol Std 1 10-04-2019 - [facility] Drinks 10-04-2019 ([id number]) History SDOH Social 4 04-03-2020 - [facility] Phone 04-03-2020 ([id number]) Tobacco smoking status Never smoker 05-08-2020 - [facility] NHIS 05-08-2020 ([id number]) History SDOH Physical 0 04-03-2020 - [facility] Activity DPW 04-03-2020 ([id number]) History SDOH Education 15 10-04-2019 - [facility] 10-04-2019 (22566) Tobacco Comment smoked a little as a 09-24-2012 - [facility] teenager 09-24-2012 (76395) Sex Assigned At Female [facility] (15536) Exposure to SARS-CoV-2 Not sure [facility] (event) (42846) The following information is from the original human readable contentNo Social History Records FoundNo Social History Records FoundNo Social History Records Found Medical Equipment Equipment Code (if Equipment Original Equipment Procedure Code ( if Dates provided) Text (if provided) Identifier (if provided) provided) Test blood sugar(s) 11-04-20 20 1 times daily. Dx: Type 2 DM - Controlled E11.9 Insulin: No Test blood sugar(s) 11-04-20 20 1 times daily. Dx: Type 2 DM - Controlled E11.9 Insulin: No Test blood sugar(s) -28-20 20 1 times daily. Dx: Type 2 DM - Controlled E11.9 Insulin: No Test blood sugar(s) --20 20 1 times daily. Dx: Type 2 DM - Controlled E11.9 Insulin: No Test blood sugar(s) -28-20 20 1 times daily. Dx: Type 2 DM - Controlled E11.9 Insulin: No Test blood sugar(s) 28-20 20 1 times daily. Dx: Type 2 DM - Controlled E11.9 Insulin: No Test blood sugar(s) 28-20 20 1 times daily. 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 Having lower back and knee issue Postmenopausal: Yes HRT use: No. Last Pap: 02/02/2019 normal HPV: 01/27/2019 negative History of abnormal pap: No Last mammogram: 2018 normal History of abnormal mammogram: No Sexually active: Yes- BF with ED- had recent implant surgery History of STDS: None Patient concerns for STD exposure: No. Pain with intercourse: No Postcoital bleeding: No Hot flashes: No Night sweats: No Vaginal dryness: Yes Exercise: not routine Diet: balanced OB History T1 L1 SAB1 TAB0 Ectopic0 Multiple0 Live Births0 PAST MEDICAL HISTORY Diagnosis Date ? Anxiety ? Asthma 2006 ? Dental infection ? Depression ? Dizziness 05/20/2013 ? DJD (degenerative joint disease) spine and neck ? Epicondylitis bilateral elbow ? Fibromyalgia 1989 ? GERD (gastroesophageal reflux disease) ? Hives ? Hyperlipidemia not on medications ? Hypertension ? Melanoma in situ (HCC) 09/2015 ? Ruptured lumbar disc PAST SURGICAL HISTORY Procedure Laterality Date ? CARPAL TUNNEL bilateral ? LX REPAIR RECURRENT VENTRAL HERNIA 09/06/2018 open repair of incarcerated recurrent ventral hernia ? OTHER D&C ? REMOVE TONSILS/ADENOIDS,<12 Y/O ? REPAIR INCISIONAL HERNIA,HELEN 04/29/2017 Strangulate ventral hernia with transverse colon FAMILY HISTORY Problem Relation Age of Onset ? Hypertension Mother ? Lipids Mother ? Heart Paternal Grandfather AK ? Heart Maternal Grandfather AK ? Cancer Maternal Grandfather lukemia ? other (Other) Paternal Grandmother Althezimers ? other (fibromyalgia) Sister ? Diabetes Paternal Aunt ? other (stomach cancer) Paternal Uncle SOCIAL HISTORY Social History Tobacco Use ? Smoking status: Never Smoker ? Smokeless tobacco: Never Used ? Tobacco comment: smoked a little as a teenager Substance Use Topics ? Alcohol use: No Frequency: Monthly or less Drinks per session: 1 or 2 Binge frequency: Never ? Drug use: No REVIEW OF SYSTEMS Abdomen: No abdominal pain, nausea, vomiting, diarrhea, or constipation. No bloating, early satiety,indigestion, or increased flatulence. Bladder: No dysuria, gross hematuria, urinary frequency, urinary urgency, or incontinence Breast: No breast lumps, nipple d/c, overlying skin changes, redness or skin retraction Allergies and current medication updated:Yes EXAM: BP 132/74 Ht 5' 1.417 (1.56m) Wt 206 lb (93.4kg) LMP 05/23/2014 BMI 38.40 kg/(m^2). GENERAL: pleasant, female in no apparent distress HEENT: Normocephalic, atraumatic, mucus membranes moist and no lesions NECK: Supple, full range of motion, no adenopathy and thyroid normal DERMATOLOGY: Normal, without lesions, non-icteric and non-hirsute BREAST: soft, non-tender, symmetric, no dominant mass, normal nipple-areolar complex, no lymphadenopathy and no nipple discharge ABDOMEN: soft, non-tender and no masses PELVIC: external genitalia normal, normal Bartholin's glands, urethra, [place]'s glands, no vulvar lesions, no cervical lesions, good vaginal support, physiologic discharge present, normal appearing perineal body and perianal region BIMANUAL: uterus normal size, shape and consistency, no adnexal masses and non-tender RECTOVAGINAL: deferred. NEURO: alert and oriented x3,exam grossly non-focal EXTREMITIES: normal ASSESSMENT/PLAN: 1) Health maintenance: Pap/HPV up to date. Mammogram ordered Nutrition, exercise and routine health maintenance exams reviewed. Calcium/Vitamin D supplementation information provided. Colon cancer screening: colonoscopy ordered 2) Follow up one year or sooner as needed Deysi Almaraz MD Suzie Caban Ma - 05/08/2020 2:18 PM EDTChaperone offered: Patient declines. documented in this encounterLacey IrvinRt)Negrita - 05/17/2020 12:15 PM EDT Radiology Service Progress Note PATIENT NAME: Namrata Peng DATE OF SERVICE: May 17, 2020 TIME: 12:15 PM PATIENT IDENTITY VERIFICATION COMPLETED USING TWO (2) IDENTIFIERS: Name and Date of confirmed by patient verbally. FALL SCREENING: Has the patient had 2 falls in the last year or 1 fall with injury or currently using an Ambulatory Assistive Device (Walker, Cane, Wheelchair, Crutches, etc.)? No PATIENT GENDER DATA: Female. status: : No status: NO. PATIENT RELEVANT IMPLANT DATA REVIEWED: Not Applicable RADIOLOGY DEPARTMENT: General X-ray: Exam(s) Completed: Lower Extremity X- Ray(s): Knee, AP / LAT Right and Bilateral: PERIPHERAL IV DATA: Not applicable SIGNED BY: RT Tiffanie May 17, 2020 12:15 PM documented in this encounter Assessments Diagnosis Encounter for gynecological examination without abnormal finding - Primary Routine gynecological examination Encounter for screening mammogram for ma lignant neoplasm of breast Other screening mammogram Screening for colon cancer Special screening for malignant neoplasm s, colon Diagnosis AICHA (generalized anxiety disorder) Generalized anxiety disorder Anxiety attack Panic disorder without agoraphobia Diagnosis Encounter for screening mammogram for ma lignant neoplasm of breast Other screening mammogram Additional Source Comments FOR RECORDS PERTAINING TO PATIENTS WHO ARE OR HAVE BEEN ENROLLED IN A CHEMICAL DEPENDENCY/SUBSTANCE ABUSE PROGRAM, SOME INFORMATION MAY BE OMITTED. This clinical summary was aggregated from multiple sources. Caution should be exercised in using it in the provision of clinical care. This summary normalizes information from multiple sources, and as a consequence, information in this document may materially changethe coding, format and clinical context of patient data. In addition, data may be omittedin some cases. CLINICAL DECISIONS SHOULD BE BASED ON THE PRIMARY CLINICAL RECORDS. [employer] provides no warranty or guarantee of the accuracy or completeness of information in this document. UNRECOGNIZED CONTENT PROVIDED BELOW FOR UNRECOGNIZED SECTION Source Comments In the event this information is protected by the Federal Confidentiality of Alcohol and Drug Abuse Patient Records regulations: The Federal rules restrict any use of the information to criminally investigate or prosecute any alcohol or drug abuse patient.[facility] the event this information is protected by the Federal Confidentiality of Alcohol and Drug Abuse Patient Records regulations: The Federal rules restrict any use of the information to criminally investigate or prosecute any alcohol or drug abuse patient.[facility] CenterIn the event this information is protected by the Federal Confidentiality of Alcohol and Drug Abuse Patient Records regulations: The Federal rules restrict any use of the information to criminally investigate or prosecute any alcohol or drug abuse patient.[facility] CenterIn the event this information is protected by the Federal Confidentiality of Alcohol and Drug Abuse Patient Records regulations: The Federal rules restrict any use of the information to criminally investigate or prosecute any alcohol or drug abuse patient.[facility] CenterIn the event this information is protected by the Federal Confidentiality of Alcohol and Drug Abuse Patient Records regulations: The Federal rules restrict any use of the information to criminally investigate or prosecute any alcohol or drug abuse patient.[facility] CenterIn the event this information is protected by the Federal Confidentiality of Alcohol and Drug Abuse Patient Records regulations: The Federal rules restrict any use of the information to criminally investigate or prosecute any alcohol or drug abuse patient.[facility] CenterIn the event this information is protected by the Federal Confidentiality of Alcohol and Drug Abuse Patient Records regulations: The Federal rules restrict any use of the information to criminally investigate or prosecute any alcohol or drug abuse patient.[facility] UNRECOGNIZED CONTENT PROVIDED BELOW FOR UNRECOGNIZED SECTION INFORMATION SOURCE DATE CREATED AUTHOR AUTHOR'S ORGANIZATIO N 04/02/2019 [facility] DATE CREATED AUTHOR AUTHOR'S ORGANIZATIO N 06/23/2020 [facility] UNRECOGNIZED CONTENT PROVIDED BELOW FOR UNRECOGNIZED SECTION Reason for Visit Reason Comments Yearly Exam Reason Comments Radiology XR Reason Onset Date Comments question, concern with potassium dose 05/29/2020 Reason Onset Date Comments Refill Request 05/31/2020 Reason Onset Date Comments Refill Request 06/06/2020 UNRECOGNIZED CONTENT PROVIDED BELOW FOR UNRECOGNIZED SECTION Miscellaneous Notes Telephone Encounter - Saurabh Hayes - 05/30/2020 2:19 PM EDTNoted, Saurabh Hayes DO elephone Encounter - Celine Layton Ma - 05/30/2020 9:09 AM EDTYes patient is scheduled for today to have her labs completed. Celine Layton Ma elephone Encounter - Saurabh Hayes - 05/30/2020 6:55 AM EDTWould she be willing to come into lab to have renal function and electrolytes tested? Saurabh Hayes DO elephone Encounter - Lisa Mcginnish VEITA - 05/29/2020 10:47 AM EDTPatient calling was in [facility] early January for dental infection, told to stop her HCTZ. Patient questioning her potassium dose, still has been taking 20 meq once daily. Patient said she started with palpitations over the weekend, she thinks her potassium level is too high. Patient said she has been having fluid retention issues also lately. Potassium last checked early April. Please advise documented in this encounter Telephone Encounter - Eliceo Humphries) - 05/31/2020 1:47 PM EDT The following approved medication requests have been transmitted electronically. Signed Prescriptions Disp Refills busPIRone (BUSPAR) 10 mg tablet 90 tablet 1 Sig: Take 0.5-1 tablets by mouth three times daily as needed (anxiety attack). LOVELY: No Authorizing Provider: SAURABH HAYES Ordering User: ELICEO HUMPHRIES APRN.CNP Telephone Encounter - Celine Layton Ma - 05/31/2020 1:44 PM EDT Patient has been identified by name and date of : Yes Pending Prescriptions Disp Refills BUSPIRONE 10 MG TABLET 90 tablet 1 Sig: Take 0.5-1 tablets by mouth three times daily as needed (anxiety attack). LOVELY: No RX INSTRUCTIONS: Patient aware RX will be sent to pharmacy. No need to notify patient. Celine Layton Ma Last ov: 01/2020 Last refill: 04/2020 Nov: 07/2020 documented in this encounterTelephone Encounter - Eliceo Humphries) - 06/06/2020 12:11 PM EDT The following approved medication requests have been transmitted electronically. Pending Prescriptions Disp Refills KETOROLAC 10 MG TABLET 20 tablet 1 Sig: Take 1 tablet by mouth once daily as needed for Pain. LOVELY: No Eliceo Humphries APRN.[employer] Telephone Encounter - Celine Layton Ma - 06/06/2020 11:11 AM EDT Patient has been identified by name and date of : Yes Pending Prescriptions Disp Refills KETOROLAC 10 MG TABLET 20 tablet 1 Sig: Take 1 tablet by mouth once daily as needed for Pain. LOVELY: No RX INSTRUCTIONS: Patient aware RX will be sent to pharmacy. No need to notify patient. Celine Layton Ma Last ov; 04/2020 Last refill: 04/2020 Nov: 07/2020 documented in this encounter
--- OUTSIDE RECORDS SUMMARY | 2020-06-24 10:39 | XMS RPT_ITS | CCD ---
:1965 External Reference #:[id number] Author Organization [facility] Care Team Providers Name Role Phone Hayes, Didi Primary Care Provider Negron ROTARY DRIER OPERATOR, E Unavailable Unavailable Negron ROTARY DRIER OPERATOR, E Unavailable Unavailable Allergies Reported Allergen Reaction(s) Severity Date of Onset Location acetaminophen / Critical, 02-03-2017 - [facility] Now Clin ic HYDROcodone Critical (48022) Acetaminophen / GI Upset 11-28-2013 - [place] [facility] HYDROcodone (75038) Angiotensin Other: See Comments 09-24-2012 - [facility] Converting Enzyme (64108) (Amparo) Inhibitors Latex Rash 03-22-2013 - [place] [facility] (67570) lisinopril All Amparo Inhibitors Critical, 02-03-2017 - [facility] Now C linic Critical (65257) sulfacetamide Critical, 02-03-2017 [facility] Now Clinic Critical (39306) Sulfonamides Rash Moderate 09-24-2012 - [place] [facility] (Antibiotic) (99602) SUMAtriptan Critical, 02-03-2017 [facility] Critical (09229) SUMAtriptan Anaphylaxis High 09-24-2012 - [place] [facility] (70475) Medications Medication Name Sig Date Prescriber Location Albuterol albuterol HFA 02-15-2020 Saurabh Didi [facility] (VENTOLIN HFA) 90 (64300) mcg/actuation inhaler Indications: Fibromyalgia Inhale 2 Puffs as instructed every 4 hours as needed for Wheezing/Shortness of Breath. 2 Inhaler 2 02/15/2020 Active Comment: Inhale 2 Puffs as instructed every 4 hours as needed for Wheezing/Shortness of Breath. amLODIPine amLODIPine (NORVASC) 10 03-13-2020 Saurabh Tolbert [facility] mg tablet Indications: (4419 5) Essential hypertension Take 1 tablet by mouth once daily. 90 tablet 0 03/13/2020 Active Comment: Take 1 tablet by mouth once daily. Benzocaine benzocaine (ANBESOL, 07-14-2019 Saurabh Hayes [facility] BENZOCAINE,) 10 % oral (4419 5) gel Indications: Pain, dental Use 1 application as instructed every 6 hours as needed. 1 Tube 1 07/14/2019 Active Comment: Use 1 application as instruc julianna every 6 hours as needed. buPROPion buPROPion XL (WELLBUTRIN 04-10-2020 Saurabh Mckeon n [facility] XL) 150 mg 24 hr tablet (441 95) Indications: Fibromyalgia , Dysthymia Take 1 tablet by mouth once daily. 90 tablet 1 04/10/2020 Active Comment: Take 1 tablet by mouth once daily. busPIRone busPIRone (BUSPAR) 10 04-10-2020 - Saurabh Hayes C [facility] mg tablet 05-31-2020 (99154) Indications: AICHA (generalized anxiety disorder) , Anxiety attack Take 0.5-1 tablets by mouth three times daily as needed (anxiety attack). 90 tablet 1 05/31/2020 Active Comment: Take 0.5-1 tablets by mouth three times daily as needed (anxiety attack). Cane donnie Cane donnie Indications: 01-21-2019 [facility] , [facility] (51173) Left-sided low back pain with left-sided sciatica, unspecified chronicity , Lumbago with sciatica, right side , Other chronic pain Use as directed 1 Device 0 01/21/2019 Active Cane donnie Ind[facility]: [facility]-2019 [facility]46881[facility] , Left-sided low back pain with left-sided sciatica, unspecified chronicity , Lumbago with sciatica, right side , Other chronic pain Use as directed 1 Device 0 01/21/2019 Active Cane donnie Indications: [facility]-21-2019 [facility] (97667[facility] Fibromyalgia , Left-sided low back pain with left-sided sciatica, unspecified chronicity , Lumbago with sciatica, right side , Other chronic pain Use as directed 1 Device 0 01/21/2019 Active Cane donnie Indications: 01-21-2019 Lyssa ([facility]) [facility] (71451) Fibromyalgia , Left-sided low back pain with left-sided sciatica, unspecified chronicity , Lumbago with sciatica, right side , Other chronic pain Use as directed 1 Device 0 01/21/2019 Active Cane donnie Indications: 01-21-2019 [facility] (83598) Fibromyalgia , Left-sided low back pain with left-sided sciatica, unspecified chronicity , Lumbago with sciatica, right side , Other chronic pain Use as directed 1 Device 0 01/21/2019 Active Cane donnie Indications: 01-21-2019 Lyssa ([facility]) [facility] (08497) Fibromyalgia , Left-sided low back pain with left-sided sciatica, unspecified chronicity , Lumbago with sciatica, right side , Other chronic pain Use as directed 1 Device 0 01/21/2019 Active Cane donnie Indications: 01-21-2019 [facility] (43571) Fibromyalgia , Left-sided low back pain with left-sided sciatica, unspecified chronicity , Lumbago with sciatica, right side , Other chronic pain Use as directed 1 Device 0 01/21/2019 Active Comment: Use as directed Cetirizine cetirizine (ZYRTEC) 10 09-21-2017 Saurabh Hayes [facility] mg tablet Indications: (4419 5) Chronic seasonal allergic rhinitis due to other allergen Take 1 tablet by mouth once daily. 30 tablet 5 09/21/2017 Active Comment: Take 1 tablet by mouth once daily. cholecalciferol Cholecalciferol, Vitamin 03-13-[address] [facility] D3, 25 mcg (1,000 unit) (446 91) cap Take 1 capsule by mouth once daily. 90 capsule 0 03/13/2020 Active VITAMIN D (CHOLECALCIFEROL) CAPS take as directed 02-03-2017 [facility] (73838) CHOLECALCIFEROL CAPS [id number] Anisa Negron LPN VITAMIN D (CHOLECALCIFEROL) CAPS take as directed 02-03-2017 [facility] (56778) CHOLECALCIFEROL CAPS [id number] Anisa Negron LPN Comment: Take 1 capsule by mouth once daily. COMPOUNDED COMPOUNDED PRESCRIPTION 03-03-2019 Saurabh Villegasv eland PRESCRIPTION COMPRESSION GLOVES SIZE [facility] (74238) SMALL-MEDIUM DX ARTHRITIS Compression:20-30mmg 1 Package 2 03/03/2019 Active COMPOUNDED PRESCRIPTION 03-03-2019 Saurabh L [facility] COMPRESSION GLOVES SIZE (39107) SMALL-MEDIUM DX ARTHRITIS Compression:20-30mmg 1 Package 2 03/03/2019 Active COMPOUNDED PRESCRIPTION 03-03-2019 Saurabh L [facility] COMPRESSION GLOVES SIZE (29769) SMALL-MEDIUM DX ARTHRITIS Compression:20-30mmg 1 Package 2 03/03/2019 Active COMPOUNDED PRESCRIPTION 03-03-2019 Saurabh L [facility] COMPRESSION GLOVES SIZE (73292) SMALL-MEDIUM DX ARTHRITIS Compression:20-30mmg 1 Package 2 03/03/2019 Active COMPOUNDED PRESCRIPTION 03-03-2019 Saurabh L [facility] COMPRESSION GLOVES SIZE (39756) SMALL-MEDIUM DX ARTHRITIS Compression:20-30mmg 1 Package 2 03/03/2019 Active COMPOUNDED PRESCRIPTION 03-03-2019 Saurabh L [facility] COMPRESSION GLOVES SIZE (98421) SMALL-MEDIUM DX ARTHRITIS Compression:20-30mmg 1 Package 2 03/03/2019 Active COMPOUNDED PRESCRIPTION 03-03-2019 Saurabh L [facility] COMPRESSION GLOVES SIZE (69247) SMALL-MEDIUM DX ARTHRITIS Compression:20-30mmg 1 Package 2 03/03/2019 Active Comment: COMPRESSION GLOVES SIZE SMAL L-MEDIUM DX ARTHRITIS Compression:20-30mmg hydroCHLOROthiazide hydroCHLOROthiazide 03-13-2020 Saurabh Higgins levellaurence (HYDRODIURIL, ESIDRIX) 25 [facility] (15200) mg tablet Take 1 tablet by mouth once daily. 90 tablet 1 03/13/2020 Active Comment: Take 1 tablet by mouth once daily. hydroCHLOROthiazide / losartan HYZAAR 100-12.5 MG TABS 02-03-2017 [facility] Now Clinic take as directed (66599) LOSARTAN POTASSIUM-HCTZ [id number] Anisa Negron LPN HYZAAR 100-12.5 MG TABS take as directed 02-03-2017 [facility] Now Clinic (91040) LOSARTAN POTASSIUM-HCTZ [id number] Anisa Negron LPN Ketorolac ketorolac (TORADOL) 04-11-2020 - Saurabh Tolbert [facility] 10 mg tablet Take 1 06-06-2020 (16449) tablet by mouth once daily as needed for Pain. 20 tablet 1 06/06/2020 Active Comment: Take 1 tablet by mouth once daily as needed for Pain. krill oil KRILL OIL CAPS take as directed 02-03-2017 [facility] Now [facility] (01460) KRILL OIL CAPS [id number] Anisa Negron LPN KRILL OIL CAPS take as directed KRILL 02-03-2017 [facility] (16404) OIL CAPS [id number] Anisa Negron LPN Leg Brace (ELASTIC Leg Brace (ELASTIC 04-07-2019 Lyssa ([facility] KNEE SUPPORT) [facility]EE [facility]) [facility] [place]agen ( 93127) Each once daily. Knee sleeve/amparo compression sleeve to the left knee. 1 Each 0 04/07/2019 Active Leg Brace (ELASTIC KNEE 04-07-2019 Lyssa ([facility]) [facility] (52312) SUPPORT) [facility] 1 Each once daily. Knee sleeve/amparo compression sleeve to the left knee. 1 Each 0 04/07/2019 Active Leg Brace (ELASTIC KNEE 04-07-2019 Lyssa ([facility]) [facility] (58348) SUPPORT) [facility] Each once daily. Knee sleeve/amparo compression sleeve to the left knee. 1 Each 0 04/07/2019 Active Leg Brace (ELASTIC KNEE 04-07-2019 Lyssa ([facility]) [facility] (55094) SUPPORT) [facility] 1 Each once daily. Knee sleeve/amparo compression sleeve to the left knee. 1 Each 0 04/07/2019 Active Leg Brace (ELASTIC KNEE 04-07-2019 [place]sa ([facility]) [facility] (38640) SUPPORT) [facility] Each once daily. Knee sleeve/amparo compression sleeve to the left knee. 1 Each 0 04/07/2019 Active Leg Brace (ELASTIC KNEE 04-07-2019 Lyssa ([facility]) [facility] (99822) SUPPORT) misc 1 Each once daily. Knee sleeve/amparo compression sleeve to the left knee. 1 Each 0 04/07/2019 Active Leg Brace (ELASTIC KNEE 04-07-2019 Lyssa ([place]) [facility] (61892) SUPPORT) misc 1 Each once daily. Knee sleeve/amparo compression sleeve to the left knee. 1 Each 0 04/07/2019 Active Comment: 1 Each once daily. Knee slee ve/amapro compression sleeve to the left knee. Losartan losartan (COZAAR) 100 mg 03-13-2020 [place] Didi Yanezsabao n [facility] tablet Take 1 tablet by (441 95) mouth once daily. 90 tablet 1 03/13/2020 Active Comment: Take 1 tablet by mouth once daily. Miscellaneous Medical Miscellaneous Medical 03-27-2015 [facility] Supply (BLOOD Supply (BLOOD [place] (46413) PRESSURE CUFF) mis PRESSURE CUFF) mis 1 Units as directed. 1 Each 0 03/27/2015 Active Miscellaneous Medical Supply 03-27-2015 Saurabh L [place] C [facility] (37534) (BLOOD PRESSURE CUFF) [facility] 1 Units as directed. 1 Each 0 03/27/2015 Active Miscellaneous Medical Supply 03-27-2015 Saurabh L Hayes C [facility] (32790) (BLOOD PRESSURE CUFF) mis 1 Units as directed. 1 Each 0 03/27/2015 Active Miscellaneous Medical Supply 03-27-2015 Saurabh L Hayes C [facility] (90273) (BLOOD PRESSURE CUFF) mis 1 Units as directed. 1 Each 0 03/27/2015 Active Miscellaneous Medical Supply 03-27-2015 Saurabh L Hayes C [facility] (55458) (BLOOD PRESSURE CUFF) mis 1 Units as directed. 1 Each 0 03/27/2015 Active Miscellaneous Medical Supply 03-27-2015 Saurabh L Hayes C [facility] (62793) (BLOOD PRESSURE CUFF) mis 1 Units as directed. 1 Each 0 03/27/2015 Active Miscellaneous Medical Supply 03-27-2015 Saurabh L Hayes C [facility] (73447) (BLOOD PRESSURE CUFF) mis 1 Units as directed. 1 Each 0 03/27/2015 Active Comment: 1 Units as directed. omega-3 fatty omega-3 fatty acids 03-14-2020 ([facility]) [facility] acids 1,000 mg 1,000 mg cap Take 1 Podlogar (28690 ) cap capsule by mouth once daily. 150 capsule 1 03/14/2020 Active omega-3 fatty acids 1,000 mg 03-14-2020 ([facility]) Podloga r [facility] (04030) cap Take 1 capsule by mouth once daily. 150 capsule 1 03/14/2020 Active omega-3 fatty acids 1,000 mg 03-14-2020 ([facility]) Podloga r [facility] (92982) cap Take 1 capsule by mouth once daily. 150 capsule 1 03/14/2020 Active omega-3 fatty acids 1,000 mg 03-14-2020 ([facility]) Podloga r [facility] (29041) cap Take 1 capsule by mouth once daily. 150 capsule 1 03/14/2020 Active omega-3 fatty acids 1,000 mg 03-14-2020 ([facility]) Podloga r [facility] (45242) cap Take 1 capsule by mouth once daily. 150 capsule 1 03/14/2020 Active omega-3 fatty acids 1,000 mg 03-14-2020 ([facility]) Podloga r [facility] (70622) cap Take 1 capsule by mouth once daily. 150 capsule 1 03/14/2020 Active omega-3 fatty acids 1,000 mg 03-14-2020 ([facility]) Podloga r [facility] (14636) cap Take 1 capsule by mouth once daily. 150 capsule 1 03/14/2020 Active Comment: Take 1 capsule by mouth once daily. Omeprazole omeprazole (PRILOSEC) 20 08-02-2018 Saurabh Mckeon n [facility] mg capsule Indications: (441 95) GERD without esophagitis Take 1 capsule by mouth daily before breakfast. 1/2 hr before meal. 90 capsule 1 08/02/2018 Active Comment: Take 1 capsule by mouth gonzalez y before breakfast. 1/2 hr before meal. PARoxetine PARoxetine (PAXIL) 40 02-15-2020 Saurabh Higgins [facility] mg tablet Take 1 tablet (441 95) by mouth once daily. 90 tablet 1 02/15/2020 Active Comment: Take 1 tablet by mouth once daily. Phenazopyridine phenazopyridine 10-07-2019 Saurabh Didi [place] [facility] (PYRIDIUM) 200 mg tablet (44 195) Take 1 tablet by mouth three times daily as needed. 6 tablet 4 10/07/2019 Active Comment: Take 1 tablet by mouth three times daily as needed. Potassium Chloride potassium chloride 03-13-2020 Saurabh cohn [facility] ER (K-DUR, KLOR-CON) (01692) 20 mEq tablet Take 1 tablet by mouth once daily. 30 tablet 2 03/13/2020 Active Comment: Take 1 tablet by mouth once daily. potassium,chelated POTASSIUM 99 MG TABS take as 02-03-2017 [facility] (42323) directed POTASSIUM [id number] Anisa Negron ROTARY DRIER OPERATOR POTASSIUM 99 MG TABS take as directed 02-03-2017 [facility] (50618) POTASSIUM [id number] Anisa Negron ROTARY DRIER OPERATOR TENS unit and TENS unit and 04-24-2016 [place] Did[place] [facility] electrodes cmpk electrodes [facility] (80580) Indications: Fibromyalgia 1 Units twice daily. 1 Device 0 04/24/2016 Active TENS unit and electrodes cmpk 04-24-2016 [place] Didi [facility] (16949) Indications: Fibromyalgia 1 Units twice daily. 1 Device 0 04/24/2016 Active TENS unit and electrodes cmpk 04-24-2016 [facility] (23392) Indications: Fibromyalgia 1 Units twice daily. 1 Device 0 04/24/2016 Active TENS unit and electrodes cmpk 04-24-2016 [place] Didi [facility] (14278) Indications: Fibromyalgia 1 Units twice daily. 1 Device 0 04/24/2016 Active TENS unit and electrodes cmpk 04-24-2016 [facility] (28519) Indications: Fibromyalgia 1 Units twice daily. 1 Device 0 04/24/2016 Active TENS unit and electrodes cmpk 04-24-2016 [facility] (83548) Indications: Fibromyalgia 1 Units twice daily. 1 Device 0 04/24/2016 Active TENS unit and electrodes cmpk 04-24-2016 [facility] (81834) Indications: Fibromyalgia 1 Units twice daily. 1 Device 0 04/24/2016 Active Comment: 1 Units twice daily. tiZANidine tiZANidine (ZANAFLEX) 4 mg 03-29-2020 Landry Cuadra [facility] Clinic (85171) tablet Take 1 tablet by mouth three times daily as needed. 90 tablet 0 03/29/2020 Active ZANAFLEX 2 MG CAPS take as directed 02-03-2017 [facility] Clinic (73060) TIZANIDINE HCL [id number] Anisa Negron LPN Comment: Take 1 tablet by mouth three times daily as needed. Triamcinolone triamcinolone acetonide 02-10-2019 Liset Tolbert ([facility]) C [facility] (NASACORT) 55 mcg nasal Corniello (441 95) inhaler Indications: Seasonal allergic rhinitis, unspecified trigger Use 2 Sprays in the nose once daily. 1 Inhaler 5 02/10/2019 Active Comment: Use 2 Sprays in the nose onc e daily. Problems Active Problems Category Problem Name Status Date Location Allergic reactions Urticaria Active [facility] (99505) Anxiety disorders Anxiety attack Active 03-30-2018 - [facility] (77807) Diabetes mellitus Type 2 diabetes mellitus Active 11-17-2013 - [facility] without complication without complication (12089) Disorders of lipid Hyperlipidemia Active 09-24-2012 - [facility] metabolism (76281) Essential hypertension Essential hypertension Active 09-24-19 - [facility] (79531) Mood disorders Depressive disorder Active 09-24-2012 - [facility] (13217) Other connective Pain of bilateral hands Active 03-29-2019 - [facility] tissue disease (39078) Other liver diseases Steatosis of liver Active 03-29-2019 - [facility] (62768) Unclassified Sprain of talofibular Active 02-28-2019 - [facility] ligament of left ankle (4419 5) Unclassified Patient encounter status Active [facility] [place] [facility] (91079) Past or Other Problems Category Problem Name Status Date Location Conditions associated Benign paroxysmal Completed 05-20-2013 - [facility] with dizziness or positional vertigo (441 95) vertigo Fluid and electrolyte Hypokalemia Completed 11-28-2014 - [facility] disorders (81858) Genitourinary symptoms Dysuria Completed 03-20-2017 - [facility] and ill-defined (16550) conditions Inflammation, infection Blepharitis Completed 02-03-2017 - [facility] Now Clinic of eye (25564) Other connective tissue Soft tissue lesion of Completed 06-19-20 14 - [facility] disease shoulder region (83179) Other connective tissue Lateral epicondylitis Completed 06-19-20 14 - [facility] disease (38528) Other connective tissue Muscle, ligament and Completed - [facility] disease fascia disorders (42150) Other connective tissue Enthesopathy of hip Completed 08-19-2013 - [facility] disease region (49651) Other connective tissue Fibromyalgia Completed 09-24-2012 - [facility] disease (87387) Other ear and sense Otalgia Completed 05-20-2013 - [facility] organ disorders (95115) Other non-traumatic Shoulder pain Completed 08-29-2014 - [facility] joint disorders (37486) Other skin disorders Swelling of hand Completed 03-29-2019 - [facility] [place] [facility] (88734) Spondylosis; Chronic low back pain Completed 11-14-2016 - [facility] intervertebral disc (56647) disorders; other back problems Results Result Name Value Range Unit Interpretation Flag Date Location [facility] screening on 26-06-16 [facility] SCREENING * * *Final Report* * * Normal [facility] DATE OF EXAM: Jun 22 2020 11:46AM [place] ([id number]) [facility] 0581 - [facility] SCREENING / PROCEDURE REASON: Encounter for screening mammogram for eran gnant neoplasm of breast * * * * Physician Interpretation * * * * RESULT: #[id number] - [facility] SCREENING BILATERAL DIGITAL SCREENING MAMMOGRAM WITH CAD: [...] exams dated: 04/07/2019 mammogram, 018 mammogram - [facility], 11/19/2016 mammogr am, and 10/26/2015 mammogram - [facility]. The tissue o f both breasts is predominantly fatty. No significant masses, calcifications, or other findings are seen in either breast. There has been no significant interval change. IMPRESSION: NEGATIVE There is no mammographic evidence of malignancy. A 1 year sc reening mammogram is recommended. Sarah steele/evelyn:06/22/2020 12:00:31 Loan Secretary(s): Ellyn Clark RT(R)(M), [facility] letter sent: Normal over 40 Mammogram BI-RADS: [...] Health, Family Medicine, and Medical/Surgical Oncology, [facility] has carefully reviewed the data and reached [...] providers when to sto p screening mammograms. [place] Cutting Machine Operator: Evelyn Transcribe Date/Time: Jun 22 2020 11:30A Dictated by: SARAH MORENO MD This examination was interpreted and the report reviewed and electronically signed by: SARAH MORENO MD on Jun 22 2020 12:00PM EST [id number] No panel information on 2020-06-22 [facility] (47171) obsolete on 2020-05 OBSOLETE Refill (FAMPWS) Normal 06-06-2020 [facility] NAMRATA PENG Rkia ([id number]) 1965 [facility] Date Time Provider Department (19672) 06/06/20 SAURABH HAYES During your visit today, [...] worse LATEX 03/22/2013 2 - Rash Comments: Food And Beverage Manager calls it sensitivity per pt VICODIN (HYDROCODONE-ACETAMINOPHE*11/28/2013 [...] on 2020-05 OBSOLETE Refill (FAMPWS) Normal 05-31-2020 [facility] NAMRATA PENG ([id number]) 1965 [facility] Time Provider Department (11361) 05/31/20 SAURABH HAYES FAMDarvinWS During your visit [...] ov: 01/2020 Last refill: 04/2020 Nov: 07/2020 Eliceo Humphries APRN.CNP 05/31/2020 1:47 PM Signed The [...] worse LATEX 03/22/2013 2 - Rash Comments: Food And Beverage Manager calls it sensitivity per pt VICODIN (HYDROCODONE-ACETAMINOPHE*11/28/2013 [...] Potassium [Moles/Vol] 3.8 3.7-5.1 mmol/L Normal 05-30-20 [facility] (89589) Comment: Performed By: #### K1 ####Cl [facility] [place], [place] [phone] cnpn on 2020-05-29 [facility]) Normal 05-29-2020 [place] [facility] NAMRATA PENG ([id number]) 1965 [facility] Date Time Provider Department (54816) 05/29/20 [facility] During your visit today, we recorded the following informati on about you: Precious Rahel JAMA 05/29/2020 10:51 AM Signed Patient calling was in [facility] early January for dental infection, told to [...] worse LATEX 03/22/2013 2 - Rash Comments: Food And Beverage Manager calls it sensitivity per pt VICODIN (HYDROCODONE-ACETAMINOPHE*11/28/2013 [...] * *Final Report* * * Normal 2019 [facility] AP/LAT RT DATE OF EXAM: May 17 2020 12:16PM [place] ([id number]) WRX 5207 - XR KNEE 2V AP/LAT [...] swelling . IMPRESSION: No acute osseous findings. [place] Cutting Machine Operator: PSCB Transcribe Date/Time: May 17 2020 12:23P Dictated by : JUDY LEAVITT DO This examination was interpreted and the report reviewed and electronically signed by: JUDY LEAVITT DO on May 17 2020 12:24PM EST [id number] progress on 2020-05 PROGRESS HNO ID: [id number] Normal 05-17-2020 [facility] Author: Lacey Rios (RtCaitlyn Irvin [facility] ([id number]) Service: ? Author Type: Electrical Project Engineer Type: Progress Notes Filed: 05/17/2020 12:16 PM [...] 12:15 PM No panel information on 2020-05-17 [facility] (84328) progress on 2020-05 PROGRESS HNO ID: [id number] Normal 2020 [facility] Author: Elvia Petrona Pss [place] ([id number]) Service: ? Author Type: ? Type: Progress Notes Filed: 2020 11:01 AM Note Text: Contacted patient, she will call when ready to do her colono scopy. Other health issues and concerns that will need to take care of fi rst. -Elvia Russ Pss progress on 2020-05 PROGRESS HNO ID: [id number] Normal 05-08-2020 [facility] Author: Deysi Jensen [place] ([id number]) Service: ? Author Type: Physician Type: Progress [...] - Lipids Mother - Heart Paternal Grandfather RI - Heart Maternal Grandfather RI - Cancer Maternal Grandfather lukemia - other [...] genitalia normal, normal Bartholin's glands , urethra, [place]'s glands, no vulvar lesions, no cervical lesions, [...] needed Deysi Almaraz MD PROGRESS HNO ID: [id number] Normal 05-08-2020 [facility] Author: Suzie Boland Ma [place] ([id number]) Service: ? Author Type: ? Type: Progress Notes Filed: 05/08/2020 4:55 PM Note Text: Senior Accountant offered: Patient declines. cnov on 2020-05-08 CNOV Office Visit (OBGYWM) Normal 05-08-20 [place] [facility] NAMRATA PENG ([id number]) 1965 [facility] Date Time Provider Department ([id number]) 05/08/20 2:30 PM DEYSI PATIÑO OBGYWM During your visit today, we recorded the following informati on about you: Blood pressure Weight Height 132/74 93.4 kg 1.56 m Suzie Boland Ma 05/08/2020 4:55 PM Signed Senior Accountant offered: Patient declines. Deysi Almaraz MD 05/08/2020 [...] of incarcerated recurrent ventral hernia - OTHER [facility] - REMOVE TONSILS/ADENOIDS,<12 Y/O - REPAIR INCISIONAL HERNIA,HELEN 04/29/2017 Strangulate ventral hernia with transverse colon FAMILY HISTORY Problem Relation Age of Onset - Hypertension Mother - Lipids Mother - Heart Paternal Grandfather RI - Heart Maternal Grandfather RI - Cancer Maternal Grandfather lukemia - other [...] genitalia normal, anat l Bartholin's glands, urethra, [place]'s glands, no vulvar lesions, no cervical lesions, [...] st. -Elvia Carmona Referring Provider: DEYSI PATIÑO [[id number]] Allergies As of Date: 05/08/2020 Noted Allergy Reaction IMITREX (SUMATRIPTAN SUCCINATE) 09/24/2012 10 - Anaphylaxis SULFA DRUGS (SULFA (SULFONAMIDE A*09/24/2012 2 - Rash Comments: Rash all over AMPARO INHIBITORS 09/24/2012 14 - Other: See Comments Comments: Makes asthma worse LATEX 03/22/2013 2 - Rash Comments: Food And Beverage Manager calls it sensitivity per pt VICODIN (HYDROCODONE-ACETAMINOPHE*11/28/2013 8 - GI Upset Date Reviewed: 05/08/2020 Reviewed by: Suzie Boland Ma - Fully Assessed Reason for Visit: Yearly Exam [187] Primary Visit Diagnosis:Encounter for gynecological examinat ion without abnormal finding [Z01.419] Other Visit Diagnoses:Encounter for screening mammogram for malignant neoplasm of breast [Z12.31] Screening for colon cancer [Z12.11] Order(s):NOLAN SCREENING [[id number]] Order #: [id number] FUTURE COLONOSCOPY SCRN NOT HIGH RISK [[id number]] Order #: [id number] FUTURE Prescriptions as of 05/08/2020 Sig: [...] Cholesterol [Mass/Vol] 286 <200 mg/dL High 020 [facility] (16710) Comment: Result Comment: <200 mg/dL, Desirable 200-239 mg/dL, Borderline hi gh >239 mg/dL, High Performed By: #### CBC, CMP, LIPB, HBA1C ####[facility] [place], [place] [phone] Cholesterol in HDL 75 >39 mg/dL Normal 04-16-2020 [facility] [Mass/Vol] (98531) Comment: Result Comment: 40-59 mg/dL, Acceptable >59 mg/dL, High: Negative ri sk factor for coronary heart disease <40 mg/dL, Low: Positive ris k factor for coronary heart disease Performed By: #### CBC, CMP, LIPB, HBA1C ####[facility] [address] [place], [place] [phone] Cholesterol in LDL 189 <100 mg/dL High 04-16-2020 [facility] [Mass/Vol] (32450) Comment: Result Comment: <100 mg/dL, Optimal 100-129 mg/dL, Near optimal/ above optimal 130-159 mg/dL, Borderline hi gh 160-189 mg/dL, High >189 mg/dL, Very high Secondary prevention optimal LDL Cholesterol levels are recommended to be < 70 mg/dL Performed By: #### CBC, CMP, LIPB, HBA1C ####[place] [id number] [place], [place] [phone] Fasting Time 12 hrs Normal 04-16-2020 [facility] (60627) Comment: Performed By: #### CBC, CMP, LIPB, HBA1C ####[address] [place], [place] [phone] LDL:HDL Ratio 2.52 <2.54 Normal 04-16-2020 [facility] (51260) Comment: Result Comment: Reference: 1. National Cholesterol Educ ation Program ATP III Guideline At-A-Glance Quick Desk Reference: National Heart, Lung, and Blood [place]. National Institutes of Health. 2001: NIH Publication No. 01-3305. 2. An International Atherosc lerosis Society position paper: global recommendations for the management of dyslipidemia: executive summary, Atherosclerosis. 2014: 232(2):410-413. Performed By: #### CBC, CMP, LIPB, HBA1C ####[address] [phone] Non HDL Cholesterol 211 <130 mg/dL High 04-16-2020 [facility] (95547) Comment: Result Comment: <130 mg/dL, Optimal 130-159 mg/dL, Near optimal/ above optimal 160-189 mg/dL, Borderline hi gh 190-219 mg/dL, High >219 mg/dL, Very high Secondary prevention optimal non HDL Cholesterol levels are recommended to be < 100 mg/dL Performed By: #### CBC, CMP, LIPB, HBA1C ####[place] [address] [place], [place] [phone] TC:HDL Ratio 3.81 <5.10 Normal 04-16-2020 [facility] (90255) Comment: Performed By: #### CBC, CMP, LIPB, HBA1C ####[facility], [place] [phone] Triglyceride [Mass/Vol] 111 <150 mg/dL Normal 2019 [facility] (88940) Comment: Result Comment: <150 mg/dL, Normal 150-199 mg/dL, Borderline hi gh 200-499 mg/dL, High >499 mg/dL, Very high Performed By: #### CBC, CMP, LIPB, HBA1C ####[place] [address] [place], [place] [phone] VLDL Cholesterol 22 <30 mg/dL Normal 04-16-2020 [facility] (65449) Comment: Performed By: #### CBC, CMP, LIPB, HBA1C ####[place] [address] [place], [place] [phone] hemoglobin a1c on 2 HbA1c (Bld) [Mass fraction] 5.6 4.3-5.6 % Normal [facility] (61212) Comment: Result Comment: Australian Corie betes Association guidelines indicate that patients with HgbA1c in the range 5.7-6.4% are at increased risk for development of diabetes, and intervention by lifestyle modification may be beneficial. HgbA1c greater o r equal to 6.5% is considered diagnostic of diabetes. Performed By: #### CBC, CMP, LIPB, HBA1C ####[place] [address] [place], [place] [phone] HbA1c (Bld) [Mass fraction] 114 mg/dL Normal [facility] (94903) Comment: Result Comment: eAG: (Estima julianna average glucose) is a calculated value from HgbA1c and is territory account representative of the average blood glucose level in the last 2-3 month period. Performed By: #### CBC, CMP, LIPB, HBA1C ####[place] [address] [place], [place] [phone] comp metabolic panel on 2020-04-16 Albumin [Mass/Vol] 4.2 3.9-4.9 g/dL Normal 04-16-2020 [facility] (05860) Comment: Performed By: #### CBC, CMP, LIPB, HBA1C ####[place] [address] [place], [place] [phone] ALP [Catalytic activity/Vol] 65 34-123 U/L Normal 0 8-10-2020 [facility] (72125) Comment: Performed By: #### CBC, CMP, LIPB, HBA1C ####[facility] [place] [place], [place] [phone] ALT [Catalytic activity/Vol] 14 7-38 U/L Normal 0 04-16-2020 [facility] (94992) Comment: Performed By: #### CBC, CMP, LIPB, HBA1C ####[facility] [place] [place], [place] [phone] Anion gap [Moles/Vol] 13 9-18 mmol/L Normal 04-16-20 20 [facility] (93414) Comment: Performed By: #### CBC, CMP, LIPB, HBA1C ####[place] [address] [place], [place] [phone] AST [Catalytic activity/Vol] 18 13-35 U/L Normal 0 04-16-2020 [facility] (26621) Comment: Performed By: #### CBC, CMP, LIPB, HBA1C ####[facility] [place], [place] [phone] Bilirubin [Mass/Vol] 0.3 0.2-1.3 mg/dL Normal 0 [facility] (08364) Comment: Performed By: #### CBC, CMP, LIPB, HBA1C ####[facility] [place], [place] [phone] Calcium [Mass/Vol] 8.9 8.5-10.2 mg/dL Normal 04-16-2020 [facility] (63416) Comment: Performed By: #### CBC, CMP, LIPB, HBA1C ####[facility] [place], [place] [phone] Chloride [Moles/Vol] 103 97-105 mmol/L Normal 0 [facility] (49638) Comment: Performed By: #### CBC, CMP, LIPB, HBA1C ####[facility] [address] [place], [place] [phone] CO2 [Moles/Vol] 24 22-30 mmol/L Normal 04-16-2020 [facility] (98241) Comment: Performed By: #### CBC, CMP, LIPB, HBA1C ####[facility] [address] [place], [place] [phone] Creatinine [Mass/Vol] 0.72 0.58-0.96 mg/dL Normal 04-16-20 20 [facility] (39862) Comment: Performed By: #### CBC, CMP, LIPB, HBA1C ####[facility] [place], [place] [phone] eGFR- Amer. >60 Normal 04-16-2020 [facility] (51020) Comment: Performed By: #### CBC, CMP, LIPB, HBA1C ####[facility] [place], [place] [phone] GFR/1.73 sq M predicted >60 mL/min/{1.73_m2} Normal 04-16-2020 [facility] among non-blacks [facility] [place] ([address]55) (S/P/Bld) [Vol rate/Area] Comment: Result Comment: eGFR [...] Performed By: #### CBC, CMP, LIPB, HBA1C ####[facility] [address] [place], [place] [phone] Glucose [Mass/Vol] 64 74-99 mg/dL Low 04-16-2020 [facility] (85459) Comment: Result Comment: The Australian Diabetes Association (ADA) provides guidance for cutoff [...] for diagnosis of diabetes. Reference: Standards of [facility] Care in Diabetes 2016, Australian Diabetes Association. Diabetes Care. 2016.39(Suppl 1). Performed By: #### CBC, CMP, LIPB, HBA1C ####[place] [address] [place], [place] [phone] Potassium [Moles/Vol] 4.3 3.7-5.1 mmol/L Normal 04-16-20 [facility] (50128) Comment: Performed By: #### CBC, CMP, LIPB, HBA1C ####[place] [address] [place], [place] [phone] Protein [Mass/Vol] 6.8 6.3-8.0 g/dL Normal 04-16-2020 [facility] (40582) Comment: Performed By: #### CBC, CMP, LIPB, HBA1C ####[facility] [place], [place] [phone] Sodium [Moles/Vol] 140 136-144 mmol/L Normal 04-16-2020 [facility] (71992) Comment: Performed By: #### CBC, CMP, LIPB, HBA1C ####[place] [address] [place], [place] [phone] Urea nitrogen [Mass/Vol] 17 7-21 mg/dL Normal 04-16 [facility] (41685) Comment: Performed By: #### CBC, CMP, LIPB, HBA1C ####[facility] [place], [place] [phone] cbc on 2020-04-16 Absolute nRBC <0.01 <0.01 Normal 04-16-2020 [facility] (15590) Comment: Performed By: #### CBC, CMP, LIPB, HBA1C ####[place] [address] [place], [place] [phone] Erythrocyte distribution 14.0 11.5-15.0 % Normal 04-16 [facility] width (RBC) [Ratio] [place] (98395) Comment: Performed By: #### CBC, CMP, LIPB, HBA1C ####[place] [address] [place] [phone] Hematocrit (Bld) [Volume 44.2 36.0-46.0 % Normal 04-16 [facility] fraction] [place] (87008) Comment: Performed By: #### CBC, CMP, LIPB, HBA1C ####[place] [address] [place], [place] [phone] Hemoglobin (Bld) 14.1 11.5-15.5 g/dL Normal 04-16-2020 [facility] [Mass/Vol] [place] (13957) Comment: Performed By: #### CBC, CMP, LIPB, HBA1C ####[place] [address] [place], [place] [phone] MCH (RBC) [Entitic mass] 29.9 26.0-34.0 pG Normal 04-16 [facility] (95210) Comment: Performed By: #### CBC, CMP, LIPB, HBA1C ####[place] [address] [place] [phone] MCHC (RBC) [Mass/Vol] 31.9 30.5-36.0 g/dL Normal 04-16-20 20 [facility] (67666) Comment: Performed By: #### CBC, CMP, LIPB, HBA1C ####[place] [address] [place], [place] [phone] MCV (RBC) [Entitic vol] 93.8 80.0-100.0 fL Normal 04-16 [facility] (07414) Comment: Performed By: #### CBC, CMP, LIPB, HBA1C ####[place] [address] [place], [place] [phone] Platelet mean volume 9.2 9.0-12.7 fL Normal 0 [facility] (Bld) [Entitic vol] (66365) Comment: Performed By: #### CBC, CMP, LIPB, HBA1C ####[place] [address] [place], [place] [phone] Platelets (Bld) [#/Vol] 375 150-400 k/uL Normal 2019 [facility] (13469) Comment: Performed By: #### CBC, CMP, LIPB, HBA1C ####[place] [address] [place], [place] [phone] RBC (Bld) [#/Vol] 4.71 3.90-5.20 m/uL Normal 04-16-2020 C [facility] (86124) Comment: Performed By: #### CBC, CMP, LIPB, HBA1C ####[place] [address] [place], [place] [phone] WBC (Bld) [#/Vol] 8.82 3.70-11.00 k/uL Normal 04-16-2020 [facility] (36127) Comment: Performed By: #### CBC, CMP, LIPB, HBA1C ####[place] [address] [place], [place] [phone] cnpn on 2020-04-11 CNPN Telephone (FAMPWS) Normal 04-11-2020 [place] [facility] NAMRATA PENG ([id number]) 1965 [facility] Date Time Provider Department (05021) 04/11/20 SAURABH HAYES During your visit today, we recorded the following informati on about you: Vashti Patel Pss 04/11/2020 1:04 PM Signed Patient states she was supposed to have Paxil and Torodal Phoned in to [facility] yesterday Chanell Majano CMA, MA 04/11/2020 [...] worse LATEX 03/22/2013 2 - Rash Comments: Food And Beverage Manager calls it sensitivity per pt VICODIN (HYDROCODONE-ACETAMINOPHE*11/28/2013 [...] 04/11/20 progress on 2020-04 PROGRESS HNO ID: [id number] Normal 04-10-2020 [facility] Author: Saurabh Hayes [place] ([id number]) Service: ? Author Type: Physician Type: Progress [...] Comments Makes asthma worse - Latex Rash Food And Beverage Manager calls it sensitivity per pt - Vicodin [...] See patient instructions. Saurabh Hayes DO [address] [place] [address] cnov on 2020-04-10 CNOV Office Visit (FAMPWS) Normal 04-10-[address] [place] [address] [facility] NAMRATA PENG ([id number]) 1965 [facility] Date Time Provider Department ([id number]) 04/10/20 12:00 PM [facility] During your visit today, we recorded the [...] twice daily. - Miscellaneous Medical Supply (BLOOD NH ESSURE CUFF) misc 1 Units as directed. [...] Comments Makes asthma worse - Latex Rash Food And Beverage Manager calls it sensitivity per pt - Vicodin [...] plan. See patient instructions. Saurabh Hayes DO [address] [place] [address] Referring Provider: SAURABH HAYSE [[id number]] Allergies As of Date: 04/10/2020 Noted Allergy Reaction IMITREX (SUMATRIPTAN SUCCINATE) 09/24/2012 10 - Anaphylaxis SULFA DRUGS (SULFA (SULFONAMIDE A*09/24/2012 2 - Rash Comments: Rash all over AMPARO INHIBITORS 09/24/2012 14 - Other: See Comments Comments: Makes asthma worse LATEX 03/22/2013 2 - Rash Comments: Food And Beverage Manager calls it sensitivity per pt VICODIN (HYDROCODONE-ACETAMINOPHE*11/28/2013 [...] 2020-03 OBSOLETE Refill (FAMPWS) Normal 03-28-2020 [facility] NAMRATA PENG ([id number]) 1965 [place] Date Time Provider Department (07514) 03/28/20 SAURABH HAYES During your visit today, [...] worse LATEX 03/22/2013 2 - Rash Comments: Food And Beverage Manager calls it sensitivity per pt VICODIN (HYDROCODONE-ACETAMINOPHE*11/28/2013 8 - GI Upset Date Reviewed: 01/12/2020 Reviewed by: Adan (Dnp.Auto Damage Appraiser) ОЛЕГ Armendariz.COMMERCIAL PRODUCER - Fully Assesse d Reason for Visit: [...] OBSOLETE Refill (FAMPWS) Normal 03-14-2020 Bakari maricel [facility] NAMRATA PENG ([id number]) 1965 [facility] Time Provider Department (14060) 03/14/20 SAURABH HAYES FAMPWS During your visit [...] worse LATEX 03/22/2013 2 - Rash Comments: Food And Beverage Manager calls it sensitivity per pt VICODIN (HYDROCODONE-ACETAMINOPHE*11/28/2013 8 - GI Upset Date Reviewed: 01/12/2020 Reviewed by: Adan (Dnp.Auto Damage Appraiser) ОЛЕГ Armendariz.COMMERCIAL PRODUCER - Fully Assesse d Reason for Visit: [...] Normal 03-12-2020 Bakari connelly Viviane PENGNAMRATA A ([id number]) 1965 [facility] Date Time Provider Department (33995) 03/12/20 SAURABH HAYES During your visit today, [...] worse LATEX 03/22/2013 2 - Rash Comments: Food And Beverage Manager calls it sensitivity per pt VICODIN (HYDROCODONE-ACETAMINOPHE*11/28/2013 [...] OBSOLETE Refill (FAMPWS) Normal 02-14-2020 Bakari connelly [facility] NAMRTAA PENG ([id number]) 1965 [facility] Date Time Provider Department (84200) 02/14/20 SAURABH HAYESPDUSTIN During your visit today, [...] worse LATEX 03/22/2013 2 - Rash Comments: Food And Beverage Manager calls it sensitivity per pt VICODIN (HYDROCODONE-ACETAMINOPHE*11/28/2013 8 - GI Upset Date Reviewed: 01/12/2020 Reviewed by: Adan (Dnp.Auto Damage Appraiser) ОЛЕГ Armendariz.COMMERCIAL PRODUCER - Fully Assesse d Reason for Visit: [...] on 02/15/20 OBSOLETE Refill (FAMPWS) Normal 02-14-2020 [facility] NAMRATA PENG ([id number]) 1965 [facility] Time Provider Department (15795) 02/14/20 SAURABH HAYES FAMPWS During your visit [...] worse LATEX 03/22/2013 2 - Rash Comments: Food And Beverage Manager calls it sensitivity per pt VICODIN (HYDROCODONE-ACETAMINOPHE*11/28/2013 8 - GI Upset Date Reviewed: 01/12/2020 Reviewed by: Adan (Lj.Auto Damage Appraiser) ОЛЕГ Armendariz.TEE - Fully Assesse d Reason [...] on 02/15/20 teen on 2020-02-14 [facility] Normal 02-14-2020 [place] [facility] NAMRATA PENG ([id number]) 1965 [facility] Date Time Provider Department (33494) 02/14/20 SAURABH HAYES During your visit today, we recorded the following informati on about you: Vashti Patel Pss 02/14/2020 3:47 PM Signed Patient having upper respiratory and Now feeling in chest Cough not going away Please call to advise [phone] Saurabh Hayes DO 02/14/2020 4:43 PM Signed [...] worse LATEX 03/22/2013 2 - Rash Comments: Food And Beverage Manager calls it sensitivity per pt VICODIN (HYDROCODONE-ACETAMINOPHE*11/28/2013 8 - GI Upset Date Reviewed: 01/12/2020 Reviewed by: Adan (Lj.Auto Damage Appraiser) ОЛЕГ Armendariz.TEE - Fully Assesse d Reason [...] OBSOLETE Refill (FAMPWS) Normal 02-05-2020 Bakari veland [facility] NAMRATA PENG ([id number]) 1965 [facility] Time Provider Department ([id number]) 02/05/20 SAURABH HAYES FAMPWS During your visit [...] worse LATEX 03/22/2013 2 - Rash Comments: Food And Beverage Manager calls it sensitivity per pt VICODIN (HYDROCODONE-ACETAMINOPHE*11/28/2013 8 - GI Upset Date Reviewed: 01/12/2020 Reviewed by: Adan (Lj.Auto Damage Appraiser) ОЛЕГ Armendariz.TEE - Fully Assesse d Reason [...] on 2020-01 OBSOLETE Refill (FAMPWS) Normal 02-01-2020 [facility] NAMRATA PENG ([id number]) 1965 [facility] Time Provider Department (24483) 02/01/20 [facility] During your visit today, we recorded the following informati on about you: Allergies As of Date: 02/01/2020 Noted Allergy Reaction IMITREX (SUMATRIPTAN SUCCINATE) 09/24/2012 10 - Anaphylaxis SULFA DRUGS (SULFA (SULFONAMIDE A*09/24/2012 2 - Rash Comments: Rash all over AMPARO INHIBITORS 09/24/2012 14 - Other: See Comments Comments: Makes asthma worse LATEX 03/22/2013 2 - Rash Comments: Food And Beverage Manager calls it sensitivity per pt VICODIN (HYDROCODONE-ACETAMINOPHE*11/28/2013 8 - GI Upset Date Reviewed: 01/12/2020 Reviewed by: Adan (Lj.[facility]) ОЛЕГ Armendariz.TEE - Fully Assesse d [...] Potassium [Moles/Vol] 3.9 3.7-5.1 mmol/L Normal 01-13-20 [facility] () teen on 2020-01-13 CNPN Telephone (FAMPWS) Normal 01-13-2020 [place] [facility] NAMRATA PENG ([id number]) 1965 [facility] Date Time Provider Department () 01/13/20 ADAN ARMENDARIZ (LJ.TEE) FAMPWS During your visit today, we recorded the following informati on about you: Adan Armendariz DNP.TEE, SPOUT TENDER.COMMERCIAL PRODUCER 01/13/2020 1:12 PM Signed Inform patient. Potassium levels are back within the normal range. She can h old her hydrochlorothiazide and potassium at thi s time. Recheck potassium in one week. Will f/u with results once completed. ASSESSMENT/PLAN: 1. Hypokalemia - ICD9: 276.8, ICD10: E87.6 - POTASSIUM BLD Adan Armendariz DNP.TEE This note was completed with iMusician software. Note was reviewed for accuracy. There may be minor misspellings or gramm ar miscues with Trivop Dictation. [place] [address] Component Latest Ref Rng AND Units 01/13/2020 Potassium 3.7 - 5.1 mmol/L 3.9 Lorena Oleary Project Manager [employer] 01/13/2020 1:23 PM Signed Solexa message sent to patient. Lorena Oleary Project Manager [employer] Allergies As of Date: 01/13/2020 Noted Allergy Reaction IMITREX (SUMATRIPTAN SUCCINATE) 09/24/2012 10 - Anaphylaxis SULFA DRUGS (SULFA (SULFONAMIDE A*09/24/2012 2 - Rash Comments: Rash all over AMPARO INHIBITORS 09/24/2012 14 - Other: See Comments Comments: Makes asthma worse LATEX 03/22/2013 2 - Rash Comments: Food And Beverage Manager calls it sensitivity per pt VICODIN (HYDROCODONE-ACETAMINOPHE*11/28/2013 8 - GI Upset Date Reviewed: 01/12/2020 Reviewed by: Adan (Lj.Tee) ОЕЛГ Armendariz.TEE - Fully Assesse d Reason for Visit: Results [95] Primary Visit Diagnosis:Hypokalemia [E87.6] Order(s):POTASSIUM BLD [SQK1] Order #: [id number] FUTURE Prescriptions as of 01/13/2020 Sig: PENICILLIN [...] 01/13/20 progress on 2020-01 PROGRESS HNO ID: [id number] Normal 01-12-2020 [facility] Author: Adan (Dnp.Tee) DARLINE Armendariz [place] ([id number]) Service: ? Author Type: Nurse Practitioner Type: [...] agrees to the visit: Yes Patient Location: [facility] Namrata Peng is a 54 year old female who is contacted to day for a virtual visit This is an established patient of Dr. Saurabh Hayes DO. SUMMARY: - Pt admitted to [facility] on 01/09/20 and discharged o n 01/11/20 [...] was seen on January 08 at the [facility] andrew rgency department. She presented with swelling [...] - Lipids Mother - Heart Paternal Grandfather RI - Heart Maternal Grandfather RI - Cancer Maternal Grandfather lukemia - other (Other) Paternal Grandmother Althezimers - other (fibromyalgia) Sister - Diabetes Paternal Aunt - other (stomach cancer) Paternal Uncle Patient Allergies ALLERGIES Allergen Reactions - Imitrex [Sumatripta* Anaphylaxis - Sulfa Drugs [Sulfa * Rash Rash all over - Amparo Inhibitors Other: See Comments Makes asthma worse - Latex Rash Food And Beverage Manager calls it sensitivity per pt - Vicodin [...] Armendariz DNP.TEE This note was completed with Trivop dictation software. Note was reviewed for accuracy. There may be minor misspellings or gr ammar miscues with Trivop Dictation. [place] [id number] Total appointment time on virtual with patient = 30 minutes progress on 2019-12 PROGRESS HNO ID: [id number] Normal 01-05-2020 [facility] Author: Lyssa (Tee) Mary Alice [place] ([id number]) Service: ? Author Type: Nurse Practitioner Type: [...] agrees to the visit: Yes Patient Location: [facility] Namrata Peng is a 54 year old female who is contacted to day for a virtual visit This is an established patient of Dr. Saurabh Hayes DO. Dental pain in the bottom left. Was eating and got pain. Yesterday was horrendous. Refers today with pain and swelling/pain. No fevers/chills. Dentist -- [facility] in [place]. Mailbox is full. Refers that she had [...] - Lipids Mother - Heart Paternal Grandfather RI - Heart Maternal Grandfather RI - Cancer Maternal Grandfather lukemia - other (Other) Paternal Grandmother Althezimers - other (fibromyalgia) Sister - Diabetes Paternal Aunt - other (stomach cancer) Paternal Uncle Patient Allergies ALLERGIES Allergen Reactions - Imitrex [Sumatripta* Anaphylaxis - Sulfa Drugs [Sulfa * Rash Rash all over - Amparo Inhibitors Other: See Comments Makes asthma worse - Latex Rash Food And Beverage Manager calls it sensitivity per pt - Vicodin [...] physical exam as visit was completed over [employer] virtual platform. Virtual visit completed using video, [...] reconciled and updated 01/05/2020 PROGRESS HNO ID: [id number] Normal 01-05-2020 [facility] Author: Lyssa Barahona) Mary Alice Frederick ([id number]) Service: ? Author Type: Nurse Practitioner Type: Progress Notes Filed: 01/05/2020 4:45 PM Note Text: Unable to connect via zoom during appt slot. Rescheduled and connected again with new link. Lyssa Wheat APRN.CNP obsolete on 2020-04 -18 OBSOLETE Refill (FAMPWS) Normal 12-24-2019 Bakari maricel [facility] GINETTENAMRATA Rika ([id number]) 1965 [facility] Time Provider Department ([id number]) 12/24/19 SAURABH HAYES FAMPWS During your visit today, we recorded the following informati on about you: Fadia Guajardo Ma 12/26/2019 11:48 AM Signed Last office visit: 10/07/2019 F/u scheduled: 04/10/2020 Fadia Wheat APRN.COMMERCIAL PRODUCER 12/26/2019 11:58 AM Signed Script sent. Lyssa Wheat APRN.CNP Allergies As of Date: 12/24/2019 Noted Allergy Reaction IMITREX (SUMATRIPTAN SUCCINATE) 09/24/2012 10 - Anaphylaxis SULFA DRUGS (SULFA (SULFONAMIDE A*09/24/2012 2 - Rash Comments: Rash all over AMPARO INHIBITORS 09/24/2012 14 - Other: See Comments Comments: Makes asthma worse LATEX 03/22/2013 2 - Rash Comments: Food And Beverage Manager calls it sensitivity per pt VICODIN (HYDROCODONE-ACETAMINOPHE*11/28/2013 [...] Inhale 2 Puffs as instructed * OMEGA 2-TZR-CFS-FISH OIL 300 * Take 1 capsule by [...] Normal 12-16-2019 [facility] NAMRATA PENG ([id number]) 1965 [facility] Date Time Provider Department ([id number]) 12/16/19 SAURABH HAYES During your visit today, [...] Provider: SAURABH HAYES Ordering User: ELICEO HUMPHRIES Cholecalciferol, Vitamin D3, 25 mcg (1,000 unit) cap 90 caps ule 0 Sig: Take 1 capsule by mouth once daily. LOVELY: No Authorizing Provider: SAURABH HAYES Ordering User: ELICEO HUMPHRIES amLODIPine (NORVASC) 10 mg tablet 90 tablet 0 Sig: Take 1 tablet by mouth once daily. LOVELY: No Authorizing Provider: SAURABH HAYES Ordering User: ELICEO HUMPHRIES APRN.COMMERCIAL PRODUCER Allergies As of Date: 12/16/2019 Noted Allergy Reaction IMITREX (SUMATRIPTAN SUCCINATE) 09/24/2012 10 - Anaphylaxis SULFA DRUGS (SULFA (SULFONAMIDE A*09/24/2012 2 - Rash Comments: Rash all over AMPARO INHIBITORS 09/24/2012 14 - Other: See Comments Comments: Makes asthma worse LATEX 03/22/2013 2 - Rash Comments: Food And Beverage Manager calls it sensitivity per pt VICODIN (HYDROCODONE-ACETAMINOPHE*11/28/2013 [...] once daily.Disp: 90 tabletRfl: 0 HGB A1C [[id number]] Order #: [id number] FUTURE LIPID PANEL BASIC [SQLIPB] Order #: [id number] FUTURE CBC [SQCBC] Order #: [id number] FUTURE COMP METABOLIC PANEL [SQCMP] Order #: [id number] FUTURE Prescriptions as of 12/16/2019 Sig: POTASSIUM [...] Inhale 2 Puffs as instructed * OMEGA 9-SFM-KDG-FISH OIL 300 * Take 1 capsule by [...] on 2019-12-16 CNPN Telephone (OBGYWM) Normal 12-16-2019 [place] [facility] NAMRATA PENG ([id number]) 1965 [facility] Date Time Provider Department ([id number]) 12/16/19 DEYSI PATIÑO OBGYWLadan During your visit [...] worse LATEX 03/22/2013 2 - Rash Comments: Food And Beverage Manager calls it sensitivity per pt VICODIN (HYDROCODONE-ACETAMINOPHE*11/28/2013 [...] Inhale 2 Puffs as instructed * OMEGA 5-YPG-JWT-FISH OIL 300 * Take 1 capsule by [...] (FAMPWS) Normal 11-12-2019 Bakari connelly NAMRATA Rodriguez ([id number]) 1965 [facility] Time Provider Department ([id number]) 11/12/19 SAURABH HAYES FAMPWS During your visit [...] worse LATEX 03/22/2013 2 - Rash Comments: Food And Beverage Manager calls it sensitivity per pt VICODIN (HYDROCODONE-ACETAMINOPHE*11/28/2013 [...] Inhale 2 Puffs as instructed * OMEGA 5-ZRT-LOB-FISH OIL 300 * Take 1 capsule by [...] OBSOLETE Refill (FAMPWS) Normal 10-11-2019 Bakari connelly [facility] NAMRATA PENG ([id number]) 1965 [facility] Date Time Provider Department ([id number]) 10/11/19 SAURABH HAYESPDUSTIN During your visit today, [...] worse LATEX 03/22/2013 2 - Rash Comments: Food And Beverage Manager calls it sensitivity per pt VICODIN (HYDROCODONE-ACETAMINOPHE*11/28/2013 [...] Inhale 2 Puffs as instructed * OMEGA 8-GSU-MRO-FISH OIL 300 * Take 1 capsule by [...] MG-HYDROCHLOROTHIAZIDE 25 MG TABLET >> Lyssa Wheat, SPOUT TENDER.COMMERCIAL PRODUCER 10/11/2019 5:12 PM not available. Problem List [...] - Specimen received in preservative Critically 10-07-2019 [place] identified Cx Nom Culture Result - <10,000 CFU /ml Lactose positive gram negative bacilli --> ABNORMAL ALERT Insignificant colony count. No further workup. --> ABNORMAL ALERT 50,000 - <100,000 CFU/ml Normal urogenital adolfo abnormal Clinic (U) [place] ([id number]) Comment: Performed By: #### URCUL ### #[facility] [id number] [place], [place] [phone] progress on 2019-09 PROGRESS HNO ID: [id number] Normal 10-07-2019 [facility] Author: Saurabh Hayes [place] ([id number]) Service: ? Author Type: Physician Type: Progress [...] as needed for Wheezing/Shortness of Breath. - Tirpm-8-BND-EPA-Fish Oil 300-1,000 mg cap Take 1 capsule [...] Comments Makes asthma worse - Latex Rash Food And Beverage Manager calls it sensitivity per pt - Vicodin [...] plan. See patient instructions. Saurabh Hayes DO [address] [place] [address] cnov on 2019-10-07 CNOV Office Visit (FAMPWS) Normal 10-07-[address] [place] [address] [facility] NAMRATA PENG ([id number]) 1965 [facility] Date Time Provider Department ([id number]) 10/07/19 11:40 AM SAURABH HAYESWS During your [...] as needed for Wheezing/Shortness of Breath. - Fhbce-7-RST-EPA-Fish Oil 3 00-1,000 mg cap Take 1 [...] twice daily. - Miscellaneous Medical Supply (BLOOD NH ESSURE CUFF) misc 1 Units as directed. - Cane donnie Use as directed - Cholecalciferol, Vitamin D3, 1,000 unit cap Take 1 capsule by mouth once daily. No current facility-administered medications for this visit. ALLERGIES Allergen Reactions - Imitrex [Sumatripta* Anaphylaxis - Sulfa Drugs [Sulfa * Rash Rash all over - Amparo Inhibitors Other: See Comments Makes asthma worse - Latex Rash Food And Beverage Manager calls it sensitivity per pt - Vicodin [...] plan. See patient instructions. Saurabh Hayes DO [address] [place] [address] Referring Provider: SELF [200] Allergies As of Date: 10/07/2019 Noted Allergy Reaction IMITREX (SUMATRIPTAN SUCCINATE) 09/24/2012 10 - Anaphylaxis SULFA DRUGS (SULFA (SULFONAMIDE A*09/24/2012 2 - Rash Comments: Rash all over AMPARO INHIBITORS 09/24/2012 14 - Other: See Comments Comments: Makes asthma worse LATEX 03/22/2013 2 - Rash Comments: Food And Beverage Manager calls it sensitivity per pt VICODIN (HYDROCODONE-ACETAMINOPHE*11/28/2013 8 - GI Upset Date Reviewed: 10/07/2019 Reviewed by: Vilma Bell LPN - Fully Assessed Reason for Visit: Follow Up [171] Primary Visit Diagnosis:Dysuria [R30.0] Other Visit Diagnoses:AICHA (generalized anxiety disorder) [F4 1.1] Fibromyalgia [M79.7] Dysthymia [F34.1] Essential hypertension [I10] Order(s):UA DIP, URINE (POC) [6745862] Order #: [id number] ec. #:[id number] URINE CULTURE [SQURCUL] Order #: [id number] phenazopyridine (PYRIDIUM) 200 mg tabletTake 1 tablet [...] Inhale 2 Puffs as instructed * OMEGA 6-DZE-MZJ-FISH OIL 300 * Take 1 capsule by [...] on 2019-09 OBSOLETE Refill (FAMPWS) Normal 10-04-2019 [facility] NAMRATA PENG ([id number]) 1965 [facility] Time Provider Department ([id number]) 10/04/19 SAURABH HAYES FAMPWS During your visit [...] worse LATEX 03/22/2013 2 - Rash Comments: Food And Beverage Manager calls it sensitivity per pt VICODIN (HYDROCODONE-ACETAMINOPHE*11/28/2013 [...] Inhale 2 Puffs as instructed * OMEGA 8-TRL-NJQ-FISH OIL 300 * Take 1 capsule by [...] OBSOLETE Refill (FAMPWS) Normal 09-22-2019 Bakari connelly [facility] NAMRATA PENG ([id number]) 1965 [facility] Date Time Provider Department (65238) 09/22/19 SAURABH HAYES During your visit today, [...] worse LATEX 03/22/2013 2 - Rash Comments: Food And Beverage Manager calls it sensitivity per pt VICODIN (HYDROCODONE-ACETAMINOPHE*11/28/2013 [...] Inhale 2 Puffs as instructed * OMEGA 2-NYR-PFY-FISH OIL 300 * Take 1 capsule by [...] CNPTOUTREACH Patient Outreach (INTMWH) Normal 0 09-20-2019 [place] [facility] NAMRATA PENG ([id number]) 1965 F [place] Date Time Provider Department (85758) 09/20/19 SAURABH HAYES INTWH During your visit today, we recorded the following informati on about you: Allergies As of Date: 09/20/2019 Noted Allergy Reaction IMITREX (SUMATRIPTAN SUCCINATE) 09/24/2012 10 - Anaphylaxis SULFA DRUGS (SULFA (SULFONAMIDE A*09/24/2012 2 - Rash Comments: Rash all over AMPARO INHIBITORS 09/24/2012 14 - Other: See Comments Comments: Makes asthma worse LATEX 03/22/2013 2 - Rash Comments: Food And Beverage Manager calls it sensitivity per pt VICODIN (HYDROCODONE-ACETAMINOPHE*11/28/2013 8 - GI Upset Date Reviewed: 04/28/2019 Reviewed by: Kristen Rm - Fully Assessed Visit Diagnosis:Diabetes mellitus type 2, controlled, with out complications (HCC) [E11.9] Order(s):ALBUMIN/CREAT RATIO RND UR [SQUACR] Order #: [id number] FUTURE HGB A1C [OFSRF3R] Order #: [id number] FUTURE Prescriptions as of 09/20/2019 Sig: PHENAZOPYRIDINE [...] Inhale 2 Puffs as instructed * OMEGA 3-OWK-TTK-FISH OIL 300 * Take 1 capsule by [...] Specimen received in pre servative Normal 08-09-2019 [facility] Cx Nom (U) [place] ([id number]) Culture Result - 10,000 - <5 0,000 CFU/ml Three or more organisms, no one type predominant, suggesting contamination during collection. Recollect if clinically indicated. Comment: Performed By: #### URCUL ### #[facility] [address] [place], [place] [phone] progress on 2019-08 PROGRESS HNO ID: [id number] Normal 08-09-2019 [facility] Author: Kayla Park (Mao) David Frederick ([id number]) Service: ? Author Type: Physician Valet Parking Attendant Type: Progress Notes Filed: 08/09/2019 2:11 PM [...] Wheezing/Shortness of Breath. 2 Inhaler 2 - Wnksm-7-KZH-EPA-Fish Oil 300-1,000 mg cap Take 1 capsule [...] - Lipids Mother - Heart Paternal Grandfather RI - Heart Maternal Grandfather RI - Cancer Maternal Grandfather lukemia - other [...] OBSOLETE Refill (FAMPWS) Normal 08-09-2019 [facility] connelly [facility] NAMRATA PENG ([id number]) 1965 [facility] Time Provider Department ([id number]) 08/09/19 SAURABH HAYES During your visit today, [...] worse LATEX 03/22/2013 2 - Rash Comments: Food And Beverage Manager calls it sensitivity per pt VICODIN (HYDROCODONE-ACETAMINOPHE*11/28/2013 [...] Inhale 2 Puffs as instructed * OMEGA 0-DFA-NAE-FISH OIL 300 * Take 1 capsule by [...] 2019-08-09 CNOV Office Visit (UCWSTR) Normal 08-09-20 [place] NAMRATA Rodriguez ([id number]) 1965 [place] Date Time Provider Department ([id number]) 08/09/19 11:30 AM KAYLA CAZARES (MAO) UCWSTR [...] heezing/Shortness of Breath. 2 Inhaler 2 - Xzdww-9-SYI-EPA-Fish Oil 3 00-1,000 mg cap Take 1 [...] e 0 - Miscellaneous Medical Supply (BLOOD NH ESSURE CUFF) misc 1 Units as directed. [...] - Lipids Mother - Heart Paternal Grandfather RI - Heart Maternal Grandfather RI - Cancer Maternal Grandfather lukemia - other [...] worse LATEX 03/22/2013 2 - Rash Comments: Food And Beverage Manager calls it sensitivity per pt VICODIN (HYDROCODONE-ACETAMINOPHE*11/28/2013 8 - GI Upset Date Reviewed: 04/28/2019 Reviewed by: Kristen Rm - Fully Assessed Reason for Visit: Urinary Frequency [1086] Cmt: burning, urgency and frequency - symptoms started this am Reason For Visit History Recorded Primary Visit Diagnosis:Acute cystitis with hematuria [N30.0 1] Other Visit Diagnosis:Urinary frequency [R35.0] Order(s):UA DIP, URINE (POC) [[id number]] Order #: [id number] ec. #:[id number] URINE CULTURE [SQURCUL] Order #: [id number] cephALEXin (KEFLEX) 500 mg capsuleTake 1 capsule [...] Inhale 2 Puffs as instructed * OMEGA 2-VGS-MSR-FISH OIL 300 * Take 1 capsule by [...] on 2019-07 OBSOLETE Refill (FAMPWS) Normal 08-05-2019 [facility] NAMRATA PENG ([id number]) 1965 [facility] Time Provider Department ([id number]) 08/05/19 SAURABH HAYES FAMPWS During your visit [...] worse LATEX 03/22/2013 2 - Rash Comments: Food And Beverage Manager calls it sensitivity per pt VICODIN (HYDROCODONE-ACETAMINOPHE*11/28/2013 [...] Inhale 2 Puffs as instructed * OMEGA 8-UYG-ZWG-FISH OIL 300 * Take 1 capsule by [...] on 2019-07 OBSOLETE Refill (FAMPWS) Normal [facility][id number] 1965 [facility] Time Provider Department ([id number]) 07/20/19 SAURABH HAYES FAMDarvinWS During your visit today, we recorded the following informati on about you: Vy Moody LPN 07/20/2019 2:27 PM Signed [facility] faxed a request for the following [...] worse LATEX 03/22/2013 2 - Rash Comments: Food And Beverage Manager calls it sensitivity per pt VICODIN (HYDROCODONE-ACETAMINOPHE*11/28/2013 [...] Inhale 2 Puffs as instructed * OMEGA 5-RAZ-BRW-FISH OIL 300 * Take 1 capsule by [...] OBSOLETE Refill (FAMPWS) Normal 07-14-2019 [facility] connelly [facility] NAMRATA PENG ([id number]) 1965 [facility] Date Time Provider Department ([id number]) 07/14/19 SAURABH HAYESPWS During your visit today, [...] 11:51 AM Signed Script sent. Lyssa Wheat APRN.COMMERCIAL PRODUCER Allergies As of Date: 07/14/2019 Noted Allergy Reaction IMITREX (SUMATRIPTAN SUCCINATE) 09/24/2012 10 - Anaphylaxis SULFA DRUGS (SULFA (SULFONAMIDE A*09/24/2012 2 - Rash Comments: Rash all over AMPARO INHIBITORS 09/24/2012 14 - Other: See Comments Comments: Makes asthma worse LATEX 03/22/2013 2 - Rash Comments: Food And Beverage Manager calls it sensitivity per pt VICODIN (HYDROCODONE-ACETAMINOPHE*11/28/2013 [...] Inhale 2 Puffs as instructed * OMEGA 5-XXU-MLV-FISH OIL 300 * Take 1 capsule by [...] on 2019-06 OBSOLETE Refill (FAMPWS) Normal 07-06-2019 [facility] NAMRATA PENG ([id number]) 1965 [facility] Time Provider Department ([id number]) 07/06/19 SAURABH HAYES FAMPWS During your visit [...] applicable Please advise. Thank you. Precious Mcginnis [facility] said med sync patient Lyssa DARLINE Wheat 07/06/2019 5:43 PM Signed Script sent. Lyssa WilkesDARLINE morris Allergies As of Date: 07/06/2019 Noted Allergy Reaction IMITREX (SUMATRIPTAN SUCCINATE) 09/24/2012 10 - Anaphylaxis SULFA DRUGS (SULFA (SULFONAMIDE A*09/24/2012 2 - Rash Comments: Rash all over AMPARO INHIBITORS 09/24/2012 14 - Other: See Comments Comments: Makes asthma worse LATEX 03/22/2013 2 - Rash Comments: Food And Beverage Manager calls it sensitivity per pt VICODIN (HYDROCODONE-ACETAMINOPHE*11/28/2013 [...] Inhale 2 Puffs as instructed * OMEGA 1-DKT-XWA-FISH OIL 300 * Take 1 capsule by [...] OBSOLETE Refill (FAMPWS) Normal 06-27-2019 [facility] con[facility] NAMRATA PENG ([id number]) 1965 [facility] Date Time Provider Department ([id number]) 06/27/19 SAURABH HAYES FAMPWS During your visit [...] worse LATEX 03/22/2013 2 - Rash Comments: Food And Beverage Manager calls it sensitivity per pt VICODIN (HYDROCODONE-ACETAMINOPHE*11/28/2013 [...] Inhale 2 Puffs as instructed * OMEGA 9-DRL-FUU-FISH OIL 300 * Take 1 capsule by [...] CNP on 06/27/19 dermatopathology on 2019-03-29 Dermatopathology [place] 03-29-2019 [facility] Pathologist: BRIANNA REYES MD [facility] Date of Procedure: 03/29/2019 ([id number]) Date Received: 03/30/2019 Date Reported 04/01/2019 Submitting Physician: ANTONY TUTTLE MD Location: [facility] FINAL DIAGNOSIS A. SKIN, R LATERAL FOREARM, SHAVE BIOPSY: LENTIGO. B. SKIN, R MEDIAL MID-CHEST, SHAVE BIOPSY: LENTIGO. Electronically Signed Out by BRIANNA REYES M.D. Electronically Signed Out By BRIANNA REYES MD/[facility] Microscopic Description: A. Microscopic examination r eveals [...] is a linares-brown piece of skin measuring [id number]. The specimen is inked and embedded in toto. ([place] office) Specimens Submitted As: A: SKIN, R LATERAL FOREARM B: SKIN, R MEDIAL MID-CHEST Gross Description: A: Received in formalin is a linares piece o f skin measuring 9d0x0uc. The specimen is inked and embedded in toto. B: Received in fo rmalin is a linares piece of skin measuring 7v3z5pe. The specimen is inked and embedded in tot o. ink/03/30/2019 Comment: Performed By: #### D #### Dermatopathology office visit: uc: swollen left eye on 2017-02-03 Documentation of Done Invalid 02-03-2017 [facility] Now current medications Interpretation Code 02-03-2017 Clinic (procedure) (59042) Tobacco smoking Never Invalid 02-03-2017 - [facility] Now status [facility] Interpretation Code 02-04-20 17 Clinic (50620) Tobacco use [facility] Never smoker Invalid 02-03-2017 [facility] Now Interpretation Code 02-03-2017 [facility] (40533) Vital Signs Vital Sign Description Value / Unit Date Location The following section is limited to 5 en tries per type and includes entries from the following time range: 20170203 - 20170107 0. BMI (Body Mass Index) 38.59 kg/m2 02-03-2017 - 02-03-2017 [facility] (83089) Body Temperature 98.8 [degF] 02-03-2017 - 02-03-2017 [facility] (12408) Body weight 93.44 kg 05-08-2020 [facility] (80754) BP Diastolic 74 mm[Hg] 05-08-2020 [facility] (95108) BP Diastolic 84 mm[Hg] 02-03-2017 - 02-03-2017 [facility] (26932) BP Systolic 132 mm[Hg] 05-08-2020 [facility] (49762) BP Systolic 134 mm[Hg] 02-03-2017 - 02-03-2017 [facility] (58331) Height 156 cm 05-08-2020 [facility] (48468) Height 157.48 cm 02-03-2017 - 02-03-2017 [facility] (35473) Pulse (Heart Rate) 90 /min 02-03-2017 - 02-03-2017 [facility] (88715) Pulse Oximetry 98 % 02-03-2017 - 02-03-2017 [facility] (17661) Respiratory Rate 16 /min 02-03-2017 - 02-03-2017 [facility] (00305) Weight 95.71 kg 02-03-2017 - 02-03-2017 [facility] (84306) Encounters Date Type Reason Provider Location 05-17-2020 - Patient encounter [facility] Provider Xr [facility] 05-17-2020 procedure Adrian Mob Comment: Radiology XR 05-08-2020 - Patient encounter Patient encounter Deysi Telles OB/ Gynecology 05-08-2020 procedure status [place] Comment: Encounter for gynecological examination without abnormal finding (Primary Dx); Encounter for screening mamm ogram for malignant neoplasm of breast; Screening for colon cancer 06-06-2020 - 06-06-2020 Refill Saurabh Hayes [facility] [place] Comment: Refill Request 05-31-2020 - Refill Generalized anxiety Saurabh Hayes [facility] 05-31-2020 disorder [place] Comment: Refill Request 05-17-2020 Results Only [facility] Provider [place] [facility] 06-22-2020 - Subsequent Patient encounter Screen Mammo Mammogram 06-22-2020 hospital visit by status [facility] physician Comment: Encounter for screening mamm ogram for malignant neoplasm of breast [Z12.31] 05-29-2020 - 05-29-2020 Telephone encounter Saurabh cramer [facility] [place] Comment: question, concern with potas sium dose Procedures Procedure Name Date Provider Location Screening mammography bi 06-22-2020 Deysi Telles [facility] 2-view breast inc cad [place] (52945) Mammography 06-22-2020 [facility] ([id number]) Radiologic examination 05-17-2020 [facility] Provider [facility] knee 1/2 views (15202) Mammography 04-07-2019 - [facility] 04-07-2019 (26739) Plan of Treatment Plan Description Date Location DTAP,TDAP,TD (2 - Td) DTAP,TDAP,TD (2 - Td) 10-24-2025 - [facility] 10-24-2025 (94160) HPV TESTING HPV TESTING 01-26-2024 - [facility] 01-26-2024 (09207) PAP TESTING PAP TESTING 01-26-2024 - [facility] 01-26-2024 (70420) MAMMOGRAM MAMMOGRAM 06-22-2021 [facility] (31366) LDL CHOLESTEROL LDL CHOLESTEROL 04-16-2021 - [facility] 04-16-2021 (85153) ANNUAL PCP TEAM CHRONIC ANNUAL PCP TEAM CHRONIC 04-10-2021 - [facility] DISEASE VISIT DISEASE VISIT 04-10-2021 (44146) HBA1C HBA1C 10-17-2020 - [facility] 10-17-2020 (82884) URINE ALBUMIN:CREATININE URINE ALBUMIN:CREATININE 10-05-2020 - [facility] RATIO RATIO 10-05-2020 (58822) INFLUENZA (#1) INFLUENZA (#1) 2020 - [facility] 05-08-2020 (25611) FECAL OCCULT BLOOD FECAL OCCULT BLOOD 04-18-2020 - [facility] 04-18-2020 (21165) MAMMOGRAM MAMMOGRAM 04-07-2020 - [facility] 04-07-2020 (94201) DILATED RETINAL EXAM DILATED RETINAL EXAM 11-25-2019 - [facility] 11-25-2019 (64792) DIABETIC FOOT EXAM DIABETIC FOOT EXAM 09-29-2019 - [facility] 09-29-2019 ([id number]) Appointment Appointment 02-03-2017 - [facility] Now Clinic 02-03-2017 (96802) SHINGRIX VACCINE (1 of SHINGRIX VACCINE (1 of 2013 - [facility] 2) 2) 2013 (15144) BP CONTROLLED (<130/80) BP CONTROLLED (<130/80) 1981 - [facility] 1981 (69686) HIV SCREENING HIV SCREENING 1981 - [facility] 1981 (60667) ONE PNEUMOVAX PRIOR TO ONE PNEUMOVAX PRIOR TO 1979 - [facility] AGE 63 AGE 63 1979 (10435) COLONOSCOPY SCRN NOT COLONOSCOPY SCRN NOT 05-08-2021 [facility] HIGH RISK HIGH RISK Endoscopy (75275) Routine Screening for colon cancer 1 Occurrences starting 05/08/2020 until 05/08/2021 Comment: 1 Occurrences starting 05/08 until 05/08/2021 NOLAN SCREENING NOLAN SCREENING Radiology Routine 06-07-2021 [facility] (86789) Encounter for screening mammogram for malignant neoplasm of breast 1 Occurrences starting 05/08/2020 until 06/07/2021 Comment: 1 Occurrences starting 05/08 until 06/07/2021 no information [facility] (14719) no information [facility] ( 33701) Immunizations Vaccine Notes Status Date Location Influenza Seasonal influenza, injectable, (completed) 06-06-2015 - [facility] Inj Quad Age 6 Mo - quadrivalent, contains 06-06-2015 (40931) 64 Yrs preservative Influenza Seasonal influenza, injectable, (completed) 06-29-2018 - [facility] Inj Quad Age 6 quadrivalent, 06-29-2018 (00859) Mo-64 Yrs Pres Free preservative free Pneumococcal-13 Vac pneumococcal conjugate (completed) 10-01-2015 - [facility] Conjugate vaccine, 13 valent 10-01-2015 (16188) Tetanus/Diphtheria tetanus and diphtheria (completed) 02-20-2000 - [facility] Unspec toxoids, not adsorbed, 02-20-2000 (4419 5) for adult use Tdap (Age 7+) tetanus toxoid, (completed) 10-24-2015 - [facility] linic reduced diphtheria 10-24-2015 (13291) toxoid, and acellular pertussis vaccine, adsorbed Payers Payer Name Policy Number Location [employer] [id number] [facility] (44 195) The following information is from the original human readable contentNo Payer Records FoundNo Payer Records FoundNo Payer Records Found Social History Type Social History Date Location Description Tobacco use and exposure Never used 05-08-2020 - [facility] 05-08-2020 ([id number]) History SDOH Social 5 10-04-2019 - [facility] 10-04-2019 ([id number]) Alcohol intake Current non-drinker of 05-08-2020 [facility] alcohol (finding) 05-08-2020 ([id number]) History SDOH Alcohol 2 10-04-2019 - [facility] Frequency 10-04-2019 ([id number]) History SDOH Alcohol Std 1 10-04-2019 - [facility] Drinks 10-04-2019 ([id number]) History SDOH Social 4 04-03-2020 - [facility] Phone 04-03-2020 ([id number]) Tobacco smoking status Never smoker 05-08-2020 - [facility] NHIS 05-08-2020 ([id number]) History SDOH Physical 0 04-03-2020 - [facility] Activity DPW 04-03-2020 ([id number]) History SDOH Education 15 10-04-2019 - [facility] 10-04-2019 ([id number]) Tobacco Comment smoked a little as a 09-24-2012 - [place] [facility] teenager 09-24-2012 ([id number]) Sex Assigned At Female [facility] ([id number]) Exposure to SARS-CoV-2 Not sure [facility] (event) ([id number]) The following information is from the original [...] Documents on File Type Date Recorded 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 Lipids Mother ? Heart Paternal Grandfather RI ? Heart Maternal Grandfather RI ? Cancer Maternal Grandfather lukemia ? other [...] external genitalia normal, normal Bartholin's glands, urethra, [place]'s glands, no vulvar lesions, no cervical lesions, [...] BE BASED ON THE PRIMARY CLINICAL RECORDS. [facility] provides no warranty or guarantee of the accuracy or completeness of information in this document. UNRECOGNIZED CONTENT PROVIDED BELOW FOR UNRECOGNIZED SECTION Source Comments In the event this information is protected by the Federal Confidentiality of Alcohol and Drug Abuse Patient Records regulations: The Federal rules restrict any use of the information to criminally investigate or prosecute any alcohol or drug abuse patient.[facility] the event this information is protected by the Federal Confidentiality of Alcohol and Drug Abuse Patient Records regulations: The Federal rules restrict any use of the information to criminally investigate or prosecute any alcohol or drug abuse patient.[facility] the event this information is protected by the Federal Confidentiality of Alcohol and Drug Abuse Patient Records regulations: The Federal rules restrict any use of the information to criminally investigate or prosecute any alcohol or drug abuse patient.[facility] the event this information is protected by the Federal Confidentiality of Alcohol and Drug Abuse Patient Records regulations: The Federal rules restrict any use of the information to criminally investigate or prosecute any alcohol or drug abuse patient.[facility] the event this information is protected by the Federal Confidentiality of Alcohol and Drug Abuse Patient Records regulations: The Federal rules restrict any use of the information to criminally investigate or prosecute any alcohol or drug abuse patient.[facility] the event this information is protected by the Federal Confidentiality of Alcohol and Drug Abuse Patient Records regulations: The Federal rules restrict any use of the information to criminally investigate or prosecute any alcohol or drug abuse patient.[facility] the event this information is protected by the Federal Confidentiality of Alcohol and Drug Abuse Patient Records regulations: The Federal rules restrict any use of the information to criminally investigate or prosecute any alcohol or drug abuse patient.[facility] UNRECOGNIZED CONTENT PROVIDED BELOW FOR UNRECOGNIZED SECTION INFORMATION SOURCE DATE CREATED AUTHOR AUTHOR'S ORGANIZATIO N 04/02/2019 [facility] DATE CREATED AUTHOR AUTHOR'S ORGANIZATIO N 06/23/2020 [facility] UNRECOGNIZED CONTENT PROVIDED BELOW FOR UNRECOGNIZED [...] Hayes DO elephone Encounter - Lisa Mcginnish EVITA - 05/29/2020 10:47 AM EDTPatient calling was in [facility] early January for dental infection, told to [...] daily as needed for Pain. LOVELY: No Elicoe Humphries APRN.COMMERCIAL PRODUCER Telephone Encounter - Celine Layton Ma - [...]
== END 2020-02-14 19:46 | disposition home or self-care (01) ==
LOC: ED 18:37
PROVIDERS: Emergency Provider Emergency Medicine; PCP Student in an Organized Health Care Education/Training Program
DX: R05 Cough (principal); J98.01 Acute bronchospasm; J02.9 Acute pharyngitis, unspecified; I10 Essential (primary) hypertension; J45.909 Unspecified asthma, uncomplicated; M79.7 Fibromyalgia; Z88.2 Allergy status to sulfonamides; Z88.5 Allergy status to narcotic agent; Z91.040 Latex allergy status
CPT/HCPCS: 71045; 80048; 83880; 84484; 85025; 93005; 99283; A4216

== ENCOUNTER 2020-08-15 13:00 | Outpatient (RCR) | payer MEDICAID, SELFPAY ==
--- NOTE | 2020-07-16 13:58 | HP.PTEVAL ---
Patient's Visit Information KENNEDI PENG is a 55 year old F referred to Physical Therapy by HUGH DAVID with a diagnosis of LUMBAR RADICULOPATHY. Date of Evaluation: 07/16/20 Physical Therapist: Calin Bolton, PT, Cert MDT, OCS - Visit Plan Frequency: 2-3x /Week Duration: 4 Weeks Plan: PT INTERVENTIONS WITH AQUATIC THERAPY FOT DLS,POSTURAL EX'S,FLEXABLITY ,AND STRENGTHENING LE ,POSTURE EDUCATION - Subjective This 55 y/o female presents therapy with lumbar radiculopathy. This patient has had lumbar pain 2012 inscidous onset of lumbar pain with radicular symptoms in R>L. Patient did have MRI many years ago revealed HNP lumbar . Patient has been under pain management 3 years with many epidural injections. Intially , epidural injections helped 6-8 months but last epidural injection in Jun didnt help. Pain MEDS pecocet. Patient has had prior PT in past. Location symmtrical with radicular symptoms in anterior thighs. C/O parathesia/tingling in legs. Coughing/sneezing-. Bowel/bladder-. Aggraveting bending,lifting,walking/satnding and sitting. Alleviating factors rest. Pain affects sleeping. Patient pain affects ADL's ,housework tasks and function. Patient is unable to work due to the pain. Patient lumbar radicular affects QOL.Patient has fibromalgia. SOCIAL: . VOCATION: single - Pain Bilateral Back Pain Intensity (Out of 10): 6 Pain Intensity Range: 10 Right Lower Extremity Pain Intensity (Out of 10): 6 Pain Intensity Range: 10 Left Lower Extremity Pain Intensity (Out of 10): 4 Pain Intensity Range: 10 - Objective POSTURE: mild foward posture. GAIT: reciprocal pattern. NEURO: c/o parathesai/tingling ,reflexes L3-4,L4-5,L5-S1 2/3. SYMMTIRES: align. LUMBAR ROM: flexion mod loss,extension mod loss,side glides min loss. MMT: quiads/hams 4-5/,hip flexion 4-/5 ,ankle 4/5. FLEXABLITY: hams mod tight,piriformis mod tight - Special Tests L/S Slump test left side: Negative L/S Slump test right side: Negative L/S Left Straight Leg Raise: Negative L/S Right Straight Leg Raise: Negative Lumbar Standing: Flexion - Symptoms During Testing: Increases Lumbar Standing: Flexion - Symptoms After Testing: Worse Lumbar Standing: Extension - Mechanical Response: No effect Lumbar Standing: Extension - Symptoms During Testing: Increases Lumbar Standing: Extension - Symptoms After Testing: Worse Lumbar Standing: Right Side Glides - Mechanical Response: No effect Lumbar Standing: Right Side [place] - Symptoms During Testing: No effect Lumbar Standing: Right Side [place] - Symptoms After Testing: No effect Lumbar Standing: Left Side [place] - Mechanical Response: No effect Lumbar Standing: Left Side [place] - Symptoms During Testing: No effect Lumbar Standing: Left Side [place] - Symptoms After Testing: No effect - Goals Goal 1:: [id number] with Aquatic PT Goal Time Frame: 4-6 Weeks Goal 2:: Improve posture for ADL's Goal Time Frame: 2-4 Weeks Goal 3:: Decrease lumbar radiculopathy by 50% or > to improve function and QOL. Goal Time Frame: 4-6 Weeks Goal 4:: Patient to improve lumbar ROM for function of recovery Goal Time Frame: 4-6 Weeks Goal 5:: Patient to improve back owestry by 5 points or > to improve QOL - Rehabilitation Potential Physical Therapy Diagnosis: This patient has lumbar radicular symptoms with h/o HNP lumbar with pain with postion and movement test ,weakness in legs and core muscles impairs ADL's howeswork tasks and function thus benifit from skilled PT Rehabilitation Potential: Fair - Anticipated Interventions Patient/Client Instruction: Educate patient on: Condition, Plan of Care For the Purpose of:: To increase ROM, To improve muscle performance and motor function, To improve ability to perform ADL's, To increase tolerance to activity/condition/position, To improve performance and independence with ADL's, To improve ability of physical actions for home/community/work/leisure, To improve health of tissue, To decrease soft tissue restriction, To increase flexibility/ROM, To improve ability to perform tasks related to life management Therapeutic Exercise to Include: Strength training, Postural training, Flexibilty training, In an aquatic setting, Dynamic Lumbar Stabilization Comment: BLE For the Purpose of:: To decrease pain, To increase ROM, To improve muscle performance and motor function, To improve ability to perform ADL's, To increase tolerance to activity/condition/position, To improve performance and independence with ADL's, To improve ability of physical actions for home/community/work/leisure, To improve health of tissue, To decrease soft tissue restriction, To increase flexibility/ROM, To improve ability to perform tasks related to life management Thank you for the opportunity to evaluate your patient. For Medicare and Medicare HMO plans, please review the plan of care and approve it. It will need to be FAXED BACK to us at [phone] for Medicare purposes. For Medicare only, by signing this I certify the plan of care. Please let me know if there are questions or concerns regarding this plan of care. Physician Signature: Date:
--- NOTE | 2021-01-30 09:53 | HP.PTDCSUM_ITS ---
It has been my pleasure to treat KENNEDI PENG referred by HUGH DAVID, with the diagnosis of LUMBAR RADICULOPATHY for a total of 9 visit(s). Discharge Date: Please see the following information for a summary of their discharge status. Subjective: Patient pain has been intermittant in the water . Patient is to get MRI after PT Bilateral Back Pain Intensity (Out of 10): 5 Right Lower Extremity Pain Intensity (Out of 10): 6 Left Lower Extremity Pain Intensity (Out of 10): 6 % Improvement: 25 Objective/Function: POSTURE: mild foward posture. GAIT: reciprocal pattern. NEURO:denies paratthesia/tingling left leg. MMT: quads/hams 4/5,hip flexion 4- /5 ,ankle 4/5. LUMBAR ROM: flexion mod loss,etension mod loss,side min loss Goal 1:: Independant with Aquatic PT Goal 2:: Improve posture for ADL's Goal Progress: Progressing Goal 3:: Decrease lumbar radiculopathy by 50% or > to improve function and QOL. Goal Progress: Progressing Goal 4:: Patient to improve lumbar ROM for function of recovery Goal Progress: Progressing Goal 5:: Patient to improve back owestry by 5 points or > to improve QOL Goal Progress: Progressing Plan: RTD If there are questions or concerns regarding this patient's physical therapy, please feel free to call me at [phone]. Thank you for the referral of this patient. Sincerely, Calin Bolton, PT, Cert MDT, OCS
== END 2020-08-15 19:00 | disposition home or self-care (01) ==
LOC: PT 13:00
PROVIDERS: PCP Student in an Organized Health Care Education/Training Program
DX: M54.16 Radiculopathy, lumbar region (principal)
CPT/HCPCS: 97110; 97113; 97162; 97530

== ENCOUNTER → 2020-09-24 10:55 | Outpatient (CLI) | payer MEDICAID, SELFPAY ==
--- NOTE | 2020-09-24 11:04 | MRI_ITS ---
STUDY: MRI LUMBAR SPINE WITHOUT CONTRAST REASON FOR EXAM: Female, 55 years old. rt radiculopathy -- chronic pain low back and rt leg, no prev lumbar surgery TECHNIQUE: Standardized fat and water weighted pulse sequences were obtained in the sagittal and axial planes. COMPARISON: None FINDINGS: T12-L1: Normal endplates. Normal disc height, hydration and morphology. Normal bilateral facet joints. Normal central canal and bilateral lateral recesses. Normal bilateral intervertebral neural foramina. Normal lumbar lordosis. There is no substantial scoliosis. Normal conus medullaris that terminates at the L1/L2. L1-2: Normal endplates. Normal disc height, hydration and morphology. Normal bilateral facet joints. Normal central canal and bilateral lateral recesses. Normal bilateral intervertebral neural foramina. L2-3: Normal endplates. Normal disc height, hydration and morphology. Normal bilateral facet joints. Normal central canal and bilateral lateral recesses. Normal bilateral intervertebral neural foramina. L3-4: Mild bilateral facet hypertrophy and moderate ligament flavum hypertrophy. Mild broad disc protrusion produces mild spinal stenosis and mild bilateral neural foraminal stenosis. L4-5: Severe bilateral facet hypertrophy and moderate ligament flavum hypertrophy. 5 mm of anterolisthesis of L4 on L5 with a moderate broad disc protrusion produces moderate spinal stenosis with moderate bilateral lateral recess stenosis with abutment of the L5 nerve roots bilaterally and moderate bilateral neural foraminal stenosis with abutment of the exiting L4 nerve roots bilaterally. Furthermore, there is a moderate sized central disc extrusion which extends superiorly posterior to the L4 vertebral body contributing to spinal stenosis. L5-S1: Normal endplates. Normal disc height, hydration and morphology. Normal bilateral facet joints. Normal central canal and bilateral lateral recesses. Normal bilateral intervertebral neural foramina. Normal visualized sacral ala. Normal visualized paraspinous soft tissue structures. MRI/Spine Lumbar (Routine) IMPRESSION: Multilevel degenerative changes, as described above. Electronically Signed: Tito Long MD at 12:17 EST Tel , Service support ,
== END ==
PROVIDERS: PCP Student in an Organized Health Care Education/Training Program
DX: M54.16 Radiculopathy, lumbar region (principal)
CPT/HCPCS: 72148